=== PATIENT | male | born 1980 | race Caucasian/White ===

== ENCOUNTER 2022-12-05 15:15 | Inpatient (IN) | payer OTHER, SELFPAY ==
[2022-12-05] VITALS (12 sets, daily range): BP systolic 99–132; BP diastolic 42–78; PULSE 76–120; RESP 14–20; TEMP 36–36.8; O2SAT 98–100; BMI 18.0
--- NOTE | ~2022-12-05 | US_ITS ---
EXAMINATION: US GUIDED PARACENTESIS CLINICAL INFORMATION: Symptomatic ascites. COMPARISON: Previous CT of the abdomen and pelvis from yesterday. TECHNIQUE: Procedure and risks and benefits including bleeding, infection and low blood pressure were discussed with the patient and informed consent was obtained. The right lower quadrant/upper right pelvis was prepped and draped in the usual sterile fashion. The skin and soft tissues were anesthetized with 1% lidocaine plain. Using ultrasound guidance and a 4-[place] rapid centesis catheter, access to the ascitic fluid was obtained. 1.2 L of clear yellow fluid was removed. Diagnostic specimen was sent as requested by the ordering physician. FINDINGS: There is a [id number] amount of ascites. US/US paracentesis abd w/image IMPRESSION: Ultrasound-guided paracentesis.
--- NOTE | ~2022-12-05 | CT_ITS ---
EXAMINATION: CT ABDOMEN AND PELVIS WITHOUT CONTRAST CLINICAL INFORMATION: Abdominal pain and distention COMPARISON: Previous CT most recent December 2022, Limited abdominal ultrasound and KUB December 2022 TECHNIQUE: Multidetector volumetric imaging was performed from the superior aspect of the liver through the pubic symphysis. Sagittal and coronal reformatted images were obtained on the technologist's workstation. This CT examination was performed using dose optimization techniques as appropriate, variously including the following: *Automated exposure control *Adjustment of mA and/or kV according to patient size (this includes techniques or standardized protocols for targeted exams where dose is matched to indication/reason for exam; i.e. extremities or head) *Use of iterative reconstruction technique DLP: 405 mGy-cm FINDINGS: LUNG BASES: New moderate-sized bilateral pleural effusions and increasing lower lobe compressive atelectasis. LIVER, GALLBLADDER, AND BILIARY TREE: Enlarged liver. Increasing ascites. Gallbladder wall thickening and small amount of pericholecystic fluid. No gallstones appreciated by CT. No biliary duct dilatation. PANCREAS: Unremarkable. SPLEEN: Unremarkable. ADRENAL GLANDS: Unremarkable. KIDNEYS AND URETERS: 3 mm right lower pole nonobstructing stone. Kidneys are otherwise normal. BLADDER: Unremarkable. GASTROINTESTINAL TRACT: The small and large bowel are unremarkable. The appendix is normal. Increasing moderate amount of ascites, greatest in the pelvis. ABDOMINAL WALL: Small umbilical hernia containing fat. LYMPH NODES: Normal. VASCULAR: Unremarkable. PELVIC VISCERA: Unremarkable. OSSEOUS STRUCTURES: Unremarkable. CT/CT abdomen pelvis wo IV con IMPRESSION: Enlarged liver. Increasing ascites. Thickened gallbladder wall. Small nonobstructing right renal stone. Increasing bilateral pleural effusions. Fleischner guidelines were followed.
--- NOTE | ~2022-12-05 | US_ITS ---
EXAMINATION: ULTRASOUND-GUIDED PARACENTESIS CLINICAL INFORMATION: Ascites COMPARISON: Previous exam most recent 12/18/2022 TECHNIQUE: Procedure and risks and benefits including bleeding, infection and low blood pressure were discussed with the patient and informed consent was obtained. The lower mid abdomen/pelvis was prepped and draped in the usual sterile fashion. The skin and soft tissues were anesthetized with 1% lidocaine plain. Using ultrasound guidance and a 5 [place] catheter, access to the ascitic fluid was obtained. 2.2 L of clear yellow fluid was removed. Specimen was sent for Gram stain and culture. FINDINGS: There is a moderate amount of ascites. US/US paracentesis abd w/image IMPRESSION: Ultrasound-guided paracentesis.
--- NOTE | ~2022-12-05 | XR_ITS ---
EXAMINATION: XR ABDOMEN KUB CLINICAL INDICATION: Abdominal distention COMPARISON: CT scan of December 05, 2022 TECHNIQUE: AP view of the abdomen. FINDINGS: No dilated loops of large or small bowel are seen. There are a few gas filled loops of small bowel about the left lower abdomen predominantly with the appearance of possible wall thickening.. No pneumatosis intestinalis. A 4 mm calculus is seen adjacent to the right L3 transverse process likely representing a renal calculus. No bony abnormalities appreciated. XR/XR KUB IMPRESSION: No evidence to suggest bowel obstruction. Question some wall thickening of a few loops of small bowel within the left abdomen. Right nephrolithiasis.
--- NOTE | ~2022-12-05 | CT_ITS ---
EXAMINATION: CT CHEST WITHOUT CONTRAST CT ABDOMEN GI BLEED WITHOUT AND WITH CONTRAST. CLINICAL INFORMATION: Anemia, GI bleeding. SOB.. COMPARISON: CT abdomen and pelvis without contrast 03/25/2018 TECHNIQUE: Multidetector volumetric CT imaging of the chest was done. Axial MIP volume rendering provided. Sagittal and coronal reformatted images were obtained. Subsequently 5 minutes thin axial and reformatted 2 mm thin sagittal coronal images of abdomen pelvis were obtained without and with IV contrast as per GI bleeding protocol. This CT examination was performed using dose optimization techniques as appropriate, variously including the following: *Automated exposure control *Adjustment of mA and/or kV according to patient size (this includes techniques or standardized protocols for targeted exams where dose is matched to indication/reason for exam; i.e. 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 LUNGS: There is emphysematous changes of both lungs with bilateral apical bullae and bilateral apical parenchymal scarring. There is no acute consolidation, atelectasis or groundglass density. No pulmonary nodule or calcification seen. MEDIASTINUM: The central trachea and the bronchi widely patent. Thyroid lobes are symmetrical and normal. Heart size and the great vessels are normal caliber. No pericardial effusion seen. No abnormal-sized mediastinal or hilar lymph nodes seen. CORONARY ARTERY CALCIFICATION: None visualized on this study. PLEURA: There is no pleural effusion. There is minimal bilateral apical pleural thickening. No calcified pleural plaque seen. AXILLA: No lymphadenopathy. OSSEOUS STRUCTURES: No aggressive lytic or sclerotic process seen. CTA ABDOMEN. The abdominal aorta is of normal course and caliber. There is normal origin of celiac and superior mesenteric arteries. The inferior mesenteric artery is patent as well. There are solitary renal arteries bilaterally patent. The IVC is normal caliber both renal veins are patent. CT abdomen and pelvis: The liver is enlarged in size, normal contour and density. Liver measures 23 cm in length. No focal lesion or intrahepatic ductal dilatation seen. The gallbladder is distended without radiopaque calculi or wall thickening.. There is hypodensity surrounding the gallbladder in adjacent liver questioning fluid. Spleen: Unremarkable. Pancreas: Unremarkable. Bilateral adrenal glands: Unremarkable. Kidneys: Both kidneys nephrograms are symmetrical without enhancing lesion, cyst or hydronephrosis. There is a nonobstructive 7 mm calculi mid pole right kidney. Lymph nodes: No abnormal retroperitoneal lymph nodes seen. GI tract: There is scattered stool and gas seen throughout the colon without distention. There is mild mural thickening involving the ascending colon The distal small bowel loops in the pelvis are prominent with mural thickening. No intraluminal contrast extravasation seen to suspect bleed. Abdominal wall: Unremarkable. Pelvis: The bladder is nondistended. No free air or free fluid seen. No abnormal pelvic or inguinal lymph nodes seen. There is minimal fluid in the left scrotum. CT/CT gi bleed abd pel wo/w IVcon IMPRESSION: No acute process in the chest. There is minimal bilateral apical pleural thickening and parenchymal scarring. Mild mural thickening involving distal small bowel segments, proximal ascending colon suspicious for enteritis and proximal ascending colitis likely inflammatory or infectious etiology. No abnormal size mesenteric or retroperitoneal lymph nodes seen. Mild hepatomegaly. Distended gallbladder with periapical gallbladder fluid collection. Question acalculus cholecystitis. Consider clinical correlation and if right upper quadrant pain a HIDA scan. Nonobstructive right renal radiopaque calculi Fleischner guidelines were followed.
--- NOTE | ~2022-12-05 | US_ITS ---
EXAMINATION: US ABDOMEN LIMITED CLINICAL INFORMATION: Ascites.. COMPARISON: None TECHNIQUE: Real-time imaging of the right upper quadrant abdominal viscera. FINDINGS: Limited imaging through the right upper quadrant reveals trace free fluid in the right upper quadrant. The gallbladder wall thickness is enlarged and abnormal measuring 0.5 cm with mild fluid within the gallbladder wall.. There is mild pericystic fluid collection but no echogenic stone. There is a positive Bello's sign by sonography. US/US abdomen limited IMPRESSION: Findings suspicious for acalculus cholecystitis.
--- NOTE | ~2022-12-05 | CT_ITS ---
EXAMINATION: CT CHEST WITHOUT CONTRAST CT ABDOMEN GI BLEED WITHOUT AND WITH CONTRAST. CLINICAL INFORMATION: Anemia, GI bleeding. SOB.. COMPARISON: CT abdomen and pelvis without contrast 03/25/2018 TECHNIQUE: Multidetector volumetric CT imaging of the chest was done. Axial MIP volume rendering provided. Sagittal and coronal reformatted images were obtained. Subsequently 5 minutes thin axial and reformatted 2 mm thin sagittal coronal images of abdomen pelvis were obtained without and with IV contrast as per GI bleeding protocol. This CT examination was performed using dose optimization techniques as appropriate, variously including the following: *Automated exposure control *Adjustment of mA and/or kV according to patient size (this includes techniques or standardized protocols for targeted exams where dose is matched to indication/reason for exam; i.e. 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 LUNGS: There is emphysematous changes of both lungs with bilateral apical bullae and bilateral apical parenchymal scarring. There is no acute consolidation, atelectasis or groundglass density. No pulmonary nodule or calcification seen. MEDIASTINUM: The central trachea and the bronchi widely patent. Thyroid lobes are symmetrical and normal. Heart size and the great vessels are normal caliber. No pericardial effusion seen. No abnormal-sized mediastinal or hilar lymph nodes seen. CORONARY ARTERY CALCIFICATION: None visualized on this study. PLEURA: There is no pleural effusion. There is minimal bilateral apical pleural thickening. No calcified pleural plaque seen. AXILLA: No lymphadenopathy. OSSEOUS STRUCTURES: No aggressive lytic or sclerotic process seen. CTA ABDOMEN. The abdominal aorta is of normal course and caliber. There is normal origin of celiac and superior mesenteric arteries. The inferior mesenteric artery is patent as well. There are solitary renal arteries bilaterally patent. The IVC is normal caliber both renal veins are patent. CT abdomen and pelvis: The liver is enlarged in size, normal contour and density. Liver measures 23 cm in length. No focal lesion or intrahepatic ductal dilatation seen. The gallbladder is distended without radiopaque calculi or wall thickening.. There is hypodensity surrounding the gallbladder in adjacent liver questioning fluid. Spleen: Unremarkable. Pancreas: Unremarkable. Bilateral adrenal glands: Unremarkable. Kidneys: Both kidneys nephrograms are symmetrical without enhancing lesion, cyst or hydronephrosis. There is a nonobstructive 7 mm calculi mid pole right kidney. Lymph nodes: No abnormal retroperitoneal lymph nodes seen. GI tract: There is scattered stool and gas seen throughout the colon without distention. There is mild mural thickening involving the ascending colon The distal small bowel loops in the pelvis are prominent with mural thickening. No intraluminal contrast extravasation seen to suspect bleed. Abdominal wall: Unremarkable. Pelvis: The bladder is nondistended. No free air or free fluid seen. No abnormal pelvic or inguinal lymph nodes seen. There is minimal fluid in the left scrotum. CT/CT chest wo IV con IMPRESSION: No acute process in the chest. There is minimal bilateral apical pleural thickening and parenchymal scarring. Mild mural thickening involving distal small bowel segments, proximal ascending colon suspicious for enteritis and proximal ascending colitis likely inflammatory or infectious etiology. No abnormal size mesenteric or retroperitoneal lymph nodes seen. Mild hepatomegaly. Distended gallbladder with periapical gallbladder fluid collection. Question acalculus cholecystitis. Consider clinical correlation and if right upper quadrant pain a HIDA scan. Nonobstructive right renal radiopaque calculi Fleischner guidelines were followed.
--- NOTE | 2022-12-05 15:20 | ED.GENADULT ---
HPI - General Adult General Chief complaint: General Medical <YENNIFER Ayala - Last Filed: 12/05/22 15:26> Stated complaint: Dehydration/Anemia <YENNIFER Ayala Last Filed: 12/05/22 15:26> Time Seen by Provider: 12/05/22 16:27 <YENNIFER Ayala Last Filed: 12/05/22 15:26> Source: patient <Gi Hazel NP - Last Filed: 12/06/22 00:10> Mode of arrival: ambulatory <Gi Hazel NP - Last Filed: 12/06/22 00:10> Limitations: no limitations <Gi Hazel NP - Last Filed: 12/06/22 00:10> History of Present Illness HPI narrative: 42-year-old male presents from his primary care's office for anemia and dehydration. <SILVESTRE Cervantes Last Filed: 12/06/22 00:10> Severity: severe <SILVESTRE Cervantes Last Filed: 12/06/22 00:10> Associated symptoms: loss of appetite, nausea/vomiting and shortness of breath <Gi Hazel NP - Last Filed: 12/06/22 00:10> Treatments prior to arrival: none <Gi Hazel NP - Last Filed: 12/06/22 00:10> Related Data Home medications: Home Medications Medication Instructions Recorded Confirmed No Known Home Meds 12/05/22 12/05/22 <YENNIFER Ayala Last Filed: 12/05/22 15:26> Allergies/adverse reactions: Allergies Allergy/AdvReac Type Severity Reaction Status Date / Time No Known Allergies Allergy Verified 12/05/22 15:40 [No Known Allergies*] <YENNIFER Ayala Last Filed: 12/05/22 15:26> Review of Systems Review of Systems: Constitutional: No Fever, No Chills Cardiovascular: No Chest Pain, positive SOB Respiratory: No Cough, positive Dyspnea Gastrointestinal: Positive Nausea, positive Vomiting, No Diarrhea, positive abdominal Pain Genitourinary: No Dysuria, No Hematuria Musculoskeletal: No joint pain, No Myalgias, No Joint Swelling Skin: Positive jaundice, No Skin lacerations, No rash Neuro: Positive Weakness, No Numbness, No Paresthesias, No Dizziness, No Headache Psych: Positive alcohol abuse, No Anxiety/Panic, No Depression <Gi Hazel NP - Last Filed: 12/06/22 00:10> Yes all other systems are reviewed and are negative <Gi Hazel NP - Last Filed: 12/06/22 00:10> PMFSH Past Medical History Attestation statement: The following information was validated with the patient. <Gi Hazel NP - Last Filed: 12/06/22 00:10> Source: old records reviewed <Gi Hazel NP - Last Filed: 12/06/22 00:10> Social History Social History: Social History Alcohol intake: current Alcohol intake frequency: 3 or more drinks per day Patient Tobacco Use Status: Current everyday Tobacco user Smoked in Last 30 Days: Yes Use of substances other than those prescribed or required for medical reasons: Yes Substance Use Type: Marijuana Substance Use Frequency: Daily Advance Directives: No Advance Directives Information Provided: No <YENNIFER Ayala - Last Filed: 12/05/22 15:26> Physical Exam ED Vital Signs: Vital Signs - 24 hr 12/05/22 15:40 12/05/22 17:10 12/05/22 18:03 Temperature 96.8 F 98.1 F 98.2 F Pulse Rate 120 H 107 H 100 Respiratory Rate 20 18 18 Blood Pressure 106/53 L 132/78 120/70 Pulse Oximetry 100 100 Oxygen Delivery Method Room Air Room Air 12/05/22 18:19 12/05/22 18:30 12/05/22 19:30 Temperature 97.7 F 97.7 F 97.7 F Pulse Rate 102 H 97 109 H Respiratory Rate 18 18 18 Blood Pressure 120/68 120/68 101/74 Pulse Oximetry 100 98 Oxygen Delivery Method Room Air BMI result Body Mass Index 18.0 <YENNIFER Ayala - Last Filed: 12/05/22 15:26> Vital Signs - 24 hr 12/05/22 15:40 12/05/22 17:10 12/05/22 18:03 Temperature 96.8 F 98.1 F 98.2 F Pulse Rate 120 H 107 H 100 Respiratory Rate 20 18 18 Blood Pressure 106/53 L 132/78 120/70 Pulse Oximetry 100 100 Oxygen Delivery Method Room Air Room Air 12/05/22 18:19 12/05/22 18:30 12/05/22 19:30 Temperature 97.7 F 97.7 F 97.7 F Pulse Rate 102 H 97 109 H Respiratory Rate 18 18 18 Blood Pressure 120/68 120/68 101/74 Pulse Oximetry 100 98 Oxygen Delivery Method Room Air BMI result Body Mass Index 18.0 <Gi Hazel NP - Last Filed: 12/06/22 00:10> Appearance: Alert. Oriented. Disheveled. Jaundice. Cachectic. Eyes: Pupils equal, round and reactive to light. Sclera icteric. ENT: Pharynx normal. Dry mucous membranes. Neck: Normal inspection. CVS: Tachycardic heart rate and rhythm. Respiratory: Tachypneic. Breath sounds normal. Abdomen: Soft and distended. Skin: Skin warm and dry. Normal skin color. Normal skin turgor. Extremities: No lower extremity edema. Gait not assessed for safety. Neuro: No motor deficit. No sensory deficit. Cranial nerves 2-12 intact <Gi Hazel NP - Last Filed: 12/06/22 00:10> Course Course Course Narrative: RME performed by Jazmine Su PA-C. Patient is a 42 year old male presenting to the emergency department with a history of alcohol abuse. Dr. Hills walked the patient over and believes the patient is anemic. Labs ordered. Patient placed back in waiting room pending room availability and results. <YENNIFER Ayala Last Filed: 12/05/22 15:26> RME performed by Jazmine Su PA-C. Patient is a 42 year old male presenting to the emergency department with a history of alcohol abuse. Dr. Hills walked the patient over and believes the patient is anemic. Labs ordered. Patient placed back in waiting room pending room availability and results. 42-year-old male presents from Dr. Hills saw office for evaluation. Dr. Hills sent this patient for anemia and dehydration, this was his 1st visit to this primary care today, has been to [facility] in 2019. Patient has not had medical care since then. He drinks at least 2 pt of hard liquor daily, and is in moderate distress at this time. He is tachypneic, cachectic, with a distended abdomen and jaundice. He reports bright red blood per rectum. He has had some nausea and vomiting. Patient is a poor historian and his mother is at bedside. 16:45 critical value hemoglobin hematocrit 5.5/19.5. I did discuss the severity of these labs with this patient, patient will be admitted. 17:27 white count 27.0, platelets 123, lactic 15.9, at this time source of infection is not clear. Will resuscitate fluids 30 milliliters/kilogram, IV Zosyn. Sepsis alert called at this time. Abnormal lab values could also be due to severe alcoholism, malnutrition, dehydration and alcoholic ketoacidosis. 19:22 discussion with hospitalist, plan of care is to admit for alcohol withdrawal, lactic acidosis, colitis and acalculous cholecystitis, and sepsis. <Gi Hazel NP - Last Filed: 12/06/22 00:10> Consultations Consultation #1: Manuel <Gi Hazel NP - Last Filed: 12/06/22 00:10> Medications Administered Generic Name Dose Route Start Last Admin Trade Name Freq PRN Reason Stop Dose Admin Sodium Chloride 1,000 mls @ 100 mls/hr 12/05/22 20:30 12/05/22 20:55 Ns IVCONT 100 mls/hr .Q10H KULWANT Administration Piperacillin Sod/Tazobactam 50 mls @ 100 mls/hr 12/05/22 23:38 12/05/22 23:41 Sod 3.375 gm/ Sodium Chloride IV Infused Q6H KULWANT Infusion Albumin Human 100 mls @ 100 mls/hr 12/05/22 23:19 12/05/22 23:47 Kedbumin 25 % IV 12/06/22 00:18 Not Given ONCE ONE Nicotine 21 mg 12/05/22 22:00 12/05/22 22:19 Nicotine 21 Mg Patch.Td24 TRANSDERMA 21 mg DAILY KULWANT Administration Phenobarbital Sodium 217 mg 12/05/22 22:00 12/05/22 21:55 Phenobarbital Sodium 130 Mg/Ml Vial Im Q3hx2 IM 12/06/22 01:01 217 mg Q3H KULWANT Administration Sodium Chloride 3 ml 12/06/22 00:00 12/05/22 23:14 0.9 % Sodium Chloride Flush 3 Ml Syringe IVFLUSH 3 ml QSHIFT KULWANT Administration Discontinued Medications Generic Name Dose Route Start Last Admin Trade Name Sophia PRN Reason Stop Dose Admin Sodium Chloride 1,000 mls @ 999 mls/hr 12/05/22 16:45 12/05/22 18:38 Ns IVCONT 12/05/22 17:45 Infused .Q1H1M KULWANT Infusion Sodium Chloride 1,809.84 mls @ 1,809.84 mls/hr 12/05/22 17:29 12/05/22 20:54 Ns 30 ml/kg infuse over 1 hr (1809.84 ml) 12/05/22 18:28 Infused IV Infusion .Q1H STA Piperacillin Sod/Tazobactam 50 mls @ 100 mls/hr 12/05/22 17:29 12/05/22 19:52 Sod 3.375 gm/ Sodium Chloride IV 12/05/22 17:58 Infused ONCE ONE Infusion Thiamine HCl 100 mg/ Sodium 101 mls @ 202 mls/hr 12/05/22 18:56 12/05/22 20:54 Chloride IV 12/05/22 19:25 Infused ONCE ONE Infusion Folic Acid 1 mg/ Sodium 50.2 mls @ 100.4 mls/hr 12/05/22 18:56 12/05/22 21:34 Chloride IV 12/05/22 19:25 Infused ONCE ONE Infusion Sodium Chloride 1,000 mls @ 999 mls/hr 12/05/22 20:59 12/05/22 23:02 Ns IV 12/05/22 21:59 Infused .Q1H1M ONE Infusion Iohexol 100 ml 12/05/22 17:31 12/05/22 17:31 Iohexol 350 Mg/Ml 100 Ml Infus..Btl IV 12/05/22 17:32 80 ml ONCE ONE Administration Ondansetron HCl 4 mg 12/05/22 19:18 12/05/22 19:28 Ondansetron Hcl 4 Mg/2 Ml Vial IVPUSH 12/05/22 19:19 4 mg ONCE ONE Administration Pantoprazole Sodium 80 mg 12/05/22 20:58 12/05/22 21:51 Pantoprazole Sodium 40 Mg/10 Ml Vial IVPUSH 12/05/22 20:59 80 mg ONCE ONE Administration Phenobarbital Sodium 290 mg 12/05/22 18:15 12/05/22 18:35 Phenobarbital Sodium 130 Mg/Ml Im Once IM 12/05/22 18:16 290 mg ONCE ONE Administration <YENNIFER Ayala - Last Filed: 12/05/22 15:26> Medications Administered Generic Name Dose Route Start Last Admin Trade Name Sophia PRN Reason Stop Dose Admin Sodium Chloride 1,000 mls @ 100 mls/hr 12/05/22 20:30 12/05/22 20:55 Ns IVCONT 100 mls/hr .Q10H KULWANT Administration Piperacillin Sod/Tazobactam 50 mls @ 100 mls/hr 12/05/22 23:38 12/05/22 23:41 Sod 3.375 gm/ Sodium Chloride IV Infused Q6H KULWANT Infusion Albumin Human 100 mls @ 100 mls/hr 12/05/22 23:19 12/05/22 23:47 Kedbumin 25 % IV 12/06/22 00:18 Not Given ONCE ONE Nicotine 21 mg 12/05/22 22:00 12/05/22 22:19 Nicotine 21 Mg Patch.Td24 TRANSDERMA 21 mg DAILY KULWANT Administration Phenobarbital Sodium 217 mg 12/05/22 22:00 12/05/22 21:55 Phenobarbital Sodium 130 Mg/Ml Vial Im Q3hx2 IM 12/06/22 01:01 217 mg Q3H KULWANT Administration Sodium Chloride 3 ml 12/06/22 00:00 12/05/22 23:14 0.9 % Sodium Chloride Flush 3 Ml Syringe IVFLUSH 3 ml QSHIFT KULWANT Administration Discontinued Medications Generic Name Dose Route Start Last Admin Trade Name Sophia PRN Reason Stop Dose Admin Sodium Chloride 1,000 mls @ 999 mls/hr 12/05/22 16:45 12/05/22 18:38 Ns IVCONT 12/05/22 17:45 Infused .Q1H1M KULWANT Infusion Sodium Chloride 1,809.84 mls @ 1,809.84 mls/hr 12/05/22 17:29 12/05/22 20:54 Ns 30 ml/kg infuse over 1 hr (1809.84 ml) 12/05/22 18:28 Infused IV Infusion .Q1H STA Piperacillin Sod/Tazobactam 50 mls @ 100 mls/hr 12/05/22 17:29 12/05/22 19:52 Sod 3.375 gm/ Sodium Chloride IV 12/05/22 17:58 Infused ONCE ONE Infusion Thiamine HCl 100 mg/ Sodium 101 mls @ 202 mls/hr 12/05/22 18:56 12/05/22 20:54 Chloride IV 12/05/22 19:25 Infused ONCE ONE Infusion Folic Acid 1 mg/ Sodium 50.2 mls @ 100.4 mls/hr 12/05/22 18:56 12/05/22 21:34 Chloride IV 12/05/22 19:25 Infused ONCE ONE Infusion Sodium Chloride 1,000 mls @ 999 mls/hr 12/05/22 20:59 12/05/22 23:02 Ns IV 12/05/22 21:59 Infused .Q1H1M ONE Infusion Iohexol 100 ml 12/05/22 17:31 12/05/22 17:31 Iohexol 350 Mg/Ml 100 Ml Infus..Btl IV 12/05/22 17:32 80 ml ONCE ONE Administration Ondansetron HCl 4 mg 12/05/22 19:18 12/05/22 19:28 Ondansetron Hcl 4 Mg/2 Ml Vial IVPUSH 12/05/22 19:19 4 mg ONCE ONE Administration Pantoprazole Sodium 80 mg 12/05/22 20:58 12/05/22 21:51 Pantoprazole Sodium 40 Mg/10 Ml Vial IVPUSH 12/05/22 20:59 80 mg ONCE ONE Administration Phenobarbital Sodium 290 mg 12/05/22 18:15 12/05/22 18:35 Phenobarbital Sodium 130 Mg/Ml Im Once IM 12/05/22 18:16 290 mg ONCE ONE Administration <Gi Hazel NP - Last Filed: 12/06/22 00:10> Medical Decision Making Differential Diagnosis Differential Diagnoses: The differential diagnosis associated with the presentation includes <Gi Hazel NP - Last Filed: 12/06/22 00:10> sepsis, cholecystitis, cholelithiasis, alcoholic hepatitis, alcoholic ketoacidosis, alcohol withdrawal <Gi Hazel NP - Last Filed: 12/06/22 00:10> Admission/Observation Consideration of admission/observation: Escalation of care including admission/observation considered <Gi Hazel NP - Last Filed: 12/06/22 00:10> Consult Healthcare Provider Management of the patient was discussed with: Hospitalist <Gi Hazel NP - Last Filed: 12/06/22 00:10> Patient requires admission <Gi Hazel NP - Last Filed: 12/06/22 00:10> Lab Data MDM Lab Attestation statement: I reviewed the patient's lab results. <Gi Hazel NP - Last Filed: 12/06/22 00:10> Result Diagrams: 12/05/22 16:10 12/05/22 16:10 <YENNIFER Ayala - Last Filed: 12/05/22 15:26> Labs: Lab Results 12/05/22 12/05/22 12/05/22 Range/Units 16:10 16:10 16:10 WBC 27.0 H (4.8-10.8) X10*3/uL RBC 2.63 L (4.60-5.80) X10*6/uL Hgb 5.5 L* (14.0-18.0) g/dl Hct 19.5 L* (42.0-52.0) % MCV 74.1 L (80.0-98.0) fL MCH 20.9 L (27.0-33.0) pg MCHC 28.2 L (31.0-36.0) g/dl RDW 21.0 H (11.0-16.0) % Plt Count 123 L (160-400) X10*3/uL MPV 11.3 (9.4-12.4) fL Immature Gran % (Auto) Cancelled Neut % (Auto) Cancelled Lymph % (Auto) Cancelled [place] % (Auto) Cancelled Eos % (Auto) Cancelled Baso % (Auto) Cancelled Lymph # (Auto) Cancelled [place] # (Auto) Cancelled Eos # (Auto) Cancelled Baso # (Auto) Cancelled Abs Immat Gran (auto) Cancelled Absolute Neuts (auto) Cancelled Absolute Nucleated RBC 0.800 H (0.0-0.012) X10*3/uL Nucleated RBC % (auto) 3.0 H (0.0-0.2) /100WBC Neutrophils % (Manual) 84 H (45-73) % Band Neutrophils % 9 H (3-5) % Lymphocytes % (Manual) 4 L (20-40) % Monocytes % (Manual) 3 (2-11) % Abs Neuts (Manual) 25.1 H (2.0-8.3) X10*3/uL Lymphocytes # (Manual) 1.1 L (1.2-4.9) X10*3/uL Monocytes # (Manual) 0.8 (0.1-1.2) X10*3/uL Nucleated RBCs 2 H (0-0) /100WBC Toxic Granulation PRESENT Dohle Bodies PRESENT Platelet Estimate DECREASED (NORMAL) Large Platelets PRESENT Plt Morphology Comment NOTED RBC Morphology NOTED Basophilic Stippling 1+ (0-2) /OIF Microcytosis 2+ (15-30) /OIF Target Cells 1+ (5-14) /OIF Tear Drop Cells 2+ (3-5) /OIF Gina Cells 2+ (3-5) /OIF PT 20.4 H (10.0-13.1) SEC INR 1.7 H (0.9-1.1) APTT 30.3 (26.0-36.4) SEC VBG pH (7.32-7.43) VBG pCO2 mmHg VBG pO2 mmHg VBG HCO3 (22-26) mmol/L VBG O2 Saturation VBG Base Excess mmol/L Sodium 130 L (135-145) mmol/L Potassium 4.2 (3.3-5.1) mmol/L Chloride 84 L (96-108) mmol/L Carbon Dioxide 13 L (22-29) mmol/L Anion Gap 38 H (12-20) BUN 25 H (9-16) mg/dL Creatinine 1.00 (0.5-1.4) mg/dL Estim Creat Clear Calc 83.7 Estimated GFR > 60 Random Glucose 152 H (60-115) mg/dL Lactic Acid (0.5-2.0) mmol/L Lactic Acid F/U @ 2Hr (0.5-2.0) mmol/L Calcium 9.5 (8.4-10.2) mg/dL Magnesium 2.1 (1.6-2.6) mg/dL Total Bilirubin 2.6 H (0.0-1.0) mg/dL AST 95 H (5-37) U/L ALT 42 H (0-40) U/L Alkaline Phosphatase 230 H (39-117) U/L Ammonia (13-55) umol/L Troponin I High Sens (<3.5-35.0) ng/L Total Protein 6.9 (6.5-8.0) g/dL Albumin 3.7 (3.5-5.0) g/dL Urine Color Urine Appearance Urine pH (5.0-9.0) Ur Specific [place] (1.005-1.025) Urine Protein (Neg-Trace) mg/dL Urine Glucose (UA) (Negative) mg/dL Urine Ketones (Negative) mg/dL Urine Blood (Negative) Urine Nitrite (Negative) Ur Leukocyte Esterase (Negative) Urine Opiates Screen (Not Detect) Urine Fentanyl Screen (Not Detect) Ur Barbiturates Screen (Not Detect) Ur Phencyclidine Scrn (Not Detect) Ur Amphetamines Screen (Not Detect) U Benzodiazepines Scrn (Not Detect) Urine Cocaine Screen (Not Detect) U Marijuana (THC) Screen (Not Detect) Ethyl Alcohol mg/dL COVID-19 ([facility]) (Negative) COVID-19 Clin Com Blood Type Antibody Screen Crossmatch 12/05/22 12/05/22 12/05/22 Range/Units 16:10 16:10 16:55 WBC (4.8-10.8) X10*3/uL RBC (4.60-5.80) X10*6/uL Hgb (14.0-18.0) g/dl Hct (42.0-52.0) % MCV (80.0-98.0) fL MCH (27.0-33.0) pg MCHC (31.0-36.0) g/dl RDW (11.0-16.0) % Plt Count (160-400) X10*3/uL MPV (9.4-12.4) fL Immature Gran % (Auto) Neut % (Auto) Lymph % (Auto) [place] % (Auto) Eos % (Auto) Baso % (Auto) Lymph # (Auto) [place] # (Auto) Eos # (Auto) Baso # (Auto) Abs Immat Gran (auto) Absolute Neuts (auto) Absolute Nucleated RBC (0.0-0.012) X10*3/uL Nucleated RBC % (auto) (0.0-0.2) /100WBC Neutrophils % (Manual) (45-73) % Band Neutrophils % (3-5) % Lymphocytes % (Manual) (20-40) % Monocytes % (Manual) (2-11) % Abs Neuts (Manual) (2.0-8.3) X10*3/uL Lymphocytes # (Manual) (1.2-4.9) X10*3/uL Monocytes # (Manual) (0.1-1.2) X10*3/uL Nucleated RBCs (0-0) /100WBC Toxic Granulation Dohle Bodies Platelet Estimate (NORMAL) Large Platelets Plt Morphology Comment RBC Morphology Basophilic Stippling /OIF Microcytosis /OIF Target Cells /OIF Tear Drop Cells /OIF [place] Cells /OIF PT (10.0-13.1) SEC INR (0.9-1.1) APTT (26.0-36.4) SEC VBG pH (7.32-7.43) VBG pCO2 mmHg VBG pO2 mmHg VBG HCO3 (22-26) mmol/L VBG O2 Saturation VBG Base Excess mmol/L Sodium (135-145) mmol/L Potassium (3.3-5.1) mmol/L Chloride (96-108) mmol/L Carbon Dioxide (22-29) mmol/L Anion Gap (12-20) BUN (9-16) mg/dL Creatinine (0.5-1.4) mg/dL Estim Creat Clear Calc Estimated GFR Random Glucose (60-115) mg/dL Lactic Acid 15.9 H* (0.5-2.0) mmol/L Lactic Acid F/U @ 2Hr (0.5-2.0) mmol/L Calcium (8.4-10.2) mg/dL Magnesium (1.6-2.6) mg/dL Total Bilirubin (0.0-1.0) mg/dL AST (5-37) U/L ALT (0-40) U/L Alkaline Phosphatase (39-117) U/L Ammonia (13-55) umol/L Troponin I High Sens (<3.5-35.0) ng/L Total Protein (6.5-8.0) g/dL Albumin (3.5-5.0) g/dL Urine Color Urine Appearance Urine pH (5.0-9.0) Ur Specific [place] (1.005-1.025) Urine Protein (Neg-Trace) mg/dL Urine Glucose (UA) (Negative) mg/dL Urine Ketones (Negative) mg/dL Urine Blood (Negative) Urine Nitrite (Negative) Ur Leukocyte Esterase (Negative) Urine Opiates Screen (Not Detect) Urine Fentanyl Screen (Not Detect) Ur Barbiturates Screen (Not Detect) Ur Phencyclidine Scrn (Not Detect) Ur Amphetamines Screen (Not Detect) U Benzodiazepines Scrn (Not Detect) Urine Cocaine Screen (Not Detect) U Marijuana (THC) Screen (Not Detect) Ethyl Alcohol mg/dL COVID-19 ([facility]) Negative (Negative) COVID-19 Clin Com See Note Blood Type A Positive Antibody Screen NEGATIVE Crossmatch See Detail 12/05/22 12/05/22 12/05/22 Range/Units 16:55 16:55 16:55 WBC (4.8-10.8) X10*3/uL RBC (4.60-5.80) X10*6/uL Hgb (14.0-18.0) g/dl Hct (42.0-52.0) % MCV (80.0-98.0) fL MCH (27.0-33.0) pg MCHC (31.0-36.0) g/dl RDW (11.0-16.0) % Plt Count (160-400) X10*3/uL MPV (9.4-12.4) fL Immature Gran % (Auto) Neut % (Auto) Lymph % (Auto) [place] % (Auto) Eos % (Auto) Baso % (Auto) Lymph # (Auto) [place] # (Auto) Eos # (Auto) Baso # (Auto) Abs Immat Gran (auto) Absolute Neuts (auto) Absolute Nucleated RBC (0.0-0.012) X10*3/uL Nucleated RBC % (auto) (0.0-0.2) /100WBC Neutrophils % (Manual) (45-73) % Band Neutrophils % (3-5) % Lymphocytes % (Manual) (20-40) % Monocytes % (Manual) (2-11) % Abs Neuts (Manual) (2.0-8.3) X10*3/uL Lymphocytes # (Manual) (1.2-4.9) X10*3/uL Monocytes # (Manual) (0.1-1.2) X10*3/uL Nucleated RBCs (0-0) /100WBC Toxic Granulation Dohle Bodies Platelet Estimate (NORMAL) Large Platelets Plt Morphology Comment RBC Morphology Basophilic Stippling /OIF Microcytosis /OIF Target Cells /OIF Tear Drop Cells /OIF Gina Cells /OIF PT (10.0-13.1) SEC INR (0.9-1.1) APTT (26.0-36.4) SEC VBG pH (7.32-7.43) VBG pCO2 mmHg VBG pO2 mmHg VBG HCO3 (22-26) mmol/L VBG O2 Saturation VBG Base Excess mmol/L Sodium (135-145) mmol/L Potassium (3.3-5.1) mmol/L Chloride (96-108) mmol/L Carbon Dioxide (22-29) mmol/L Anion Gap (12-20) BUN (9-16) mg/dL Creatinine (0.5-1.4) mg/dL Estim Creat Clear Calc Estimated GFR Random Glucose (60-115) mg/dL Lactic Acid (0.5-2.0) mmol/L Lactic Acid F/U @ 2Hr (0.5-2.0) mmol/L Calcium (8.4-10.2) mg/dL Magnesium 2.1 (1.6-2.6) mg/dL Total Bilirubin (0.0-1.0) mg/dL AST (5-37) U/L ALT (0-40) U/L Alkaline Phosphatase (39-117) U/L Ammonia 26 (13-55) umol/L Troponin I High Sens < 3.5 (<3.5-35.0) ng/L Total Protein (6.5-8.0) g/dL Albumin (3.5-5.0) g/dL Urine Color Urine Appearance Urine pH (5.0-9.0) Ur Specific [place] (1.005-1.025) Urine Protein (Neg-Trace) mg/dL Urine Glucose (UA) (Negative) mg/dL Urine Ketones (Negative) mg/dL Urine Blood (Negative) Urine Nitrite (Negative) Ur Leukocyte Esterase (Negative) Urine Opiates Screen (Not Detect) Urine Fentanyl Screen (Not Detect) Ur Barbiturates Screen (Not Detect) Ur Phencyclidine Scrn (Not Detect) Ur Amphetamines Screen (Not Detect) U Benzodiazepines Scrn (Not Detect) Urine Cocaine Screen (Not Detect) U Marijuana (THC) Screen (Not Detect) Ethyl Alcohol < 10 mg/dL COVID-19 ([facility]) (Negative) COVID-19 Clin Com Blood Type Antibody Screen Crossmatch 12/05/22 12/05/22 12/05/22 Range/Units 19:01 19:01 19:40 WBC (4.8-10.8) X10*3/uL RBC (4.60-5.80) X10*6/uL Hgb (14.0-18.0) g/dl Hct (42.0-52.0) % MCV (80.0-98.0) fL MCH (27.0-33.0) pg MCHC (31.0-36.0) g/dl RDW (11.0-16.0) % Plt Count (160-400) X10*3/uL MPV (9.4-12.4) fL Immature Gran % (Auto) Neut % (Auto) Lymph % (Auto) [place] % (Auto) Eos % (Auto) Baso % (Auto) Lymph # (Auto) [place] # (Auto) Eos # (Auto) Baso # (Auto) Abs Immat Gran (auto) Absolute Neuts (auto) Absolute Nucleated RBC (0.0-0.012) X10*3/uL Nucleated RBC % (auto) (0.0-0.2) /100WBC Neutrophils % (Manual) (45-73) % Band Neutrophils % (3-5) % Lymphocytes % (Manual) (20-40) % Monocytes % (Manual) (2-11) % Abs Neuts (Manual) (2.0-8.3) X10*3/uL Lymphocytes # (Manual) (1.2-4.9) X10*3/uL Monocytes # (Manual) (0.1-1.2) X10*3/uL Nucleated RBCs (0-0) /100WBC Toxic Granulation Dohle Bodies Platelet Estimate (NORMAL) Large Platelets Plt Morphology Comment RBC Morphology Basophilic Stippling /OIF Microcytosis /OIF Target Cells /OIF Tear Drop Cells /OIF [place] Cells /OIF PT (10.0-13.1) SEC INR (0.9-1.1) APTT (26.0-36.4) SEC VBG pH (7.32-7.43) VBG pCO2 mmHg VBG pO2 mmHg VBG HCO3 (22-26) mmol/L VBG O2 Saturation VBG Base Excess mmol/L Sodium 132 L (135-145) mmol/L Potassium 3.4 (3.3-5.1) mmol/L Chloride 93 L (96-108) mmol/L Carbon Dioxide 15 L (22-29) mmol/L Anion Gap 27 H (12-20) BUN 22 H (9-16) mg/dL Creatinine 0.74 (0.5-1.4) mg/dL Estim Creat Clear Calc 113.2 Estimated GFR > 60 Random Glucose 115 (60-115) mg/dL Lactic Acid (0.5-2.0) mmol/L Lactic Acid F/U @ 2Hr (0.5-2.0) mmol/L Calcium 7.9 L D (8.4-10.2) mg/dL Magnesium (1.6-2.6) mg/dL Total Bilirubin (0.0-1.0) mg/dL AST (5-37) U/L ALT (0-40) U/L Alkaline Phosphatase (39-117) U/L Ammonia (13-55) umol/L Troponin I High Sens (<3.5-35.0) ng/L Total Protein (6.5-8.0) g/dL Albumin (3.5-5.0) g/dL Urine Color Dark Yellow Urine Appearance Clear Urine pH 5.0 (5.0-9.0) Ur Specific [place] >= 1.030 H (1.005-1.025) Urine Protein Trace (Neg-Trace) mg/dL Urine Glucose (UA) Negative (Negative) mg/dL Urine Ketones 15 (Negative) mg/dL Urine Blood Negative (Negative) Urine Nitrite Negative (Negative) Ur Leukocyte Esterase Negative (Negative) Urine Opiates Screen Not Detected (Not Detect) Urine Fentanyl Screen Not Detected (Not Detect) Ur Barbiturates Screen Not Detected (Not Detect) Ur Phencyclidine Scrn Not Detected (Not Detect) Ur Amphetamines Screen Not Detected (Not Detect) U Benzodiazepines Scrn Not Detected (Not Detect) Urine Cocaine Screen Not Detected (Not Detect) U Marijuana (THC) Screen POSITIVE H (Not Detect) Ethyl Alcohol mg/dL COVID-19 (WOJCIECH) (Negative) COVID-19 Clin Com Blood Type Antibody Screen Crossmatch 12/05/22 12/05/22 Range/Units 19:40 19:51 WBC (4.8-10.8) X10*3/uL RBC (4.60-5.80) X10*6/uL Hgb (14.0-18.0) g/dl Hct (42.0-52.0) % MCV (80.0-98.0) fL MCH (27.0-33.0) pg MCHC (31.0-36.0) g/dl RDW (11.0-16.0) % Plt Count (160-400) X10*3/uL MPV (9.4-12.4) fL Immature Gran % (Auto) Neut % (Auto) Lymph % (Auto) [place] % (Auto) Eos % (Auto) Baso % (Auto) Lymph # (Auto) [place] # (Auto) Eos # (Auto) Baso # (Auto) Abs Immat Gran (auto) Absolute Neuts (auto) Absolute Nucleated RBC (0.0-0.012) X10*3/uL Nucleated RBC % (auto) (0.0-0.2) /100WBC Neutrophils % (Manual) (45-73) % Band Neutrophils % (3-5) % Lymphocytes % (Manual) (20-40) % Monocytes % (Manual) (2-11) % Abs Neuts (Manual) (2.0-8.3) X10*3/uL Lymphocytes # (Manual) (1.2-4.9) X10*3/uL Monocytes # (Manual) (0.1-1.2) X10*3/uL Nucleated RBCs (0-0) /100WBC Toxic Granulation Dohle Bodies Platelet Estimate (NORMAL) Large Platelets Plt Morphology Comment RBC Morphology Basophilic Stippling /OIF Microcytosis /OIF Target Cells /OIF Tear Drop Cells /OIF [place]ina Cells /OIF PT (10.0-13.1) SEC INR (0.9-1.1) APTT (26.0-36.4) SEC VBG pH 7.48 H (7.32-7.43) VBG pCO2 22 mmHg VBG pO2 46 mmHg VBG HCO3 17 L (22-26) mmol/L VBG O2 Saturation TNP VBG Base Excess -5.2 mmol/L Sodium (135-145) mmol/L Potassium (3.3-5.1) mmol/L Chloride (96-108) mmol/L Carbon Dioxide (22-29) mmol/L Anion Gap (12-20) BUN (9-16) mg/dL Creatinine (0.5-1.4) mg/dL Estim Creat Clear Calc Estimated GFR Random Glucose (60-115) mg/dL Lactic Acid (0.5-2.0) mmol/L Lactic Acid F/U @ 2Hr 12.0 H* (0.5-2.0) mmol/L Calcium (8.4-10.2) mg/dL Magnesium (1.6-2.6) mg/dL Total Bilirubin (0.0-1.0) mg/dL AST (5-37) U/L ALT (0-40) U/L Alkaline Phosphatase (39-117) U/L Ammonia (13-55) umol/L Troponin I High Sens (<3.5-35.0) ng/L Total Protein (6.5-8.0) g/dL Albumin (3.5-5.0) g/dL Urine Color Urine Appearance Urine pH (5.0-9.0) Ur Specific [place] (1.005-1.025) Urine Protein (Neg-Trace) mg/dL Urine Glucose (UA) (Negative) mg/dL Urine Ketones (Negative) mg/dL Urine Blood (Negative) Urine Nitrite (Negative) Ur Leukocyte Esterase (Negative) Urine Opiates Screen (Not Detect) Urine Fentanyl Screen (Not Detect) Ur Barbiturates Screen (Not Detect) Ur Phencyclidine Scrn (Not Detect) Ur Amphetamines Screen (Not Detect) U Benzodiazepines Scrn (Not Detect) Urine Cocaine Screen (Not Detect) U Marijuana (THC) Screen (Not Detect) Ethyl Alcohol mg/dL COVID-19 ([facility]) (Negative) COVID-19 Clin Com Blood Type Antibody Screen Crossmatch <YENNIFER Ayala - Last Filed: 12/05/22 15:26> Lab Results 12/05/22 12/05/22 12/05/22 Range/Units 16:10 16:10 16:10 WBC 27.0 H (4.8-10.8) X10*3/uL RBC 2.63 L (4.60-5.80) X10*6/uL Hgb 5.5 L* (14.0-18.0) g/dl Hct 19.5 L* (42.0-52.0) % MCV 74.1 L (80.0-98.0) fL MCH 20.9 L (27.0-33.0) pg MCHC 28.2 L (31.0-36.0) g/dl RDW 21.0 H (11.0-16.0) % Plt Count 123 L (160-400) X10*3/uL MPV 11.3 (9.4-12.4) fL Immature Gran % (Auto) Cancelled Neut % (Auto) Cancelled Lymph % (Auto) Cancelled [place] % (Auto) Cancelled Eos % (Auto) Cancelled Baso % (Auto) Cancelled Lymph # (Auto) Cancelled [place] # (Auto) Cancelled Eos # (Auto) Cancelled Baso # (Auto) Cancelled Abs Immat Gran (auto) Cancelled Absolute Neuts (auto) Cancelled Absolute Nucleated RBC 0.800 H (0.0-0.012) X10*3/uL Nucleated RBC % (auto) 3.0 H (0.0-0.2) /100WBC Neutrophils % (Manual) 84 H (45-73) % Band Neutrophils % 9 H (3-5) % Lymphocytes % (Manual) 4 L (20-40) % Monocytes % (Manual) 3 (2-11) % Abs Neuts (Manual) 25.1 H (2.0-8.3) X10*3/uL Lymphocytes # (Manual) 1.1 L (1.2-4.9) X10*3/uL Monocytes # (Manual) 0.8 (0.1-1.2) X10*3/uL Nucleated RBCs 2 H (0-0) /100WBC Toxic Granulation PRESENT Dohle Bodies PRESENT Platelet Estimate DECREASED (NORMAL) Large Platelets PRESENT Plt Morphology Comment NOTED RBC Morphology NOTED Basophilic Stippling 1+ (0-2) /OIF Microcytosis 2+ (15-30) /OIF Target Cells 1+ (5-14) /OIF Tear Drop Cells 2+ (3-5) /OIF [place] Cells 2+ (3-5) /OIF PT 20.4 H (10.0-13.1) SEC INR 1.7 H (0.9-1.1) APTT 30.3 (26.0-36.4) SEC VBG pH (7.32-7.43) VBG pCO2 mmHg VBG pO2 mmHg VBG HCO3 (22-26) mmol/L VBG O2 Saturation VBG Base Excess mmol/L Sodium 130 L (135-145) mmol/L Potassium 4.2 (3.3-5.1) mmol/L Chloride 84 L (96-108) mmol/L Carbon Dioxide 13 L (22-29) mmol/L Anion Gap 38 H (12-20) BUN 25 H (9-16) mg/dL Creatinine 1.00 (0.5-1.4) mg/dL Estim Creat Clear Calc 83.7 Estimated GFR > 60 Random Glucose 152 H (60-115) mg/dL Lactic Acid (0.5-2.0) mmol/L Lactic Acid F/U @ 2Hr (0.5-2.0) mmol/L Calcium 9.5 (8.4-10.2) mg/dL Magnesium 2.1 (1.6-2.6) mg/dL Total Bilirubin 2.6 H (0.0-1.0) mg/dL AST 95 H (5-37) U/L ALT 42 H (0-40) U/L Alkaline Phosphatase 230 H (39-117) U/L Ammonia (13-55) umol/L Troponin I High Sens (<3.5-35.0) ng/L Total Protein 6.9 (6.5-8.0) g/dL Albumin 3.7 (3.5-5.0) g/dL Urine Color Urine Appearance Urine pH (5.0-9.0) Ur Specific [place] (1.005-1.025) Urine Protein (Neg-Trace) mg/dL Urine Glucose (UA) (Negative) mg/dL Urine Ketones (Negative) mg/dL Urine Blood (Negative) Urine Nitrite (Negative) Ur Leukocyte Esterase (Negative) Urine Opiates Screen (Not Detect) Urine Fentanyl Screen (Not Detect) Ur Barbiturates Screen (Not Detect) Ur Phencyclidine Scrn (Not Detect) Ur Amphetamines Screen (Not Detect) U Benzodiazepines Scrn (Not Detect) Urine Cocaine Screen (Not Detect) U Marijuana (THC) Screen (Not Detect) Ethyl Alcohol mg/dL COVID-19 ([facility]) (Negative) COVID-19 Clin Com Blood Type Antibody Screen Crossmatch 12/05/22 12/05/22 12/05/22 Range/Units 16:10 16:10 16:55 WBC (4.8-10.8) X10*3/uL RBC (4.60-5.80) X10*6/uL Hgb (14.0-18.0) g/dl Hct (42.0-52.0) % MCV (80.0-98.0) fL MCH (27.0-33.0) pg MCHC (31.0-36.0) g/dl RDW (11.0-16.0) % Plt Count (160-400) X10*3/uL MPV (9.4-12.4) fL Immature Gran % (Auto) Neut % (Auto) Lymph % (Auto) [place] % (Auto) Eos % (Auto) Baso % (Auto) Lymph # (Auto) [place] # (Auto) Eos # (Auto) Baso # (Auto) Abs Immat Gran (auto) Absolute Neuts (auto) Absolute Nucleated RBC (0.0-0.012) X10*3/uL Nucleated RBC % (auto) (0.0-0.2) /100WBC Neutrophils % (Manual) (45-73) % Band Neutrophils % (3-5) % Lymphocytes % (Manual) (20-40) % Monocytes % (Manual) (2-11) % Abs Neuts (Manual) (2.0-8.3) X10*3/uL Lymphocytes # (Manual) (1.2-4.9) X10*3/uL Monocytes # (Manual) (0.1-1.2) X10*3/uL Nucleated RBCs (0-0) /100WBC Toxic Granulation Dohle Bodies Platelet Estimate (NORMAL) Large Platelets Plt Morphology Comment RBC Morphology Basophilic Stippling /OIF Microcytosis /OIF Target Cells /OIF Tear Drop Cells /OIF Gina Cells /OIF PT (10.0-13.1) SEC INR (0.9-1.1) APTT (26.0-36.4) SEC VBG pH (7.32-7.43) VBG pCO2 mmHg VBG pO2 mmHg VBG HCO3 (22-26) mmol/L VBG O2 Saturation VBG Base Excess mmol/L Sodium (135-145) mmol/L Potassium (3.3-5.1) mmol/L Chloride (96-108) mmol/L Carbon Dioxide (22-29) mmol/L Anion Gap (12-20) BUN (9-16) mg/dL Creatinine (0.5-1.4) mg/dL Estim Creat Clear Calc Estimated GFR Random Glucose (60-115) mg/dL Lactic Acid 15.9 H* (0.5-2.0) mmol/L Lactic Acid F/U @ 2Hr (0.5-2.0) mmol/L Calcium (8.4-10.2) mg/dL Magnesium (1.6-2.6) mg/dL Total Bilirubin (0.0-1.0) mg/dL AST (5-37) U/L ALT (0-40) U/L Alkaline Phosphatase (39-117) U/L Ammonia (13-55) umol/L Troponin I High Sens (<3.5-35.0) ng/L Total Protein (6.5-8.0) g/dL Albumin (3.5-5.0) g/dL Urine Color Urine Appearance Urine pH (5.0-9.0) Ur Specific [place] (1.005-1.025) Urine Protein (Neg-Trace) mg/dL Urine Glucose (UA) (Negative) mg/dL Urine Ketones (Negative) mg/dL Urine Blood (Negative) Urine Nitrite (Negative) Ur Leukocyte Esterase (Negative) Urine Opiates Screen (Not Detect) Urine Fentanyl Screen (Not Detect) Ur Barbiturates Screen (Not Detect) Ur Phencyclidine Scrn (Not Detect) Ur Amphetamines Screen (Not Detect) U Benzodiazepines Scrn (Not Detect) Urine Cocaine Screen (Not Detect) U Marijuana (THC) Screen (Not Detect) Ethyl Alcohol mg/dL COVID-19 ([facility]) Negative (Negative) COVID-19 Clin Com See Note Blood Type A Positive Antibody Screen NEGATIVE Crossmatch See Detail 12/05/22 12/05/22 12/05/22 Range/Units 16:55 16:55 16:55 WBC (4.8-10.8) X10*3/uL RBC (4.60-5.80) X10*6/uL Hgb (14.0-18.0) g/dl Hct (42.0-52.0) % MCV (80.0-98.0) fL MCH (27.0-33.0) pg MCHC (31.0-36.0) g/dl RDW (11.0-16.0) % Plt Count (160-400) X10*3/uL MPV (9.4-12.4) fL Immature Gran % (Auto) Neut % (Auto) Lymph % (Auto) [place] % (Auto) Eos % (Auto) Baso % (Auto) Lymph # (Auto) [place] # (Auto) Eos # (Auto) Baso # (Auto) Abs Immat Gran (auto) Absolute Neuts (auto) Absolute Nucleated RBC (0.0-0.012) X10*3/uL Nucleated RBC % (auto) (0.0-0.2) /100WBC Neutrophils % (Manual) (45-73) % Band Neutrophils % (3-5) % Lymphocytes % (Manual) (20-40) % Monocytes % (Manual) (2-11) % Abs Neuts (Manual) (2.0-8.3) X10*3/uL Lymphocytes # (Manual) (1.2-4.9) X10*3/uL Monocytes # (Manual) (0.1-1.2) X10*3/uL Nucleated RBCs (0-0) /100WBC Toxic Granulation [place] Bodies Platelet Estimate (NORMAL) Large Platelets Plt Morphology Comment RBC Morphology Basophilic Stippling /OIF Microcytosis /OIF Target Cells /OIF Tear Drop Cells /OIF [place] Cells /OIF PT (10.0-13.1) SEC INR (0.9-1.1) APTT (26.0-36.4) SEC VBG pH (7.32-7.43) VBG pCO2 mmHg VBG pO2 mmHg VBG HCO3 (22-26) mmol/L VBG O2 Saturation VBG Base Excess mmol/L Sodium (135-145) mmol/L Potassium (3.3-5.1) mmol/L Chloride (96-108) mmol/L Carbon Dioxide (22-29) mmol/L Anion Gap (12-20) BUN (9-16) mg/dL Creatinine (0.5-1.4) mg/dL Estim Creat Clear Calc Estimated GFR Random Glucose (60-115) mg/dL Lactic Acid (0.5-2.0) mmol/L Lactic Acid F/U @ 2Hr (0.5-2.0) mmol/L Calcium (8.4-10.2) mg/dL Magnesium 2.1 (1.6-2.6) mg/dL Total Bilirubin (0.0-1.0) mg/dL AST (5-37) U/L ALT (0-40) U/L Alkaline Phosphatase (39-117) U/L Ammonia 26 (13-55) umol/L Troponin I High Sens < 3.5 (<3.5-35.0) ng/L Total Protein (6.5-8.0) g/dL Albumin (3.5-5.0) g/dL Urine Color Urine Appearance Urine pH (5.0-9.0) Ur Specific [place] (1.005-1.025) Urine Protein (Neg-Trace) mg/dL Urine Glucose (UA) (Negative) mg/dL Urine Ketones (Negative) mg/dL Urine Blood (Negative) Urine Nitrite (Negative) Ur Leukocyte Esterase (Negative) Urine Opiates Screen (Not Detect) Urine Fentanyl Screen (Not Detect) Ur Barbiturates Screen (Not Detect) Ur Phencyclidine Scrn (Not Detect) Ur Amphetamines Screen (Not Detect) U Benzodiazepines Scrn (Not Detect) Urine Cocaine Screen (Not Detect) U Marijuana (THC) Screen (Not Detect) Ethyl Alcohol < 10 mg/dL COVID-19 ([facility]) (Negative) COVID-19 Clin Com Blood Type Antibody Screen Crossmatch 12/05/22 12/05/22 12/05/22 Range/Units 19:01 19:01 19:40 WBC (4.8-10.8) X10*3/uL RBC (4.60-5.80) X10*6/uL Hgb (14.0-18.0) g/dl Hct (42.0-52.0) % MCV (80.0-98.0) fL MCH (27.0-33.0) pg MCHC (31.0-36.0) g/dl RDW (11.0-16.0) % Plt Count (160-400) X10*3/uL MPV (9.4-12.4) fL Immature Gran % (Auto) Neut % (Auto) Lymph % (Auto) [place] % (Auto) Eos % (Auto) Baso % (Auto) Lymph # (Auto) [place] # (Auto) Eos # (Auto) Baso # (Auto) Abs Immat Gran (auto) Absolute Neuts (auto) Absolute Nucleated RBC (0.0-0.012) X10*3/uL Nucleated RBC % (auto) (0.0-0.2) /100WBC Neutrophils % (Manual) (45-73) % Band Neutrophils % (3-5) % Lymphocytes % (Manual) (20-40) % Monocytes % (Manual) (2-11) % Abs Neuts (Manual) (2.0-8.3) X10*3/uL Lymphocytes # (Manual) (1.2-4.9) X10*3/uL Monocytes # (Manual) (0.1-1.2) X10*3/uL Nucleated RBCs (0-0) /100WBC Toxic Granulation [place]oh[place] Bodies Platelet Estimate (NORMAL) Large Platelets Plt Morphology Comment RBC Morphology Basophilic Stippling /OIF Microcytosis /OIF Target Cells /OIF Tear Drop Cells /OIF [place] Cells /OIF PT (10.0-13.1) SEC INR (0.9-1.1) APTT (26.0-36.4) SEC VBG pH (7.32-7.43) VBG pCO2 mmHg VBG pO2 mmHg VBG HCO3 (22-26) mmol/L VBG O2 Saturation VBG Base Excess mmol/L Sodium 132 L (135-145) mmol/L Potassium 3.4 (3.3-5.1) mmol/L Chloride 93 L (96-108) mmol/L Carbon Dioxide 15 L (22-29) mmol/L Anion Gap 27 H (12-20) BUN 22 H (9-16) mg/dL Creatinine 0.74 (0.5-1.4) mg/dL Estim Creat Clear Calc 113.2 Estimated GFR > 60 Random Glucose 115 (60-115) mg/dL Lactic Acid (0.5-2.0) mmol/L Lactic Acid F/U @ 2Hr (0.5-2.0) mmol/L Calcium 7.9 L D (8.4-10.2) mg/dL Magnesium (1.6-2.6) mg/dL Total Bilirubin (0.0-1.0) mg/dL AST (5-37) U/L ALT (0-40) U/L Alkaline Phosphatase (39-117) U/L Ammonia (13-55) umol/L Troponin I High Sens (<3.5-35.0) ng/L Total Protein (6.5-8.0) g/dL Albumin (3.5-5.0) g/dL Urine Color Dark Yellow Urine Appearance Clear Urine pH 5.0 (5.0-9.0) Ur Specific [place] >= 1.030 H (1.005-1.025) Urine Protein Trace (Neg-Trace) mg/dL Urine Glucose (UA) Negative (Negative) mg/dL Urine Ketones 15 (Negative) mg/dL Urine Blood Negative (Negative) Urine Nitrite Negative (Negative) Ur Leukocyte Esterase Negative (Negative) Urine Opiates Screen Not Detected (Not Detect) Urine Fentanyl Screen Not Detected (Not Detect) Ur Barbiturates Screen Not Detected (Not Detect) Ur Phencyclidine Scrn Not Detected (Not Detect) Ur Amphetamines Screen Not Detected (Not Detect) U Benzodiazepines Scrn Not Detected (Not Detect) Urine Cocaine Screen Not Detected (Not Detect) U Marijuana (THC) Screen POSITIVE H (Not Detect) Ethyl Alcohol mg/dL COVID-19 ([facility]) (Negative) COVID-19 Clin Com Blood Type Antibody Screen Crossmatch 12/05/22 12/05/22 Range/Units 19:40 19:51 WBC (4.8-10.8) X10*3/uL RBC (4.60-5.80) X10*6/uL Hgb (14.0-18.0) g/dl Hct (42.0-52.0) % MCV (80.0-98.0) fL MCH (27.0-33.0) pg MCHC (31.0-36.0) g/dl RDW (11.0-16.0) % Plt Count (160-400) X10*3/uL MPV (9.4-12.4) fL Immature Gran % (Auto) Neut % (Auto) Lymph % (Auto) [place] % (Auto) Eos % (Auto) Baso % (Auto) Lymph # (Auto) [place] # (Auto) Eos # (Auto) Baso # (Auto) Abs Immat Gran (auto) Absolute Neuts (auto) Absolute Nucleated RBC (0.0-0.012) X10*3/uL Nucleated RBC % (auto) (0.0-0.2) /100WBC Neutrophils % (Manual) (45-73) % Band Neutrophils % (3-5) % Lymphocytes % (Manual) (20-40) % Monocytes % (Manual) (2-11) % Abs Neuts (Manual) (2.0-8.3) X10*3/uL Lymphocytes # (Manual) (1.2-4.9) X10*3/uL Monocytes # (Manual) (0.1-1.2) X10*3/uL Nucleated RBCs (0-0) /100WBC Toxic Granulation [place] Bodies Platelet Estimate (NORMAL) Large Platelets Plt Morphology Comment RBC Morphology Basophilic Stippling /OIF Microcytosis /OIF Target Cells /OIF Tear Drop Cells /OIF [place] Cells /OIF PT (10.0-13.1) SEC INR (0.9-1.1) APTT (26.0-36.4) SEC VBG pH 7.48 H (7.32-7.43) VBG pCO2 22 mmHg VBG pO2 46 mmHg VBG HCO3 17 L (22-26) mmol/L VBG O2 Saturation TNP VBG Base Excess -5.2 mmol/L Sodium (135-145) mmol/L Potassium (3.3-5.1) mmol/L Chloride (96-108) mmol/L Carbon Dioxide (22-29) mmol/L Anion Gap (12-20) BUN (9-16) mg/dL Creatinine (0.5-1.4) mg/dL Estim Creat Clear Calc Estimated GFR Random Glucose (60-115) mg/dL Lactic Acid (0.5-2.0) mmol/L Lactic Acid F/U @ 2Hr 12.0 H* (0.5-2.0) mmol/L Calcium (8.4-10.2) mg/dL Magnesium (1.6-2.6) mg/dL Total Bilirubin (0.0-1.0) mg/dL AST (5-37) U/L ALT (0-40) U/L Alkaline Phosphatase (39-117) U/L Ammonia (13-55) umol/L Troponin I High Sens (<3.5-35.0) ng/L Total Protein (6.5-8.0) g/dL Albumin (3.5-5.0) g/dL Urine Color Urine Appearance Urine pH (5.0-9.0) Ur Specific [place] (1.005-1.025) Urine Protein (Neg-Trace) mg/dL Urine Glucose (UA) (Negative) mg/dL Urine Ketones (Negative) mg/dL Urine Blood (Negative) Urine Nitrite (Negative) Ur Leukocyte Esterase (Negative) Urine Opiates Screen (Not Detect) Urine Fentanyl Screen (Not Detect) Ur Barbiturates Screen (Not Detect) Ur Phencyclidine Scrn (Not Detect) Ur Amphetamines Screen (Not Detect) U Benzodiazepines Scrn (Not Detect) Urine Cocaine Screen (Not Detect) U Marijuana (THC) Screen (Not Detect) Ethyl Alcohol mg/dL COVID-19 ([facility]) (Negative) COVID-19 Clin Com Blood Type Antibody Screen Crossmatch <Gi Hazel NP - Last Filed: 12/06/22 00:10> ABG Data Attestation ABG: I personally reviewed and interpreted this ABG as follows: <Gi Hazel NP - Last Filed: 12/06/22 00:10> Interpretation: Metabolic acidosis <SILVESTRE Cervantes Last Filed: 12/06/22 00:10> Independent Interpretation I performed an independent interpretation of an: EKG and CT Scan <Gi Hazel NP - Last Filed: 12/06/22 00:10> Interpretation: Sinus tachycardia Otherwise normal ECG When compared with ECG of 20-OCT-2018 07:32, Vent. rate has increased BY 36 BPM QT has lengthened Vent. rate 103 BPM CO interval 118 ms QRS duration 92 ms QT/QTc 386/505 ms P-R-T axes 79 84 52 05-DEC-2022 17:12:02 <Gi Hazel NP - Last Filed: 12/06/22 00:10> Radiology Impression Discussion of test interpretation with radiology: I have reviewed the radiologist's reading. 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 LUNGS: There is emphysematous changes of both lungs with bilateral apical bullae and bilateral apical parenchymal scarring. There is no acute consolidation, atelectasis or groundglass density. No pulmonary nodule or calcification seen. MEDIASTINUM: The central trachea and the bronchi widely patent. Thyroid lobes are symmetrical and normal. Heart size and the great vessels are normal caliber. No pericardial effusion seen. No abnormal-sized mediastinal or hilar lymph nodes seen.? CORONARY ARTERY CALCIFICATION: None visualized on this study. PLEURA: There is no pleural effusion. There is minimal bilateral apical pleural thickening. No calcified pleural plaque seen.? AXILLA: No lymphadenopathy. OSSEOUS STRUCTURES: No aggressive lytic or sclerotic process seen. CTA ABDOMEN. The abdominal aorta is of normal course and caliber. There is normal origin of celiac and superior mesenteric arteries. The inferior mesenteric artery is patent as well. There are solitary renal arteries bilaterally patent. The IVC is normal caliber both renal veins are patent. CT abdomen and pelvis: The liver is enlarged in size, normal contour and density. Liver measures 23 cm in length. No focal lesion or intrahepatic ductal dilatation seen. The gallbladder is distended without radiopaque calculi or wall thickening.. There is hypodensity surrounding the gallbladder in adjacent liver questioning fluid. Spleen: Unremarkable. Pancreas: Unremarkable. Bilateral adrenal glands: Unremarkable. Kidneys: Both kidneys nephrograms are symmetrical without enhancing lesion, cyst or hydronephrosis. There is a nonobstructive 7 mm calculi mid pole right kidney. Lymph nodes: No abnormal retroperitoneal lymph nodes seen. GI tract: There is scattered stool and gas seen throughout the colon without distention. There is mild mural thickening involving the ascending colon The distal small bowel loops in the pelvis are prominent with mural thickening. No intraluminal contrast extravasation seen to suspect bleed. Abdominal wall: Unremarkable. Pelvis: The bladder is nondistended. No free air or free fluid seen. No abnormal pelvic or inguinal lymph nodes seen. There is minimal fluid in the left scrotum. CT/CT gi bleed abd pel wo/w IVcon IMPRESSION: No acute process in the chest. There is minimal bilateral apical pleural thickening and parenchymal scarring. ? Mild mural thickening involving distal small bowel segments, proximal ascending colon suspicious for enteritis and proximal ascending colitis likely inflammatory or infectious etiology. No abnormal size mesenteric or retroperitoneal lymph nodes seen. ? Mild hepatomegaly. Distended gallbladder with periapical gallbladder fluid collection. Question acalculus cholecystitis. Consider clinical correlation and if right upper quadrant pain a HIDA scan. ? Nonobstructive right renal radiopaque calculi ? Fleischner guidelines were followed. <Gi Hazel NP - Last Filed: 12/06/22 00:10> Independent Historian Clinical information obtained from an independent historian. History obtained from or confirmed by: Parent <Gi Hazel NP - Last Filed: 12/06/22 00:10> External Record Review External record reviewed: Outpatient record and Prior outpatient labs <Gi Hazel NP - Last Filed: 12/06/22 00:10> Chronic Conditions Patient?s care impacted by: Other (Alcoholism) <Gi Hazel NP - Last Filed: 12/06/22 00:10> Social Determinants Patient?s care significantly limited by Social Determinants of Health including: Other Social Determinant of Health <Gi Hazel NP - Last Filed: 12/06/22 00:10> Critical Care Time Critical Care Time Critical Care Time: Yes <Gi Hazel NP - Last Filed: 12/06/22 00:10> Total Critical Care Time: 65 <Gi Hazel NP - Last Filed: 12/06/22 00:10> Attestation: I have personally provided critical care time exclusive of time spent on separately billable procedures. Time includes review of laboratory data, radiology results, discussion with consultants, and monitoring for potential decompensation. Interventions were performed as documented. <Gi Hazel NP - Last Filed: 12/06/22 00:10> Discharge Plan Discharge Clinical Impression: Alcohol withdrawal, Acute GI bleeding, Colitis, Acalculous cholecystitis, Acute anemia <YENNIFER Ayala - Last Filed: 12/05/22 15:26> Patient Disposition: Admitted As Inpatient <YENNIFER Ayala - Last Filed: 12/05/22 15:26>
[2022-12-05 16:17] LABS: Mean Corpuscular HGB Conc 28.2 g/dl (31.0-36.0); Mean Corpuscular Hemoglobin 20.9 pg (27.0-33.0); Mean Corpuscular Volume 74.1 fL (80.0-98.0); Mean Platelet Volume 11.3 fL (9.4-12.4); Platelet Count 123 X10*3/uL (160-400); Red Blood Count 2.63 X10*6/uL (4.60-5.80)
[2022-12-05 16:31] LABS: COVID-19 Test Negative (Negative); IDNOW Serial# 6674DD1D
--- NOTE | 2022-12-05 16:32 | ECG_ITS ---
Test Reason : anemia Blood Pressure : / mmHG Vent. Rate : 103 BPM Atrial Rate : 103 BPM P-R Int : 118 ms QRS Dur : 092 ms QT Int : 386 ms P-R-T Axes : 079 084 052 degrees QTc Int : 505 ms Sinus tachycardia Otherwise normal ECG When compared with ECG of 20-OCT-2018 07:32, Vent. rate has increased BY 36 BPM QT has lengthened Referred By: Gi Hazel Electronically Signed By:Kevin Marroquin
[2022-12-05 16:34] LABS: INTERNATIONAL NORM RATIO 1.7 (0.9-1.1); Prothrombin Time 20.4 SEC (10.0-13.1)
[2022-12-05 16:36] LABS: Partial Thromboplastin Time 30.3 SEC (26.0-36.4)
[2022-12-05 16:39] LABS: Anion Gap 38 (12-20)
[2022-12-05 16:44] LABS: Hematocrit 19.5 % (42.0-52.0); Hemoglobin 5.5 g/dl (14.0-18.0)
[2022-12-05 16:52] LABS: Band Neutrophils Percent 9 % (3-5); Lymphocytes Absolute Manual 1.1 X10*3/uL (1.2-4.9); Lymphocytes Percent Manual 4 % (20-40); Monocytes Absolute Manual 0.8 X10*3/uL (0.1-1.2); Monocytes Percent Manual 3 % (2-11); Neutrophils Absolute Manual 25.1 X10*3/uL (2.0-8.3); Neutrophils Percent Manual 84 % (45-73)
[2022-12-05 16:53] LABS: Nucleated Red Blood Cells 2 /100WBC (0-0)
[2022-12-05 16:54] LABS: RBC Morphology NOTED
[2022-12-05 16:56] LABS: Microcytosis 2+ (15-30) /OIF
[2022-12-05 16:57] LABS: Alanine Aminotransferase 42 U/L (0-40); Albumin Level 3.7 g/dL (3.5-5.0); Alkaline Phosphatase 230 U/L (39-117); Aspartate Amino Transferase 95 U/L (5-37); Bilirubin Total 2.6 mg/dL (0.0-1.0); Blood Urea Nitrogen 25 mg/dL (9-16); Calcium 9.5 mg/dL (8.4-10.2); Carbon Dioxide 13 mmol/L (22-29); Chloride 84 mmol/L (96-108); Creatinine Clr Calc Pharmacy 83.7; Estimated Glomerular Filt Rate > 60; Glucose Random 152 mg/dL (60-115); Large Platelet PRESENT; Magnesium 2.1 mg/dL (1.6-2.6); Platelet Estimate DECREASED (NORMAL); Platelet Morphology Comment NOTED; Potassium 4.2 mmol/L (3.3-5.1); Sodium 130 mmol/L (135-145); Total Protein 6.9 g/dL (6.5-8.0)
[2022-12-05 16:58] LABS: Toxic Granulation PRESENT
[2022-12-05 16:59] LABS: Burr Cells 2+ (3-5) /OIF; Target Cells 1+ (5-14) /OIF; Tear Drop Cells 2+ (3-5) /OIF
[2022-12-05 17:01] LABS: Basophilic Stippling 1+ (0-2) /OIF
[2022-12-05 17:02] LABS: Dohle Bodies PRESENT
[2022-12-05] MEDS: 0.9 % Sodium Chloride 1,000 ML 999 ML IVCONT (17:07)
[2022-12-05 17:12] LABS: Ammonia 26 umol/L (13-55)
[2022-12-05 17:21] LABS: Ethanol < 10 mg/dL; Magnesium 2.1 mg/dL (1.6-2.6)
[2022-12-05 17:27] LABS: Lactic Acid 15.9 mmol/L (0.5-2.0)
--- NOTE | 2022-12-05 17:27 | PC.NURSE ---
Patient in Ct scan not able to start blood transfusion.
[2022-12-05] MEDS: iohexoL 350 MG/ML 100 ML INFUS..BTL IV (17:31)
[2022-12-05 17:37] LABS: Troponin-I High Sensitivity < 3.5 ng/L (<3.5-35.0)
[2022-12-05] MEDS: Piperacillin Sodium/Tazobactam 3.375 GM in 0.9 % Sodium Chloride 50 ML IV ×2 (17:38→23:10)
[2022-12-05] MEDS: PHENobarbitaL sodium 130 MG/ML IM ONCE 290 MG IM (18:35)
[2022-12-05 19:00] LABS: Reflex Lactate? Lactic Acid Added
[2022-12-05 19:10] LABS: Appearance Urine Clear; Color Urine Dark Yellow; Glucose Urine UA Negative (Negative); Leukocyte Esterase Urine Negative (Negative); Nitrite Urine Negative (Negative); Specific Gravity - Urine >= 1.030 (1.005-1.025); Urine Blood Negative (Negative); Urine Ketones 15 mg/dL (Negative); Urine Protein Trace mg/dL (Neg-Trace)
[2022-12-05] MEDS: Thiamine HCL 100 MG in 0.9 % Sodium Chloride 100 ML 202 MG IV (19:17)
[2022-12-05 19:18] LABS: Amphetamine Screen Urine Not Detected (Not Detect); Barbiturates, Urine Not Detected (Not Detect); Benzodiazepines Screen Urine Not Detected (Not Detect); Cannabinoid Screen Urine POSITIVE (Not Detect); Cocaine Screen Urine Not Detected (Not Detect); Fentanyl, urine Not Detected (Not Detect); Opiate Screen Urine Not Detected (Not Detect); Phencyclidine Screen Urine Not Detected (Not Detect)
--- NOTE | 2022-12-05 19:25 | PC.NURSE ---
Patient has moments of confusion and states is seeing double iGanna DE OLIVEIRA notified. Patient vomited notified Gianna DE OLIVEIRA verbal order of zofran 4mg iv push given awaiting result. tele: sinus rythym-sinus tachycardia 80-110's.
[2022-12-05] MEDS: ondansetron HCL 4 MG/2 ML VIAL IVPUSH (19:28)
[2022-12-05 20:20] LABS: VBG Base Excess -5.2 mmol/L; VBG HCO3 17 mmol/L (22-26); VBG pCO2 22 mmHg; VBG pO2 46 mmHg
[2022-12-05 20:28] LABS: Venous Blood Gas Refer to POC result
[2022-12-05 20:29] LABS: VBG pH 7.48 (7.32-7.43)
[2022-12-05 20:50] LABS: Anion Gap 27 (12-20); Blood Urea Nitrogen 22 mg/dL (9-16); Calcium 7.9 mg/dL (8.4-10.2); Carbon Dioxide 15 mmol/L (22-29); Chloride 93 mmol/L (96-108); Creatinine Clr Calc Pharmacy 113.2; Estimated Glomerular Filt Rate > 60; Glucose Random 115 mg/dL (60-115); Potassium 3.4 mmol/L (3.3-5.1); Sodium 132 mmol/L (135-145)
--- NOTE | 2022-12-05 20:50 | PC.NURSE ---
Pt had a bloody bowel movement once. Blood is bright red. MD aware.
[2022-12-05] MEDS: Folic Acid 1 MG in 0.9 % Sodium Chloride 50 ML 100.4 MG IV (20:55)
[2022-12-05] MEDS: 0.9 % Sodium Chloride 1,000 ML 100 ML IVCONT (20:55)
--- NOTE | 2022-12-05 21:02 | PM.IMHP ---
History of Present Illness Date of Service: 12/05/22 Attending physician on admission: Tano Jackson Chief Complaint: Weakness, anemia Pt is a 42-year-old male with a PMH significant for?alcohol use disorder who presents to the ED from his PCP for evaluation for anemia. Patient states that he has been not eating much since [place] due to having trouble swallowing because his throat feels dry and sore. Patient also complains of chronic headaches, leg cramps, and bleeding from hemorrhoids. Patient notes that he has nausea and vomiting almost every morning and again at lunch and also occasionally at dinner for the past couple of years. Patient also has had epigastric pain which is random with no known triggers. Patient has not been regularly to a PCP, but notes that he has received 3 transfusions in the past: 2 times here at the hospital and once at [facility]. Patient saw a PCP today due to weakness and lightheadedness for the past week with nonbloody diarrhea since yesterday. The provider there immediately sent him over to the ED to be evaluated for anemia with possible need for transfusion. Of note patient's mother is at bedside and states he currently consumes at least 2, maybe 3, pints of alcohol daily and smokes 1 pack of cigarettes a day. Patient states he has no interest in Addiction Services. In the ED patient was found to be tachycardic, and had episodes of diarrhea with bright red blood. Labs were significant for leukocytosis of 27.0, acute anemia of H&H of 5.5/19.5, MCV of 74.1, platelets of 123, hyponatremia of 130, chloride of 84, bicarb of 13, increased anion gap a 38, lactic acid of 15.9 with repeat of 12.0, magnesium WNL, ammonia WNL, troponin negative. VBG pH of 7.48 and HC03 of 17. Tox screen positive for marijuana, ethyl alcohol <10. CT?of chest showed no acute process. CT of abdomen/pelvis showed mild mural thickening involving distal small bowel segments, proximal ascending colon suspicious of enteritis and proximal ascending colitis likely inflammatory or infectious in nature. Gallbladder distended with periapical fluid collection, questionable for cholecystitis. EKG demonstrated sinus tachycardia. Pt was treated with phenobarbital, IVF, Zosyn, thiamine, folic acid, ondansetron, and IV Protonix. Pt will be admitted to the hospital for alcohol withdrawal and symptomatic anemia from acute GI bleed. Review of Systems Review of Systems: Weakness and lightheadedness x1 week Anorexia since before [place] Non painful bleeding from hemorrhoids Heartburn Nausea, vomiting daily x2 years Mild tremors Headache Leg cramps Yes all other systems are reviewed and are negative [facility] Social History Alcohol intake: current Alcohol intake frequency: 3 or more drinks per day Patient Tobacco Use Status: Current everyday Tobacco user Smoked in Last 30 Days: Yes Use of substances other than those prescribed or required for medical reasons: Yes Substance Use Type: Marijuana Substance Use Frequency: Daily Advance Directives: No Advance Directives Information Provided: No Meds Allergies Allergy/AdvReac Type Severity Reaction Status Date / Time No Known Allergies Allergy Verified 12/05/22 15:40 [No Known Allergies*] Active Medications: Current Medications Acetaminophen (Acetaminophen 325 Mg Tablet) 650 mg PO Q6H PRN PRN Reason: Pain, Mild (Pain Scale 1-3) Sodium Chloride (Ns) 1,000 mls @ 100 mls/hr IVCONT .Q10H [facility] Last Admin: 12/05/22 20:55 Dose: 100 mls/hr Thiamine HCl 100 mg/ Sodium (Chloride) 101 mls @ 202 mls/hr IV DAILY [facility] Sodium Chloride (Ns) 1,000 mls @ 999 mls/hr IV .Q1H1M ONE Stop: 12/05/22 21:59 Melatonin (Melatonin 3 Mg Tablet) 6 mg PO BEDTIME PRN PRN Reason: Insomnia Ondansetron HCl (Ondansetron Hcl 4 Mg/2 Ml Vial) 4 mg IVPUSH Q8H PRN PRN Reason: Nausea and Vomiting Pantoprazole Sodium (Pantoprazole Sodium 40 Mg/10 Ml Vial) 80 mg IVPUSH ONCE ONE Stop: 12/05/22 20:59 Pharmacy Consult (Consult Rx Etoh Phenob Im/Po) 1 each MISCELLANE ONCE PRN; Protocol PRN Reason: Consult order Pharmacy Consult (Consult Rx Perform Med Rec) 1 each MISCELLANE ONCE PRN PRN Reason: Consult order Phenobarbital (Phenobarbital 15 Mg Tablet) 45 mg PO BID [facility] Stop: 12/07/22 21:01 Phenobarbital (Phenobarbital 30 Mg Tablet) 30 mg PO BID [facility] Stop: 12/09/22 21:01 Phenobarbital (Phenobarbital 15 Mg Tablet) 15 mg PO DAILY [facility] Stop: 12/11/22 09:01 Phenobarbital Sodium (Phenobarbital Sodium 130 Mg/Ml Vial Im Q3hx2) 217 mg IM Q3H [facility] Stop: 12/06/22 01:01 Sodium Chloride (0.9 % Sodium Chloride Flush 3 Ml Syringe) 3 ml IVFLUSH QSHIFT [facility] Home Medications Medication Instructions Recorded Confirmed Last Taken Type No Known Home Meds 12/05/22 12/05/22 Unknown History Physical Exam Vital Signs and Narrative: Vital Signs: Last Vital Signs Temp 97.7 F 12/05/22 19:30 Pulse 109 H 12/05/22 19:30 Resp 18 12/05/22 19:30 BP 101/74 12/05/22 19:30 Pulse Ox 98 12/05/22 19:30 O2 Del Method 12/05/22 19:30 BMI result Body Mass Index 18.0 Constitutional: Pale, disheveled, poor hygiene, with episodes of active vomiting. Mental Status: Oriented to person, place and time. Eyes: Pupils are equal, round, and reactive to light. Ear, Nose, and Throat: Oropharynx clear, mucous membranes moist. Ears and nose without deformities. Trachea midline. Poor dentition. Respiratory: Clear to auscultation bilaterally. No wheezing, rales, or rhonchi. Cardiovascular: S1, S2 regular. No murmurs, rubs, or gallops. Gastrointestinal: Abdomen soft, non-distended, with mild epigastric tenderness. Normal bowel sounds. Negative Murhphy sign. Neurologic: Cranial nerves II-XII are grossly intact. No focal neurological deficits. Moves all extremities spontaneously. Skin: No rashes or lesions noted. Musculoskeletal: No cyanosis or clubbing. Extremities: No edema. Psychiatric: Normal mood and affect. Results Labs 12/05/22 16:10 12/05/22 19:40 Labs: Laboratory Results - last 24 hr 12/05/22 12/05/22 12/05/22 16:10 16:10 16:10 MCV 74.1 L MCH 20.9 L MCHC 28.2 L RDW 21.0 H Plt Count 123 L MPV 11.3 Immature Gran % (Auto) Cancelled Neut % (Auto) Cancelled Lymph % (Auto) Cancelled [place] % (Auto) Cancelled Eos % (Auto) Cancelled Baso % (Auto) Cancelled Lymph # (Auto) Cancelled [place] # (Auto) Cancelled Eos # (Auto) Cancelled Baso # (Auto) Cancelled Abs Immat Gran (auto) Cancelled Absolute Neuts (auto) Cancelled Absolute Nucleated RBC 0.800 H Nucleated RBC % (auto) 3.0 H Neutrophils % (Manual) 84 H Band Neutrophils % 9 H Lymphocytes % (Manual) 4 L Monocytes % (Manual) 3 Abs Neuts (Manual) 25.1 H Lymphocytes # (Manual) 1.1 L Monocytes # (Manual) 0.8 Nucleated RBCs 2 H Toxic Granulation PRESENT Dohle Bodies PRESENT Platelet Estimate DECREASED Large Platelets PRESENT Plt Morphology Comment NOTED RBC Morphology NOTED Basophilic Stippling 1+ (0-2) Microcytosis 2+ (15-30) Target Cells 1+ (5-14) Tear Drop Cells 2+ (3-5) [place] Cells 2+ (3-5) PT 20.4 H INR 1.7 H APTT 30.3 VBG pH VBG pCO2 VBG pO2 VBG HCO3 VBG O2 Saturation VBG Base Excess Anion Gap 38 H Estim Creat Clear Calc 83.7 Estimated GFR > 60 Random Glucose 152 H Lactic Acid Lactic Acid F/U @ 2Hr Calcium 9.5 Magnesium 2.1 Total Bilirubin 2.6 H AST 95 H ALT 42 H Alkaline Phosphatase 230 H Ammonia Troponin I High Sens Total Protein 6.9 Albumin 3.7 Urine Color Urine Appearance Urine pH Ur Specific [place] Urine Protein Urine Glucose (UA) Urine Ketones Urine Blood Urine Nitrite Ur Leukocyte Esterase Urine Opiates Screen Urine Fentanyl Screen Ur Barbiturates Screen Ur Phencyclidine Scrn Ur Amphetamines Screen U Benzodiazepines Scrn Urine Cocaine Screen U Marijuana (THC) Screen Ethyl Alcohol COVID-19 (WOJCIECH) COVID-19 Clin Com Blood Type Antibody Screen Crossmatch 12/05/22 12/05/22 12/05/22 16:10 16:10 16:55 MCV MCH MCHC RDW Plt Count MPV Immature Gran % (Auto) Neut % (Auto) Lymph % (Auto) [place] % (Auto) Eos % (Auto) Baso % (Auto) Lymph # (Auto) [place] # (Auto) Eos # (Auto) Baso # (Auto) Abs Immat Gran (auto) Absolute Neuts (auto) Absolute Nucleated RBC Nucleated RBC % (auto) Neutrophils % (Manual) Band Neutrophils % Lymphocytes % (Manual) Monocytes % (Manual) Abs Neuts (Manual) Lymphocytes # (Manual) Monocytes # (Manual) Nucleated RBCs Toxic Granulation Dohle Bodies Platelet Estimate Large Platelets Plt Morphology Comment RBC Morphology Basophilic Stippling Microcytosis Target Cells Tear Drop Cells [place] Cells PT INR APTT VBG pH VBG pCO2 VBG pO2 VBG HCO3 VBG O2 Saturation VBG Base Excess Anion Gap Estim Creat Clear Calc Estimated GFR Random Glucose Lactic Acid 15.9 H* Lactic Acid F/U @ 2Hr Calcium Magnesium Total Bilirubin AST ALT Alkaline Phosphatase Ammonia Troponin I High Sens Total Protein Albumin Urine Color Urine Appearance Urine pH Ur Specific [place] Urine Protein Urine Glucose (UA) Urine Ketones Urine Blood Urine Nitrite Ur Leukocyte Esterase Urine Opiates Screen Urine Fentanyl Screen Ur Barbiturates Screen Ur Phencyclidine Scrn Ur Amphetamines Screen U Benzodiazepines Scrn Urine Cocaine Screen U Marijuana (THC) Screen Ethyl Alcohol COVID-19 (WOJCIECH) Negative COVID-19 Clin Com See Note Blood Type A Positive Antibody Screen NEGATIVE Crossmatch See Detail 12/05/22 12/05/22 12/05/22 16:55 16:55 16:55 MCV MCH MCHC RDW Plt Count MPV Immature Gran % (Auto) Neut % (Auto) Lymph % (Auto) [place] % (Auto) Eos % (Auto) Baso % (Auto) Lymph # (Auto) [place] # (Auto) Eos # (Auto) Baso # (Auto) Abs Immat Gran (auto) Absolute Neuts (auto) Absolute Nucleated RBC Nucleated RBC % (auto) Neutrophils % (Manual) Band Neutrophils % Lymphocytes % (Manual) Monocytes % (Manual) Abs Neuts (Manual) Lymphocytes # (Manual) Monocytes # (Manual) Nucleated RBCs Toxic Granulation Dohle Bodies Platelet Estimate Large Platelets Plt Morphology Comment RBC Morphology Basophilic Stippling Microcytosis Target Cells Tear Drop Cells [place] Cells PT INR APTT VBG pH VBG pCO2 VBG pO2 VBG HCO3 VBG O2 Saturation VBG Base Excess Anion Gap Estim Creat Clear Calc Estimated GFR Random Glucose Lactic Acid Lactic Acid F/U @ 2Hr Calcium Magnesium 2.1 Total Bilirubin AST ALT Alkaline Phosphatase Ammonia 26 Troponin I High Sens < 3.5 Total Protein Albumin Urine Color Urine Appearance Urine pH Ur Specific [place] Urine Protein Urine Glucose (UA) Urine Ketones Urine Blood Urine Nitrite Ur Leukocyte Esterase Urine Opiates Screen Urine Fentanyl Screen Ur Barbiturates Screen Ur Phencyclidine Scrn Ur Amphetamines Screen U Benzodiazepines Scrn Urine Cocaine Screen U Marijuana (THC) Screen Ethyl Alcohol < 10 COVID-19 (WOJCIECH) COVID-19 [employer] Com Blood Type Antibody Screen Crossmatch 12/05/22 12/05/22 12/05/22 19:01 19:01 19:40 MCV MCH MCHC RDW Plt Count MPV Immature Gran % (Auto) Neut % (Auto) Lymph % (Auto) [place] % (Auto) Eos % (Auto) Baso % (Auto) Lymph # (Auto) [place] # (Auto) Eos # (Auto) Baso # (Auto) Abs Immat Gran (auto) Absolute Neuts (auto) Absolute Nucleated RBC Nucleated RBC % (auto) Neutrophils % (Manual) Band Neutrophils % Lymphocytes % (Manual) Monocytes % (Manual) Abs Neuts (Manual) Lymphocytes # (Manual) Monocytes # (Manual) Nucleated RBCs Toxic Granulation Dohle Bodies Platelet Estimate Large Platelets Plt Morphology Comment RBC Morphology Basophilic Stippling Microcytosis Target Cells Tear Drop Cells [place] Cells PT INR APTT VBG pH VBG pCO2 VBG pO2 VBG HCO3 VBG O2 Saturation VBG Base Excess Anion Gap 27 H Estim Creat Clear Calc 113.2 Estimated GFR > 60 Random Glucose 115 Lactic Acid Lactic Acid F/U @ 2Hr Calcium 7.9 L D Magnesium Total Bilirubin AST ALT Alkaline Phosphatase Ammonia Troponin I High Sens Total Protein Albumin Urine Color Dark Yellow Urine Appearance Clear Urine pH 5.0 Ur Specific [place] >= 1.030 H Urine Protein Trace Urine Glucose (UA) Negative Urine Ketones 15 Urine Blood Negative Urine Nitrite Negative Ur Leukocyte Esterase Negative Urine Opiates Screen Not Detected Urine Fentanyl Screen Not Detected Ur Barbiturates Screen Not Detected Ur Phencyclidine Scrn Not Detected Ur Amphetamines Screen Not Detected U Benzodiazepines Scrn Not Detected Urine Cocaine Screen Not Detected U Marijuana (THC) Screen POSITIVE H Ethyl Alcohol COVID-19 (WOJCIECH) COVID-19 [employer] Com Blood Type Antibody Screen Crossmatch 12/05/22 12/05/22 19:40 19:51 MCV MCH MCHC RDW Plt Count MPV Immature Gran % (Auto) Neut % (Auto) Lymph % (Auto) [place] % (Auto) Eos % (Auto) Baso % (Auto) Lymph # (Auto) [place] # (Auto) Eos # (Auto) Baso # (Auto) Abs Immat Gran (auto) Absolute Neuts (auto) Absolute Nucleated RBC Nucleated RBC % (auto) Neutrophils % (Manual) Band Neutrophils % Lymphocytes % (Manual) Monocytes % (Manual) Abs Neuts (Manual) Lymphocytes # (Manual) Monocytes # (Manual) Nucleated RBCs Toxic Granulation Dohle Bodies Platelet Estimate Large Platelets Plt Morphology Comment RBC Morphology Basophilic Stippling Microcytosis Target Cells Tear Drop Cells [place] Cells PT INR APTT VBG pH 7.48 H VBG pCO2 22 VBG pO2 46 VBG HCO3 17 L VBG O2 Saturation TNP VBG Base Excess -5.2 Anion Gap Estim Creat Clear Calc Estimated GFR Random Glucose Lactic Acid Lactic Acid F/U @ 2Hr 12.0 H* Calcium Magnesium Total Bilirubin AST ALT Alkaline Phosphatase Ammonia Troponin I High Sens Total Protein Albumin Urine Color Urine Appearance Urine pH Ur Specific [place] Urine Protein Urine Glucose (UA) Urine Ketones Urine Blood Urine Nitrite Ur Leukocyte Esterase Urine Opiates Screen Urine Fentanyl Screen Ur Barbiturates Screen Ur Phencyclidine Scrn Ur Amphetamines Screen U Benzodiazepines Scrn Urine Cocaine Screen U Marijuana (THC) Screen Ethyl Alcohol COVID-19 (WOJCIECH) COVID-19 Clin Com Blood Type Antibody Screen Crossmatch Imaging Radiologist's Impressions: Impressions Abdomen/Pelvis CT 12/05/22 18:28 IMPRESSION: No acute process in the chest. There is minimal bilateral apical pleural thickening and parenchymal scarring. Mild mural thickening involving distal small bowel segments, proximal ascending colon suspicious for enteritis and proximal ascending colitis likely inflammatory or infectious etiology. No abnormal size mesenteric or retroperitoneal lymph nodes seen. Mild hepatomegaly. Distended gallbladder with periapical gallbladder fluid collection. Question acalculus cholecystitis. Consider clinical correlation and if right upper quadrant pain a HIDA scan. Nonobstructive right renal radiopaque calculi Fleischner guidelines were followed. Chest CT 12/05/22 18:28 IMPRESSION: No acute process in the chest. There is minimal bilateral apical pleural thickening and parenchymal scarring. Mild mural thickening involving distal small bowel segments, proximal ascending colon suspicious for enteritis and proximal ascending colitis likely inflammatory or infectious etiology. No abnormal size mesenteric or retroperitoneal lymph nodes seen. Mild hepatomegaly. Distended gallbladder with periapical gallbladder fluid collection. Question acalculus cholecystitis. Consider clinical correlation and if right upper quadrant pain a HIDA scan. Nonobstructive right renal radiopaque calculi Fleischner guidelines were followed. Assessment and Plan (1) Alcohol withdrawal: Status: Acute (2) Acute GI bleeding: Status: Acute (3) Colitis: Status: Acute (4) Acute anemia: Status: Acute Plan Pt is a 42-year-old male with a PMH significant for?alcohol use disorder who presents to the ED from his PCP for evaluation for anemia. Pt will be admitted to the hospital for alcohol withdrawal and symptomatic anemia from acute GI bleed. Sepsis due to colitis Pt meets severe sepsis criteria: likely colitis, tachycardia, WBC 27.0, INR 1.7, lactic acid 12.0 with repeats 8.2 and then 4.0 Patient given 30 mls/kg bolus infusion of IVF IV abx: Zosyn 3.375mg q6 IV Protonix Monitor labs Acute blood loss anemia Likely secondary to lower GI bleed Patient's H&H 5.5/19.5 at time of presentation Pt claims to have nonpainful bleeding hemorrhoids, and pt experienced episodes of diarrhea with bright red blood Patient received 2 units of packed red blood cells in the ED GI consult Monitor H&H closely Alcohol withdrawal Patient's mother reports he drinks 2-3 pints a day, with last drink yesterday Mild withdrawal symptoms, started on phenobarb Folic acid, thiamine CIWA scale Monitor lytes Care Team consult Nicotine dependence Nicotine transdermal patch Full Code Attending:?Dr. Jackson DVT Prophylaxis: Pt ambulatory Pt will require a hospitalization of at least two nights for treatment of?alcohol withdrawal, symptomatic anemia from acute GI bleed, and severe sepsis d/t colitis.. Time Spent With Patient Time: Total time managing care of this patient today ____ minutes. Quality Stroke Does the patient have a stroke diagnosis?: No VTE Prior VTE?: No VTE Risk Level:: Medical - moderate - high VTE Device Contraindication: Treatment Not Indicated VTE Drug Contraindication: Treatment Not Indicated
[2022-12-05 21:18] LABS: Ammonia 39 umol/L (13-55)
[2022-12-05 21:41] LABS: Lactic Acid 8.2 mmol/L (0.5-2.0)
[2022-12-05 21:44] LABS: Acetone, serum QL Negative (Negative)
[2022-12-05 21:45] LABS: Reflex Lactate? 2 Y
--- NOTE | 2022-12-05 21:49 | PHA.MEDREC ---
Pharmacy Consult ? Medication Reconciliation Pharmacy has completed the medication reconciliation.
[2022-12-05] MEDS: Pantoprazole Sodium 40 MG/10 ML VIAL 80 MG IVPUSH (21:51)
[2022-12-05] MEDS: PHENobarbitaL sodium 130 MG/ML VIAL IM Q3Hx2 217 MG IM (21:55)
[2022-12-05] MEDS: 0.9 % Sodium Chloride 1,000 ML 999 ML IV (22:00)
[2022-12-05] MEDS: Nicotine 21 MG PATCH.TD24 TRANSDERMA (22:19)
[2022-12-05 23:07] LABS: Reflex Lactate? Lactic Acid Added
[2022-12-05] MEDS: 0.9 % Sodium Chloride Flush 3 ML SYRINGE IVFLUSH (23:14)
--- NOTE | 2022-12-05 23:19 | PC.NURSE ---
Pt reporting dizziness and nausea. BP decreased, Hospitalist aware.
--- NOTE | 2022-12-05 23:47 | PC.NURSE ---
Albumin not available hospital-wide. aware.
[2022-12-06] VITALS (13 sets, daily range): BP systolic 85–107; BP diastolic 44–62; PULSE 78–99; RESP 11–20; TEMP 36.6–37; O2SAT 97–100
[2022-12-06 00:03] LABS: ~Lactic Acid-LAB USE ONLY 2.7 mmol/L (0.5-2.0)
[2022-12-06 01:36] LABS: Reflex Lactate? 2 Y
[2022-12-06] MEDS: PHENobarbitaL sodium 130 MG/ML VIAL IM Q3Hx2 217 MG IM (01:47)
[2022-12-06 02:06] LABS: ~Lactic Acid-LAB USE ONLY 1.5 mmol/L (0.5-2.0)
[2022-12-06] MEDS: Piperacillin Sodium/Tazobactam 3.375 GM in 0.9 % Sodium Chloride 50 ML IV ×3 (05:36→18:13)
[2022-12-06 05:45] LABS: MANUAL DIFF FLAG NO
[2022-12-06 05:58] LABS: Basophils Percent Auto 0.2 % (0-2); Eosinophils Absolute Auto 0.1 X10*3/uL (0.0-0.4); Eosinophils Percent Auto 0.4 % (0-4); Imm Gran Abs Auto 0.17 X10*3/uL (0.00-0.03); Imm Gran Pct Auto 0.9 % (0.0-0.4); Lymphocytes Absolute Auto 1.5 X10*3/uL (1.2-4.9); Lymphocytes Percent Auto 8.5 % (20-40); Mean Corpuscular HGB Conc 29.5 g/dl (31.0-36.0); Mean Corpuscular Hemoglobin 23.1 pg (27.0-33.0); Mean Corpuscular Volume 78.3 fL (80.0-98.0); Mean Platelet Volume 11.1 fL (9.4-12.4); Monocytes Absolute Auto 0.6 X10*3/uL (0.1-1.2); Monocytes Percent Auto 3.4 % (2-11); Neutrophils Absolute Auto 15.7 x10*3/uL (2.0-8.3); Neutrophils Percent Auto 86.6 % (45-73); Red Blood Count 2.81 X10*6/uL (4.60-5.80); Red Cell Distribution Width 21.6 % (11.0-16.0); White Blood Count 18.1 X10*3/uL (4.8-10.8)
[2022-12-06 06:01] LABS: NRBC Pct Auto 1.7 /100WBC (0.0-0.2); Platelet Count 69 X10*3/uL (160-400)
[2022-12-06 06:02] LABS: Hemoglobin 6.5 g/dl (14.0-18.0)
[2022-12-06 06:13] LABS: Alanine Aminotransferase 34 U/L (0-40); Alkaline Phosphatase 171 U/L (39-117); Anion Gap 14 (12-20); Aspartate Amino Transferase 95 U/L (5-37); Bilirubin Total 3.4 mg/dL (0.0-1.0); Blood Urea Nitrogen 20 mg/dL (9-16); Calcium 7.6 mg/dL (8.4-10.2); Carbon Dioxide 24 mmol/L (22-29); Chloride 100 mmol/L (96-108); Estimated Glomerular Filt Rate > 60; Glucose Random 74 mg/dL (60-115); Potassium 2.8 mmol/L (3.3-5.1); Sodium 135 mmol/L (135-145); Total Protein 5.4 g/dL (6.5-8.0)
--- NOTE | 2022-12-06 06:51 | PC.NURSE ---
administration of the next liter of saline administration delayed, prior fluids still running.
--- NOTE | 2022-12-06 07:34 | MHC.EDTECH ---
Pt was found to be in the room with no linens on the bed. Room soiled, cleaned by this display card writer. New linens were put on the bed and blanket provided to patient. Room cleaned, pt belongings placed in belongings bag. Bed placed in low, locked position. Call robin within reach, able to make needs known.
[2022-12-06] MEDS: 0.9 % Sodium Chloride 1,000 ML 100 ML IVCONT (08:23)
[2022-12-06] MEDS: PHENobarbitaL 15 MG TABLET 45 MG PO ×2 (08:31→21:19)
[2022-12-06] MEDS: Nicotine 21 MG PATCH.TD24 TRANSDERMA (08:31)
[2022-12-06] MEDS: Thiamine HCL 100 MG in 0.9 % Sodium Chloride 100 ML 202 MG IV (08:35)
--- NOTE | 2022-12-06 13:31 | P.PNIM_ITS ---
Subjective Subjective Date of Service: 12/06/22 Interval History: Seen in follow up for acute blood loss anemia, colitis, sepsis, alcohol withdrawal Interval history: Patient reports feeling weak and fatigued. Currently being transfused packed red blood cells. Reports 5-6 episodes of watery diarrhea with bright red blood per day for several days. No nausea or vomiting. He does also report a self-limiting episode of hematemesis several weeks ago following binge drinking. No further episodes. Review of Systems Review of Systems: Yes all other systems are reviewed and are negative Physical Exam Vital Signs: Vital Signs: Last Vital Signs Temp 97.8 F 12/06/22 12:53 Pulse 84 12/06/22 12:53 Resp 18 12/06/22 12:53 BP 97/60 12/06/22 12:53 Pulse Ox 97 12/06/22 04:00 O2 Del Method 12/06/22 04:00 BMI result Body Mass Index 18.0 Constitutional - Awake and Alert, No apparent distress Eyes - PERRLA, EOMI Cardiovascular - S1S2, RRR, No edema Respiratory - Normal lung expansion, Normal respiratory effort, No respiratory distress, CTA bilaterally Gastrointestinal - diffuse tenderness to palpation, greatest in the upper quadrants with voluntary guarding. No rebound. ND; +BS Extremities - no calf tenderness bilaterally, no swelling Skin - Warm/Dry Neurological - Alert & oriented x3 Psychological - Appropriate affect Objective Data Active Medications Acetaminophen (Acetaminophen 325 Mg Tablet) 650 mg PO Q6H PRN PRN Reason: Pain, Mild (Pain Scale 1-3) Sodium Chloride (Ns) 1,000 mls @ 100 mls/hr IVCONT .Q10H [facility] Last Admin: 12/06/22 08:23 Dose: 100 mls/hr Documented By: DANIEL Thiamine HCl 100 mg/ Sodium (Chloride) 101 mls @ 202 mls/hr IV DAILY [facility] Last Infusion: 12/06/22 09:05 Dose: 0 mls/hr Documented By: DANIEL Piperacillin Sod/Tazobactam (Sod 3.375 gm/ Sodium Chloride) 50 mls @ 100 mls/hr IV Q6H [facility] Last Admin: 12/06/22 13:01 Dose: 100 mls/hr Documented By: DANIEL Melatonin (Melatonin 3 Mg Tablet) 6 mg PO BEDTIME PRN PRN Reason: Insomnia Nicotine (Nicotine 21 Mg Patch.Td24) 21 mg TRANSDERMA DAILY [facility] Last Admin: 12/06/22 08:31 Dose: 21 mg Documented By: DANIEL Ondansetron HCl (Ondansetron Hcl 4 Mg/2 Ml Vial) 4 mg IVPUSH Q8H PRN PRN Reason: Nausea and Vomiting Pharmacy Consult (Consult Rx Etoh Phenob Im/Po) 1 each MISCELLANE ONCE PRN; Protocol PRN Reason: Consult order Pharmacy Consult (Consult Rx Perform Med Rec) 1 each MISCELLANE ONCE PRN PRN Reason: Consult order Phenobarbital (Phenobarbital 15 Mg Tablet) 45 mg PO BID [facility] Stop: 12/07/22 21:01 Last Admin: 12/06/22 08:31 Dose: 45 mg Documented By: DANIEL Phenobarbital (Phenobarbital 30 Mg Tablet) 30 mg PO BID [facility] Stop: 12/09/22 21:01 Phenobarbital (Phenobarbital 15 Mg Tablet) 15 mg PO DAILY [facility] Stop: 12/11/22 09:01 Sodium Chloride (0.9 % Sodium Chloride Flush 3 Ml Syringe) 3 ml IVFLUSH QSHIFT [facility] Last Admin: 12/06/22 08:44 Dose: Not Given Documented By: DANIEL Non-Admin Reason: IV Running Labs 12/06/22 04:41 12/06/22 04:41 Labs: Laboratory Results - last 24 hr 12/05/22 12/05/22 12/05/22 16:10 16:10 16:10 MCV 74.1 L MCH 20.9 L MCHC 28.2 L RDW 21.0 H Plt Count 123 L MPV 11.3 Immature Gran % (Auto) Cancelled Neut % (Auto) Cancelled Lymph % (Auto) Cancelled [place] % (Auto) Cancelled Eos % (Auto) Cancelled Baso % (Auto) Cancelled Lymph # (Auto) Cancelled [place] # (Auto) Cancelled Eos # (Auto) Cancelled Baso # (Auto) Cancelled Abs Immat Gran (auto) Cancelled Absolute Neuts (auto) Cancelled Absolute Nucleated RBC 0.800 H Nucleated RBC % (auto) 3.0 H Neutrophils % (Manual) 84 H Band Neutrophils % 9 H Lymphocytes % (Manual) 4 L Monocytes % (Manual) 3 Abs Neuts (Manual) 25.1 H Lymphocytes # (Manual) 1.1 L Monocytes # (Manual) 0.8 Nucleated RBCs 2 H Toxic Granulation PRESENT Dohle Bodies PRESENT Platelet Estimate DECREASED Large Platelets PRESENT Plt Morphology Comment NOTED RBC Morphology NOTED Basophilic Stippling 1+ (0-2) Microcytosis 2+ (15-30) Target Cells 1+ (5-14) Tear Drop Cells 2+ (3-5) Gina Cells 2+ (3-5) PT 20.4 H INR 1.7 H APTT 30.3 VBG pH VBG pCO2 VBG pO2 VBG HCO3 VBG O2 Saturation VBG Base Excess Anion Gap 38 H Estim Creat Clear Calc 83.7 Estimated GFR > 60 Random Glucose 152 H Lactic Acid Lactic Acid F/U @ 2Hr Lactic Acid F/U @ 4Hr Calcium 9.5 Magnesium 2.1 Total Bilirubin 2.6 H AST 95 H ALT 42 H Alkaline Phosphatase 230 H Ammonia Troponin I High Sens Total Protein 6.9 Albumin 3.7 Urine Color Urine Appearance Urine pH Ur Specific [place] Urine Protein Urine Glucose (UA) Urine Ketones Urine Blood Urine Nitrite Ur Leukocyte Esterase Urine Opiates Screen Urine Fentanyl Screen Ur Barbiturates Screen Ur Phencyclidine Scrn Ur Amphetamines Screen U Benzodiazepines Scrn Urine Cocaine Screen U Marijuana (THC) Screen Ethyl Alcohol Acetone, Qual COVID-19 ([facility]JCIECH) COVID-19 Clin Com Blood Type Antibody Screen Crossmatch 12/05/22 12/05/22 12/05/22 16:10 16:10 16:55 MCV MCH MCHC RDW Plt Count MPV Immature Gran % (Auto) Neut % (Auto) Lymph % (Auto) [place] % (Auto) Eos % (Auto) Baso % (Auto) Lymph # (Auto) [place] # (Auto) Eos # (Auto) Baso # (Auto) Abs Immat Gran (auto) Absolute Neuts (auto) Absolute Nucleated RBC Nucleated RBC % (auto) Neutrophils % (Manual) Band Neutrophils % Lymphocytes % (Manual) Monocytes % (Manual) Abs Neuts (Manual) Lymphocytes # (Manual) Monocytes # (Manual) Nucleated RBCs Toxic Granulation Dohle Bodies Platelet Estimate Large Platelets Plt Morphology Comment RBC Morphology Basophilic Stippling Microcytosis Target Cells Tear Drop Cells Gina Cells PT INR APTT VBG pH VBG pCO2 VBG pO2 VBG HCO3 VBG O2 Saturation VBG Base Excess Anion Gap Estim Creat Clear Calc Estimated GFR Random Glucose Lactic Acid 15.9 H* Lactic Acid F/U @ 2Hr Lactic Acid F/U @ 4Hr Calcium Magnesium Total Bilirubin AST ALT Alkaline Phosphatase Ammonia Troponin I High Sens Total Protein Albumin Urine Color Urine Appearance Urine pH Ur Specific [place] Urine Protein Urine Glucose (UA) Urine Ketones Urine Blood Urine Nitrite Ur Leukocyte Esterase Urine Opiates Screen Urine Fentanyl Screen Ur Barbiturates Screen Ur Phencyclidine Scrn Ur Amphetamines Screen U Benzodiazepines Scrn Urine Cocaine Screen U Marijuana (THC) Screen Ethyl Alcohol Acetone, Qual COVID-19 (WOJCIECH) Negative COVID-19 Clin Com See Note Blood Type A Positive Antibody Screen NEGATIVE Crossmatch See Detail 12/05/22 12/05/22 12/05/22 16:55 16:55 16:55 MCV MCH MCHC RDW Plt Count MPV Immature Gran % (Auto) Neut % (Auto) Lymph % (Auto) [place] % (Auto) Eos % (Auto) Baso % (Auto) Lymph # (Auto) [place] # (Auto) Eos # (Auto) Baso # (Auto) Abs Immat Gran (auto) Absolute Neuts (auto) Absolute Nucleated RBC Nucleated RBC % (auto) Neutrophils % (Manual) Band Neutrophils % Lymphocytes % (Manual) Monocytes % (Manual) Abs Neuts (Manual) Lymphocytes # (Manual) Monocytes # (Manual) Nucleated RBCs Toxic Granulation Dohle Bodies Platelet Estimate Large Platelets Plt Morphology Comment RBC Morphology Basophilic Stippling Microcytosis Target Cells Tear Drop Cells Gina Cells PT INR APTT VBG pH VBG pCO2 VBG pO2 VBG HCO3 VBG O2 Saturation VBG Base Excess Anion Gap Estim Creat Clear Calc Estimated GFR Random Glucose Lactic Acid Lactic Acid F/U @ 2Hr Lactic Acid F/U @ 4Hr Calcium Magnesium 2.1 Total Bilirubin AST ALT Alkaline Phosphatase Ammonia 26 Troponin I High Sens < 3.5 Total Protein Albumin Urine Color Urine Appearance Urine pH Ur Specific [place] Urine Protein Urine Glucose (UA) Urine Ketones Urine Blood Urine Nitrite Ur Leukocyte Esterase Urine Opiates Screen Urine Fentanyl Screen Ur Barbiturates Screen Ur Phencyclidine Scrn Ur Amphetamines Screen U Benzodiazepines Scrn Urine Cocaine Screen U Marijuana (THC) Screen Ethyl Alcohol < 10 Acetone, Qual COVID-19 ([facility]JCIECH) COVID-19 Clin Com Blood Type Antibody Screen Crossmatch 12/05/22 12/05/22 12/05/22 19:01 19:01 19:40 MCV MCH MCHC RDW Plt Count MPV Immature Gran % (Auto) Neut % (Auto) Lymph % (Auto) [place] % (Auto) Eos % (Auto) Baso % (Auto) Lymph # (Auto) [place] # (Auto) Eos # (Auto) Baso # (Auto) Abs Immat Gran (auto) Absolute Neuts (auto) Absolute Nucleated RBC Nucleated RBC % (auto) Neutrophils % (Manual) Band Neutrophils % Lymphocytes % (Manual) Monocytes % (Manual) Abs Neuts (Manual) Lymphocytes # (Manual) Monocytes # (Manual) Nucleated RBCs Toxic Granulation Dohle Bodies Platelet Estimate Large Platelets Plt Morphology Comment RBC Morphology Basophilic Stippling Microcytosis Target Cells Tear Drop Cells [place] Cells PT INR APTT VBG pH VBG pCO2 VBG pO2 VBG HCO3 VBG O2 Saturation VBG Base Excess Anion Gap 27 H Estim Creat Clear Calc 113.2 Estimated GFR > 60 Random Glucose 115 Lactic Acid Lactic Acid F/U @ 2Hr Lactic Acid F/U @ 4Hr Calcium 7.9 L D Magnesium Total Bilirubin AST ALT Alkaline Phosphatase Ammonia Troponin I High Sens Total Protein Albumin Urine Color Dark Yellow Urine Appearance Clear Urine pH 5.0 Ur Specific [place] >= 1.030 H Urine Protein Trace Urine Glucose (UA) Negative Urine Ketones 15 Urine Blood Negative Urine Nitrite Negative Ur Leukocyte Esterase Negative Urine Opiates Screen Not Detected Urine Fentanyl Screen Not Detected Ur Barbiturates Screen Not Detected Ur Phencyclidine Scrn Not Detected Ur Amphetamines Screen Not Detected U Benzodiazepines Scrn Not Detected Urine Cocaine Screen Not Detected U Marijuana (THC) Screen POSITIVE H Ethyl Alcohol Acetone, Qual COVID-19 ([facility]CIE[facility]) COVID-19 Clin Com Blood Type Antibody Screen Crossmatch 12/05/22 12/05/22 12/05/22 19:40 19:51 21:02 MCV MCH MCHC RDW Plt Count MPV Immature Gran % (Auto) Neut % (Auto) Lymph % (Auto) [place] % (Auto) Eos % (Auto) Baso % (Auto) Lymph # (Auto) [place] # (Auto) Eos # (Auto) Baso # (Auto) Abs Immat Gran (auto) Absolute Neuts (auto) Absolute Nucleated RBC Nucleated RBC % (auto) Neutrophils % (Manual) Band Neutrophils % Lymphocytes % (Manual) Monocytes % (Manual) Abs Neuts (Manual) Lymphocytes # (Manual) Monocytes # (Manual) Nucleated RBCs Toxic Granulation Dohle Bodies Platelet Estimate Large Platelets Plt Morphology Comment RBC Morphology Basophilic Stippling Microcytosis Target Cells Tear Drop Cells Gina Cells PT INR APTT VBG pH 7.48 H VBG pCO2 22 VBG pO2 46 VBG HCO3 17 L VBG O2 Saturation TNP VBG Base Excess -5.2 Anion Gap Estim Creat Clear Calc Estimated GFR Random Glucose Lactic Acid 8.2 H* Lactic Acid F/U @ 2Hr 12.0 H* Lactic Acid F/U @ 4Hr Calcium Magnesium Total Bilirubin AST ALT Alkaline Phosphatase Ammonia Troponin I High Sens Total Protein Albumin Urine Color Urine Appearance Urine pH Ur Specific [place] Urine Protein Urine Glucose (UA) Urine Ketones Urine Blood Urine Nitrite Ur Leukocyte Esterase Urine Opiates Screen Urine Fentanyl Screen Ur Barbiturates Screen Ur Phencyclidine Scrn Ur Amphetamines Screen U Benzodiazepines Scrn Urine Cocaine Screen U Marijuana (THC) Screen Ethyl Alcohol Acetone, Qual COVID-19 ([facility]CIECH) COVID-19 Clin Com Blood Type Antibody Screen Crossmatch 12/05/22 12/05/22 12/05/22 21:02 21:02 22:10 MCV MCH MCHC RDW Plt Count MPV Immature Gran % (Auto) Neut % (Auto) Lymph % (Auto) [place] % (Auto) Eos % (Auto) Baso % (Auto) Lymph # (Auto) [place] # (Auto) Eos # (Auto) Baso # (Auto) Abs Immat Gran (auto) Absolute Neuts (auto) Absolute Nucleated RBC Nucleated RBC % (auto) Neutrophils % (Manual) Band Neutrophils % Lymphocytes % (Manual) Monocytes % (Manual) Abs Neuts (Manual) Lymphocytes # (Manual) Monocytes # (Manual) Nucleated RBCs Toxic Granulation Dohle Bodies Platelet Estimate Large Platelets Plt Morphology Comment RBC Morphology Basophilic Stippling Microcytosis Target Cells Tear Drop Cells Gina Cells PT INR APTT VBG pH VBG pCO2 VBG pO2 VBG HCO3 VBG O2 Saturation VBG Base Excess Anion Gap Estim Creat Clear Calc Estimated GFR Random Glucose Lactic Acid Lactic Acid F/U @ 2Hr Lactic Acid F/U @ 4Hr 4.0 H* Calcium Magnesium Total Bilirubin AST ALT Alkaline Phosphatase Ammonia 39 Troponin I High Sens Total Protein Albumin Urine Color Urine Appearance Urine pH Ur Specific [place] Urine Protein Urine Glucose (UA) Urine Ketones Urine Blood Urine Nitrite Ur Leukocyte Esterase Urine Opiates Screen Urine Fentanyl Screen Ur Barbiturates Screen Ur Phencyclidine Scrn Ur Amphetamines Screen U Benzodiazepines Scrn Urine Cocaine Screen U Marijuana (THC) Screen Ethyl Alcohol Acetone, Qual Negative COVID-19 (WOJCIECH) COVID-19 Clin Com Blood Type Antibody Screen Crossmatch 12/05/22 12/06/22 12/06/22 23:32 01:49 04:41 MCV 78.3 L MCH 23.1 L MCHC 29.5 L RDW 21.6 H Plt Count 69 L D MPV 11.1 Immature Gran % (Auto) 0.9 H Neut % (Auto) 86.6 H Lymph % (Auto) 8.5 L [place] % (Auto) 3.4 Eos % (Auto) 0.4 Baso % (Auto) 0.2 Lymph # (Auto) 1.5 [place] # (Auto) 0.6 Eos # (Auto) 0.1 Baso # (Auto) 0.0 Abs Immat Gran (auto) 0.17 H Absolute Neuts (auto) 15.7 H Absolute Nucleated RBC 0.310 H Nucleated RBC % (auto) 1.7 H Neutrophils % (Manual) Band Neutrophils % Lymphocytes % (Manual) Monocytes % (Manual) Abs Neuts (Manual) Lymphocytes # (Manual) Monocytes # (Manual) Nucleated RBCs Toxic Granulation Dohle Bodies Platelet Estimate Large Platelets Plt Morphology Comment RBC Morphology Basophilic Stippling Microcytosis Target Cells Tear Drop Cells Gina Cells PT INR APTT VBG pH VBG pCO2 VBG pO2 VBG HCO3 VBG O2 Saturation VBG Base Excess Anion Gap Estim Creat Clear Calc Estimated GFR Random Glucose Lactic Acid Lactic Acid F/U @ 2Hr 2.7 H* Lactic Acid F/U @ 4Hr 1.5 Calcium Magnesium Total Bilirubin AST ALT Alkaline Phosphatase Ammonia Troponin I High Sens Total Protein Albumin Urine Color Urine Appearance Urine pH Ur Specific [place] Urine Protein Urine Glucose (UA) Urine Ketones Urine Blood Urine Nitrite Ur Leukocyte Esterase Urine Opiates Screen Urine Fentanyl Screen Ur Barbiturates Screen Ur Phencyclidine Scrn Ur Amphetamines Screen U Benzodiazepines Scrn Urine Cocaine Screen U Marijuana (THC) Screen Ethyl Alcohol Acetone, Qual COVID-19 (WOJCIECH) COVID-19 Asl Analytical Com Blood Type Antibody Screen Crossmatch 12/06/22 04:41 MCV MCH MCHC RDW Plt Count MPV Immature Gran % (Auto) Neut % (Auto) Lymph % (Auto) [place] % (Auto) Eos % (Auto) Baso % (Auto) Lymph # (Auto) [place] # (Auto) Eos # (Auto) Baso # (Auto) Abs Immat Gran (auto) Absolute Neuts (auto) Absolute Nucleated RBC Nucleated RBC % (auto) Neutrophils % (Manual) Band Neutrophils % Lymphocytes % (Manual) Monocytes % (Manual) Abs Neuts (Manual) Lymphocytes # (Manual) Monocytes # (Manual) Nucleated RBCs Toxic Granulation Dohle Bodies Platelet Estimate Large Platelets Plt Morphology Comment RBC Morphology Basophilic Stippling Microcytosis Target Cells Tear Drop Cells Gina Cells PT INR APTT VBG pH VBG pCO2 VBG pO2 VBG HCO3 VBG O2 Saturation VBG Base Excess Anion Gap 14 Estim Creat Clear Calc 125.0 Estimated GFR > 60 Random Glucose 74 Lactic Acid Lactic Acid F/U @ 2Hr Lactic Acid F/U @ 4Hr Calcium 7.6 L Magnesium Total Bilirubin 3.4 H AST 95 H ALT 34 Alkaline Phosphatase 171 H Ammonia Troponin I High Sens Total Protein 5.4 L Albumin 3.0 L Urine Color Urine Appearance Urine pH Ur Specific [place] Urine Protein Urine Glucose (UA) Urine Ketones Urine Blood Urine Nitrite Ur Leukocyte Esterase Urine Opiates Screen Urine Fentanyl Screen Ur Barbiturates Screen Ur Phencyclidine Scrn Ur Amphetamines Screen U Benzodiazepines Scrn Urine Cocaine Screen U Marijuana (THC) Screen Ethyl Alcohol Acetone, Qual COVID-19 ([facility]) COVID-19 Clin Com Blood Type Antibody Screen Crossmatch Assessment and Plan (1) Acute anemia: Status: Acute (2) Alcohol withdrawal: Status: Acute (3) Acute GI bleeding: Status: Acute (4) Colitis: Status: Acute Plan Pt is a 42-year-old male with a PMH significant for?alcohol use disorder who presents to the ED from his PCP for evaluation for anemia. Pt will be admitted to the hospital for alcohol withdrawal and symptomatic anemia from acute GI bleed. #Sepsis due to colitis- resolved -WBC trending down -Pt tolerating PO. Hold IVF -CDiff and GI panels ordered given significant diarrhea -Continue Zosyn 3.375mg q6 -IV Protonix -Monitor labs -GI consult #Acute blood loss anemia -Likely secondary to lower GI bleed -Patient's H&H 5.5/19.5 at time of presentation. Transfused 4 units. Repeat CBC 6 hrs after final unit -Pt claims to have nonpainful bleeding hemorrhoids, and pt experienced episodes of diarrhea with bright red blood -appreciate GI input -Monitor H&H closely # acalculous cholecystitis -continue Zosyn -appreciate GI input #Alcohol withdrawal -Patient's mother reports he drinks 2-3 pints a day, with last drink yesterday -Mild withdrawal symptoms, started on phenobarb -Folic acid, thiamine -CIWA scale -Monitor lytes -Care Team consult #Nicotine dependence -Nicotine transdermal patch Full Code Discussed with Dr. Velásquez DVT Prophylaxis: Pt ambulatory Pt will require ongoing inpt stay for treatment of?alcohol withdrawal and phenobarb per protocol, symptomatic anemia from acute GI bleed, and severe sepsis d/t colitis. Time Spent With Patient Time: Total time managing care of this patient today ____ minutes. Quality Stroke Does the patient have a stroke diagnosis?: No VTE Prior VTE?: No VTE Risk Level:: Medical - moderate - high VTE Device Contraindication: Treatment Not Indicated VTE Drug Contraindication: Treatment Not Indicated
--- NOTE | 2022-12-06 14:50 | MHC.CM.PN ---
Lives alone in an apartment that he rents from his mother. Drives self where he needs to go. Previously functionally independent. No prior services. Plan is home via mother transport.
[2022-12-06] MEDS: 0.9 % Sodium Chloride Flush 3 ML SYRINGE IVFLUSH (16:14)
[2022-12-06] MEDS: Potassium Chloride Packet 20 MEQ PACKET 40 MEQ PO (16:14)
[2022-12-06 18:15] LABS: Basophils Percent Auto 0.2 % (0-2); Eosinophils Absolute Auto 0.3 X10*3/uL (0.0-0.4); Eosinophils Percent Auto 1.9 % (0-4); Hematocrit 25.8 % (42.0-52.0); Hemoglobin 8.3 g/dl (14.0-18.0); Imm Gran Abs Auto 0.23 X10*3/uL (0.00-0.03); Imm Gran Pct Auto 1.5 % (0.0-0.4); Lymphocytes Absolute Auto 1.7 X10*3/uL (1.2-4.9); Lymphocytes Percent Auto 10.9 % (20-40); Mean Corpuscular HGB Conc 32.2 g/dl (31.0-36.0); Mean Corpuscular Hemoglobin 25.9 pg (27.0-33.0); Mean Corpuscular Volume 80.4 fL (80.0-98.0); Monocytes Percent Auto 6.1 % (2-11); Neutrophils Absolute Auto 12.4 x10*3/uL (2.0-8.3); Neutrophils Percent Auto 79.4 % (45-73); Red Blood Count 3.21 X10*6/uL (4.60-5.80); Red Cell Distribution Width 20.6 % (11.0-16.0); White Blood Count 15.6 X10*3/uL (4.8-10.8)
[2022-12-06 18:33] LABS: MANUAL DIFF FLAG NO; NRBC Pct Auto 2.1 /100WBC (0.0-0.2); Platelet Count 45 X10*3/uL (160-400); SCAN SMEAR FLAG 1
[2022-12-06] MEDS: diphenhydrAMINE HCL 25 MG CAPSULE 50 MG PO (18:33)
--- NOTE | 2022-12-06 18:56 | PM.EVENT ---
Event Note Date of Service: 12/06/22 Event Note: GI Consult-Full note dictated-Hx via patient, his mother, his RN, and EMR Imp: 42 yo male with chronic EtOH presenting with EtOH hepatitis and bloody diarrhea for > 1 year, anorexia, some odynphagia, N/V, rare hematemesis, and severe anemia. He had a negative EGD and colon[place] [address] on admission raises a suspicion of some inflammation in the GI tract. Diff dx: IBD, esophagitis, gastritis, R/O varices/portal HTN gastropathy Rec: EGD and Colonoscopy on 12/[address] Lim. Full consent obtained for this, including risks of bleeding and perforation. Dose of IV Vit K. F/U labs and transfuse PRN. F/U LFT's. Agree with checking stool specimens to R/O infection as well. I added Iron, B12, and Folate levels to his initial ED labs as well. D/W patient and mother in detail and they are comfortable with this plan. Thanks Time Spent With Patient Time: Total time managing care of this patient today ____ minutes.
[2022-12-06 19:39] LABS: Iron 80 mcg/dL (45-160); Percent Iron Saturation 22 % (15-50); Total Iron Binding Capacity 366 mcg/dL (228-428); Unsaturated Iron Binding 286 ug/dL
[2022-12-06] MEDS: Phytonadione (Vit K1) 10 MG in 0.9 % Sodium Chloride 50 ML 51 MG IV (19:48)
[2022-12-06 20:08] LABS: Ferritin 59 ng/mL (20-250); Folate 2.9 ng/mL (> or = 4.0); Vitamin B12 798 pg/mL (200-900)
[2022-12-07] MEDS: Piperacillin Sodium/Tazobactam 3.375 GM in 0.9 % Sodium Chloride 50 ML IV ×4 (02:34→18:03)
[2022-12-07] MEDS: 0.9 % Sodium Chloride Flush 3 ML SYRINGE IVFLUSH ×4 (02:34→19:46)
--- NOTE | 2022-12-07 03:11 | CONS_ITS ---
DATE OF SERVICE: 12/06/2022 REASON FOR CONSULTATION: GI bleeding, anemia, and alcohol-induced liver disease. HISTORY OF PRESENT ILLNESS: This has been obtained from the patient, his mother, and his nurse. The patient is a 42-year-old male with a long-standing history of chronic alcohol abuse up until this admission. He has been having at least one year of ongoing issues of diarrhea and hematochezia with bright red blood mixed with his stool or just bleeding by itself by the history from both his mother and the patient. He has had rare episodes of hematemesis. He does have some nausea and occasional vomiting as well, without bleeding. He has not noticed any real melena other than noticing some small amounts of black material with stool. He has been anorectic and has lost weight over at least the past month as well. He did undergo an upper endoscopy and colonoscopy in [address] Little, which were nonrevealinh other than a hiatal hernia and hemorrhoids. At that time, he was quite anemic as well. The hemoglobin was as low as 5.5. Since admission here, he continued to have some diarrhea and rectal bleeding. Again, this is described as bright red and without any black stool. He has had no vomiting here. He does have abdominal cramps, but no other abdominal pain. In addition to his chronic alcohol use, he does smoke. He does not use any significant amounts of NSAIDS. There was no known family history of COVID cancer or no inflammatory bowel disease. He has received total 4 years of packed red blood cells thus far since admission. He does feel little bit better in that regard. MEDICATIONS: At home: None. His medications here in the hospital include: 1. Acetaminophen. 2. Melatonin. 3. Nicotine patch. 4. Zofran. 5. Phenobarbital. 6. IV Zosyn. 7. Thiamine. PAST MEDICAL HISTORY: 1. Chronic alcohol abuse. 2. History of anemia with GI procedures as described above in 2016 which were negative other than hiatal hernia and hemorrhoids. He denies any surgeries. He denies any history of heart disease, diabetes nor asthma. SOCIAL HISTORY: He lives with his mother. Alcohol and tobacco as above. He does smoke occasional marijuana, but denies any drugs, otherwise. FAMILY HISTORY: Noncontributory. REVIEW OF SYSTEMS: CONSTITUTIONAL: He has been feeling poorly with weakness and anorexia at home. CARDIAC: No chest pain. PULMONARY: No coughing or hemoptysis. GI: As above. URINARY: No dysuria, no hematuria. PHYSICAL EXAMINATION: GENERAL: The patient is a thin, alert, cooperative male. SKIN: Warm and dry. NECK: Supple. CARDIAC: Normal S1 and S2. ABDOMEN: Soft, nondistended and nontender. EXTREMITIES: Without edema. LABORATORY DATA: As above. Hemoglobin on admission was 5.5. Platelets 12.0 in 2019. MCV 74, platelets are 123,000. Hemoglobin has gone up to 8.3 after his transfusion. PT 20.4 with INR 1.7. BUN 20, creatinine 0.7. Initial lactic acid was 12.0, but has been trending down with level of 2.7 last night, repeat this morning was 1.5. Total bilirubin 3.4, AST 95, ALT 34, alkaline phosphatase 171. COVID was negative. His CT scan of the chest and abdomen described some hepatomegaly without liver mass nor biliary obstruction. Spleen and pancrease are unremarkable. There is evidence of some mild thickening of the ascending colon and distal small bowel loops. There is no sign of any abscess nor obstruction. There was no significant intra-abdominal ascites. IMPRESSION: In regard to the patient's anemia and description of his GI symptoms, as well as the CT scan, he may very well have underlying inflammatory bowel disease contributing to his current presentation. He does have some upper GI complaints as well including the anorexia, weight loss, and chronic alcohol use. As such, I would recommend upper endoscopy to rule out anything such as esophagitis, gastritis, varices, and/or portal gastropathy. I would also recommend a colonoscopy on the same day to assess for any inflammatory bowel disease or any other pathology. Full consent has been obtained from the patient for both procedures including risks of bleeding and perforation. In the meantime, I have ordered a dose of vitamin K to see if that can help correct his elevated INR. It does appear that he has some component of alcohol-induced hepatitis and this will be followed, but I do not think he needs anything such as steroids at the present time. I will see if the lab can add an anemia workup to check his iron, B12 and folate level prior to the transfusions to see what needs to be supplemented jail. Stool specimens have already been ordered to rule out infection, which currently seems reasonable. I would continue to follow the hemoglobin and transfuse as needed in the meantime. We will follow up his PT with INR as well. This has been all discussed with patient and his mother in detail and they are both comfortable with the plan. Thanks for the consultation. MD FEDERICO Martinez/HALEY / [id number] MTDD
[2022-12-07 03:59] VITALS: BP 99/56; PULSE 72; RESP 16; TEMP 36.7; O2SAT 98
[2022-12-07] MEDS: Thiamine HCL 100 MG in 0.9 % Sodium Chloride 100 ML 202 MG IV (07:25)
[2022-12-07 07:28] LABS: MANUAL DIFF FLAG NO
[2022-12-07] MEDS: PHENobarbitaL 15 MG TABLET 45 MG PO ×2 (07:35→19:45)
[2022-12-07] MEDS: Nicotine 21 MG PATCH.TD24 TRANSDERMA (07:36)
[2022-12-07 07:42] LABS: Basophils Percent Auto 0.2 % (0-2); Eosinophils Absolute Auto 0.3 X10*3/uL (0.0-0.4); Eosinophils Percent Auto 2.1 % (0-4); Hematocrit 27.3 % (42.0-52.0); Hemoglobin 8.6 g/dl (14.0-18.0); Imm Gran Abs Auto 0.17 X10*3/uL (0.00-0.03); Imm Gran Pct Auto 1.3 % (0.0-0.4); Lymphocytes Absolute Auto 1.7 X10*3/uL (1.2-4.9); Lymphocytes Percent Auto 12.7 % (20-40); Mean Corpuscular HGB Conc 31.5 g/dl (31.0-36.0); Mean Corpuscular Hemoglobin 25.1 pg (27.0-33.0); Mean Corpuscular Volume 79.8 fL (80.0-98.0); Monocytes Absolute Auto 0.7 X10*3/uL (0.1-1.2); Monocytes Percent Auto 5.1 % (2-11); Neutrophils Absolute Auto 10.5 x10*3/uL (2.0-8.3); Neutrophils Percent Auto 78.6 % (45-73); Red Blood Count 3.42 X10*6/uL (4.60-5.80); Red Cell Distribution Width 20.9 % (11.0-16.0); SCAN SMEAR FLAG 1; White Blood Count 13.3 X10*3/uL (4.8-10.8)
[2022-12-07 07:44] LABS: Platelet Count 46 X10*3/uL (160-400)
[2022-12-07 07:45] LABS: NRBC Pct Auto 2.4 /100WBC (0.0-0.2); PLT ABN DIST 1
[2022-12-07 08:00] VITALS: BP 100/61; PULSE 69; RESP 18; TEMP 36.4; O2SAT 100
[2022-12-07 08:37] LABS: Alanine Aminotransferase 46 U/L (0-40); Albumin Level 2.6 g/dL (3.5-5.0); Alkaline Phosphatase 167 U/L (39-117); Anion Gap 14 (12-20); Aspartate Amino Transferase 154 U/L (5-37); Bilirubin Total 2.1 mg/dL (0.0-1.0); Blood Urea Nitrogen 8 mg/dL (9-16); Calcium 7.8 mg/dL (8.4-10.2); Carbon Dioxide 22 mmol/L (22-29); Chloride 103 mmol/L (96-108); Creatinine Clr Calc Pharmacy 155.1; Estimated Glomerular Filt Rate > 60; Glucose Random 79 mg/dL (60-115); Sodium 136 mmol/L (135-145); Total Protein 4.7 g/dL (6.5-8.0)
[2022-12-07] MEDS: Hydrocortisone 2.5 % Rectal Cr 30 GM TUBE 1 APPL PR ×2 (11:28→19:56)
--- NOTE | 2022-12-07 11:46 | HO.PM.IMPN ---
Subjective Subjective Date of Service: 12/07/22 Interval History: Seen in follow up for acute blood loss anemia, colitis, sepsis, alcohol withdrawal Interval history: Patient reports feeling better. Still weak/tired. still with bloody diarrhea. Stool studies not yet collected. H/H stable following 4 units packed RBC yesterday. Requesting cream for hemorrhoids Review of Systems Review of Systems: Yes all other systems are reviewed and are negative Physical Exam Vital Signs: Vital Signs: Last Vital Signs Temp 97.5 F 12/07/22 08:00 Pulse 69 12/07/22 08:00 Resp 18 12/07/22 08:00 BP 100/61 12/07/22 08:00 Pulse Ox 100 12/07/22 08:00 O2 Del Method 12/07/22 08:00 BMI result Body Mass Index 18.0 Constitutional - Awake and Alert, No apparent distress, pallor Eyes - PERRLA, EOMI Cardiovascular - S1S2, RRR, No edema Respiratory - Normal lung expansion, Normal respiratory effort, No respiratory distress, CTA bilaterally Gastrointestinal - NT, softly distended; +BS; No rebound or guarding Extremities - no calf tenderness bilaterally, no swelling Skin - Warm/Dry Neurological - Alert & oriented x3 Psychological - Appropriate affect Objective Data Active Medications Acetaminophen (Acetaminophen 325 Mg Tablet) 650 mg PO Q6H PRN PRN Reason: Pain, Mild (Pain Scale 1-3) Bisacodyl (Bisacodyl 5 Mg Tablet.Dr) 10 mg PO ONCE ONE Stop: 12/07/22 18:01 Hydrocortisone (Hydrocortisone 2.5 % Rectal Cr 30 Gm Tube) 1 appl [place] BID [facility] Stop: 12/13/22 21:01 Last Admin: 12/07/22 11:28 Dose: 1 appl Documented By: DARWIN Sodium Chloride (Ns) 1,000 mls @ 100 mls/hr IVCONT .Q10H [facility] Last Infusion: 12/06/22 21:51 Dose: 0 mls/hr Documented By: FABIAN Thiamine HCl 100 mg/ Sodium (Chloride) 101 mls @ 202 mls/hr IV DAILY [facility] Last Infusion: 12/07/22 08:16 Dose: 0 mls/hr Documented By: DARWIN Piperacillin Sod/Tazobactam (Sod 3.375 gm/ Sodium Chloride) 50 mls @ 100 mls/hr IV Q6H [facility] Last Infusion: 12/07/22 07:22 Dose: 0 mls/hr Documented By: DARWIN Melatonin (Melatonin 3 Mg Tablet) 6 mg PO BEDTIME PRN PRN Reason: Insomnia Nicotine (Nicotine 21 Mg Patch.Td24) 21 mg TRANSDERMA DAILY [facility] Last Admin: 12/07/22 07:36 Dose: 21 mg Documented By: DARWIN Ondansetron HCl (Ondansetron Hcl 4 Mg/2 Ml Vial) 4 mg IVPUSH Q8H PRN PRN Reason: Nausea and Vomiting Pharmacy Consult (Consult Rx Etoh Phenob Im/Po) 1 each MISCELLANE ONCE PRN; Protocol PRN Reason: Consult order Pharmacy Consult (Consult Rx Perform Med Rec) 1 each MISCELLANE ONCE PRN PRN Reason: Consult order Phenobarbital (Phenobarbital 15 Mg Tablet) 45 mg PO BID [facility] Stop: 12/07/22 21:01 Last Admin: 12/07/22 07:35 Dose: 45 mg Documented By: DARWIN Phenobarbital (Phenobarbital 30 Mg Tablet) 30 mg PO BID [facility] Stop: 12/09/22 21:01 Phenobarbital (Phenobarbital 15 Mg Tablet) 15 mg PO DAILY [facility] Stop: 12/11/22 09:01 Polyethylene Glycol/Electrolytes (Peg 3350/Na Sulf,Bicarb,Cl/Kcl 4,000 Ml Soln.Recon) 240 ml PO Q10M [facility] Stop: 12/07/22 17:41 Sodium Chloride (0.9 % Sodium Chloride Flush 3 Ml Syringe) 3 ml IVFLUSH QSHIFT [facility] Last Admin: 12/07/22 07:36 Dose: 3 ml Documented By: DARWIN Labs 12/07/22 06:28 12/07/22 06:28 Labs: Laboratory Results - last 24 hr 12/05/22 12/05/22 12/06/22 16:10 16:10 17:48 MCV 80.4 MCH 25.9 L MCHC 32.2 RDW 20.6 H Plt Count 45 L D MPV 10.0 Immature Gran % (Auto) 1.5 H Neut % (Auto) 79.4 H Lymph % (Auto) 10.9 L [place] % (Auto) 6.1 Eos % (Auto) 1.9 Baso % (Auto) 0.2 Lymph # (Auto) 1.7 [place] # (Auto) 1.0 Eos # (Auto) 0.3 Baso # (Auto) 0.0 Abs Immat Gran (auto) 0.23 H Absolute Neuts (auto) 12.4 H Absolute Nucleated RBC 0.320 H Nucleated RBC % (auto) 2.1 H Anion Gap Estim Creat Clear Calc Estimated GFR Random Glucose Calcium Iron 80 TIBC 366 % Saturation 22 Unsat Iron Binding 286 Ferritin 59 Total Bilirubin AST ALT Alkaline Phosphatase Total Protein Albumin Vitamin B12 798 Folate 2.9 L Crossmatch See Detail 12/07/22 12/07/22 06:28 06:28 MCV 79.8 L MCH 25.1 L MCHC 31.5 RDW 20.9 H Plt Count 46 L MPV Not Reportable Immature Gran % (Auto) 1.3 H Neut % (Auto) 78.6 H Lymph % (Auto) 12.7 L [place] % (Auto) 5.1 Eos % (Auto) 2.1 Baso % (Auto) 0.2 Lymph # (Auto) 1.7 [place] # (Auto) 0.7 Eos # (Auto) 0.3 Baso # (Auto) 0.0 Abs Immat Gran (auto) 0.17 H Absolute Neuts (auto) 10.5 H Absolute Nucleated RBC 0.320 H Nucleated RBC % (auto) 2.4 H Anion Gap 14 Estim Creat Clear Calc 155.1 Estimated GFR > 60 Random Glucose 79 Calcium 7.8 L Iron TIBC % Saturation Unsat Iron Binding Ferritin Total Bilirubin 2.1 H AST 154 H ALT 46 H Alkaline Phosphatase 167 H Total Protein 4.7 L Albumin 2.6 L Vitamin B12 Folate Crossmatch Microbiology Microbiology Results: Microbiology 12/05/22 16:41 Blood Culture - Preliminary Blood - Venous No growth after 24 hours. 12/05/22 16:41 Blood Culture - Preliminary Blood - Venous No growth after 24 hours. Assessment and Plan (1) Acute anemia: Status: Acute (2) Alcohol withdrawal: Status: Acute (3) Acute GI bleeding: Status: Acute (4) Colitis: Status: Acute Plan Pt is a 42-year-old male with a PMH significant for?alcohol use disorder who presents to the ED from his PCP for evaluation for anemia. Pt will be admitted to the hospital for alcohol withdrawal and symptomatic anemia from acute GI bleed. #Sepsis due to colitis- sepsis resolved -WBC trending down -Pt tolerating PO. DC IVF -CDiff and GI panels given significant diarrhea- not collected. Nurse notified to collect specimens- symptoms present on arrival -Continue Zosyn 3.375mg q6 -IV Protonix -Monitor labs -Will undergo endoscopy and colonoscopy tomorrow per GI -GI input appreciated #Acute blood loss anemia -Likely secondary to lower GI bleed -H/H stable 8.6/27.3% following 4 units packed RBC yesterday -appreciate GI input -Iron studies and vitamin B12 normal -Monitor H&H closely #Acute alcoholic hepatitis -No steroids per GI indicated per GI -Vit K dose given yesterday -Follow CMP -Appreciate GI input #Acute thrombocytopenia -likely related to acute alcoholic hepatitis -Monitor platelets # acalculous cholecystitis -continue Zosyn -appreciate GI input #Alcohol withdrawal -Patient's mother reports he drinks 2-3 pints a day -Continue pehnobarb per protocol -Folic acid, thiamine -CIWA scale -Monitor lytes -Addiction med consult placed #Nicotine dependence -Nicotine transdermal patch Full Code Discussed with Dr. Albrecht DVT Prophylaxis: compression/ ambulation. Avoid lovenox/heparin at this time given thombocytopenia Pt will require ongoing inpt stay for treatment of?alcohol withdrawal and phenobarb per protocol, symptomatic anemia from acute GI bleed, and severe sepsis d/t colitis with close monitoring of H/H and expert consultation and monitoring of alcohol withdrawal which cannot be achieved in lower level of care Time Spent With Patient Time: Total time managing care of this patient today ____ minutes. Quality Stroke Does the patient have a stroke diagnosis?: No VTE Prior VTE?: No VTE Risk Level:: Medical - moderate - high VTE Device Contraindication: Treatment Not Indicated VTE Drug Contraindication: Treatment Not Indicated
--- NOTE | 2022-12-07 11:49 | MHC.RECOVRN ---
Attempted to meet with pt in 367 after consult placed to CARE Team for alcohol use. Pt with nurse and visitor. Resources left at bedside. Will return to discuss substance use and recovery.
[2022-12-07 13:06] LABS: CDiff Gene PCR NEGATIVE (Negative)
[2022-12-07 13:23] LABS: Adenovirus F 40/41 Not Detected (Not Detect.); Astrovirus Not Detected (Not Detect.); Campylobacter Not Detected (Not Detect.); Cryptosporidium Not Detected (Not Detect.); Cyclospora cayetanensis Not Detected (Not Detect.); E. coli EAEC Not Detected (Not Detect.); E. coli EPEC Not Detected (Not Detect.); E. coli ETEC Not Detected (Not Detect.); E. coli STEC Not Detected (Not Detect.); Entamoeba histolytica Not Detected (Not Detect.); Giardia lamblia Not Detected (Not Detect.); Norovirus GI/GII Not Detected (Not Detect.); Plesiomonas shigelloides Not Detected (Not Detect.); Rotavirus A Not Detected (Not Detect.); Salmonella Not Detected (Not Detect.); Sapovirus Not Detected (Not Detect.); Shigella sp./EIEC Not Detected (Not Detect.); Vibrio Not Detected (Not Detect.); Vibrio Cholerae Not Detected (Not Detect.); Yersinia enterocolitica Not Detected (Not Detect.)
[2022-12-07 15:24] VITALS: BP 118/63; PULSE 85; RESP 19; TEMP 36.7; O2SAT 100
[2022-12-07] MEDS: PEG 3350/Na Sulf,Bicarb,Cl/KCL 4,000 ML SOLN.RECON 240 ML PO ×6 (16:02→17:29)
[2022-12-07 16:07] LABS: Hematocrit 26.2 % (42.0-52.0); Hemoglobin 8.1 g/dl (14.0-18.0); Mean Corpuscular HGB Conc 30.9 g/dl (31.0-36.0); Mean Corpuscular Hemoglobin 24.8 pg (27.0-33.0); Mean Corpuscular Volume 80.4 fL (80.0-98.0); Mean Platelet Volume 10.3 fL (9.4-12.4); NRBC Pct Auto 2.8 /100WBC (0.0-0.2); Red Blood Count 3.26 X10*6/uL (4.60-5.80); Red Cell Distribution Width 20.4 % (11.0-16.0)
[2022-12-07 16:29] LABS: White Blood Count 15.4 X10*3/uL (4.8-10.8)
[2022-12-07 16:30] LABS: Platelet Count 51 X10*3/uL (160-400)
[2022-12-07 16:34] LABS: Eosinophils Absolute Manual 0.2 X10*3/uL (0.0-0.4); Eosinophils Percent Manual 1 % (0-4); Lymphocytes Absolute Manual 2.2 X10*3/uL (1.2-4.9); Lymphocytes Percent Manual 14 % (20-40); Monocytes Absolute Manual 1.2 X10*3/uL (0.1-1.2); Monocytes Percent Manual 8 % (2-11); Neutrophils Percent Manual 77 % (45-73); Nucleated Red Blood Cells 3 /100WBC (0-0); RBC Morphology NOTED; Target Cells 1+ (5-14) /OIF
[2022-12-07 16:35] LABS: Platelet Estimate DECREASED (NORMAL); Platelet Morphology Comment NORMAL; Polychromasia 1+ (0-2) /OIF
[2022-12-07 16:37] LABS: Band Neutrophils Percent 0 % (3-5); Neutrophils Absolute Manual 11.9 X10*3/uL (2.0-8.3)
[2022-12-07 16:38] LABS: Hypochromasia 1+ (5-14) /OIF; SLIDE REVIEW VERIFIED
[2022-12-07] MEDS: bisacodyL 5 MG TABLET.DR 10 MG PO (18:02)
[2022-12-07 19:23] VITALS: BP 124/55; PULSE 91; RESP 18; TEMP 36.3; O2SAT 100
[2022-12-08] VITALS (11 sets, daily range): BP systolic 86–127; BP diastolic 54–75; PULSE 72–81; RESP 16–18; TEMP 36.3–37.2; O2SAT 99–100; BMI 18.0
[2022-12-08] MEDS: Piperacillin Sodium/Tazobactam 3.375 GM in 0.9 % Sodium Chloride 50 ML IV ×4 (00:24→18:17)
[2022-12-08] MEDS: 0.9 % Sodium Chloride 1,000 ML 999 ML IV (04:50)
--- NOTE | 2022-12-08 06:24 | PC.NURSE ---
Pt had a BP= 86/54 at 0400, ptis mentating well, no complaints presented, result relayed to Dr. Jackson, 1L bolus of NSS ordered and given, BP cirgkwlwn=893/68, reiterated pt being on NPO, for EGD and colonoscopy today.
[2022-12-08 06:25] LABS: MANUAL DIFF FLAG NO
[2022-12-08 06:36] LABS: INTERNATIONAL NORM RATIO 1.4 (0.9-1.1); Prothrombin Time 16.6 SEC (10.0-13.1)
[2022-12-08 06:48] LABS: Basophils Percent Auto 0.2 % (0-2); Eosinophils Absolute Auto 0.2 X10*3/uL (0.0-0.4); Eosinophils Percent Auto 1.9 % (0-4); Hematocrit 23.7 % (42.0-52.0); Hemoglobin 7.5 g/dl (14.0-18.0); Imm Gran Abs Auto 0.12 X10*3/uL (0.00-0.03); Lymphocytes Absolute Auto 1.2 X10*3/uL (1.2-4.9); Lymphocytes Percent Auto 9.8 % (20-40); Mean Corpuscular HGB Conc 31.6 g/dl (31.0-36.0); Mean Corpuscular Hemoglobin 25.3 pg (27.0-33.0); Mean Corpuscular Volume 80.1 fL (80.0-98.0); Monocytes Absolute Auto 0.8 X10*3/uL (0.1-1.2); Monocytes Percent Auto 6.7 % (2-11); Neutrophils Absolute Auto 10.2 x10*3/uL (2.0-8.3); Neutrophils Percent Auto 80.4 % (45-73); Red Blood Count 2.96 X10*6/uL (4.60-5.80); Red Cell Distribution Width 20.9 % (11.0-16.0); White Blood Count 12.6 X10*3/uL (4.8-10.8)
[2022-12-08 06:52] LABS: NRBC Pct Auto 1.2 /100WBC (0.0-0.2); Platelet Count 42 X10*3/uL (160-400)
[2022-12-08 07:05] LABS: Alanine Aminotransferase 44 U/L (0-40); Albumin Level 2.3 g/dL (3.5-5.0); Alkaline Phosphatase 149 U/L (39-117); Anion Gap 12 (12-20); Aspartate Amino Transferase 136 U/L (5-37); Bilirubin Direct 0.9 mg/dL (0.0-0.5); Bilirubin Total 1.7 mg/dL (0.0-1.0); Blood Urea Nitrogen 6 mg/dL (9-16); Calcium 7.3 mg/dL (8.4-10.2); Carbon Dioxide 22 mmol/L (22-29); Chloride 104 mmol/L (96-108); Creatinine Clr Calc Pharmacy 164.2; Estimated Glomerular Filt Rate > 60; Glucose Fasting 87 mg/dL (60-99); Potassium 2.7 mmol/L (3.3-5.1); Sodium 135 mmol/L (135-145); Total Protein 4.2 g/dL (6.5-8.0)
[2022-12-08] MEDS: Nicotine 21 MG PATCH.TD24 TRANSDERMA (07:43)
[2022-12-08] MEDS: Potassium Chloride Packet 20 MEQ PACKET 40 MEQ PO (07:43)
[2022-12-08] MEDS: Potassium Chloride/H20 10 MEQ/100 ML PIGGYBACK 100 MEQ IV ×4 (07:43→11:58)
[2022-12-08 08:08] LABS: Magnesium 1.2 mg/dL (1.6-2.6)
--- NOTE | 2022-12-08 08:21 | P.CDIC_ITS ---
CDI Concurrent Query Documentation Clarification: PHYSICIAN'S DOCUMENTATION REQUEST Date of Query: 12/08/22820 Patient Name: Amadou Qiu Admit Date: 12/05/22 Dear Doctor, A review of the medical record indicates additional documentation may be needed. Please review below and update the documentation accordingly. Clinical Indicators: Is there a diagnosis that correlates with these lab findings: Risk Factors/Clinical Indicators/Treatments LAB FINDINGS: potassium 2.8 2.7 L IV potassium chloride Based on the above, could you clarify in the Progress Notes the appropriate diagnosis, if significant, that supports the above abnormalities and additional evaluation, monitoring, and/or treatment rendered: * Hypokalemia or other etiology of lab findings * Labs indicate a diagnosis of (please specify) * Other (please specify) * Unable to determine Use of terms such as suspected, likely, concern for, or probable (associated with a specific diagnosis that is being evaluated, monitored, or treated as if it exists) are acceptable and can be coded in the inpatient setting, when documented at the time of discharge. Thank you, Marley August [facility], CDIS Extension: [phone] Please use your independent medical judgment in providing your response. THIS QUERY IS PART OF THE PERMANENT MEDICAL RECORD Provider Response: Other Other Diagnosis: Acute hypokalemia realted to dependence and GI losses
--- NOTE | 2022-12-08 08:25 | MHC.CDI.CONC ---
CDI Concurrent Query Documentation Clarification: PHYSICIAN'S DOCUMENTATION REQUEST Date of Query: 12/08/22 0825 Patient Name: Amadou Qiu Admit Date: 12/05/22 Dear Doctor, A review of the medical record indicates additional documentation may be needed. Please review below and update the documentation accordingly. Clinical Indicators: Is there a diagnosis that correlates with these lab findings below: Risk Factors/Clinical Indicators/Treatments LAB FINDINGS: magnesium 1.2 L IV Magnesium sulfate Based on the above, could you clarify in the Progress Notes the appropriate diagnosis, if significant, that supports the above abnormalities and additional evaluation, monitoring, and/or treatment rendered: Hypomagnesemia or other etiology of lab findings Labs indicate a diagnosis of (please specify) Other (please specify) Unable to determine Use of terms such as suspected, likely, concern for, or probable (associated with a specific diagnosis that is being evaluated, monitored, or treated as if it exists) are acceptable and can be coded in the inpatient setting, when documented at the time of discharge. Thank you, Marley August [facility], [facility] Extension: [phone] Please use your independent medical judgment in providing your response. THIS QUERY IS PART OF THE PERMANENT MEDICAL RECORD Provider Response: Other Other Diagnosis: Acute hypomagnesemia secondary to etoh dependence and GI losses
[2022-12-08] MEDS: PHENobarbitaL 30 MG TABLET PO ×2 (09:23→19:58)
[2022-12-08] MEDS: Magnesium Sulfate/H2O 2 GM/50 ML PIGGYBACK IV ×2 (09:23→10:55)
[2022-12-08] MEDS: Hydrocortisone 2.5 % Rectal Cr 30 GM TUBE 1 APPL PR ×2 (09:28→20:00)
--- NOTE | 2022-12-08 11:19 | P.PNIM_ITS ---
Subjective Subjective Date of Service: 12/08/22 Interval History: Seen in follow up for acute blood loss anemia, colitis, sepsis, alcohol withdrawal Interval history: Patient reports feeling better. Still weak/tired. still with bloody diarrhea. Endoscopy/colonoscopy today. K with minimal improvement to 2.7, Mg 1.2. H/H drop to 7.5/23.7%. Review of Systems Review of Systems: Yes all other systems are reviewed and are negative Physical Exam Vital Signs: Vital Signs: Last Vital Signs Temp 98.8 F 12/08/22 10:49 Pulse 72 12/08/22 10:49 Resp 18 12/08/22 10:49 BP 114/64 12/08/22 10:49 Pulse Ox 99 12/08/22 07:22 O2 Del Method 12/08/22 07:22 BMI result Body Mass Index 18.0 Constitutional - Awake and Alert, No apparent distress Eyes - PERRLA, EOMI Cardiovascular - S1S2, RRR, No edema Respiratory - Normal lung expansion, Normal respiratory effort, No respiratory distress, CTA bilaterally Gastrointestinal - Moderate distension with TTP RUQ. +BS; No rebound or guarding. +fluid wave Extremities - no calf tenderness bilaterally, no swelling Skin - Warm/Dry Neurological - Alert & oriented x3 Psychological - Appropriate affect Objective Data Active Medications Acetaminophen (Acetaminophen 325 Mg Tablet) 650 mg PO Q6H PRN PRN Reason: Pain, Mild (Pain Scale 1-3) Hydrocortisone (Hydrocortisone 2.5 % Rectal Cr 30 Gm Tube) 1 appl [place] BID [facility] Stop: 12/13/22 21:01 Last Admin: 12/08/22 09:28 Dose: 1 appl Documented By: GARDENIA Thiamine HCl 100 mg/ Sodium (Chloride) 101 mls @ 202 mls/hr IV DAILY [facility] Last Infusion: 12/07/22 08:16 Dose: 0 mls/hr Documented By: DARWIN Piperacillin Sod/Tazobactam (Sod 3.375 gm/ Sodium Chloride) 50 mls @ 100 mls/hr IV Q6H [facility] Last Infusion: 12/08/22 07:10 Dose: 0 mls/hr Documented By: SUREKHAILM Magnesium Sulfate (Magnesium Sulfate/H2o) 2 gm in 50 mls @ 25 mls/hr IV Q2H [facility] Stop: 12/08/22 12:29 Last Admin: 12/08/22 10:55 Dose: 25 mls/hr Documented By: GARDENIA Melatonin (Melatonin 3 Mg Tablet) 6 mg PO BEDTIME PRN PRN Reason: Insomnia Nicotine (Nicotine 21 Mg Patch.Td24) 21 mg TRANSDERMA DAILY [facility] Last Admin: 12/08/22 07:43 Dose: 21 mg Documented By: GARDENIA Ondansetron HCl (Ondansetron Hcl 4 Mg/2 Ml Vial) 4 mg IVPUSH Q8H PRN PRN Reason: Nausea and Vomiting Pharmacy Consult (Consult Rx Etoh Phenob Im/Po) 1 each MISCELLANE ONCE PRN; Protocol PRN Reason: Consult order Pharmacy Consult (Consult Rx Perform Med Rec) 1 each MISCELLANE ONCE PRN PRN Reason: Consult order Phenobarbital (Phenobarbital 30 Mg Tablet) 30 mg PO BID [facility] Stop: 12/09/22 21:01 Last Admin: 12/08/22 09:23 Dose: 30 mg Documented By: GARDENIA Phenobarbital (Phenobarbital 15 Mg Tablet) 15 mg PO DAILY [facility] Stop: 12/11/22 09:01 Sodium Chloride (0.9 % Sodium Chloride Flush 3 Ml Syringe) 3 ml IVFLUSH QSHIFT [facility] Last Admin: 12/08/22 07:58 Dose: Not Given Documented By: GARDENIA Non-Admin Reason: IV Running Labs 12/08/22 05:39 12/08/22 05:39 Labs: Laboratory Results - last 24 hr 12/05/22 12/05/22 12/07/22 16:10 16:10 11:45 MCV MCH MCHC RDW Plt Count MPV Immature Gran % (Auto) Neut % (Auto) Lymph % (Auto) [place] % (Auto) Eos % (Auto) Baso % (Auto) Lymph # (Auto) [place] # (Auto) Eos # (Auto) Baso # (Auto) Abs Immat Gran (auto) Absolute Neuts (auto) Absolute Nucleated RBC Nucleated RBC % (auto) Neutrophils % (Manual) Band Neutrophils % Lymphocytes % (Manual) Monocytes % (Manual) Eosinophils % (Manual) Abs Neuts (Manual) Lymphocytes # (Manual) Monocytes # (Manual) Eosinophils # (Manual) Nucleated RBCs Platelet Estimate Plt Morphology Comment RBC Morphology Polychromasia Hypochromasia Target Cells Smear Tech's Comments Smear Path Review SEE NOTE PT INR Anion Gap Estim Creat Clear Calc Estimated GFR Fasting Glucose Calcium Magnesium Total Bilirubin Direct Bilirubin AST ALT Alkaline Phosphatase Total Protein Albumin Stl C. cayetanensis PCR Stool Rotavirus A PCR Stl Adenov F 40/41 PCR Stool Astrovirus (PCR) Stool Campylobacter PCR Stool Cryptosporidium PCR Stl Sh Tox Pr E STEC PCR Stool E coli O157 PCR Stl Enterotoxigenic E PCR Stool EPEC (PCR) Stool EAEC (PCR) Stl E. histolytica PCR Stool Giardia Lamblia PCR Stl P. shigelloides PCR Stool Salmonella PCR Stool Sapovirus (PCR) Stl Shigella/EIEC PCR St Y.enterocolitica PCR Stool Vibrio (PCR) Stl Vibrio cholerae PCR Stl Norovirus GI/GII PCR C. difficile Tox B Gene NEGATIVE Blood Type A Positive Antibody Screen NEGATIVE Crossmatch See Detail 12/07/22 12/07/22 12/08/22 11:45 15:57 05:39 MCV 80.4 80.1 MCH 24.8 L 25.3 L MCHC 30.9 L 31.6 RDW 20.4 H 20.9 H Plt Count 51 L 42 L MPV 10.3 Not Reportable Immature Gran % (Auto) Cancelled 1.0 H Neut % (Auto) Cancelled 80.4 H Lymph % (Auto) Cancelled 9.8 L [place] % (Auto) Cancelled 6.7 Eos % (Auto) Cancelled 1.9 Baso % (Auto) Cancelled 0.2 Lymph # (Auto) Cancelled 1.2 [place] # (Auto) Cancelled 0.8 Eos # (Auto) Cancelled 0.2 Baso # (Auto) Cancelled 0.0 Abs Immat Gran (auto) Cancelled 0.12 H Absolute Neuts (auto) Cancelled 10.2 H Absolute Nucleated RBC 0.430 H 0.150 H Nucleated RBC % (auto) 2.8 H 1.2 H Neutrophils % (Manual) 77 H Band Neutrophils % 0 L Lymphocytes % (Manual) 14 L Monocytes % (Manual) 8 Eosinophils % (Manual) 1 Abs Neuts (Manual) 11.9 H Lymphocytes # (Manual) 2.2 Monocytes # (Manual) 1.2 Eosinophils # (Manual) 0.2 Nucleated RBCs 3 H Platelet Estimate DECREASED Plt Morphology Comment NORMAL RBC Morphology NOTED Polychromasia 1+ (0-2) Hypochromasia 1+ (5-14) Target Cells 1+ (5-14) Smear Tech's Comments VERIFIED Smear Path Review PT INR Anion Gap Estim Creat Clear Calc Estimated GFR Fasting Glucose Calcium Magnesium Total Bilirubin Direct Bilirubin AST ALT Alkaline Phosphatase Total Protein Albumin Stl C. cayetanensis PCR Not Detected Stool Rotavirus A PCR Not Detected Stl Adenov F 40/ PCR Not Detected Stool Astrovirus (PCR) Not Detected Stool Campylobacter PCR Not Detected Stool Cryptosporidium PCR Not Detected Stl Sh Tox Pr E STEC PCR Not Detected Stool E coli O157 PCR Not applicable Stl Enterotoxigenic E PCR Not Detected Stool EPEC (PCR) Not Detected Stool EAEC (PCR) Not Detected Stl E. histolytica PCR Not Detected Stool Giardia Lamblia PCR Not Detected Stl P. shigelloides PCR Not Detected Stool Salmonella PCR Not Detected Stool Sapovirus (PCR) Not Detected Stl Shigella/EIEC PCR Not Detected St Y.enterocolitica PCR Not Detected Stool Vibrio (PCR) Not Detected Stl Vibrio cholerae PCR Not Detected Stl Norovirus GI/GII PCR Not Detected C. difficile Tox B Gene Blood Type Antibody Screen Crossmatch 12/08/22 12/08/22 05:39 05:39 MCV MCH MCHC RDW Plt Count MPV Immature Gran % (Auto) Neut % (Auto) Lymph % (Auto) [place] % (Auto) Eos % (Auto) Baso % (Auto) Lymph # (Auto) [place] # (Auto) Eos # (Auto) Baso # (Auto) Abs Immat Gran (auto) Absolute Neuts (auto) Absolute Nucleated RBC Nucleated RBC % (auto) Neutrophils % (Manual) Band Neutrophils % Lymphocytes % (Manual) Monocytes % (Manual) Eosinophils % (Manual) Abs Neuts (Manual) Lymphocytes # (Manual) Monocytes # (Manual) Eosinophils # (Manual) Nucleated RBCs Platelet Estimate Plt Morphology Comment RBC Morphology Polychromasia Hypochromasia Target Cells Smear Tech's Comments Smear Path Review PT 16.6 H INR 1.4 H Anion Gap 12 Estim Creat Clear Calc 164.2 Estimated GFR > 60 Fasting Glucose 87 Calcium 7.3 L D Magnesium 1.2 L* Total Bilirubin 1.7 H Direct Bilirubin 0.9 H AST 136 H ALT 44 H Alkaline Phosphatase 149 H Total Protein 4.2 L Albumin 2.3 L Stl C. cayetanensis PCR Stool Rotavirus A PCR Stl Adenov F 40/ PCR Stool Astrovirus (PCR) Stool Campylobacter PCR Stool Cryptosporidium PCR Stl Sh Tox Pr E STEC PCR Stool E coli O157 PCR Stl Enterotoxigenic E PCR Stool EPEC (PCR) Stool EAEC (PCR) Stl E. histolytica PCR Stool Giardia Lamblia PCR Stl P. shigelloides PCR Stool Salmonella PCR Stool Sapovirus (PCR) Stl Shigella/EIEC PCR St Y.enterocolitica PCR Stool Vibrio (PCR) Stl Vibrio cholerae PCR Stl Norovirus GI/GII PCR C. difficile Tox B Gene Blood Type Antibody Screen Crossmatch Microbiology Microbiology Results: Microbiology 12/05/22 16:41 Blood Culture - Preliminary Blood - Venous No growth after 48 hours. 12/05/22 16:41 Blood Culture - Preliminary Blood - Venous No growth after 48 hours. Assessment and Plan (1) Acute anemia: Status: Acute (2) Alcohol withdrawal: Status: Acute (3) Acute GI bleeding: Status: Acute (4) Colitis: Status: Acute Plan Pt is a 42-year-old male with a PMH significant for?alcohol use disorder who presents to the ED from his PCP for evaluation for anemia. Pt will be admitted to the hospital for alcohol withdrawal and symptomatic anemia from acute GI bleed. #Sepsis due to colitis- sepsis resolved -WBC trending down -Pt tolerating PO. DC IVF -CDiff and GI panel negative -Continue Zosyn 3.375mg q6 -IV Protonix -Monitor labs -endoscopy and colonoscopy today -GI input appreciated #Acute blood loss anemia -Likely secondary to lower GI bleed. Continues with bloody diarrhea. See above -H/H drop to 7.5/23.7%. Transfuse 1 unit -appreciate GI input -Iron studies and vitamin B12 normal -Monitor H&H closely #Acute hypokalemia -due to GI losses -K 2.6 yesterday, repleted. 2.7 today -IV KCl. Hold on PO KCl per GI pending scopes today -Recheck K pre-op #Hypomagnesemia -due to GI losses and ETOH dependence -Mg 1.2 -4g IV mag given -Repeat Mg pre-op #Acute alcoholic hepatitis -LFT's trending down -No steroids per GI indicated per GI -Follow CMP/coags -Abd moderately distended with RUQ ttp and fluid wave. Abd u/s ordered -Appreciate GI input #Acute thrombocytopenia -likely related to acute alcoholic hepatitis -Monitor platelets # acalculous cholecystitis -continue Zosyn -appreciate GI input #Alcohol withdrawal -Patient's mother reports he drinks 2-3 pints a day -Continue pehnobarb per protocol -Folic acid, thiamine -CIWA scale -Monitor lytes -Addiction med pending #Nicotine dependence -Nicotine transdermal patch Full Code Discussed with Dr. Albrecht DVT Prophylaxis: compression/ ambulation. Avoid lovenox/heparin at this time given thombocytopenia Pt will require ongoing inpt stay for treatment of?alcohol withdrawal and phenobarb per protocol, symptomatic anemia from acute GI bleed requiring multiple transfusions, and colitis with close monitoring of H/H and expert consultation which cannot be achieved in lower level of care Time Spent With Patient Time: Total time managing care of this patient today ____ minutes. Quality Stroke Does the patient have a stroke diagnosis?: No VTE Prior VTE?: No VTE Risk Level:: Medical - moderate - high VTE Device Contraindication: Treatment Not Indicated VTE Drug Contraindication: Treatment Not Indicated
[2022-12-08] MEDS: Thiamine HCL 100 MG in 0.9 % Sodium Chloride 100 ML 202 MG IV (12:41)
[2022-12-08 13:23] LABS: MANUAL DIFF FLAG NO
--- NOTE | 2022-12-08 13:25 | MHC.SHP ---
Pre-Procedural Eval Section A Date of Service: 12/08/22 The patient is an INPATIENT: Yes The History & Physical has been completed within 30 days and I have reviewed it.: Yes Section B Chief Complaint: Abnormal labs Allergies: Allergies Allergy/AdvReac Type Severity Reaction Status Date / Time No Known Allergies Allergy Verified 12/05/22 15:40 [No Known Allergies*] Plan I have reviewed the history and physical and performed a pertinent physical examination on my patient. No changes have occurred unless specified. Time Spent With Patient Time: Total time managing care of this patient today ____ minutes.
[2022-12-08 13:30] LABS: Basophils Percent Auto 0.3 % (0-2); Eosinophils Absolute Auto 0.2 X10*3/uL (0.0-0.4); Eosinophils Percent Auto 1.3 % (0-4); Hemoglobin 8.6 g/dl (14.0-18.0); Imm Gran Abs Auto 0.14 X10*3/uL (0.00-0.03); Imm Gran Pct Auto 0.9 % (0.0-0.4); Lymphocytes Absolute Auto 1.8 X10*3/uL (1.2-4.9); Lymphocytes Percent Auto 11.6 % (20-40); Mean Corpuscular HGB Conc 31.9 g/dl (31.0-36.0); Mean Corpuscular Hemoglobin 26.1 pg (27.0-33.0); Mean Corpuscular Volume 82.1 fL (80.0-98.0); Monocytes Percent Auto 6.8 % (2-11); NRBC Pct Auto 0.9 /100WBC (0.0-0.2); Neutrophils Percent Auto 79.1 % (45-73); Platelet Count 37 X10*3/uL (160-400); Red Blood Count 3.29 X10*6/uL (4.60-5.80); Red Cell Distribution Width 20.8 % (11.0-16.0); White Blood Count 15.2 X10*3/uL (4.8-10.8)
[2022-12-08 13:43] LABS: Blood Urea Nitrogen 5 mg/dL (9-16); Creatinine Clr Calc Pharmacy 170.9; Estimated Glomerular Filt Rate > 60; Glucose Random 86 mg/dL (60-115)
--- NOTE | 2022-12-08 14:21 | P.CONAN_ITS ---
[facility] Active Problems Active Problems: All Active Problems (Updated 12/06/22 @ 00:10 by Gi Hazel NP) Acute anemia (Acute) Alcohol withdrawal (Acute) Acute GI bleeding (Acute) Colitis (Acute) Acalculous cholecystitis (Acute) Family History Family history of problems with anesthesia: No Surgical History History of Problems with Anesthesia: No Social History Social History Household Members: Family Housing: Apartment Do you presently have visiting nurse or other home services: No Alcohol intake: current Alcohol intake frequency: 3 or more drinks per day Patient Tobacco Use Status: Current everyday Tobacco user Tobacco use type: Cigarette Cigarettes Per Day: 20 Smoked in Last 30 Days: Yes e-Cigarette/Vaping Use: Currently Using Patient Interested in Nicotine Replacement: Yes (pt wearing patch) Patient Given Instructions on How to Stop Smoking: No Second Hand Smoke Exposure: No Use of substances other than those prescribed or required for medical reasons: Yes Substance Use Type: Marijuana Substance Use Frequency: Daily Last Used Substance: Just Prior to Admission Currently Displaying Signs/Symptoms of Drug Intoxication Withdrawal: No Any prior treatment program specific to substance use: Yes Have you been hit, kicked, punched, or otherwise hurt by someone within the past year? If so, by whom?: No Do you feel safe in your current relationship?: No Current Relationship Is there a partner from a previous relationship who is making you feel unsafe now?: No Are you made to feel afraid or neglected: No [facility] Healthcare Practices: none Advance Directives: No Advance Directives Information Provided: No Advance Directives on File: No Do you have thoughts of harming others: None Do you have a plan to hurt others: No Plan Recently lost weight without trying: Yes How much weight loss: 2-13 pounds Eating poorly because of decreased appetite: Yes Nutrition screen score: 4 Nutrition Risks: Anorexia Poor oral hygiene: No service: No Meds Allergies Allergy/AdvReac Type Severity Reaction Status Date / Time No Known Allergies Allergy Verified 12/05/22 15:40 [No Known Allergies*] Active Medications: Current Medications Acetaminophen (Acetaminophen 325 Mg Tablet) 650 mg PO Q6H PRN PRN Reason: Pain, Mild (Pain Scale 1-3) Hydrocortisone (Hydrocortisone 2.5 % Rectal Cr 30 Gm Tube) 1 appl SD BID [facility]ULWANT Stop: 12/13/22 21:01 Last Admin: 12/08/22 09:28 Dose: 1 appl Thiamine HCl 100 mg/ Sodium (Chloride) 101 mls @ 202 mls/hr IV DAILY [facility] Last Infusion: 12/08/22 13:24 Dose: Infused Piperacillin Sod/Tazobactam (Sod 3.375 gm/ Sodium Chloride) 50 mls @ 100 mls/hr IV Q6H [facility] Last Infusion: 12/08/22 14:00 Dose: Infused Lactated Ringer's (Lr) 1,000 mls @ 50 mls/hr IVCONT .Q20H [facility] Melatonin (Melatonin 3 Mg Tablet) 6 mg PO BEDTIME PRN PRN Reason: Insomnia Nicotine (Nicotine 21 Mg Patch.Td24) 21 mg TRANSDERMA DAILY [facility] Last Admin: 12/08/22 07:43 Dose: 21 mg Ondansetron HCl (Ondansetron Hcl 4 Mg/2 Ml Vial) 4 mg IVPUSH Q8H PRN PRN Reason: Nausea and Vomiting Pharmacy Consult (Consult Rx Etoh Phenob Im/Po) 1 each MISCELLANE ONCE PRN; Protocol PRN Reason: Consult order Pharmacy Consult (Consult Rx Perform Med Rec) 1 each MISCELLANE ONCE PRN PRN Reason: Consult order Phenobarbital (Phenobarbital 30 Mg Tablet) 30 mg PO BID [facility] Stop: 12/09/22 21:01 Last Admin: 12/08/22 09:23 Dose: 30 mg Phenobarbital (Phenobarbital 15 Mg Tablet) 15 mg PO DAILY [facility] Stop: 12/11/22 09:01 Sodium Chloride (0.9 % Sodium Chloride Flush 3 Ml Syringe) 3 ml IVFLUSH QSHIFT [facility] Last Admin: 12/08/22 07:58 Dose: Not Given Home Medications Medication Instructions Recorded Confirmed Last Taken Type No Known Home Meds 12/05/22 12/05/22 Unknown History Exam Exam Date and Time: December 08, 2022 1421 Height,Weight and Vital Signs: Height 6 ft Weight 60.328 kg Last Vital Signs Temp 98.1 F 12/08/22 12:48 Pulse 74 12/08/22 12:48 Resp 18 12/08/22 12:48 BP 117/66 12/08/22 12:48 Pulse Ox 99 12/08/22 07:22 O2 Del Method 12/08/22 07:22 Pertinent Lab Results Pertinent Lab Results: Laboratory Tests 12/05/22 12/05/22 12/05/22 16:10 16:10 16:10 WBC 27.0 H RBC 2.63 L Hgb 5.5 L* Hct 19.5 L* MCV 74.1 L MCH 20.9 L MCHC 28.2 L RDW 21.0 H Plt Count 123 L MPV 11.3 Immature Gran % (Auto) Cancelled Neut % (Auto) Cancelled Lymph % (Auto) Cancelled Love % (Auto) Cancelled Eos % (Auto) Cancelled Baso % (Auto) Cancelled Lymph # (Auto) Cancelled Love # (Auto) Cancelled Eos # (Auto) Cancelled Baso # (Auto) Cancelled Abs Immat Gran (auto) Cancelled Absolute Neuts (auto) Cancelled Absolute Nucleated RBC 0.800 H Nucleated RBC % (auto) 3.0 H Neutrophils % (Manual) 84 H Band Neutrophils % 9 H Lymphocytes % (Manual) 4 L Monocytes % (Manual) 3 Eosinophils % (Manual) Abs Neuts (Manual) 25.1 H Lymphocytes # (Manual) 1.1 L Monocytes # (Manual) 0.8 Eosinophils # (Manual) Nucleated RBCs 2 H Toxic Granulation PRESENT Dohle Bodies PRESENT Platelet Estimate DECREASED Large Platelets PRESENT Plt Morphology Comment NOTED RBC Morphology NOTED Polychromasia Hypochromasia Basophilic Stippling 1+ (0-2) Microcytosis 2+ (15-30) Target Cells 1+ (5-14) Tear Drop Cells 2+ (3-5) [place] Cells 2+ (3-5) Smear Tech's Comments Smear Path Review SEE NOTE PT 20.4 H INR 1.7 H APTT 30.3 VBG pH VBG pCO2 VBG pO2 VBG HCO3 VBG O2 Saturation VBG Base Excess Sodium 130 L Potassium 4.2 Chloride 84 L Carbon Dioxide 13 L Anion Gap 38 H BUN 25 H Creatinine 1.00 Estim Creat Clear Calc 83.7 Estimated GFR > 60 Random Glucose 152 H Fasting Glucose Lactic Acid Lactic Acid F/U @ 2Hr Lactic Acid F/U @ 4Hr Calcium 9.5 Magnesium 2.1 Iron 80 TIBC 366 % Saturation 22 Unsat Iron Binding 286 Ferritin 59 Total Bilirubin 2.6 H Direct Bilirubin AST 95 H ALT 42 H Alkaline Phosphatase 230 H Ammonia Troponin I High Sens Total Protein 6.9 Albumin 3.7 Vitamin B12 798 Folate 2.9 L Urine Color Urine Appearance Urine pH Ur Specific [place] Urine Protein Urine Glucose (UA) Urine Ketones Urine Blood Urine Nitrite Ur Leukocyte Esterase Stl C. cayetanensis PCR Stool Rotavirus A PCR Stl Adenov F 40/ PCR Stool Astrovirus (PCR) Stool Campylobacter PCR Stool Cryptosporidium PCR Stl Sh Tox Pr E STEC PCR Stool E coli O157 PCR Stl Enterotoxigenic E PCR Stool EPEC (PCR) Stool EAEC (PCR) Stl E. histolytica PCR Stool Giardia Lamblia PCR Stl P. shigelloides PCR Stool Salmonella PCR Stool Sapovirus (PCR) Stl Shigella/EIEC PCR St Y.enterocolitica PCR Stool Vibrio (PCR) Stl Vibrio cholerae PCR Stl Norovirus GI/GII PCR Urine Opiates Screen Urine Fentanyl Screen Ur Barbiturates Screen Ur Phencyclidine Scrn Ur Amphetamines Screen U Benzodiazepines Scrn Urine Cocaine Screen U Marijuana (THC) Screen Ethyl Alcohol Acetone, Qual C. difficile Tox B Gene COVID-19 ([facility]) COVID-19 Clin Com Blood Type Antibody Screen Crossmatch 12/05/22 12/05/22 12/05/22 16:10 16:10 16:55 WBC RBC Hgb Hct MCV MCH MCHC RDW Plt Count MPV Immature Gran % (Auto) Neut % (Auto) Lymph % (Auto) Love % (Auto) Eos % (Auto) Baso % (Auto) Lymph # (Auto) Love # (Auto) Eos # (Auto) Baso # (Auto) Abs Immat Gran (auto) Absolute Neuts (auto) Absolute Nucleated RBC Nucleated RBC % (auto) Neutrophils % (Manual) Band Neutrophils % Lymphocytes % (Manual) Monocytes % (Manual) Eosinophils % (Manual) Abs Neuts (Manual) Lymphocytes # (Manual) Monocytes # (Manual) Eosinophils # (Manual) Nucleated RBCs Toxic Granulation Dohle Bodies Platelet Estimate Large Platelets Plt Morphology Comment RBC Morphology Polychromasia Hypochromasia Basophilic Stippling Microcytosis Target Cells Tear Drop Cells [place] Cells Smear Tech's Comments Smear Path Review PT INR APTT VBG pH VBG pCO2 VBG pO2 VBG HCO3 VBG O2 Saturation VBG Base Excess Sodium Potassium Chloride Carbon Dioxide Anion Gap BUN Creatinine Estim Creat Clear Calc Estimated GFR Random Glucose Fasting Glucose Lactic Acid 15.9 H* Lactic Acid F/U @ 2Hr Lactic Acid F/U @ 4Hr Calcium Magnesium Iron TIBC % Saturation Unsat Iron Binding Ferritin Total Bilirubin Direct Bilirubin AST ALT Alkaline Phosphatase Ammonia Troponin I High Sens Total Protein Albumin Vitamin B12 Folate Urine Color Urine Appearance Urine pH Ur Specific [place] Urine Protein Urine Glucose (UA) Urine Ketones Urine Blood Urine Nitrite Ur Leukocyte Esterase Stl C. cayetanensis PCR Stool Rotavirus A PCR Stl Adenov F PCR Stool Astrovirus (PCR) Stool Campylobacter PCR Stool Cryptosporidium PCR Stl Sh Tox Pr E STEC PCR Stool E coli O157 PCR Stl Enterotoxigenic E PCR Stool EPEC (PCR) Stool EAEC (PCR) Stl E. histolytica PCR Stool Giardia Lamblia PCR Stl P. shigelloides PCR Stool Salmonella PCR Stool Sapovirus (PCR) Stl Shigella/EIEC PCR St Y.enterocolitica PCR Stool Vibrio (PCR) Stl Vibrio cholerae PCR Stl Norovirus GI/GII PCR Urine Opiates Screen Urine Fentanyl Screen Ur Barbiturates Screen Ur Phencyclidine Scrn Ur Amphetamines Screen U Benzodiazepines Scrn Urine Cocaine Screen U Marijuana (THC) Screen Ethyl Alcohol Acetone, Qual C. difficile Tox B Gene COVID-19 ([facility]) Negative COVID-19 Clin Com See Note Blood Type A Positive Antibody Screen NEGATIVE Crossmatch See Detail 12/05/22 12/05/22 12/05/22 16:55 16:55 16:55 WBC RBC Hgb Hct MCV MCH MCHC RDW Plt Count MPV Immature Gran % (Auto) Neut % (Auto) Lymph % (Auto) Love % (Auto) Eos % (Auto) Baso % (Auto) Lymph # (Auto) Love # (Auto) Eos # (Auto) Baso # (Auto) Abs Immat Gran (auto) Absolute Neuts (auto) Absolute Nucleated RBC Nucleated RBC % (auto) Neutrophils % (Manual) Band Neutrophils % Lymphocytes % (Manual) Monocytes % (Manual) Eosinophils % (Manual) Abs Neuts (Manual) Lymphocytes # (Manual) Monocytes # (Manual) Eosinophils # (Manual) Nucleated RBCs Toxic Granulation Dohle Bodies Platelet Estimate Large Platelets Plt Morphology Comment RBC Morphology Polychromasia Hypochromasia Basophilic Stippling Microcytosis Target Cells Tear Drop Cells Gina Cells Smear Tech's Comments Smear Path Review PT INR APTT VBG pH VBG pCO2 VBG pO2 VBG HCO3 VBG O2 Saturation VBG Base Excess Sodium Potassium Chloride Carbon Dioxide Anion Gap BUN Creatinine Estim Creat Clear Calc Estimated GFR Random Glucose Fasting Glucose Lactic Acid Lactic Acid F/U @ 2Hr Lactic Acid F/U @ 4Hr Calcium Magnesium 2.1 Iron TIBC % Saturation Unsat Iron Binding Ferritin Total Bilirubin Direct Bilirubin AST ALT Alkaline Phosphatase Ammonia 26 Troponin I High Sens < 3.5 Total Protein Albumin Vitamin B12 Folate Urine Color Urine Appearance Urine pH Ur Specific [place] Urine Protein Urine Glucose (UA) Urine Ketones Urine Blood Urine Nitrite Ur Leukocyte Esterase Stl C. cayetanensis PCR Stool Rotavirus A PCR Stl Adenov F PCR Stool Astrovirus (PCR) Stool Campylobacter PCR Stool Cryptosporidium PCR Stl Sh Tox Pr E STEC PCR Stool E coli O157 PCR Stl Enterotoxigenic E PCR Stool EPEC (PCR) Stool EAEC (PCR) Stl E. histolytica PCR Stool Giardia Lamblia PCR Stl P. shigelloides PCR Stool Salmonella PCR Stool Sapovirus (PCR) Stl Shigella/EIEC PCR St Y.enterocolitica PCR Stool Vibrio (PCR) Stl Vibrio cholerae PCR Stl Norovirus GI/GII PCR Urine Opiates Screen Urine Fentanyl Screen Ur Barbiturates Screen Ur Phencyclidine Scrn Ur Amphetamines Screen U Benzodiazepines Scrn Urine Cocaine Screen U Marijuana (THC) Screen Ethyl Alcohol < 10 Acetone, Qual C. difficile Tox B Gene COVID-19 ([facility]) COVID-19 Clin Com Blood Type Antibody Screen Crossmatch 12/05/22 12/05/22 12/05/22 19:01 19:01 19:40 WBC RBC Hgb Hct MCV MCH MCHC RDW Plt Count MPV Immature Gran % (Auto) Neut % (Auto) Lymph % (Auto) Love % (Auto) Eos % (Auto) Baso % (Auto) Lymph # (Auto) Love # (Auto) Eos # (Auto) Baso # (Auto) Abs Immat Gran (auto) Absolute Neuts (auto) Absolute Nucleated RBC Nucleated RBC % (auto) Neutrophils % (Manual) Band Neutrophils % Lymphocytes % (Manual) Monocytes % (Manual) Eosinophils % (Manual) Abs Neuts (Manual) Lymphocytes # (Manual) Monocytes # (Manual) Eosinophils # (Manual) Nucleated RBCs Toxic Granulation Dohle Bodies Platelet Estimate Large Platelets Plt Morphology Comment RBC Morphology Polychromasia Hypochromasia Basophilic Stippling Microcytosis Target Cells Tear Drop Cells [place]ina Cells Smear Tech's Comments Smear Path Review PT INR APTT VBG pH VBG pCO2 VBG pO2 VBG HCO3 VBG O2 Saturation VBG Base Excess Sodium 132 L Potassium 3.4 Chloride 93 L Carbon Dioxide 15 L Anion Gap 27 H BUN 22 H Creatinine 0.74 Estim Creat Clear Calc 113.2 Estimated GFR > 60 Random Glucose 115 Fasting Glucose Lactic Acid Lactic Acid F/U @ 2Hr Lactic Acid F/U @ 4Hr Calcium 7.9 L D Magnesium Iron TIBC % Saturation Unsat Iron Binding Ferritin Total Bilirubin Direct Bilirubin AST ALT Alkaline Phosphatase Ammonia Troponin I High Sens Total Protein Albumin Vitamin B12 Folate Urine Color Dark Yellow Urine Appearance Clear Urine pH 5.0 Ur Specific [place] >= 1.030 H Urine Protein Trace Urine Glucose (UA) Negative Urine Ketones 15 Urine Blood Negative Urine Nitrite Negative Ur Leukocyte Esterase Negative Stl C. cayetanensis PCR Stool Rotavirus A PCR Stl Adenov F PCR Stool Astrovirus (PCR) Stool Campylobacter PCR Stool Cryptosporidium PCR Stl Sh Tox Pr E STEC PCR Stool E coli O157 PCR Stl Enterotoxigenic E PCR Stool EPEC (PCR) Stool EAEC (PCR) Stl E. histolytica PCR Stool Giardia Lamblia PCR Stl P. shigelloides PCR Stool Salmonella PCR Stool Sapovirus (PCR) Stl Shigella/EIEC PCR St Y.enterocolitica PCR Stool Vibrio (PCR) Stl Vibrio cholerae PCR Stl Norovirus GI/GII PCR Urine Opiates Screen Not Detected Urine Fentanyl Screen Not Detected Ur Barbiturates Screen Not Detected Ur Phencyclidine Scrn Not Detected Ur Amphetamines Screen Not Detected U Benzodiazepines Scrn Not Detected Urine Cocaine Screen Not Detected U Marijuana (THC) Screen POSITIVE H Ethyl Alcohol Acetone, Qual C. difficile Tox B Gene COVID-19 ([facility]) COVID-19 Clin Com Blood Type Antibody Screen Crossmatch 12/05/22 12/05/22 12/05/22 19:40 19:51 21:02 WBC RBC Hgb Hct MCV MCH MCHC RDW Plt Count MPV Immature Gran % (Auto) Neut % (Auto) Lymph % (Auto) Love % (Auto) Eos % (Auto) Baso % (Auto) Lymph # (Auto) Love # (Auto) Eos # (Auto) Baso # (Auto) Abs Immat Gran (auto) Absolute Neuts (auto) Absolute Nucleated RBC Nucleated RBC % (auto) Neutrophils % (Manual) Band Neutrophils % Lymphocytes % (Manual) Monocytes % (Manual) Eosinophils % (Manual) Abs Neuts (Manual) Lymphocytes # (Manual) Monocytes # (Manual) Eosinophils # (Manual) Nucleated RBCs Toxic Granulation Dohle Bodies Platelet Estimate Large Platelets Plt Morphology Comment RBC Morphology Polychromasia Hypochromasia Basophilic Stippling Microcytosis Target Cells Tear Drop Cells Gina Cells Smear Tech's Comments Smear Path Review PT INR APTT VBG pH 7.48 H VBG pCO2 22 VBG pO2 46 VBG HCO3 17 L VBG O2 Saturation TNP VBG Base Excess -5.2 Sodium Potassium Chloride Carbon Dioxide Anion Gap BUN Creatinine Estim Creat Clear Calc Estimated GFR Random Glucose Fasting Glucose Lactic Acid 8.2 H* Lactic Acid F/U @ 2Hr 12.0 H* Lactic Acid F/U @ 4Hr Calcium Magnesium Iron TIBC % Saturation Unsat Iron Binding Ferritin Total Bilirubin Direct Bilirubin AST ALT Alkaline Phosphatase Ammonia Troponin I High Sens Total Protein Albumin Vitamin B12 Folate Urine Color Urine Appearance Urine pH Ur Specific [place] Urine Protein Urine Glucose (UA) Urine Ketones Urine Blood Urine Nitrite Ur Leukocyte Esterase Stl C. cayetanensis PCR Stool Rotavirus A PCR Stl Adenov F 40/41 PCR Stool Astrovirus (PCR) Stool Campylobacter PCR Stool Cryptosporidium PCR Stl Sh Tox Pr E STEC PCR Stool E coli O157 PCR Stl Enterotoxigenic E PCR Stool EPEC (PCR) Stool EAEC (PCR) Stl E. histolytica PCR Stool Giardia Lamblia PCR Stl P. shigelloides PCR Stool Salmonella PCR Stool Sapovirus (PCR) Stl Shigella/EIEC PCR St Y.enterocolitica PCR Stool Vibrio (PCR) Stl Vibrio cholerae PCR Stl Norovirus GI/GII PCR Urine Opiates Screen Urine Fentanyl Screen Ur Barbiturates Screen Ur Phencyclidine Scrn Ur Amphetamines Screen U Benzodiazepines Scrn Urine Cocaine Screen U Marijuana (THC) Screen Ethyl Alcohol Acetone, Qual C. difficile Tox B Gene COVID-19 ([facility]) COVID-19 Clin Com Blood Type Antibody Screen Crossmatch 12/05/22 12/05/22 12/05/22 21:02 21:02 22:10 WBC RBC Hgb Hct MCV MCH MCHC RDW Plt Count MPV Immature Gran % (Auto) Neut % (Auto) Lymph % (Auto) Love % (Auto) Eos % (Auto) Baso % (Auto) Lymph # (Auto) Love # (Auto) Eos # (Auto) Baso # (Auto) Abs Immat Gran (auto) Absolute Neuts (auto) Absolute Nucleated RBC Nucleated RBC % (auto) Neutrophils % (Manual) Band Neutrophils % Lymphocytes % (Manual) Monocytes % (Manual) Eosinophils % (Manual) Abs Neuts (Manual) Lymphocytes # (Manual) Monocytes # (Manual) Eosinophils # (Manual) Nucleated RBCs Toxic Granulation Dohle Bodies Platelet Estimate Large Platelets Plt Morphology Comment RBC Morphology Polychromasia Hypochromasia Basophilic Stippling Microcytosis Target Cells Tear Drop Cells [place] Cells Smear Tech's Comments Smear Path Review PT INR APTT VBG pH VBG pCO2 VBG pO2 VBG HCO3 VBG O2 Saturation VBG Base Excess Sodium Potassium Chloride Carbon Dioxide Anion Gap BUN Creatinine Estim Creat Clear Calc Estimated GFR Random Glucose Fasting Glucose Lactic Acid Lactic Acid F/U @ 2Hr Lactic Acid F/U @ 4Hr 4.0 H* Calcium Magnesium Iron TIBC % Saturation Unsat Iron Binding Ferritin Total Bilirubin Direct Bilirubin AST ALT Alkaline Phosphatase Ammonia 39 Troponin I High Sens Total Protein Albumin Vitamin B12 Folate Urine Color Urine Appearance Urine pH Ur Specific [place] Urine Protein Urine Glucose (UA) Urine Ketones Urine Blood Urine Nitrite Ur Leukocyte Esterase Stl C. cayetanensis PCR Stool Rotavirus A PCR Stl Adenov F 40/41 PCR Stool Astrovirus (PCR) Stool Campylobacter PCR Stool Cryptosporidium PCR Stl Sh Tox Pr E STEC PCR Stool E coli O157 PCR Stl Enterotoxigenic E PCR Stool EPEC (PCR) Stool EAEC (PCR) Stl E. histolytica PCR Stool Giardia Lamblia PCR Stl P. shigelloides PCR Stool Salmonella PCR Stool Sapovirus (PCR) Stl Shigella/EIEC PCR St Y.enterocolitica PCR Stool Vibrio (PCR) Stl Vibrio cholerae PCR Stl Norovirus GI/GII PCR Urine Opiates Screen Urine Fentanyl Screen Ur Barbiturates Screen Ur Phencyclidine Scrn Ur Amphetamines Screen U Benzodiazepines Scrn Urine Cocaine Screen U Marijuana (THC) Screen Ethyl Alcohol Acetone, Qual Negative C. difficile Tox B Gene COVID-19 ([facility]) COVID-19 Clin Com Blood Type Antibody Screen Crossmatch 12/05/22 12/06/22 12/06/22 23:32 01:49 04:41 WBC 18.1 H RBC 2.81 L Hgb 6.5 L* Hct 22.0 L MCV 78.3 L MCH 23.1 L MCHC 29.5 L RDW 21.6 H Plt Count 69 L D MPV 11.1 Immature Gran % (Auto) 0.9 H Neut % (Auto) 86.6 H Lymph % (Auto) 8.5 L Love % (Auto) 3.4 Eos % (Auto) 0.4 Baso % (Auto) 0.2 Lymph # (Auto) 1.5 Love # (Auto) 0.6 Eos # (Auto) 0.1 Baso # (Auto) 0.0 Abs Immat Gran (auto) 0.17 H Absolute Neuts (auto) 15.7 H Absolute Nucleated RBC 0.310 H Nucleated RBC % (auto) 1.7 H Neutrophils % (Manual) Band Neutrophils % Lymphocytes % (Manual) Monocytes % (Manual) Eosinophils % (Manual) Abs Neuts (Manual) Lymphocytes # (Manual) Monocytes # (Manual) Eosinophils # (Manual) Nucleated RBCs Toxic Granulation Dohle Bodies Platelet Estimate Large Platelets Plt Morphology Comment RBC Morphology Polychromasia Hypochromasia Basophilic Stippling Microcytosis Target Cells Tear Drop Cells Gina Cells Smear Tech's Comments Smear Path Review PT INR APTT VBG pH VBG pCO2 VBG pO2 VBG HCO3 VBG O2 Saturation VBG Base Excess Sodium Potassium Chloride Carbon Dioxide Anion Gap BUN Creatinine Estim Creat Clear Calc Estimated GFR Random Glucose Fasting Glucose Lactic Acid Lactic Acid F/U @ 2Hr 2.7 H* Lactic Acid F/U @ 4Hr 1.5 Calcium Magnesium Iron TIBC % Saturation Unsat Iron Binding Ferritin Total Bilirubin Direct Bilirubin AST ALT Alkaline Phosphatase Ammonia Troponin I High Sens Total Protein Albumin Vitamin B12 Folate Urine Color Urine Appearance Urine pH Ur Specific [place] Urine Protein Urine Glucose (UA) Urine Ketones Urine Blood Urine Nitrite Ur Leukocyte Esterase Stl C. cayetanensis PCR Stool Rotavirus A PCR Stl Adenov F 40/41 PCR Stool Astrovirus (PCR) Stool Campylobacter PCR Stool Cryptosporidium PCR Stl Sh Tox Pr E STEC PCR Stool E coli O157 PCR Stl Enterotoxigenic E PCR Stool EPEC (PCR) Stool EAEC (PCR) Stl E. histolytica PCR Stool Giardia Lamblia PCR Stl P. shigelloides PCR Stool Salmonella PCR Stool Sapovirus (PCR) Stl Shigella/EIEC PCR St Y.enterocolitica PCR Stool Vibrio (PCR) Stl Vibrio cholerae PCR Stl Norovirus GI/GII PCR Urine Opiates Screen Urine Fentanyl Screen Ur Barbiturates Screen Ur Phencyclidine Scrn Ur Amphetamines Screen U Benzodiazepines Scrn Urine Cocaine Screen U Marijuana (THC) Screen Ethyl Alcohol Acetone, Qual C. difficile Tox B Gene COVID-19 ([facility]) COVID-19 Clin Com Blood Type Antibody Screen Crossmatch 12/06/22 12/06/22 12/07/22 04:41 17:48 06:28 WBC 15.6 H 13.3 H RBC 3.21 L 3.42 L Hgb 8.3 L D 8.6 L Hct 25.8 L 27.3 L MCV 80.4 79.8 L MCH 25.9 L 25.1 L MCHC 32.2 31.5 RDW 20.6 H 20.9 H Plt Count 45 L D 46 L MPV 10.0 Not Reportable Immature Gran % (Auto) 1.5 H 1.3 H Neut % (Auto) 79.4 H 78.6 H Lymph % (Auto) 10.9 L 12.7 L Love % (Auto) 6.1 5.1 Eos % (Auto) 1.9 2.1 Baso % (Auto) 0.2 0.2 Lymph # (Auto) 1.7 1.7 Love # (Auto) 1.0 0.7 Eos # (Auto) 0.3 0.3 Baso # (Auto) 0.0 0.0 Abs Immat Gran (auto) 0.23 H 0.17 H Absolute Neuts (auto) 12.4 H 10.5 H Absolute Nucleated RBC 0.320 H 0.320 H Nucleated RBC % (auto) 2.1 H 2.4 H Neutrophils % (Manual) Band Neutrophils % Lymphocytes % (Manual) Monocytes % (Manual) Eosinophils % (Manual) Abs Neuts (Manual) Lymphocytes # (Manual) Monocytes # (Manual) Eosinophils # (Manual) Nucleated RBCs Toxic Granulation Dohle Bodies Platelet Estimate Large Platelets Plt Morphology Comment RBC Morphology Polychromasia Hypochromasia Basophilic Stippling Microcytosis Target Cells Tear Drop Cells [place] Cells Smear Tech's Comments Smear Path Review PT INR APTT VBG pH VBG pCO2 VBG pO2 VBG HCO3 VBG O2 Saturation VBG Base Excess Sodium 135 Potassium 2.8 L Chloride 100 Carbon Dioxide 24 Anion Gap 14 BUN 20 H Creatinine 0.67 Estim Creat Clear Calc 125.0 Estimated GFR > 60 Random Glucose 74 Fasting Glucose Lactic Acid Lactic Acid F/U @ 2Hr Lactic Acid F/U @ 4Hr Calcium 7.6 L Magnesium Iron TIBC % Saturation Unsat Iron Binding Ferritin Total Bilirubin 3.4 H Direct Bilirubin AST 95 H ALT 34 Alkaline Phosphatase 171 H Ammonia Troponin I High Sens Total Protein 5.4 L Albumin 3.0 L Vitamin B12 Folate Urine Color Urine Appearance Urine pH Ur Specific [place] Urine Protein Urine Glucose (UA) Urine Ketones Urine Blood Urine Nitrite Ur Leukocyte Esterase Stl C. cayetanensis PCR Stool Rotavirus A PCR Stl Adenov F 40/41 PCR Stool Astrovirus (PCR) Stool Campylobacter PCR Stool Cryptosporidium PCR Stl Sh Tox Pr E STEC PCR Stool E coli O157 PCR Stl Enterotoxigenic E PCR Stool EPEC (PCR) Stool EAEC (PCR) Stl E. histolytica PCR Stool Giardia Lamblia PCR Stl P. shigelloides PCR Stool Salmonella PCR Stool Sapovirus (PCR) Stl Shigella/EIEC PCR St Y.enterocolitica PCR Stool Vibrio (PCR) Stl Vibrio cholerae PCR Stl Norovirus GI/GII PCR Urine Opiates Screen Urine Fentanyl Screen Ur Barbiturates Screen Ur Phencyclidine Scrn Ur Amphetamines Screen U Benzodiazepines Scrn Urine Cocaine Screen U Marijuana (THC) Screen Ethyl Alcohol Acetone, Qual C. difficile Tox B Gene COVID-19 ([facility]) COVID-19 Clin Com Blood Type Antibody Screen Crossmatch 12/07/22 12/07/22 12/07/22 06:28 11:45 11:45 WBC RBC Hgb Hct MCV MCH MCHC RDW Plt Count MPV Immature Gran % (Auto) Neut % (Auto) Lymph % (Auto) Love % (Auto) Eos % (Auto) Baso % (Auto) Lymph # (Auto) Love # (Auto) Eos # (Auto) Baso # (Auto) Abs Immat Gran (auto) Absolute Neuts (auto) Absolute Nucleated RBC Nucleated RBC % (auto) Neutrophils % (Manual) Band Neutrophils % Lymphocytes % (Manual) Monocytes % (Manual) Eosinophils % (Manual) Abs Neuts (Manual) Lymphocytes # (Manual) Monocytes # (Manual) Eosinophils # (Manual) Nucleated RBCs Toxic Granulation Dohle Bodies Platelet Estimate Large Platelets Plt Morphology Comment RBC Morphology Polychromasia Hypochromasia Basophilic Stippling Microcytosis Target Cells Tear Drop Cells Gina Cells Smear Tech's Comments Smear Path Review PT INR APTT VBG pH VBG pCO2 VBG pO2 VBG HCO3 VBG O2 Saturation VBG Base Excess Sodium 136 Potassium 3.0 L Chloride 103 Carbon Dioxide 22 Anion Gap 14 BUN 8 L Creatinine 0.54 Estim Creat Clear Calc 155.1 Estimated GFR > 60 Random Glucose 79 Fasting Glucose Lactic Acid Lactic Acid F/U @ 2Hr Lactic Acid F/U @ 4Hr Calcium 7.8 L Magnesium Iron TIBC % Saturation Unsat Iron Binding Ferritin Total Bilirubin 2.1 H Direct Bilirubin AST 154 H ALT 46 H Alkaline Phosphatase 167 H Ammonia Troponin I High Sens Total Protein 4.7 L Albumin 2.6 L Vitamin B12 Folate Urine Color Urine Appearance Urine pH Ur Specific [place] Urine Protein Urine Glucose (UA) Urine Ketones Urine Blood Urine Nitrite Ur Leukocyte Esterase Stl C. cayetanensis PCR Not Detected Stool Rotavirus A PCR Not Detected Stl Adenov F 40/41 PCR Not Detected Stool Astrovirus (PCR) Not Detected Stool Campylobacter PCR Not Detected Stool Cryptosporidium PCR Not Detected Stl Sh Tox Pr E STEC PCR Not Detected Stool E coli O157 PCR Not applicable Stl Enterotoxigenic E PCR Not Detected Stool EPEC (PCR) Not Detected Stool EAEC (PCR) Not Detected Stl E. histolytica PCR Not Detected Stool Giardia Lamblia PCR Not Detected Stl P. shigelloides PCR Not Detected Stool Salmonella PCR Not Detected Stool Sapovirus (PCR) Not Detected Stl Shigella/EIEC PCR Not Detected St Y.enterocolitica PCR Not Detected Stool Vibrio (PCR) Not Detected Stl Vibrio cholerae PCR Not Detected Stl Norovirus GI/GII PCR Not Detected Urine Opiates Screen Urine Fentanyl Screen Ur Barbiturates Screen Ur Phencyclidine Scrn Ur Amphetamines Screen U Benzodiazepines Scrn Urine Cocaine Screen U Marijuana (THC) Screen Ethyl Alcohol Acetone, Qual C. difficile Tox B Gene NEGATIVE COVID-19 ([facility]) COVID-19 Clin Com Blood Type Antibody Screen Crossmatch 12/07/22 12/08/22 12/08/22 15:57 05:39 05:39 WBC 15.4 H 12.6 H RBC 3.26 L 2.96 L Hgb 8.1 L 7.5 L Hct 26.2 L 23.7 L MCV 80.4 80.1 MCH 24.8 L 25.3 L MCHC 30.9 L 31.6 RDW 20.4 H 20.9 H Plt Count 51 L 42 L MPV 10.3 Not Reportable Immature Gran % (Auto) Cancelled 1.0 H Neut % (Auto) Cancelled 80.4 H Lymph % (Auto) Cancelled 9.8 L [place] % (Auto) Cancelled 6.7 Eos % (Auto) Cancelled 1.9 Baso % (Auto) Cancelled 0.2 Lymph # (Auto) Cancelled 1.2 [place] # (Auto) Cancelled 0.8 Eos # (Auto) Cancelled 0.2 Baso # (Auto) Cancelled 0.0 Abs Immat Gran (auto) Cancelled 0.12 H Absolute Neuts (auto) Cancelled 10.2 H Absolute Nucleated RBC 0.430 H 0.150 H Nucleated RBC % (auto) 2.8 H 1.2 H Neutrophils % (Manual) 77 H Band Neutrophils % 0 L Lymphocytes % (Manual) 14 L Monocytes % (Manual) 8 Eosinophils % (Manual) 1 Abs Neuts (Manual) 11.9 H Lymphocytes # (Manual) 2.2 Monocytes # (Manual) 1.2 Eosinophils # (Manual) 0.2 Nucleated RBCs 3 H Toxic Granulation Dohle Bodies Platelet Estimate DECREASED Large Platelets Plt Morphology Comment NORMAL RBC Morphology NOTED Polychromasia 1+ (0-2) Hypochromasia 1+ (5-14) Basophilic Stippling Microcytosis Target Cells 1+ (5-14) Tear Drop Cells [place] Cells Smear Tech's Comments VERIFIED Smear Path Review PT 16.6 H INR 1.4 H APTT VBG pH VBG pCO2 VBG pO2 VBG HCO3 VBG O2 Saturation VBG Base Excess Sodium Potassium Chloride Carbon Dioxide Anion Gap BUN Creatinine Estim Creat Clear Calc Estimated GFR Random Glucose Fasting Glucose Lactic Acid Lactic Acid F/U @ 2Hr Lactic Acid F/U @ 4Hr Calcium Magnesium Iron TIBC % Saturation Unsat Iron Binding Ferritin Total Bilirubin Direct Bilirubin AST ALT Alkaline Phosphatase Ammonia Troponin I High Sens Total Protein Albumin Vitamin B12 Folate Urine Color Urine Appearance Urine pH Ur Specific [place] Urine Protein Urine Glucose (UA) Urine Ketones Urine Blood Urine Nitrite Ur Leukocyte Esterase Stl C. cayetanensis PCR Stool Rotavirus A PCR Stl Adenov F 40/41 PCR Stool Astrovirus (PCR) Stool Campylobacter PCR Stool Cryptosporidium PCR Stl Sh Tox Pr E STEC PCR Stool E coli O157 PCR Stl Enterotoxigenic E PCR Stool EPEC (PCR) Stool EAEC (PCR) Stl E. histolytica PCR Stool Giardia Lamblia PCR Stl P. shigelloides PCR Stool Salmonella PCR Stool Sapovirus (PCR) Stl Shigella/EIEC PCR St Y.enterocolitica PCR Stool Vibrio (PCR) Stl Vibrio cholerae PCR Stl Norovirus GI/GII PCR Urine Opiates Screen Urine Fentanyl Screen Ur Barbiturates Screen Ur Phencyclidine Scrn Ur Amphetamines Screen U Benzodiazepines Scrn Urine Cocaine Screen U Marijuana (THC) Screen Ethyl Alcohol Acetone, Qual C. difficile Tox B Gene COVID-19 ([facility]) COVID-19 Clin Com Blood Type Antibody Screen Crossmatch 12/08/22 12/08/22 12/08/22 05:39 13:19 13:19 WBC 15.2 H RBC 3.29 L Hgb 8.6 L Hct 27.0 L MCV 82.1 MCH 26.1 L MCHC 31.9 RDW 20.8 H Plt Count 37 L MPV Not Reportable Immature Gran % (Auto) 0.9 H Neut % (Auto) 79.1 H Lymph % (Auto) 11.6 L Love % (Auto) 6.8 Eos % (Auto) 1.3 Baso % (Auto) 0.3 Lymph # (Auto) 1.8 Love # (Auto) 1.0 Eos # (Auto) 0.2 Baso # (Auto) 0.0 Abs Immat Gran (auto) 0.14 H Absolute Neuts (auto) 12.0 H Absolute Nucleated RBC 0.140 H Nucleated RBC % (auto) 0.9 H Neutrophils % (Manual) Band Neutrophils % Lymphocytes % (Manual) Monocytes % (Manual) Eosinophils % (Manual) Abs Neuts (Manual) Lymphocytes # (Manual) Monocytes # (Manual) Eosinophils # (Manual) Nucleated RBCs Toxic Granulation Dohle Bodies Platelet Estimate Large Platelets Plt Morphology Comment RBC Morphology Polychromasia Hypochromasia Basophilic Stippling Microcytosis Target Cells Tear Drop Cells [place] Cells Smear Tech's Comments Smear Path Review PT INR APTT VBG pH VBG pCO2 VBG pO2 VBG HCO3 VBG O2 Saturation VBG Base Excess Sodium 135 Potassium 2.7 L Chloride 104 Carbon Dioxide 22 Anion Gap 12 BUN 6 L 5 L Creatinine 0.51 0.49 L Estim Creat Clear Calc 164.2 170.9 Estimated GFR > 60 > 60 Random Glucose 86 Fasting Glucose 87 Lactic Acid Lactic Acid F/U @ 2Hr Lactic Acid F/U @ 4Hr Calcium 7.3 L D 7.0 L Magnesium 1.2 L* Iron TIBC % Saturation Unsat Iron Binding Ferritin Total Bilirubin 1.7 H Direct Bilirubin 0.9 H AST 136 H ALT 44 H Alkaline Phosphatase 149 H Ammonia Troponin I High Sens Total Protein 4.2 L Albumin 2.3 L Vitamin B12 Folate Urine Color Urine Appearance Urine pH Ur Specific [place] Urine Protein Urine Glucose (UA) Urine Ketones Urine Blood Urine Nitrite Ur Leukocyte Esterase Stl C. cayetanensis PCR Stool Rotavirus A PCR Stl Adenov F 40/41 PCR Stool Astrovirus (PCR) Stool Campylobacter PCR Stool Cryptosporidium PCR Stl Sh Tox Pr E STEC PCR Stool E coli O157 PCR Stl Enterotoxigenic E PCR Stool EPEC (PCR) Stool EAEC (PCR) Stl E. histolytica PCR Stool Giardia Lamblia PCR Stl P. shigelloides PCR Stool Salmonella PCR Stool Sapovirus (PCR) Stl Shigella/EIEC PCR St Y.enterocolitica PCR Stool Vibrio (PCR) Stl Vibrio cholerae PCR Stl Norovirus GI/GII PCR Urine Opiates Screen Urine Fentanyl Screen Ur Barbiturates Screen Ur Phencyclidine Scrn Ur Amphetamines Screen U Benzodiazepines Scrn Urine Cocaine Screen U Marijuana (THC) Screen Ethyl Alcohol Acetone, Qual C. difficile Tox B Gene COVID-19 ([facility]) COVID-19 Clin Com Blood Type Antibody Screen Crossmatch Airway Mallampati Class: II TM Dist: >3cm Neck ROM: Full Heart: rrr Lungs: cta Assessment and Plan Assessment Anesthesia Assessment: Anesthesia Plan Discussed and Chart Reviewed Final Anesthetic Review Family History of Problems with Anesthesia: No History of Problems with Anesthesia: No NPO: Yes ASA Class: III Final Preanesthetic Review: No Changes in Pt Med Stat, Meds/Allgs Chart Reviewed and Consent Obtained/Reviewed Patient Risk: Intermediate Procedure Risk: Intermediate Anesthetic Plan Anesthetic Plan: MAC: Disposition: Standard PACU
[2022-12-08] MEDS: Lactated Ringers 1,000 ML 50 ML IVCONT ×2 (14:26→19:59)
[2022-12-08 14:27] LABS: Anion Gap 13 (12-20); Carbon Dioxide 20 mmol/L (22-29); Chloride 107 mmol/L (96-108); Potassium 3.6 mmol/L (3.3-5.1); Sodium 136 mmol/L (135-145)
--- NOTE | 2022-12-08 15:06 | HO.ADDICT_ITS ---
History of Present Illness Date of Service: 12/08/2022 Chief Complaint: Abnormal labs Reason for Consult: alcohol use disorder HPI Narrative: Patient is a 42 year old male currently medically admitted with alcohol withdrawal and GI bleed. Admission note states that patient reports drinking 2 pints of liquor daily. Mother present during interview. Patient seen briefly as he was awaiting transfer to have procedure completed. When asked if he was interested in reducing or stopping his alcohol use, patient shrugged and replied, sure, I guess . Recovery support RN had left folder with various resources and information yesterday, patient did not review, mother did. Patient and mother report that patient had taken Naltrexone very briefly many years ago . Patient pleasant, but minimally engaged in interview. Agreeable to checking in back in tomorrow Review of Systems Constitutional: Reports as per HPI Diagnostics Vital Signs (24Hr): Vital Signs - 24 hr 12/07/22 15:24 12/07/22 19:23 12/08/22 04:00 Temperature 98.1 F 97.4 F 98.0 F Pulse Rate 85 91 77 Respiratory Rate 19 18 16 Blood Pressure 118/63 124/55 L 86/54 L Pulse Oximetry 100 100 100 Oxygen Delivery Method Room Air Room Air Room Air 12/08/22 06:20 12/08/22 07:22 12/08/22 10:33 Temperature 97.8 F 98.8 F Pulse Rate 80 73 76 Respiratory Rate 16 18 Blood Pressure 120/68 97/60 102/56 L Pulse Oximetry 99 Oxygen Delivery Method Room Air 12/08/22 10:49 12/08/22 12:48 12/08/22 14:18 Temperature 98.8 F 98.1 F 98.9 F Pulse Rate 72 74 72 Respiratory Rate 18 18 17 Blood Pressure 114/64 117/66 116/65 Pulse Oximetry 100 Oxygen Delivery Method Room Air BMI result Body Mass Index 18.0 Labs 12/08/22 13:19 12/08/22 13:19 Labs: Laboratory Results - last 48 hr 12/05/22 12/05/22 12/05/22 16:10 16:10 16:10 WBC RBC Hgb Hct MCV MCH MCHC RDW Plt Count MPV Immature Gran % (Auto) Neut % (Auto) Lymph % (Auto) [place] % (Auto) Eos % (Auto) Baso % (Auto) Lymph # (Auto) [place] # (Auto) Eos # (Auto) Baso # (Auto) Abs Immat Gran (auto) Absolute Neuts (auto) Absolute Nucleated RBC Nucleated RBC % (auto) Neutrophils % (Manual) Band Neutrophils % Lymphocytes % (Manual) Monocytes % (Manual) Eosinophils % (Manual) Abs Neuts (Manual) Lymphocytes # (Manual) Monocytes # (Manual) Eosinophils # (Manual) Nucleated RBCs Platelet Estimate Plt Morphology Comment RBC Morphology Polychromasia Hypochromasia Target Cells Smear Tech's Comments Smear Path Review SEE NOTE PT INR Sodium Potassium Chloride Carbon Dioxide Anion Gap BUN Creatinine Estim Creat Clear Calc Estimated GFR Random Glucose Fasting Glucose Calcium Magnesium Iron 80 TIBC 366 % Saturation 22 Unsat Iron Binding 286 Ferritin 59 Total Bilirubin Direct Bilirubin AST ALT Alkaline Phosphatase Total Protein Albumin Vitamin B12 798 Folate 2.9 L Stl C. cayetanensis PCR Stool Rotavirus A PCR Stl Adenov F 40/41 PCR Stool Astrovirus (PCR) Stool Campylobacter PCR Stool Cryptosporidium PCR Stl Sh Tox Pr E STEC PCR Stool E coli O157 PCR Stl Enterotoxigenic E PCR Stool EPEC (PCR) Stool EAEC (PCR) Stl E. histolytica PCR Stool Giardia Lamblia PCR Stl P. shigelloides PCR Stool Salmonella PCR Stool Sapovirus (PCR) Stl Shigella/EIEC PCR St Y.enterocolitica PCR Stool Vibrio (PCR) Stl Vibrio cholerae PCR Stl Norovirus GI/GII PCR C. difficile Tox B Gene Blood Type A Positive Antibody Screen NEGATIVE Crossmatch See Detail 12/06/22 12/07/22 12/07/22 17:48 06:28 06:28 WBC 15.6 H 13.3 H RBC 3.21 L 3.42 L Hgb 8.3 L D 8.6 L Hct 25.8 L 27.3 L MCV 80.4 79.8 L MCH 25.9 L 25.1 L MCHC 32.2 31.5 RDW 20.6 H 20.9 H Plt Count 45 L D 46 L MPV 10.0 Not Reportable Immature Gran % (Auto) 1.5 H 1.3 H Neut % (Auto) 79.4 H 78.6 H Lymph % (Auto) 10.9 L 12.7 L [place] % (Auto) 6.1 5.1 Eos % (Auto) 1.9 2.1 Baso % (Auto) 0.2 0.2 Lymph # (Auto) 1.7 1.7 [place] # (Auto) 1.0 0.7 Eos # (Auto) 0.3 0.3 Baso # (Auto) 0.0 0.0 Abs Immat Gran (auto) 0.23 H 0.17 H Absolute Neuts (auto) 12.4 H 10.5 H Absolute Nucleated RBC 0.320 H 0.320 H Nucleated RBC % (auto) 2.1 H 2.4 H Neutrophils % (Manual) Band Neutrophils % Lymphocytes % (Manual) Monocytes % (Manual) Eosinophils % (Manual) Abs Neuts (Manual) Lymphocytes # (Manual) Monocytes # (Manual) Eosinophils # (Manual) Nucleated RBCs Platelet Estimate Plt Morphology Comment RBC Morphology Polychromasia Hypochromasia Target Cells Smear Tech's Comments Smear Path Review PT INR Sodium 136 Potassium 3.0 L Chloride 103 Carbon Dioxide 22 Anion Gap 14 BUN 8 L Creatinine 0.54 Estim Creat Clear Calc 155.1 Estimated GFR > 60 Random Glucose 79 Fasting Glucose Calcium 7.8 L Magnesium Iron TIBC % Saturation Unsat Iron Binding Ferritin Total Bilirubin 2.1 H Direct Bilirubin AST 154 H ALT 46 H Alkaline Phosphatase 167 H Total Protein 4.7 L Albumin 2.6 L Vitamin B12 Folate Stl C. cayetanensis PCR Stool Rotavirus A PCR Stl Adenov F 40/41 PCR Stool Astrovirus (PCR) Stool Campylobacter PCR Stool Cryptosporidium PCR Stl Sh Tox Pr E STEC PCR Stool E coli O157 PCR Stl Enterotoxigenic E PCR Stool EPEC (PCR) Stool EAEC (PCR) Stl E. histolytica PCR Stool Giardia Lamblia PCR Stl P. shigelloides PCR Stool Salmonella PCR Stool Sapovirus (PCR) Stl Shigella/EIEC PCR St Y.enterocolitica PCR Stool Vibrio (PCR) Stl Vibrio cholerae PCR Stl Norovirus GI/GII PCR C. difficile Tox B Gene Blood Type Antibody Screen Crossmatch 12/07/22 12/07/22 12/07/22 11:45 11:45 15:57 WBC 15.4 H RBC 3.26 L Hgb 8.1 L Hct 26.2 L MCV 80.4 MCH 24.8 L MCHC 30.9 L RDW 20.4 H Plt Count 51 L MPV 10.3 Immature Gran % (Auto) Cancelled Neut % (Auto) Cancelled Lymph % (Auto) Cancelled [place] % (Auto) Cancelled Eos % (Auto) Cancelled Baso % (Auto) Cancelled Lymph # (Auto) Cancelled [place] # (Auto) Cancelled Eos # (Auto) Cancelled Baso # (Auto) Cancelled Abs Immat Gran (auto) Cancelled Absolute Neuts (auto) Cancelled Absolute Nucleated RBC 0.430 H Nucleated RBC % (auto) 2.8 H Neutrophils % (Manual) 77 H Band Neutrophils % 0 L Lymphocytes % (Manual) 14 L Monocytes % (Manual) 8 Eosinophils % (Manual) 1 Abs Neuts (Manual) 11.9 H Lymphocytes # (Manual) 2.2 Monocytes # (Manual) 1.2 Eosinophils # (Manual) 0.2 Nucleated RBCs 3 H Platelet Estimate DECREASED Plt Morphology Comment NORMAL RBC Morphology NOTED Polychromasia 1+ (0-2) Hypochromasia 1+ (5-14) Target Cells 1+ (5-14) Smear Tech's Comments VERIFIED Smear Path Review PT INR Sodium Potassium Chloride Carbon Dioxide Anion Gap BUN Creatinine Estim Creat Clear Calc Estimated GFR Random Glucose Fasting Glucose Calcium Magnesium Iron TIBC % Saturation Unsat Iron Binding Ferritin Total Bilirubin Direct Bilirubin AST ALT Alkaline Phosphatase Total Protein Albumin Vitamin B12 Folate Stl C. cayetanensis PCR Not Detected Stool Rotavirus A PCR Not Detected Stl Adenov F 40/41 PCR Not Detected Stool Astrovirus (PCR) Not Detected Stool Campylobacter PCR Not Detected Stool Cryptosporidium PCR Not Detected Stl Sh Tox Pr E STEC PCR Not Detected Stool E coli O157 PCR Not applicable Stl Enterotoxigenic E PCR Not Detected Stool EPEC (PCR) Not Detected Stool EAEC (PCR) Not Detected Stl E. histolytica PCR Not Detected Stool Giardia Lamblia PCR Not Detected Stl P. shigelloides PCR Not Detected Stool Salmonella PCR Not Detected Stool Sapovirus (PCR) Not Detected Stl Shigella/EIEC PCR Not Detected St Y.enterocolitica PCR Not Detected Stool Vibrio (PCR) Not Detected Stl Vibrio cholerae PCR Not Detected Stl Norovirus GI/GII PCR Not Detected C. difficile Tox B Gene NEGATIVE Blood Type Antibody Screen Crossmatch 12/08/22 12/08/22 12/08/22 05:39 05:39 05:39 WBC 12.6 H RBC 2.96 L Hgb 7.5 L Hct 23.7 L MCV 80.1 MCH 25.3 L MCHC 31.6 RDW 20.9 H Plt Count 42 L MPV Not Reportable Immature Gran % (Auto) 1.0 H Neut % (Auto) 80.4 H Lymph % (Auto) 9.8 L [place] % (Auto) 6.7 Eos % (Auto) 1.9 Baso % (Auto) 0.2 Lymph # (Auto) 1.2 [place] # (Auto) 0.8 Eos # (Auto) 0.2 Baso # (Auto) 0.0 Abs Immat Gran (auto) 0.12 H Absolute Neuts (auto) 10.2 H Absolute Nucleated RBC 0.150 H Nucleated RBC % (auto) 1.2 H Neutrophils % (Manual) Band Neutrophils % Lymphocytes % (Manual) Monocytes % (Manual) Eosinophils % (Manual) Abs Neuts (Manual) Lymphocytes # (Manual) Monocytes # (Manual) Eosinophils # (Manual) Nucleated RBCs Platelet Estimate Plt Morphology Comment RBC Morphology Polychromasia Hypochromasia Target Cells Smear Tech's Comments Smear Path Review PT 16.6 H INR 1.4 H Sodium 135 Potassium 2.7 L Chloride 104 Carbon Dioxide 22 Anion Gap 12 BUN 6 L Creatinine 0.51 Estim Creat Clear Calc 164.2 Estimated GFR > 60 Random Glucose Fasting Glucose 87 Calcium 7.3 L D Magnesium 1.2 L* Iron TIBC % Saturation Unsat Iron Binding Ferritin Total Bilirubin 1.7 H Direct Bilirubin 0.9 H AST 136 H ALT 44 H Alkaline Phosphatase 149 H Total Protein 4.2 L Albumin 2.3 L Vitamin B12 Folate Stl C. cayetanensis PCR Stool Rotavirus A PCR Stl Adenov F 40/41 PCR Stool Astrovirus (PCR) Stool Campylobacter PCR Stool Cryptosporidium PCR Stl Sh Tox Pr E STEC PCR Stool E coli O157 PCR Stl Enterotoxigenic E PCR Stool EPEC (PCR) Stool EAEC (PCR) Stl E. histolytica PCR Stool Giardia Lamblia PCR Stl P. shigelloides PCR Stool Salmonella PCR Stool Sapovirus (PCR) Stl Shigella/EIEC PCR St Y.enterocolitica PCR Stool Vibrio (PCR) Stl Vibrio cholerae PCR Stl Norovirus GI/GII PCR C. difficile Tox B Gene Blood Type Antibody Screen Crossmatch 12/08/22 12/08/22 13:19 13:19 WBC 15.2 H RBC 3.29 L Hgb 8.6 L Hct 27.0 L MCV 82.1 MCH 26.1 L MCHC 31.9 RDW 20.8 H Plt Count 37 L MPV Not Reportable Immature Gran % (Auto) 0.9 H Neut % (Auto) 79.1 H Lymph % (Auto) 11.6 L [place] % (Auto) 6.8 Eos % (Auto) 1.3 Baso % (Auto) 0.3 Lymph # (Auto) 1.8 [place] # (Auto) 1.0 Eos # (Auto) 0.2 Baso # (Auto) 0.0 Abs Immat Gran (auto) 0.14 H Absolute Neuts (auto) 12.0 H Absolute Nucleated RBC 0.140 H Nucleated RBC % (auto) 0.9 H Neutrophils % (Manual) Band Neutrophils % Lymphocytes % (Manual) Monocytes % (Manual) Eosinophils % (Manual) Abs Neuts (Manual) Lymphocytes # (Manual) Monocytes # (Manual) Eosinophils # (Manual) Nucleated RBCs Platelet Estimate Plt Morphology Comment RBC Morphology Polychromasia Hypochromasia Target Cells Smear Tech's Comments Smear Path Review PT INR Sodium 136 Potassium 3.6 D Chloride 107 Carbon Dioxide 20 L Anion Gap 13 BUN 5 L Creatinine 0.49 L Estim Creat Clear Calc 170.9 Estimated GFR > 60 Random Glucose 86 Fasting Glucose Calcium 7.0 L Magnesium 2.0 Iron TIBC % Saturation Unsat Iron Binding Ferritin Total Bilirubin Direct Bilirubin AST ALT Alkaline Phosphatase Total Protein Albumin Vitamin B12 Folate Stl C. cayetanensis PCR Stool Rotavirus A PCR Stl Adenov F 40/41 PCR Stool Astrovirus (PCR) Stool Campylobacter PCR Stool Cryptosporidium PCR Stl Sh Tox Pr E STEC PCR Stool E coli O157 PCR Stl Enterotoxigenic E PCR Stool EPEC (PCR) Stool EAEC (PCR) Stl E. histolytica PCR Stool Giardia Lamblia PCR Stl P. shigelloides PCR Stool Salmonella PCR Stool Sapovirus (PCR) Stl Shigella/EIEC PCR St Y.enterocolitica PCR Stool Vibrio (PCR) Stl Vibrio cholerae PCR Stl Norovirus GI/GII PCR C. difficile Tox B Gene Blood Type Antibody Screen Crossmatch Imaging Radiology Impressions: ITS Impressions Abdomen/Pelvis CT 12/05/22 18:28 IMPRESSION: No acute process in the chest. There is minimal bilateral apical pleural thickening and parenchymal scarring. Mild mural thickening involving distal small bowel segments, proximal ascending colon suspicious for enteritis and proximal ascending colitis likely inflammatory or infectious etiology. No abnormal size mesenteric or retroperitoneal lymph nodes seen. Mild hepatomegaly. Distended gallbladder with periapical gallbladder fluid collection. Question acalculus cholecystitis. Consider clinical correlation and if right upper quadrant pain a HIDA scan. Nonobstructive right renal radiopaque calculi Fleischner guidelines were followed. Chest CT 12/05/22 18:28 IMPRESSION: No acute process in the chest. There is minimal bilateral apical pleural thickening and parenchymal scarring. Mild mural thickening involving distal small bowel segments, proximal ascending colon suspicious for enteritis and proximal ascending colitis likely inflammatory or infectious etiology. No abnormal size mesenteric or retroperitoneal lymph nodes seen. Mild hepatomegaly. Distended gallbladder with periapical gallbladder fluid collection. Question acalculus cholecystitis. Consider clinical correlation and if right upper quadrant pain a HIDA scan. Nonobstructive right renal radiopaque calculi Fleischner guidelines were followed. Mental Status Exam Mental Status Exam Patient Appearance: Unkempt Level of Consciousness: Awake and Alert Patient Behavior: Appropriate and Passive Affect Description: Blunted Medications Medications Current Medications Acetaminophen (Acetaminophen 325 Mg Tablet) 650 mg PO Q6H PRN PRN Reason: Pain, Mild (Pain Scale 1-3) Hydrocortisone (Hydrocortisone 2.5 % Rectal Cr 30 Gm Tube) 1 appl MN BID [facility] Stop: 12/13/22 21:01 Last Admin: 12/08/22 09:28 Dose: 1 appl Thiamine HCl 100 mg/ Sodium (Chloride) 101 mls @ 202 mls/hr IV DAILY [facility] Last Infusion: 12/08/22 13:24 Dose: Infused Piperacillin Sod/Tazobactam (Sod 3.375 gm/ Sodium Chloride) 50 mls @ 100 mls/hr IV Q6H [facility] Last Infusion: 12/08/22 14:00 Dose: Infused Lactated Ringer's (Lr) 1,000 mls @ 50 mls/hr IVCONT .Q20H [facility] Last Admin: 12/08/22 14:26 Dose: 50 mls/hr Melatonin (Melatonin 3 Mg Tablet) 6 mg PO BEDTIME PRN PRN Reason: Insomnia Nicotine (Nicotine 21 Mg Patch.Td24) 21 mg TRANSDERMA DAILY [facility] Last Admin: 12/08/22 07:43 Dose: 21 mg Ondansetron HCl (Ondansetron Hcl 4 Mg/2 Ml Vial) 4 mg IVPUSH Q8H PRN PRN Reason: Nausea and Vomiting Pharmacy Consult (Consult Rx Etoh Phenob Im/Po) 1 each MISCELLANE ONCE PRN; Protocol PRN Reason: Consult order Pharmacy Consult (Consult Rx Perform Med Rec) 1 each MISCELLANE ONCE PRN PRN Reason: Consult order Phenobarbital (Phenobarbital 30 Mg Tablet) 30 mg PO BID [facility] Stop: 12/09/22 21:01 Last Admin: 12/08/22 09:23 Dose: 30 mg Phenobarbital (Phenobarbital 15 Mg Tablet) 15 mg PO DAILY [facility] Stop: 12/11/22 09:01 Sodium Chloride (0.9 % Sodium Chloride Flush 3 Ml Syringe) 3 ml IVFLUSH QSHIFT [facility] Last Admin: 12/08/22 07:58 Dose: Not Given Allergies Allergies Allergy/AdvReac Type Severity Reaction Status Date / Time No Known Allergies Allergy Verified 12/05/22 15:40 [No Known Allergies*] Assessment & Plan Assessment & Plan (1) Alcohol use disorder, severe, dependence: Status: Acute Code(s): F10.20 - Alcohol dependence, uncomplicated Assessment and Plan: * will follow up tomorrow * resources at bedside Total time managing care of this patient today 20____ minutes. [facility] Social History Social History Household Members: Family Housing: Apartment Do you presently have visiting nurse or other home services: No Alcohol intake: current Alcohol intake frequency: 3 or more drinks per day Patient Tobacco Use Status: Current everyday Tobacco user Tobacco use type: Cigarette Cigarettes Per Day: 20 Smoked in Last 30 Days: Yes e-Cigarette/Vaping Use: Currently Using Patient Interested in Nicotine Replacement: Yes (pt wearing patch) Patient Given Instructions on How to Stop Smoking: No Second Hand Smoke Exposure: No Use of substances other than those prescribed or required for medical reasons: Yes Substance Use Type: Marijuana Substance Use Frequency: Daily Last Used Substance: Just Prior to Admission Currently Displaying Signs/Symptoms of Drug Intoxication Withdrawal: No Any prior treatment program specific to substance use: Yes Have you been hit, kicked, punched, or otherwise hurt by someone within the past year? If so, by whom?: No Do you feel safe in your current relationship?: No Current Relationship Is there a partner from a previous relationship who is making you feel unsafe now?: No Are you made to feel afraid or neglected: No Jehovah'S Witness Healthcare Practices: none Are you DNR?: No Advance Directives: No Advance Directives Information Provided: No Advance Directives on File: No Do you have thoughts of harming others: None Do you have a plan to hurt others: No Plan Recently lost weight without trying: Yes How much weight loss: 2-13 pounds Eating poorly because of decreased appetite: Yes Nutrition screen score: 4 Nutrition Risks: Anorexia Poor oral hygiene: No service: No
--- NOTE | 2022-12-08 16:38 | P.EN_ITS ---
Event Note Date of Service: 12/08/22 Event Note: GI-Full note dictated EGD 1. Duodenitis 2. Hiatal hernia 3. Nonobstructing ring at the EG Junction 4. No varices 5. No blood nor coffee grounds in the UGI tract Colonoscopy to the cecum 1. Friable, oozing hemorrhoid 2. No colitis, polyps, nor angiodysplasias 3. No blood nor melena in the colon Imp: Blood loss and anemia due to hemorrhoidal bleeding with associated portal HTN, coagulopathy, and thrombocytopenia Rec: Consult Dr. Regalado, although surgery may not be an immediate option due to the above issues. Start an oral PPI. Full liquids until Dr. Regalado sees him. F/U labs. I discussed all this with the patient and his mother in detail, including the liver disease and need to stop EtOH completely [facility]. Thanks Time Spent With Patient Time: Total time managing care of this patient today ____ minutes.
--- NOTE | 2022-12-08 16:54 | PM.OP ---
Brief Operative Note Date of Service: 12/08/22 Pre-op diagnosis: GI Bleed, Anemia Post-op diagnosis: other (Duodenitis, Hiatal hernia, Hemorrhoidal bleeding) Procedure: EGD and Colonoscopy to the cecum Surgeon: Alejandro Iqbal Anesthesia: MAC Was an Oversize Load Pilot Escort used for this Procedure?: No Estimated blood loss (mL): 2.0 Pathology: none sent Condition: stable Disposition: PACU
[2022-12-08] MEDS: 0.9 % Sodium Chloride Flush 3 ML SYRINGE IVFLUSH ×2 (17:29→19:56)
[2022-12-08] MEDS: Omeprazole 40 MG CAPSULE.DR PO (17:29)
[2022-12-09] MEDS: Piperacillin Sodium/Tazobactam 3.375 GM in 0.9 % Sodium Chloride 50 ML IV ×4 (00:43→18:17)
[2022-12-09 03:16] VITALS: BP 109/60; PULSE 65; RESP 16; TEMP 36.9; O2SAT 100
--- NOTE | 2022-12-09 03:43 | OP_ITS ---
SURGEON: Alejandro Iqbal MD INDICATIONS: The patient presents for evaluation of anemia, intermittent vomiting, rectal bleeding. Full consent has been obtained from him for the procedures, including risks of bleeding and perforation. PREOPERATIVE DIAGNOSIS: POSTOPERATIVE DIAGNOSIS: PROCEDURE PERFORMED: Esophagogastroduodenoscopy and colonoscopy to the cecum. ESTIMATED BLOOD LOSS: COMPLICATIONS: ANESTHESIA: Monitored anesthesia care. ASSISTANTS: SPECIMENS: PREOPERATIVE DIAGNOSES: Vomiting, rectal bleeding, anemia. POSTOPERATIVE DIAGNOSES: Vomiting, rectal bleeding, anemia, nonobstructing distal esophageal ring, hiatal hernia, duodenitis, friable and bleeding hemorrhoid. DESCRIPTION OF PROCEDURE: The patient was placed in the left lateral decubitus position. The Olympus video gastroscope was passed in the posterior oropharynx and upper esophagus under direct vision. The scope was passed slowly to the distal esophagus. The gastroesophageal junction appeared at 36 cm. There appeared to a nonobstructing esophageal ring at gastroesophageal junction, but without any signs of esophagitis, stricture, varices, nor mass. With insufflation of air, the lumen was quite patent and allowed easy passage of the scope. The scope was advanced to pylorus and duodenum was cannulated to the descending portion. The duodenum including the bulb was carefully inspected. There was some duodenitis in the duodenal bulb and second portion of duodenum with some erythema, edema, and some mucosal friability. There was no ulceration or mass. The scope was withdrawn back into the stomach. The gastric antrum and body appeared normal with good peristalsis. Scope was retroflexed visualizing the proximal stomach carefully, which appeared normal without any mass, ulceration, gastropathy, nor varices. The scope was straightened and withdrawn back to the esophagus. There was no evidence of any esophagitis nor varices. The scope was withdrawn from the patient. He was turned around for the colonoscopy. The digital rectal exam revealed a very friable and oozing hemorrhoid. The Olympus video pediatric colonoscope was entered into the rectum and advanced easily to the cecum. Once in the cecum, I did identify a normal-appearing cecal pouch with appendiceal orifice and a normal-appearing ileocecal valve. The entire cecum and ileocecal valve appeared normal. There was transillumination of light deep in the right lower quadrant. Scope was then slowly withdrawn assessing all mucosal surface carefully. Preparation was excellent. I did not visualize any sign of blood nor melena in the colon. I did not visualize any colitis, polyps, nor angiodysplasias. In the rectum, scope was retroflexed visualizing some small internal hemorrhoids, but no other pathology. The rectal mucosa appeared normal. The scope was straightened and withdrawn from the patient. He tolerated both procedures well and was returned to the recovery area in stable condition. IMPRESSION: 1. Friable oozing hemorrhoid. 2. Duodenitis. 3. Hiatal hernia. 4. Nonobstructing ring at the gastroesophageal junction. 5. There was no evidence of any active bleeding in the upper gastrointestinal tract nor in the colon otherwise. 6. Overall, I do feel his blood loss and anemia are related to the hemorrhoidal bleeding with associated portal hypertension, coagulopathy, and thrombocytopenia. PLAN: At this point, I would recommend consultation with Dr. Regalado, although surgery may not be an immediate option at this point due to the above issues in regard to his liver disease. I will start him on an oral PPI and keep him on full liquids until Dr. Regalado sees him. He has been ordered for followup laboratories for tomorrow. I have discussed all this in detail with the patient and his mother in detail, including the liver disease and need to stop alcohol use completely. MD FEDERICO Martinez/HALEY / [phone] MTDD
[2022-12-09] MEDS: Omeprazole 40 MG CAPSULE.DR PO (06:02)
[2022-12-09 06:27] LABS: MANUAL DIFF FLAG NO
[2022-12-09 06:38] LABS: Basophils Absolute Auto 0.1 X10*3/uL (0.0-0.2); Basophils Percent Auto 0.3 % (0-2); Eosinophils Absolute Auto 0.2 X10*3/uL (0.0-0.4); Eosinophils Percent Auto 1.6 % (0-4); Hematocrit 26.6 % (42.0-52.0); Hemoglobin 8.5 g/dl (14.0-18.0); Imm Gran Pct Auto 0.7 % (0.0-0.4); Lymphocytes Absolute Auto 1.5 X10*3/uL (1.2-4.9); Lymphocytes Percent Auto 10.2 % (20-40); Mean Corpuscular Hemoglobin 26.2 pg (27.0-33.0); Mean Corpuscular Volume 81.8 fL (80.0-98.0); Monocytes Percent Auto 7.2 % (2-11); NRBC Pct Auto 0.3 /100WBC (0.0-0.2); Neutrophils Absolute Auto 11.6 x10*3/uL (2.0-8.3); Red Blood Count 3.25 X10*6/uL (4.60-5.80); Red Cell Distribution Width 21.5 % (11.0-16.0); White Blood Count 14.5 X10*3/uL (4.8-10.8)
[2022-12-09 06:41] LABS: Platelet Count 37 X10*3/uL (160-400)
[2022-12-09 06:54] LABS: Anion Gap 12 (12-20); Blood Urea Nitrogen 4 mg/dL (9-16); Calcium 7.5 mg/dL (8.4-10.2); Carbon Dioxide 21 mmol/L (22-29); Chloride 106 mmol/L (96-108); Creatinine Clr Calc Pharmacy 167.5; Estimated Glomerular Filt Rate > 60; Glucose Random 97 mg/dL (60-115); Magnesium 1.6 mg/dL (1.6-2.6); Potassium 3.3 mmol/L (3.3-5.1); Sodium 136 mmol/L (135-145)
[2022-12-09 07:16] VITALS: BP 120/65; PULSE 72; RESP 16; TEMP 36.4; O2SAT 100
[2022-12-09] MEDS: PHENobarbitaL 30 MG TABLET PO ×2 (09:00→20:48)
[2022-12-09] MEDS: Thiamine HCL 100 MG in 0.9 % Sodium Chloride 100 ML 202 MG IV (09:00)
[2022-12-09] MEDS: Hydrocortisone 2.5 % Rectal Cr 30 GM TUBE 1 APPL PR ×2 (09:01→20:49)
[2022-12-09] MEDS: Baclofen 10 MG TABLET PO ×2 (09:34→20:48)
[2022-12-09] MEDS: Nicotine 21 MG PATCH.TD24 TRANSDERMA (09:34)
[2022-12-09] MEDS: Nicotine Polacrilex 2 MG GUM BUCCAL ×3 (09:35→16:54)
--- NOTE | 2022-12-09 12:11 | HO.POSTANES ---
Post Anesthesia Evaluation Post Anesthesia Evaluation Vital Signs: Vital Signs Temp Pulse Resp BP Pulse Ox O2 Del Method 12/09/22 07:16 97.5 F 72 16 120/65 100 Room Air 12/09/22 03:16 98.4 F 65 16 109/60 100 Room Air Anesthesia: Monitored Mental Status: Awake Pain Control: Satisfactory Nausea/Vomiting: None Hydration: Adequate Anesthesia-Related Issues: No Anes. Related Issues
--- NOTE | 2022-12-09 12:37 | MHC.CM.PN ---
Pt having an EGD today: continues on phenobarb taper for ETOH w/d management. D/C plans for a return to home - mother to transport: states d/c on 12/10 or 12/11. CM to follow
--- NOTE | 2022-12-09 15:20 | P.PNIM_ITS ---
Subjective Subjective Date of Service: 12/09/22 Interval History: ongoing hematochezia EGD/C-scope yesterday EtOH withdrawal symptoms controlled hiccups x3d Review of Systems Review of Systems: Yes all other systems are reviewed and are negative Physical Exam Vital Signs: Vital Signs: Last Vital Signs Temp 97.5 F 12/09/22 07:16 Pulse 72 12/09/22 07:16 Resp 16 12/09/22 07:16 BP 120/65 12/09/22 07:16 Pulse Ox 100 12/09/22 07:16 O2 Del Method 12/09/22 07:16 O2 Flow Rate 5 12/08/22 16:18 BMI result Body Mass Index 18.0 Gen: in no acute distress HEENT: sclera anicteric, moist mucus membranes Neck: supple Lungs: clear to auscultation bilaterally Heart: regular rate and rhythm, no murmurs Abd: soft, non-tender, slightly distended Ext: no edema Skin: warm/well-perfused Neuro: alert and oriented x3, no focal findings Psych: appropriate affect Objective Data Active Medications Acetaminophen (Acetaminophen 325 Mg Tablet) 650 mg PO Q6H PRN PRN Reason: Pain, Mild (Pain Scale 1-3) Baclofen (Baclofen 10 Mg Tablet) 10 mg PO BID [facility] Last Admin: 12/09/22 09:34 Dose: 10 mg Documented By: GARDENIA Hydrocortisone (Hydrocortisone 2.5 % Rectal Cr 30 Gm Tube) 1 appl MT BID [facility] Stop: 12/13/22 21:01 Last Admin: 12/09/22 09:01 Dose: 1 appl Documented By: GARDENIA Thiamine HCl 100 mg/ Sodium (Chloride) 101 mls @ 202 mls/hr IV DAILY [facility] Last Infusion: 12/09/22 09:36 Dose: 0 mls/hr Documented By: GARDENIA Piperacillin Sod/Tazobactam (Sod 3.375 gm/ Sodium Chloride) 50 mls @ 100 mls/hr IV Q6H [facility] Last Infusion: 12/09/22 14:09 Dose: 0 mls/hr Documented By: GARDENIA Melatonin (Melatonin 3 Mg Tablet) 6 mg PO BEDTIME PRN PRN Reason: Insomnia Nicotine (Nicotine 21 Mg Patch.Td24) 21 mg TRANSDERMA DAILY [facility] Last Admin: 12/09/22 09:34 Dose: 21 mg Documented By: GARDENIA Nicotine Polacrilex (Nicotine Polacrilex 2 Mg Gum) 2 mg BUCCAL Q1H 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 Last Admin: 12/09/22 13:22 Dose: 2 mg Documented By: GARDENIA Omeprazole (Omeprazole 40 Mg Capsule.Dr) 40 mg PO DAILY@0630 [facility] Last Admin: 12/09/22 06:02 Dose: 40 mg Documented By: CASTILRadha Ondansetron HCl (Ondansetron Hcl 4 Mg/2 Ml Vial) 4 mg IVPUSH Q8H PRN PRN Reason: Nausea and Vomiting Pharmacy Consult (Consult Rx Etoh Phenob Im/Po) 1 each MISCELLANE ONCE PRN; Protocol PRN Reason: Consult order Pharmacy Consult (Consult Rx Perform Med Rec) 1 each MISCELLANE ONCE PRN PRN Reason: Consult order Phenobarbital (Phenobarbital 30 Mg Tablet) 30 mg PO BID [facility] Stop: 12/09/22 21:01 Last Admin: 12/09/22 09:00 Dose: 30 mg Documented By: GARDENIA Phenobarbital (Phenobarbital 15 Mg Tablet) 15 mg PO DAILY [facility] Stop: 12/11/22 09:01 Sodium Chloride (0.9 % Sodium Chloride Flush 3 Ml Syringe) 3 ml IVFLUSH QSHIFT [facility] Last Admin: 12/09/22 07:07 Dose: Not Given Documented By: GARDENIA Non-Admin Reason: IV Running Labs 12/09/22 05:48 12/09/22 05:48 Labs: Laboratory Results - last 24 hr 12/09/22 12/09/22 05:48 05:48 MCV 81.8 MCH 26.2 L MCHC 32.0 RDW 21.5 H Plt Count 37 L MPV Not Reportable Immature Gran % (Auto) 0.7 H Neut % (Auto) 80.0 H Lymph % (Auto) 10.2 L [place] % (Auto) 7.2 Eos % (Auto) 1.6 Baso % (Auto) 0.3 Lymph # (Auto) 1.5 [place] # (Auto) 1.0 Eos # (Auto) 0.2 Baso # (Auto) 0.1 Abs Immat Gran (auto) 0.10 H Absolute Neuts (auto) 11.6 H Absolute Nucleated RBC 0.050 H Nucleated RBC % (auto) 0.3 H Anion Gap 12 Estim Creat Clear Calc 167.5 Estimated GFR > 60 Random Glucose 97 Calcium 7.5 L D Magnesium 1.6 Assessment and Plan (1) Acute anemia: Status: Acute (2) Alcohol withdrawal: Status: Acute (3) Acute GI bleeding: Status: Acute (4) Colitis: Status: Acute Plan hospital d#5 42yo M with AUD sent in by PCP for anemia, admitted for EtOH withdrawal and hematochezia # sepsis due to acalculous cholecystitis - pip-regis 12/05- - surgical consultation # anemia due to GI blood loss - EGD + C-scope 12/08/22: 1. Duodenitis 2. Hiatal hernia 3. Nonobstructing ring at the EG Junction 4. No varices 5. No blood nor coffee grounds in the UGI tract Colonoscopy to the cecum 1. Friable, oozing hemorrhoid 2. No colitis, polyps, nor angiodysplasias 3. No blood nor melena in the colon # hiccups - ?from cholecystitis. trial of baclofen # duodenitis - IV PPI # hemorrhoidal bleeding - Surgery consultation # acute blood loss anemia - transfused 5u pRBCs and H+H now stable # thrombocytopenia - likely due to EtOH. monitor CBC; avoid heparin. # hypoK - repleted # hypoMg - repleted # acute EtOH hepatitis - no steroids indicated - trace ascites on imaging, not enough to tap # EtOH withdrawal - phenobarbital taper, B-vitamins # AUD - Addiction Medicine consultation # tobacco abuse - NRT # VTE ppx: SCDs, no heparin given low platelets # dispo: TBD In my clinical judgment, the patient requires continued inpatient hospitalization for the following reasons: IV ABX, anemia Time Spent With Patient Time: Total time managing care of this patient today _45___ minutes. Quality Stroke Does the patient have a stroke diagnosis?: No VTE Prior VTE?: No VTE Risk Level:: Medical - moderate - high VTE Device Contraindication: Treatment Not Indicated VTE Drug Contraindication: Treatment Not Indicated
--- NOTE | 2022-12-09 15:22 | P.PNADD_ITS ---
Subjective Subjective Date of Service: 12/09/22 Reason For Visit: Abnormal labs Interim History: Patient seen in follow up Mother present during interview. Patient, awake, alert, pleasant and engaged in interview. Discussed alcohol use further. He reports drinking became problematic about 10 or so years ago, but only withing the last few years has it progressed to drinking daily. He reports drinking several shots with a chaser in the afternoons when he gets home from work--drinks until he passes out . Mother reports it is usually about 2 pints Patient denies any history of ATS admissions, denies history of seizures. Does report tremors almost daily while he is at work. Denies any BH history or symptoms, including anxiety or depression. Patient contemplating cessation of alcohol use. Lengthy discussion regarding the impact alcohol has had on his body (which he acknowledges) and his brain (which he is much less familiar with). Reviewed challenges associated with stopping alcohol use without any type of recovery plan or supports in place. Patient's mother asking questions about how to best support patient; discussed [facility] [place]--support group for families. Review of Systems Constitutional: Reports as per HPI Mental Status Exam Mental Status Exam Patient Appearance: Disheveled Level of Consciousness: Awake, Appropriate and Alert Patient Behavior: Appropriate Affect Description: Appropriate Thought Process: Slowed Thinking Judgement: Fair Diagnostics Vital Signs (24Hr): Vital Signs - 24 hr 12/08/22 16:18 12/08/22 16:33 12/08/22 18:00 Temperature 98.1 F 98.1 F 98.0 F Pulse Rate 81 72 73 Respiratory Rate 18 16 17 Blood Pressure 119/58 L 127/63 121/75 Pulse Oximetry 99 100 100 Oxygen Delivery Method Simple Mask Room Air Room Air Oxygen Flow Rate 5 12/08/22 20:00 12/09/22 03:16 12/09/22 07:16 Temperature 97.3 F 98.4 F 97.5 F Pulse Rate 79 65 72 Respiratory Rate 16 16 16 Blood Pressure 121/75 109/60 120/65 Pulse Oximetry 99 100 100 Oxygen Delivery Method Room Air Room Air Room Air Oxygen Flow Rate BMI result Body Mass Index 18.0 Labs 12/09/22 05:48 12/09/22 05:48 Labs: Laboratory Results - last 48 hr 12/05/22 12/05/22 12/07/22 16:10 16:10 15:57 WBC 15.4 H RBC 3.26 L Hgb 8.1 L Hct 26.2 L MCV 80.4 MCH 24.8 L MCHC 30.9 L RDW 20.4 H Plt Count 51 L MPV 10.3 Immature Gran % (Auto) Cancelled Neut % (Auto) Cancelled Lymph % (Auto) Cancelled [place] % (Auto) Cancelled Eos % (Auto) Cancelled Baso % (Auto) Cancelled Lymph # (Auto) Cancelled [place] # (Auto) Cancelled Eos # (Auto) Cancelled Baso # (Auto) Cancelled Abs Immat Gran (auto) Cancelled Absolute Neuts (auto) Cancelled Absolute Nucleated RBC 0.430 H Nucleated RBC % (auto) 2.8 H Neutrophils % (Manual) 77 H Band Neutrophils % 0 L Lymphocytes % (Manual) 14 L Monocytes % (Manual) 8 Eosinophils % (Manual) 1 Abs Neuts (Manual) 11.9 H Lymphocytes # (Manual) 2.2 Monocytes # (Manual) 1.2 Eosinophils # (Manual) 0.2 Nucleated RBCs 3 H Platelet Estimate DECREASED Plt Morphology Comment NORMAL RBC Morphology NOTED Polychromasia 1+ (0-2) Hypochromasia 1+ (5-14) Target Cells 1+ (5-14) Smear Tech's Comments VERIFIED Smear Path Review SEE NOTE PT INR Sodium Potassium Chloride Carbon Dioxide Anion Gap BUN Creatinine Estim Creat Clear Calc Estimated GFR Random Glucose Fasting Glucose Calcium Magnesium Total Bilirubin Direct Bilirubin AST ALT Alkaline Phosphatase Total Protein Albumin Blood Type A Positive Antibody Screen NEGATIVE Crossmatch See Detail 12/08/22 12/08/22 12/08/22 05:39 05:39 05:39 WBC 12.6 H RBC 2.96 L Hgb 7.5 L Hct 23.7 L MCV 80.1 MCH 25.3 L MCHC 31.6 RDW 20.9 H Plt Count 42 L MPV Not Reportable Immature Gran % (Auto) 1.0 H Neut % (Auto) 80.4 H Lymph % (Auto) 9.8 L [place] % (Auto) 6.7 Eos % (Auto) 1.9 Baso % (Auto) 0.2 Lymph # (Auto) 1.2 [place] # (Auto) 0.8 Eos # (Auto) 0.2 Baso # (Auto) 0.0 Abs Immat Gran (auto) 0.12 H Absolute Neuts (auto) 10.2 H Absolute Nucleated RBC 0.150 H Nucleated RBC % (auto) 1.2 H Neutrophils % (Manual) Band Neutrophils % Lymphocytes % (Manual) Monocytes % (Manual) Eosinophils % (Manual) Abs Neuts (Manual) Lymphocytes # (Manual) Monocytes # (Manual) Eosinophils # (Manual) Nucleated RBCs Platelet Estimate Plt Morphology Comment RBC Morphology Polychromasia Hypochromasia Target Cells Smear Tech's Comments Smear Path Review PT 16.6 H INR 1.4 H Sodium 135 Potassium 2.7 L Chloride 104 Carbon Dioxide 22 Anion Gap 12 BUN 6 L Creatinine 0.51 Estim Creat Clear Calc 164.2 Estimated GFR > 60 Random Glucose Fasting Glucose 87 Calcium 7.3 L D Magnesium 1.2 L* Total Bilirubin 1.7 H Direct Bilirubin 0.9 H AST 136 H ALT 44 H Alkaline Phosphatase 149 H Total Protein 4.2 L Albumin 2.3 L Blood Type Antibody Screen Crossmatch 12/08/22 12/08/22 12/09/22 13:19 13:19 05:48 WBC 15.2 H 14.5 H RBC 3.29 L 3.25 L Hgb 8.6 L 8.5 L Hct 27.0 L 26.6 L MCV 82.1 81.8 MCH 26.1 L 26.2 L MCHC 31.9 32.0 RDW 20.8 H 21.5 H Plt Count 37 L 37 L MPV Not Reportable Not Reportable Immature Gran % (Auto) 0.9 H 0.7 H Neut % (Auto) 79.1 H 80.0 H Lymph % (Auto) 11.6 L 10.2 L [place] % (Auto) 6.8 7.2 Eos % (Auto) 1.3 1.6 Baso % (Auto) 0.3 0.3 Lymph # (Auto) 1.8 1.5 [place] # (Auto) 1.0 1.0 Eos # (Auto) 0.2 0.2 Baso # (Auto) 0.0 0.1 Abs Immat Gran (auto) 0.14 H 0.10 H Absolute Neuts (auto) 12.0 H 11.6 H Absolute Nucleated RBC 0.140 H 0.050 H Nucleated RBC % (auto) 0.9 H 0.3 H Neutrophils % (Manual) Band Neutrophils % Lymphocytes % (Manual) Monocytes % (Manual) Eosinophils % (Manual) Abs Neuts (Manual) Lymphocytes # (Manual) Monocytes # (Manual) Eosinophils # (Manual) Nucleated RBCs Platelet Estimate Plt Morphology Comment RBC Morphology Polychromasia Hypochromasia Target Cells Smear Tech's Comments Smear Path Review PT INR Sodium 136 Potassium 3.6 D Chloride 107 Carbon Dioxide 20 L Anion Gap 13 BUN 5 L Creatinine 0.49 L Estim Creat Clear Calc 170.9 Estimated GFR > 60 Random Glucose 86 Fasting Glucose Calcium 7.0 L Magnesium 2.0 Total Bilirubin Direct Bilirubin AST ALT Alkaline Phosphatase Total Protein Albumin Blood Type Antibody Screen Crossmatch 12/09/22 05:48 WBC RBC Hgb Hct MCV MCH MCHC RDW Plt Count MPV Immature Gran % (Auto) Neut % (Auto) Lymph % (Auto) [place] % (Auto) Eos % (Auto) Baso % (Auto) Lymph # (Auto) [place] # (Auto) Eos # (Auto) Baso # (Auto) Abs Immat Gran (auto) Absolute Neuts (auto) Absolute Nucleated RBC Nucleated RBC % (auto) Neutrophils % (Manual) Band Neutrophils % Lymphocytes % (Manual) Monocytes % (Manual) Eosinophils % (Manual) Abs Neuts (Manual) Lymphocytes # (Manual) Monocytes # (Manual) Eosinophils # (Manual) Nucleated RBCs Platelet Estimate Plt Morphology Comment RBC Morphology Polychromasia Hypochromasia Target Cells Smear Tech's Comments Smear Path Review PT INR Sodium 136 Potassium 3.3 Chloride 106 Carbon Dioxide 21 L Anion Gap 12 BUN 4 L Creatinine 0.50 Estim Creat Clear Calc 167.5 Estimated GFR > 60 Random Glucose 97 Fasting Glucose Calcium 7.5 L D Magnesium 1.6 Total Bilirubin Direct Bilirubin AST ALT Alkaline Phosphatase Total Protein Albumin Blood Type Antibody Screen Crossmatch Imaging Radiology Impressions: ITS Impressions Abdomen/Pelvis CT 12/05/22 18:28 IMPRESSION: No acute process in the chest. There is minimal bilateral apical pleural thickening and parenchymal scarring. Mild mural thickening involving distal small bowel segments, proximal ascending colon suspicious for enteritis and proximal ascending colitis likely inflammatory or infectious etiology. No abnormal size mesenteric or retroperitoneal lymph nodes seen. Mild hepatomegaly. Distended gallbladder with periapical gallbladder fluid collection. Question acalculus cholecystitis. Consider clinical correlation and if right upper quadrant pain a HIDA scan. Nonobstructive right renal radiopaque calculi Fleischner guidelines were followed. Chest CT 12/05/22 18:28 IMPRESSION: No acute process in the chest. There is minimal bilateral apical pleural thickening and parenchymal scarring. Mild mural thickening involving distal small bowel segments, proximal ascending colon suspicious for enteritis and proximal ascending colitis likely inflammatory or infectious etiology. No abnormal size mesenteric or retroperitoneal lymph nodes seen. Mild hepatomegaly. Distended gallbladder with periapical gallbladder fluid collection. Question acalculus cholecystitis. Consider clinical correlation and if right upper quadrant pain a HIDA scan. Nonobstructive right renal radiopaque calculi Fleischner guidelines were followed. Abdomen Ultrasound 12/08/22 13:44 IMPRESSION: Findings suspicious for acalculus cholecystitis. Medications Medications Current Medications Acetaminophen (Acetaminophen 325 Mg Tablet) 650 mg PO Q6H PRN PRN Reason: Pain, Mild (Pain Scale 1-3) Baclofen (Baclofen 10 Mg Tablet) 10 mg PO BID [facility] Last Admin: 12/09/22 09:34 Dose: 10 mg Hydrocortisone (Hydrocortisone 2.5 % Rectal Cr 30 Gm Tube) 1 appl DE BID [facility] Stop: 12/13/22 21:01 Last Admin: 12/09/22 09:01 Dose: 1 appl Thiamine HCl 100 mg/ Sodium (Chloride) 101 mls @ 202 mls/hr IV DAILY [facility] Last Infusion: 12/09/22 09:36 Dose: Infused Piperacillin Sod/Tazobactam (Sod 3.375 gm/ Sodium Chloride) 50 mls @ 100 mls/hr IV Q6H [facility] Last Infusion: 12/09/22 14:09 Dose: Infused Melatonin (Melatonin 3 Mg Tablet) 6 mg PO BEDTIME PRN PRN Reason: Insomnia Nicotine (Nicotine 21 Mg Patch.Td24) 21 mg TRANSDERMA DAILY [facility] Last Admin: 12/09/22 09:34 Dose: 21 mg Nicotine Polacrilex (Nicotine Polacrilex 2 Mg Gum) 2 mg BUCCAL Q1H 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 Admin: 12/09/22 13:22 Dose: 2 mg Omeprazole (Omeprazole 40 Mg Capsule.Dr) 40 mg PO DAILY@0630 [facility] Last Admin: 12/09/22 06:02 Dose: 40 mg Ondansetron HCl (Ondansetron Hcl 4 Mg/2 Ml Vial) 4 mg IVPUSH Q8H PRN PRN Reason: Nausea and Vomiting Pharmacy Consult (Consult Rx Etoh Phenob Im/Po) 1 each MISCELLANE ONCE PRN; Protocol PRN Reason: Consult order Pharmacy Consult (Consult Rx Perform Med Rec) 1 each MISCELLANE ONCE PRN PRN Reason: Consult order Phenobarbital (Phenobarbital 30 Mg Tablet) 30 mg PO BID [facility] Stop: 12/09/22 21:01 Last Admin: 12/09/22 09:00 Dose: 30 mg Phenobarbital (Phenobarbital 15 Mg Tablet) 15 mg PO DAILY [facility] Stop: 12/11/22 09:01 Sodium Chloride (0.9 % Sodium Chloride Flush 3 Ml Syringe) 3 ml IVFLUSH QSHIFT [facility] Last Admin: 12/09/22 07:07 Dose: Not Given Allergies Allergies Allergy/AdvReac Type Severity Reaction Status Date / Time No Known Allergies Allergy Verified 12/05/22 15:40 [No Known Allergies*] Assessment & Plan Assessment & Plan (1) Alcohol use disorder, severe, dependence: Status: Acute Code(s): F10.20 - Alcohol dependence, uncomplicated Assessment and Plan: * patient still contemplating how to address alcohol use; however, today much more engaged then yesterday and open to hearing about options * will provide mother with recovery support resources as requested * will continue to follow Total time managing care of this patient today _40___ minutes.
--- NOTE | 2022-12-09 15:24 | P.CONGS_ITS ---
History of Present Illness Consult details Consult date: 12/09/22 Narrative: 42M admitted to the hospital because of anemia and passage of blood per rectum. He has a long hx of chronic liver disease from ETOH abuse. He has noticed passage of bright blood per rectum periodically with BMs for more than a year now. He underwent a colonoscopy with Dr. Iqbal yesterday showing hemorrhoids that appeared to be friable and oozy. I was therefore consulted. It was felt that his hemorrhoids were the source of his rectal bleeding as there were no indentifiable pathology seen more proximally. He also describes pain with his hemorrhoids, especially after passage of stools. He does not feel he is constipated. Review of Systems Constitutional: Constitutional: Denies chills, Denies fever(s) and Reports weight loss Cardiovascular: Cardiovascular: Denies chest pain and Reports dyspnea on exertion Respiratory: Respiratory: Denies cough and Reports dyspnea on exertion Gastrointestinal: Gastrointestinal: Denies abdominal pain and Reports hematochezia Genitourinary: Genitourinary: Denies dysuria Musculoskeletal: Musculoskeletal: Reports atrophy PMFSH Past Medical History Medical History (Updated 12/09/22 @ 15:33 by Frankie Regalado MD) Bleeding hemorrhoids Social History Social History Household Members: Family Housing: Apartment Do you presently have visiting nurse or other home services: No Alcohol intake: current Alcohol intake frequency: 3 or more drinks per day Patient Tobacco Use Status: Current everyday Tobacco user Tobacco use type: Cigarette Cigarettes Per Day: 20 Smoked in Last 30 Days: Yes e-Cigarette/Vaping Use: Currently Using Patient Interested in Nicotine Replacement: Yes (pt wearing patch) Patient Given Instructions on How to Stop Smoking: No Second Hand Smoke Exposure: No Use of substances other than those prescribed or required for medical reasons: Yes Substance Use Type: Marijuana Substance Use Frequency: Daily Last Used Substance: Just Prior to Admission Currently Displaying Signs/Symptoms of Drug Intoxication Withdrawal: No Any prior treatment program specific to substance use: Yes Have you been hit, kicked, punched, or otherwise hurt by someone within the past year? If so, by whom?: No Do you feel safe in your current relationship?: No Current Relationship Is there a partner from a previous relationship who is making you feel unsafe now?: No Are you made to feel afraid or neglected: No [facility] Practices: none Are you DNR?: No Advance Directives: No Advance Directives Information Provided: No Advance Directives on File: No Do you have thoughts of harming others: None Do you have a plan to hurt others: No Plan Recently lost weight without trying: Yes How much weight loss: 2-13 pounds Eating poorly because of decreased appetite: Yes Nutrition screen score: 4 Nutrition Risks: Anorexia Poor oral hygiene: No service: No Meds Allergies Allergy/AdvReac Type Severity Reaction Status Date / Time No Known Allergies Allergy Verified 12/05/22 15:40 [No Known Allergies*] Active Medications: Current Medications Acetaminophen (Acetaminophen 325 Mg Tablet) 650 mg PO Q6H PRN PRN Reason: Pain, Mild (Pain Scale 1-3) Baclofen (Baclofen 10 Mg Tablet) 10 mg PO BID [facility] Last Admin: 12/09/22 09:34 Dose: 10 mg Hydrocortisone (Hydrocortisone 2.5 % Rectal Cr 30 Gm Tube) 1 appl [place] BID [facility] Stop: 12/13/22 21:01 Last Admin: 12/09/22 09:01 Dose: 1 appl Thiamine HCl 100 mg/ Sodium (Chloride) 101 mls @ 202 mls/hr IV DAILY [facility] Last Infusion: 12/09/22 09:36 Dose: Infused Piperacillin Sod/Tazobactam (Sod 3.375 gm/ Sodium Chloride) 50 mls @ 100 mls/hr IV Q6H [facility] Last Infusion: 12/09/22 14:09 Dose: Infused Melatonin (Melatonin 3 Mg Tablet) 6 mg PO BEDTIME PRN PRN Reason: Insomnia Nicotine (Nicotine 21 Mg Patch.Td24) 21 mg TRANSDERMA DAILY [facility] Last Admin: 12/09/22 09:34 Dose: 21 mg Nicotine Polacrilex (Nicotine Polacrilex 2 Mg Gum) 2 mg BUCCAL Q1H PRN PRN Reason: [facility] Last Admin: 12/09/22 13:22 Dose: 2 mg Omeprazole (Omeprazole 40 Mg Capsule.Dr) 40 mg PO DAILY@0630 [facility] Last Admin: 12/09/22 06:02 Dose: 40 mg Ondansetron HCl (Ondansetron Hcl 4 Mg/2 Ml Vial) 4 mg IVPUSH Q8H PRN PRN Reason: Nausea and Vomiting Pharmacy Consult (Consult Rx Etoh Phenob Im/Po) 1 each MISCELLANE ONCE PRN; Protocol PRN Reason: Consult order Pharmacy Consult (Consult Rx Perform Med Rec) 1 each MISCELLANE ONCE PRN PRN Reason: Consult order Phenobarbital (Phenobarbital 30 Mg Tablet) 30 mg PO BID [facility] Stop: 12/09/22 21:01 Last Admin: 12/09/22 09:00 Dose: 30 mg Phenobarbital (Phenobarbital 15 Mg Tablet) 15 mg PO DAILY [facility] Stop: 12/11/22 09:01 Sodium Chloride (0.9 % Sodium Chloride Flush 3 Ml Syringe) 3 ml IVFLUSH QSHIFT [facility] Last Admin: 12/09/22 07:07 Dose: Not Given Home Medications Medication Instructions Recorded Confirmed Last Taken Type No Known Home Meds 12/05/22 12/05/22 Unknown History Physical Exam Vital Signs: Vital Signs: Last Vital Signs Temp 97.5 F 12/09/22 07:16 Pulse 72 12/09/22 07:16 Resp 16 12/09/22 07:16 BP 120/65 12/09/22 07:16 Pulse Ox 100 12/09/22 07:16 O2 Del Method 12/09/22 07:16 O2 Flow Rate 5 12/08/22 16:18 BMI result Body Mass Index 18.0 Const: General: comfortable, no acute distress and alert Resp: Effort & Inspection: normal respiratory effort Cardio: Rate: regular rate GI: Other: protruberant, with ascites rectal exam - external hemorrhoids, no active bleeding, nonthrombosed, digital exam deferred because of anticipated pain Palpation (GI): Soft to palpation, not firm, nontender and no guarding Results Labs 12/09/22 05:48 12/09/22 05:48 Labs: Abnormal lab results 12/09/22 12/09/22 Range/Units 05:48 05:48 WBC 14.5 H (4.8-10.8) X10*3/uL RBC 3.25 L (4.60-5.80) X10*6/uL Hgb 8.5 L (14.0-18.0) g/dl Hct 26.6 L (42.0-52.0) % MCH 26.2 L (27.0-33.0) pg RDW 21.5 H (11.0-16.0) % Plt Count 37 L (160-400) X10*3/uL Immature Gran % (Auto) 0.7 H (0.0-0.4) % Neut % (Auto) 80.0 H (45-73) % Lymph % (Auto) 10.2 L (20-40) % Abs Immat Gran (auto) 0.10 H (0.00-0.03) X10*3/uL Absolute Neuts (auto) 11.6 H (2.0-8.3) x10*3/uL Absolute Nucleated RBC 0.050 H (0.0-0.012) X10*3/uL Nucleated RBC % (auto) 0.3 H (0.0-0.2) /100WBC Carbon Dioxide 21 L (22-29) mmol/L BUN 4 L (9-16) mg/dL Calcium 7.5 L D (8.4-10.2) mg/dL Short CBC 12/09/22 Range/Units 05:48 WBC 14.5 H (4.8-10.8) X10*3/uL Hgb 8.5 L (14.0-18.0) g/dl Hct 26.6 L (42.0-52.0) % Plt Count 37 L (160-400) X10*3/uL BMP 12/09/22 05:48 Sodium 136 Potassium 3.3 Chloride 106 Carbon Dioxide 21 L BUN 4 L Creatinine 0.50 Calcium 7.5 L D Urine 12/05/22 Range/Units 19:01 Urine Color Dark Yellow Urine Appearance Clear Urine pH 5.0 (5.0-9.0) Ur Specific [place] >= 1.030 H (1.005-1.025) Urine Protein Trace (Neg-Trace) mg/dL Urine Glucose (UA) Negative (Negative) mg/dL All other labs normal. Assessment and Plan (1) Bleeding hemorrhoids: Status: Acute It appears he has hemorrhoidal bleeding from hemorrhoids on a background of chronic liver disease and likely portal hypertension. I had a long discussion with him about management from here on. Control of his liver disease is most important at this time, and this includes ensuring he has adequate clotting factors to control his coagulopathy from his liver disease. Hemorrhoidectomy can be an option, but this comes with it the risk of worse bleeding due to his portal hypertension.. We can also try to see him he can have steroid suppositories for now to help with any acute inflammation of his hemorrhoids. He may benefit from stool softeners as well, as straining and hard stools can aggravate his hemorrhoids. I will follow along while he is in the hospital. I may have to do bedside anoscopy once he is more comfortable. Time Spent With Patient Time: Total time managing care of this patient today ____ minutes. Procedures Date of Service Date of Service: 12/09/22
[2022-12-09 15:34] VITALS: BP 118/82; PULSE 80; RESP 18; TEMP 37.1; O2SAT 100
[2022-12-09] MEDS: 0.9 % Sodium Chloride Flush 3 ML SYRINGE IVFLUSH (18:18)
[2022-12-09 20:00] VITALS: BP 109/60; PULSE 69; RESP 18; TEMP 36.5; O2SAT 99
[2022-12-10] MEDS: Piperacillin Sodium/Tazobactam 3.375 GM in 0.9 % Sodium Chloride 50 ML IV ×4 (00:46→18:31)
[2022-12-10] MEDS: 0.9 % Sodium Chloride Flush 3 ML SYRINGE IVFLUSH ×4 (01:13→23:52)
[2022-12-10 03:55] VITALS: BP 111/59; PULSE 67; RESP 18; TEMP 36.6; O2SAT 98
[2022-12-10] MEDS: Omeprazole 40 MG CAPSULE.DR PO (06:10)
[2022-12-10 06:35] LABS: INTERNATIONAL NORM RATIO 1.6 (0.9-1.1); Prothrombin Time 18.2 SEC (10.0-13.1)
[2022-12-10 07:05] LABS: Hematocrit 26.3 % (42.0-52.0); Hemoglobin 8.5 g/dl (14.0-18.0); Mean Corpuscular HGB Conc 32.3 g/dl (31.0-36.0); Mean Corpuscular Hemoglobin 26.7 pg (27.0-33.0); Mean Corpuscular Volume 82.7 fL (80.0-98.0); NRBC Pct Auto 0.1 /100WBC (0.0-0.2); Red Blood Count 3.18 X10*6/uL (4.60-5.80); Red Cell Distribution Width 23.3 % (11.0-16.0); White Blood Count 15.2 X10*3/uL (4.8-10.8)
[2022-12-10 07:06] LABS: Platelet Count 48 X10*3/uL (160-400)
[2022-12-10 07:37] LABS: Alanine Aminotransferase 41 U/L (0-40); Albumin Level 2.4 g/dL (3.5-5.0); Alkaline Phosphatase 173 U/L (39-117); Anion Gap 13 (12-20); Aspartate Amino Transferase 113 U/L (5-37); Bilirubin Total 1.6 mg/dL (0.0-1.0); Blood Urea Nitrogen 5 mg/dL (9-16); Calcium 7.5 mg/dL (8.4-10.2); Carbon Dioxide 20 mmol/L (22-29); Chloride 105 mmol/L (96-108); Creatinine Clr Calc Pharmacy 161.1; Estimated Glomerular Filt Rate > 60; Glucose Random 92 mg/dL (60-115); Magnesium 1.4 mg/dL (1.6-2.6); Potassium 3.2 mmol/L (3.3-5.1); Sodium 135 mmol/L (135-145); Total Protein 4.4 g/dL (6.5-8.0)
[2022-12-10 07:55] VITALS: BP 119/68; PULSE 77; RESP 18; TEMP 36.8; O2SAT 100
[2022-12-10] MEDS: Thiamine HCL 100 MG in 0.9 % Sodium Chloride 100 ML 202 MG IV (08:07)
--- NOTE | 2022-12-10 08:11 | P.PNGS_ITS ---
Subjective Subjective Date of Service: 12/10/22 Interval history: feels ok this AM noted blood with BM this morning denies abdl pain Physical Exam Vital Signs: Vital Signs: Last Vital Signs Temp 98.3 F 12/10/22 07:55 Pulse 77 12/10/22 07:55 Resp 18 12/10/22 07:55 BP 119/68 12/10/22 07:55 Pulse Ox 100 12/10/22 07:55 O2 Del Method 12/10/22 07:55 O2 Flow Rate 5 12/08/22 16:18 BMI result Body Mass Index 18.0 Const: Other: frail looking General: no acute distress Resp: Effort & Inspection: normal respiratory effort Cardio: Rate: regular rate GI: Palpation (GI): Soft to palpation, not firm and no guarding Objective Data Active Medications Acetaminophen (Acetaminophen 325 Mg Tablet) 650 mg PO Q6H PRN PRN Reason: Pain, Mild (Pain Scale 1-3) Baclofen (Baclofen 10 Mg Tablet) 10 mg PO BID [facility] Last Admin: 12/09/22 20:48 Dose: 10 mg Documented By: SARA Hydrocortisone (Hydrocortisone 2.5 % Rectal Cr 30 Gm Tube) 1 appl ID BID [facility] Stop: 12/13/22 21:01 Last Admin: 12/09/22 20:49 Dose: 1 appl Documented By: SARA Thiamine HCl 100 mg/ Sodium (Chloride) 101 mls @ 202 mls/hr IV DAILY [facility] Last Infusion: 12/09/22 09:36 Dose: 0 mls/hr Documented By: GARDENIA Piperacillin Sod/Tazobactam (Sod 3.375 gm/ Sodium Chloride) 50 mls @ 100 mls/hr IV Q6H [facility] Last Infusion: 12/10/22 06:44 Dose: 0 mls/hr Documented By: SARA Magnesium Sulfate (Magnesium Sulfate/H2o) 2 gm in 50 mls @ 25 mls/hr IV ONCE ONE Stop: 12/10/22 09:37 Magnesium Oxide (Magnesium Oxide 400 Mg Tablet) 400 mg PO BIDPC [facility] Melatonin (Melatonin 3 Mg Tablet) 6 mg PO BEDTIME PRN PRN Reason: Insomnia Nicotine (Nicotine 21 Mg Patch.Td24) 21 mg TRANSDERMA DAILY [facility] Last Admin: 12/09/22 09:34 Dose: 21 mg Documented By: GARDENIA Nicotine Polacrilex (Nicotine Polacrilex 2 Mg Gum) 2 mg BUCCAL Q1H 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 Last Admin: 12/09/22 16:54 Dose: 2 mg Documented By: GARDENIA Omeprazole (Omeprazole 40 Mg Capsule.Dr) 40 mg PO DAILY@0630 [facility] Last Admin: 12/10/22 06:10 Dose: 40 mg Documented By: SARA Ondansetron HCl (Ondansetron Hcl 4 Mg/2 Ml Vial) 4 mg IVPUSH Q8H PRN PRN Reason: Nausea and Vomiting Pharmacy Consult (Consult Rx Etoh Phenob Im/Po) 1 each MISCELLANE ONCE PRN; Protocol PRN Reason: Consult order Pharmacy Consult (Consult Rx Perform Med Rec) 1 each MISCELLANE ONCE PRN PRN Reason: Consult order Phenobarbital (Phenobarbital 15 Mg Tablet) 15 mg PO DAILY [facility] Stop: 12/11/22 09:01 Phytonadione (Phytonadione (Vit K1) Oral 10 Mg/Ml Ampul) 10 mg PO ONCE ONE Stop: 12/10/22 07:50 Sodium Chloride (0.9 % Sodium Chloride Flush 3 Ml Syringe) 3 ml IVFLUSH QSHIFT [facility] Last Admin: 12/10/22 01:13 Dose: 3 ml Documented By: SARA Labs 12/10/22 05:54 12/10/22 05:54 Labs: Laboratory Results - last 24 hr 12/10/22 12/10/22 12/10/22 05:54 05:54 05:54 MCV 82.7 MCH 26.7 L MCHC 32.3 RDW 23.3 H Plt Count 48 L D MPV Not Reportable Absolute Nucleated RBC 0.020 H Nucleated RBC % (auto) 0.1 PT 18.2 H INR 1.6 H Anion Gap 13 Estim Creat Clear Calc 161.1 Estimated GFR > 60 Random Glucose 92 Calcium 7.5 L Magnesium 1.4 L* Total Bilirubin 1.6 H AST 113 H ALT 41 H Alkaline Phosphatase 173 H Total Protein 4.4 L Albumin 2.4 L Procedures Date of Service Date of Service: 12/10/22 Progress Note: A&P Assessment and plan (1) Bleeding hemorrhoids: Status: Acute Assessment and Plan: with chronic liver ds, likely portal HTN Hg steady would control coagulopathy may have had acute ETOH hepatitis, decompensation best to hold off on hemorrhoidectomy at this time will follow clinically no cholecystitis - GB wall thickening mentioned on CT Time Spent With Patient Time: Total time managing care of this patient today ____ minutes. Quality Stroke Does the patient have a stroke diagnosis?: No VTE Prior VTE?: No VTE Risk Level:: Medical - moderate - high VTE Device Contraindication: Treatment Not Indicated VTE Drug Contraindication: Treatment Not Indicated
[2022-12-10] MEDS: Magnesium Sulfate/H2O 2 GM/50 ML PIGGYBACK IV (08:12)
[2022-12-10] MEDS: PHENobarbitaL 15 MG TABLET PO (08:20)
[2022-12-10] MEDS: Hydrocortisone 2.5 % Rectal Cr 30 GM TUBE 1 APPL PR ×2 (08:21→20:07)
[2022-12-10] MEDS: Magnesium Oxide 400 MG TABLET PO ×2 (08:21→17:20)
[2022-12-10] MEDS: Baclofen 10 MG TABLET PO ×2 (08:21→20:07)
[2022-12-10] MEDS: Nicotine 21 MG PATCH.TD24 TRANSDERMA (08:21)
[2022-12-10] MEDS: Potassium Chloride ER 20 MEQ TAB.ER.PRT 40 MEQ PO (08:21)
[2022-12-10] MEDS: Nicotine Polacrilex 2 MG GUM BUCCAL (08:22)
--- NOTE | 2022-12-10 11:10 | MHC.CLN ---
F/U DIET ADVANCED TO REGULAR, BLAND. ADDING ENSURE TID PER PRIOR CONVERSATION WITH PATIENT. SUPPLEMENT PROVIDES ADDITIONAL 1050 KCALS, 60 G PROTEIN. INTAKE APPEARS GOOD. FOLLOW FOR INTAKE AND DIET TOLERANCE.
[2022-12-10] MEDS: Phytonadione (Vit K1) Oral 10 MG/ML AMPUL PO (11:14)
--- NOTE | 2022-12-10 11:32 | HO.PM.IMPN ---
Subjective Subjective Date of Service: 12/10/22 Interval History: hiccups improved no RUQ pain wants to try to eat no tremulousness ongoing hemorrhoidal bleeding Review of Systems Review of Systems: Yes all other systems are reviewed and are negative Physical Exam Vital Signs: Vital Signs: Last Vital Signs Temp 98.3 F 12/10/22 07:55 Pulse 77 12/10/22 07:55 Resp 18 12/10/22 07:55 BP 119/68 12/10/22 07:55 Pulse Ox 100 12/10/22 07:55 O2 Del Method 12/10/22 07:55 O2 Flow Rate 5 12/08/22 16:18 BMI result Body Mass Index 18.0 Const: Other: Gen: in no acute distress HEENT: sclera anicteric, moist mucus membranes Neck: supple Lungs: clear to auscultation bilaterally Heart: regular rate and rhythm, no murmurs Abd: soft, non-tender, slightly distended Ext: no edema Skin: warm/well-perfused Neuro: alert and oriented x3, no focal findings Psych: appropriate affect Objective Data Active Medications Acetaminophen (Acetaminophen 325 Mg Tablet) 650 mg PO Q6H PRN PRN Reason: Pain, Mild (Pain Scale 1-3) Baclofen (Baclofen 10 Mg Tablet) 10 mg PO BID [facility] Last Admin: 12/10/22 08:21 Dose: 10 mg Documented By: OLESYA Hydrocortisone (Hydrocortisone 2.5 % Rectal Cr 30 Gm Tube) 1 appl [place] BID [facility] Stop: 12/13/22 21:01 Last Admin: 12/10/22 08:21 Dose: 1 appl Documented By: OLESYA Thiamine HCl 100 mg/ Sodium (Chloride) 101 mls @ 202 mls/hr IV DAILY [facility] Last Infusion: 12/10/22 08:44 Dose: 0 mls/hr Documented By: OLESYA Piperacillin Sod/Tazobactam (Sod 3.375 gm/ Sodium Chloride) 50 mls @ 100 mls/hr IV Q6H [facility] Last Infusion: 12/10/22 06:44 Dose: 0 mls/hr Documented By: SARA Magnesium Oxide (Magnesium Oxide 400 Mg Tablet) 400 mg PO BIDPC [facility] Last Admin: 12/10/22 08:21 Dose: 400 mg Documented By: OLESYA Melatonin (Melatonin 3 Mg Tablet) 6 mg PO BEDTIME PRN PRN Reason: Insomnia Nicotine (Nicotine 21 Mg Patch.Td24) 21 mg TRANSDERMA DAILY [facility] Last Admin: 12/10/22 08:21 Dose: 21 mg Documented By: OLESYA Nicotine Polacrilex (Nicotine Polacrilex 2 Mg Gum) 2 mg BUCCAL Q1H 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[employer] Last Admin: 12/10/22 08:22 Dose: 2 mg Documented By: OLESYA Omeprazole (Omeprazole 40 Mg Capsule.Dr) 40 mg PO DAILY@0630 [facility] Last Admin: 12/10/22 06:10 Dose: 40 mg Documented By: SARA Ondansetron HCl (Ondansetron Hcl 4 Mg/2 Ml Vial) 4 mg IVPUSH Q8H PRN PRN Reason: Nausea and Vomiting Pharmacy Consult (Consult Rx Etoh Phenob Im/Po) 1 each MISCELLANE ONCE PRN; Protocol PRN Reason: Consult order Pharmacy Consult (Consult Rx Perform Med Rec) 1 each MISCELLANE ONCE PRN PRN Reason: Consult order Phenobarbital (Phenobarbital 15 Mg Tablet) 15 mg PO DAILY [facility] Stop: 12/11/22 09:01 Last Admin: 12/10/22 08:20 Dose: 15 mg Documented By: OLESYA Sodium Chloride (0.9 % Sodium Chloride Flush 3 Ml Syringe) 3 ml IVFLUSH QSHIFT [facility] Last Admin: 12/10/22 08:12 Dose: 3 ml Documented By: OLESYA Labs 12/10/22 05:54 12/10/22 05:54 Labs: Laboratory Results - last 24 hr 12/10/22 12/10/22 12/10/22 05:54 05:54 05:54 MCV 82.7 MCH 26.7 L MCHC 32.3 RDW 23.3 H Plt Count 48 L D MPV Not Reportable Absolute Nucleated RBC 0.020 H Nucleated RBC % (auto) 0.1 PT 18.2 H INR 1.6 H Anion Gap 13 Estim Creat Clear Calc 161.1 Estimated GFR > 60 Random Glucose 92 Calcium 7.5 L Magnesium 1.4 L* Total Bilirubin 1.6 H AST 113 H ALT 41 H Alkaline Phosphatase 173 H Total Protein 4.4 L Albumin 2.4 L Assessment and Plan (1) Acute anemia: Status: Acute (2) Alcohol withdrawal: Status: Acute (3) Acute GI bleeding: Status: Acute (4) Colitis: Status: Acute Plan hospital d#6 42yo M with AUD sent in by PCP for anemia, admitted for EtOH withdrawal and hematochezia # SIRS physiology - in retrospect, CT findings of colitis and cholecystitis likely due to hypoalbuminemia/hepatitis, not due to sepsis from actual colitis and/or cholecystitis. Discussed with Gen Surg. - pip-regis 2/3-; consider discontinuing tomorrow? # anemia due to GI blood loss - EGD + C-scope 12/08/22: 1. Duodenitis 2. Hiatal hernia 3. Nonobstructing ring at the EG [place]unction 4. No varices 5. No blood nor coffee grounds in the UGI tract Colonoscopy to the cecum 1. Friable, oozing hemorrhoid 2. No colitis, polyps, nor angiodysplasias 3. No blood nor melena in the colon # hiccups - trial of baclofen # duodenitis - IV PPI. advance diet today. # hemorrhoidal bleeding - Surgery consulted. Continue rectal HC. Future surgery when platelets + INR improve # coagulopathy - trial of vitamin K, recheck INR in AM # acute blood loss anemia - transfused 5u pRBCs and H+H now stable # thrombocytopenia - likely due to EtOH. monitor CBC; avoid heparin. Platelet count improving. # hypoK - replete PO, recheck level in AM # hypoMg - replete IV and start PO maintenance repletion, recheck leve in AM # acute EtOH hepatitis - no steroids indicated - trace ascites on imaging, not enough to tap # EtOH withdrawal - continue phenobarbital taper, B-vitamins # AUD - Addiction Medicine consultation # tobacco abuse - NRT # VTE ppx: SCDs, no heparin given low platelets # dispo: possibly home in 2-3d In my clinical judgment, the patient requires continued inpatient hospitalization for the following reasons: IV ABX, anemia, EtOH withdrawal Time Spent With Patient Time: Total time managing care of this patient today __45__ minutes. Quality Stroke Does the patient have a stroke diagnosis?: No VTE Prior VTE?: No VTE Risk Level:: Medical - moderate - high VTE Device Contraindication: Treatment Not Indicated VTE Drug Contraindication: Treatment Not Indicated
--- NOTE | 2022-12-10 12:07 | MHC.CM.PN ---
Per ROUNDS discussion, Patien tis not yet medically cleared for dc (advancing diet, ABT to be stopped tomorrow); home is the goal and CM will continue to follow.
[2022-12-10 13:18] LABS: C Reactive Protein 1.94 mg/dL (< or = 0.50)
--- NOTE | 2022-12-10 14:03 | MHC.RECOVRN ---
Met with pt and mother in 367 to follow up and provide support. Pt sitting in bed, awake, alert, pleasant. Family provided with [id number] information. Discussed medications for alcohol use disorder, pt may be interested. Pt interested in meeting with cost recovery technician while inpatient, t/w will arrange. Denies other questions or concerns at this time. Will continue to follow.
[2022-12-10 15:02] VITALS: BP 130/88; PULSE 77; RESP 18; TEMP 36.9; O2SAT 97
[2022-12-10 15:09] LABS: Appearance Urine Turbid; Color Urine Dark Yellow; Glucose Urine UA Negative (Negative); Leukocyte Esterase Urine Small (1+) (Negative); Nitrite Urine Negative (Negative); PH 5.5 (5.0-9.0); Specific Gravity - Urine >= 1.030 (1.005-1.025); UMIC TRIGGER UACC YES; Urine Blood Negative (Negative); Urine Ketones Negative (Negative); Urine Protein 30 (1+) mg/dL (Neg-Trace)
[2022-12-10 15:22] LABS: Bacteria Urine None Seen (None Seen); Hyaline Casts Urine 0-2 /LPF (0-2); RBC Urine 0-2 /HPF (0-2); Squamous Epithelial Cell Urine 0-2 /HPF (0-2); UACC Culture Trigger YES; WBC Urine 0-5 /HPF (0-5)
[2022-12-10 19:10] VITALS: BP 126/69; PULSE 91; RESP 18; TEMP 36.7; O2SAT 99
[2022-12-11] VITALS (8 sets, daily range): BP systolic 108–121; BP diastolic 56–66; PULSE 76–89; RESP 16–18; TEMP 36.3–36.9; O2SAT 95–100
[2022-12-11] MEDS: Piperacillin Sodium/Tazobactam 3.375 GM in 0.9 % Sodium Chloride 50 ML IV ×4 (01:42→20:25)
[2022-12-11] MEDS: Omeprazole 40 MG CAPSULE.DR PO (06:46)
[2022-12-11 07:01] LABS: INTERNATIONAL NORM RATIO 1.5 (0.9-1.1); Prothrombin Time 17.4 SEC (10.0-13.1)
[2022-12-11 07:08] LABS: Hematocrit 23.4 % (42.0-52.0); Hemoglobin 7.4 g/dl (14.0-18.0); Mean Corpuscular HGB Conc 31.6 g/dl (31.0-36.0); Mean Corpuscular Hemoglobin 26.3 pg (27.0-33.0); Mean Corpuscular Volume 83.3 fL (80.0-98.0); Red Blood Count 2.81 X10*6/uL (4.60-5.80); Red Cell Distribution Width 23.3 % (11.0-16.0); White Blood Count 14.3 X10*3/uL (4.8-10.8)
[2022-12-11 07:12] LABS: Platelet Count 89 X10*3/uL (160-400)
[2022-12-11] MEDS: 0.9 % Sodium Chloride Flush 3 ML SYRINGE IVFLUSH ×3 (07:21→20:34)
[2022-12-11 07:27] LABS: Anion Gap 13 (12-20); Blood Urea Nitrogen 6 mg/dL (9-16); Calcium 7.5 mg/dL (8.4-10.2); Carbon Dioxide 23 mmol/L (22-29); Chloride 106 mmol/L (96-108); Creatinine Clr Calc Pharmacy 155.1; Estimated Glomerular Filt Rate > 60; Glucose Random 81 mg/dL (60-115); Magnesium 1.6 mg/dL (1.6-2.6); Potassium 3.8 mmol/L (3.3-5.1); Sodium 138 mmol/L (135-145)
[2022-12-11] MEDS: Baclofen 10 MG TABLET PO ×2 (09:15→20:26)
[2022-12-11] MEDS: Phytonadione (Vit K1) Oral 10 MG/ML AMPUL PO (09:15)
[2022-12-11] MEDS: PHENobarbitaL 15 MG TABLET PO (09:15)
[2022-12-11] MEDS: Thiamine HCL 100 MG in 0.9 % Sodium Chloride 100 ML 202 MG IV (09:16)
[2022-12-11] MEDS: Nicotine 21 MG PATCH.TD24 TRANSDERMA (09:16)
[2022-12-11] MEDS: Hydrocortisone 2.5 % Rectal Cr 30 GM TUBE 1 APPL PR ×2 (09:20→22:00)
[2022-12-11] MEDS: Magnesium Oxide 400 MG TABLET PO ×2 (09:28→17:43)
[2022-12-11] MEDS: Nicotine Polacrilex 2 MG GUM BUCCAL (09:36)
--- NOTE | 2022-12-11 11:46 | MHC.CM.PN ---
PER MD ROUNDS, PT WILL DC TOMORROW DCP: HOME NO SERVICES MOTHER TO TRANSPORT
--- NOTE | 2022-12-11 13:40 | HO.PM.IMPN ---
Subjective Subjective Date of Service: 12/11/22 Interval History: Seen and evaluated this morning no RUQ pain Tolerating regular diet ongoing hemorrhoidal bleeding, hemoglobin dropped No other overnight events Review of Systems Weakness and lightheadedness Anorexia , feels more like eating bleeding from hemorrhoids Heartburn Nausea, vomiting improved Mild tremors Headache Leg cramps Physical Exam Vital Signs: Vital Signs: Last Vital Signs Temp 98.1 F 12/11/22 12:45 Pulse 86 12/11/22 12:45 Resp 16 12/11/22 12:45 BP 108/56 L 12/11/22 12:45 Pulse Ox 100 12/11/22 08:00 O2 Del Method 12/11/22 08:00 O2 Flow Rate 5 12/08/22 16:18 BMI result Body Mass Index 18.0 Const: Other: Gen: in no acute distress Neck: supple Lungs: clear to auscultation bilaterally Heart: regular rate and rhythm, no murmurs Abd: soft, non-tender, slightly distended, mild right upper quadrant tenderness with deep palpation Ext: no edema Skin: warm/well-perfused Neuro: alert and oriented x3, no focal findings Psych: appropriate affect Objective Data Active Medications Acetaminophen (Acetaminophen 325 Mg Tablet) 650 mg PO Q6H PRN PRN Reason: Pain, Mild (Pain Scale 1-3) Baclofen (Baclofen 10 Mg Tablet) 10 mg PO BID [facility] Last Admin: 12/11/22 09:15 Dose: 10 mg Documented By: DOMINGUEZ Hydrocortisone (Hydrocortisone 2.5 % Rectal Cr 30 Gm Tube) 1 appl [place] BID [facility] Stop: 12/13/22 21:01 Last Admin: 12/11/22 09:20 Dose: 1 appl Documented By: DOMINGUEZ Thiamine HCl 100 mg/ Sodium (Chloride) 101 mls @ 202 mls/hr IV DAILY [facility] Last Infusion: 12/11/22 10:01 Dose: 0 mls/hr Documented By: DOMINGUEZ Piperacillin Sod/Tazobactam (Sod 3.375 gm/ Sodium Chloride) 50 mls @ 100 mls/hr IV Q6H [facility] Last Infusion: 12/11/22 07:24 Dose: 0 mls/hr Documented By: DOMINGUEZ Piperacillin Sod/Tazobactam (Sod 3.375 gm/ Sodium Chloride) 50 mls @ 100 mls/hr IV Q6H [facility] Magnesium Oxide (Magnesium Oxide 400 Mg Tablet) 400 mg PO BIDPC [facility] Last Admin: 12/11/22 09:28 Dose: 400 mg Documented By: DOMINGUEZ Melatonin (Melatonin 3 Mg Tablet) 6 mg PO BEDTIME PRN PRN Reason: Insomnia Nicotine (Nicotine 21 Mg Patch.Td24) 21 mg TRANSDERMA DAILY [facility] Last Admin: 12/11/22 09:16 Dose: 21 mg Documented By: DOMINGUEZ Nicotine Polacrilex (Nicotine Polacrilex 2 Mg Gum) 2 mg BUCCAL Q1H PRN PRN Reason: [facility] [employer] Last Admin: 12/11/22 09:36 Dose: 2 mg Documented By: DOMINGUEZ Omeprazole (Omeprazole 40 Mg Capsule.Dr) 40 mg PO DAILY@0630 [facility] Last Admin: 12/11/22 06:46 Dose: 40 mg Documented By: DEONDRE Ondansetron HCl (Ondansetron Hcl 4 Mg/2 Ml Vial) 4 mg IVPUSH Q8H PRN PRN Reason: Nausea and Vomiting Pharmacy Consult (Consult Rx Etoh Phenob Im/Po) 1 each MISCELLANE ONCE PRN; Protocol PRN Reason: Consult order Pharmacy Consult (Consult Rx Perform Med Rec) 1 each MISCELLANE ONCE PRN PRN Reason: Consult order Sodium Chloride (0.9 % Sodium Chloride Flush 3 Ml Syringe) 3 ml IVFLUSH QSHIFT [facility] Last Admin: 12/11/22 07:21 Dose: 3 ml Documented By: DOMINGUEZ Labs 12/11/22 05:38 12/11/22 05:38 Labs: Laboratory Results - last 24 hr 12/10/22 12/11/22 12/11/22 14:49 05:38 05:38 MCV 83.3 MCH 26.3 L MCHC 31.6 RDW 23.3 H Plt Count 89 L D MPV Not Reportable Absolute Nucleated RBC 0.000 Nucleated RBC % (auto) 0.0 PT INR Anion Gap 13 Estim Creat Clear Calc 155.1 Estimated GFR > 60 Random Glucose 81 Calcium 7.5 L Magnesium 1.6 Urine Color Dark Yellow Urine Appearance Turbid Urine pH 5.5 Ur Specific [place] >= 1.030 H Urine Protein 30 (1+) H Urine Glucose (UA) Negative Urine Ketones Negative Urine Blood Negative Urine Nitrite Negative Ur Leukocyte Esterase Small (1+) H Urine RBC 0-2 Urine WBC 0-5 Ur Squamous Epith Cells 0-2 Urine Bacteria None Seen Hyaline Casts 0-2 Blood Type Antibody Screen Crossmatch 12/11/22 12/11/22 05:38 08:43 MCV MCH MCHC RDW Plt Count MPV Absolute Nucleated RBC Nucleated RBC % (auto) PT 17.4 H INR 1.5 H Anion Gap Estim Creat Clear Calc Estimated GFR Random Glucose Calcium Magnesium Urine Color Urine Appearance Urine pH Ur Specific [place] Urine Protein Urine Glucose (UA) Urine Ketones Urine Blood Urine Nitrite Ur Leukocyte Esterase Urine RBC Urine WBC Ur Squamous Epith Cells Urine Bacteria Hyaline Casts Blood Type A Positive Antibody Screen NEGATIVE Crossmatch See Detail Microbiology Microbiology Results: Microbiology 12/10/22 15:20 Urine Culture - Final Urine clean catch - Urine couch top No growth. 12/05/22 16:41 Blood Culture - Final Blood - Venous No growth after 5 days. 12/05/22 16:41 Blood Culture - Final Blood - Venous No growth after 5 days. Assessment and Plan (1) Bleeding hemorrhoids: Status: Acute (2) Alcohol use disorder, severe, dependence: Status: Acute (3) Acute GI bleeding: Status: Acute Plan hospital d#6 42yo M with AUD sent in by PCP for anemia, admitted for EtOH withdrawal and hematochezia # SIRS in retrospect, CT findings of colitis and cholecystitis likely due to hypoalbuminemia/hepatitis, not due to sepsis from actual colitis and/or cholecystitis. To discuss with Gen Surg. pip-regis 01/02-; discontinue and monitor # anemia due to GI blood loss, hemorroidal bleeding EGD + C-scope 12/08/22: Duodenitis, Hiatal hernia, Nonobstructing ring at the EG Junction, No varices, No blood nor coffee grounds in the UGI tract Colonoscopy: Friable, oozing hemorrhoid, No colitis, polyps, nor angiodysplasias Transfuse 1 more unit of blood , keep Hb >8 # hiccups trial of baclofen # duodenitis PO PPI tolerating advanced diet # hemorrhoidal bleeding Surgery consulted. Continue rectal HC. Future surgery when platelets + INR improve # coagulopathy trial of vitamin K, recheck INR # acute blood loss anemia transfused 6u pRBCs and H+H now stable # thrombocytopenia likely due to EtOH. monitor CBC; avoid heparin. Platelet count improving. # hypoK replete PO, recheck level in AM # hypoMg replete IV and start PO maintenance repletion, recheck leve in AM # acute EtOH hepatitis no steroids indicated trace ascites on imaging, not enough to tap # EtOH withdrawal finished phenobarbital taper, B-vitamins # AUD Addiction Medicine consultation # tobacco abuse NRT # VTE ppx: SCDs, no heparin given low platelets # dispo: possibly home in 2-3d In my clinical judgment, the patient requires continued inpatient hospitalization for the following reasons: Anemia, need of transfusion and possible surgical intervention Time Spent With Patient Time: Total time managing care of this patient today ____ minutes. Quality Stroke Does the patient have a stroke diagnosis?: No VTE Prior VTE?: No VTE Risk Level:: Medical - moderate - high VTE Device Contraindication: Treatment Not Indicated VTE Drug Contraindication: Treatment Not Indicated
--- NOTE | 2022-12-11 17:03 | PM.PNGS ---
Subjective Subjective Date of Service: 12/12/22 Interval history: still has anal pain says he still sees blood with BMs Physical Exam Vital Signs: Vital Signs: Last Vital Signs Temp 97.6 F 12/11/22 16:00 Pulse 78 12/11/22 16:00 Resp 18 12/11/22 16:00 BP 119/64 12/11/22 16:00 Pulse Ox 98 12/11/22 16:00 O2 Del Method 12/11/22 16:00 O2 Flow Rate 5 12/08/22 16:18 BMI result Body Mass Index 18.0 Const: General: no acute distress Resp: Other: has hiccups Effort & Inspection: normal respiratory effort Cardio: Rate: regular rate GI: Other: protruberant with ascites rectal - external hemorrhoids, tender on psoterior midline suggestive of anal fissure with hypertonicity so digital exam not tolerated Objective Data Active Medications Acetaminophen (Acetaminophen 325 Mg Tablet) 650 mg PO Q6H PRN PRN Reason: Pain, Mild (Pain Scale 1-3) Baclofen (Baclofen 10 Mg Tablet) 10 mg PO BID [facility] Last Admin: 12/11/22 09:15 Dose: 10 mg Documented By: DOMINGUEZ Hydrocortisone (Hydrocortisone 2.5 % Rectal Cr 30 Gm Tube) 1 appl [place] BID [facility] Stop: 12/13/22 21:01 Last Admin: 12/11/22 09:20 Dose: 1 appl Documented By: DOMINGUEZ Piperacillin Sod/Tazobactam (Sod 3.375 gm/ Sodium Chloride) 50 mls @ 100 mls/hr IV Q6H [facility] Last Infusion: 12/11/22 15:38 Dose: 0 mls/hr Documented By: ALLAN Magnesium Oxide (Magnesium Oxide 400 Mg Tablet) 400 mg PO BIDPC [facility] Last Admin: 12/11/22 09:28 Dose: 400 mg Documented By: DOMINGUEZ Melatonin (Melatonin 3 Mg Tablet) 6 mg PO BEDTIME PRN PRN Reason: Insomnia Nicotine (Nicotine 21 Mg Patch.Td24) 21 mg TRANSDERMA DAILY [facility] Last Admin: 12/11/22 09:16 Dose: 21 mg Documented By: DOMINGUEZ Nicotine Polacrilex (Nicotine Polacrilex 2 Mg Gum) 2 mg BUCCAL Q1H PRN PRN Reason: [facility] Last Admin: 12/11/22 09:36 Dose: 2 mg Documented By: DOMINGUEZ Omeprazole (Omeprazole 40 Mg Capsule.) 40 mg PO DAILY@0630 [facility] Last Admin: 12/11/22 06:46 Dose: 40 mg Documented By: DEONDRE Ondansetron HCl (Ondansetron Hcl 4 Mg/2 Ml Vial) 4 mg IVPUSH Q8H PRN PRN Reason: Nausea and Vomiting Pharmacy Consult (Consult Rx Etoh Phenob Im/Po) 1 each MISCELLANE ONCE PRN; Protocol PRN Reason: Consult order Pharmacy Consult (Consult Rx Perform Med Rec) 1 each MISCELLANE ONCE PRN PRN Reason: Consult order Sodium Chloride (0.9 % Sodium Chloride Flush 3 Ml Syringe) 3 ml IVFLUSH QSHIFT [facility] Last Admin: 12/11/22 07:21 Dose: 3 ml Documented By: DOMINGUEZ Thiamine HCl (Thiamine Hcl 100 Mg Tablet) 100 mg PO DAILY [facility] Labs 12/11/22 05:38 12/11/22 05:38 Labs: Laboratory Results - last 24 hr 12/11/22 12/11/22 12/11/22 05:38 05:38 05:38 MCV 83.3 MCH 26.3 L MCHC 31.6 RDW 23.3 H Plt Count 89 L D MPV Not Reportable Absolute Nucleated RBC 0.000 Nucleated RBC % (auto) 0.0 PT 17.4 H INR 1.5 H Anion Gap 13 Estim Creat Clear Calc 155.1 Estimated GFR > 60 Random Glucose 81 Calcium 7.5 L Magnesium 1.6 Blood Type Antibody Screen Crossmatch 12/11/22 08:43 MCV MCH MCHC RDW Plt Count MPV Absolute Nucleated RBC Nucleated RBC % (auto) PT INR Anion Gap Estim Creat Clear Calc Estimated GFR Random Glucose Calcium Magnesium Blood Type A Positive Antibody Screen NEGATIVE Crossmatch See Detail Microbiology Microbiology Results: Microbiology 12/10/22 15:20 Urine Culture - Final Urine clean catch - Urine couch top No growth. 12/05/22 16:41 Blood Culture - Final Blood - Venous No growth after 5 days. 12/05/22 16:41 Blood Culture - Final Blood - Venous No growth after 5 days. Procedures Date of Service Date of Service: 12/11/22 Progress Note: A&P Assessment and plan (1) Bleeding hemorrhoids: Status: Acute Assessment and Plan: likely to have bleeding from portal HTN may have anal fissure as well as suggested by hypertonic sphincter sever tenderness on psoterior midline of anus will put on trial of Nitroglycerine .2% ointment NOT 2% if available inhouse still with bleeding I am trying to hold off on surgical itnervention in view of recent ETOH hepatitis, with coagulopathy, chronic liver ds if pain and bleeding does not resolve, may have to to exam udenr anesthesia, ?hemorrhoidectomy/sphincterotomy despite risks Time Spent With Patient Time: Total time managing care of this patient today ____ minutes. Quality Stroke Does the patient have a stroke diagnosis?: No VTE Prior VTE?: No VTE Risk Level:: Medical - moderate - high VTE Device Contraindication: Treatment Not Indicated VTE Drug Contraindication: Treatment Not Indicated
[2022-12-12] VITALS (12 sets, daily range): BP systolic 96–128; BP diastolic 48–81; PULSE 80–100; RESP 12–20; TEMP 36.8–37.2; O2SAT 94–100
[2022-12-12] MEDS: Piperacillin Sodium/Tazobactam 3.375 GM in 0.9 % Sodium Chloride 50 ML IV ×3 (03:41→21:21)
[2022-12-12] MEDS: Omeprazole 40 MG CAPSULE.DR PO (05:49)
[2022-12-12 07:15] LABS: Hematocrit 27.6 % (42.0-52.0); Hemoglobin 8.5 g/dl (14.0-18.0); Mean Corpuscular HGB Conc 30.8 g/dl (31.0-36.0); Mean Corpuscular Hemoglobin 26.4 pg (27.0-33.0); Mean Corpuscular Volume 85.7 fL (80.0-98.0); Mean Platelet Volume 11.9 fL (9.4-12.4); Platelet Count 134 X10*3/uL (160-400); Red Blood Count 3.22 X10*6/uL (4.60-5.80); Red Cell Distribution Width 22.6 % (11.0-16.0)
--- NOTE | 2022-12-12 09:10 | PM.PNGS ---
Subjective Subjective Date of Service: 12/12/22 Interval history: Continues to have anal pain and bleeding Was transfused yesterday Hemoglobin up appropriately this morning Had bleeding at 04:00 o'clock with bowel movements earlier this morning Physical Exam Vital Signs: Vital Signs: Last Vital Signs Temp 98.9 F 12/12/22 08:00 Pulse 84 12/12/22 08:00 Resp 14 12/12/22 08:00 BP 128/63 12/12/22 08:00 Pulse Ox 96 12/12/22 08:00 O2 Del Method 12/12/22 08:00 O2 Flow Rate 5 12/08/22 16:18 BMI result Body Mass Index 18.0 Const: Other: Appears cachectic General: comfortable and no acute distress Resp: Effort & Inspection: normal respiratory effort Cardio: Rate: regular rate GI: Other: Protuberant, with ascites, soft Prominent hemorrhoids, very tender to touch Objective Data Active Medications Acetaminophen (Acetaminophen 325 Mg Tablet) 650 mg PO Q6H PRN PRN Reason: Pain, Mild (Pain Scale 1-3) Baclofen (Baclofen 10 Mg Tablet) 10 mg PO BID [facility] Last Admin: 12/11/22 20:26 Dose: 10 mg Documented By: IRAIS Hydrocortisone (Hydrocortisone 2.5 % Rectal Cr 30 Gm Tube) 1 appl IN BID [facility] Stop: 12/13/22 21:01 Last Admin: 12/11/22 22:00 Dose: 1 appl Documented By: IRAIS Piperacillin Sod/Tazobactam (Sod 3.375 gm/ Sodium Chloride) 50 mls @ 100 mls/hr IV Q6H [facility] Last Infusion: 12/12/22 04:32 Dose: 0 mls/hr Documented By: IRAIS Magnesium Oxide (Magnesium Oxide 400 Mg Tablet) 400 mg PO BIDPC [facility] Last Admin: 12/11/22 17:43 Dose: 400 mg Documented By: ALLAN Melatonin (Melatonin 3 Mg Tablet) 6 mg PO BEDTIME PRN PRN Reason: Insomnia Nicotine (Nicotine 21 Mg Patch.Td24) 21 mg TRANSDERMA DAILY [facility] Last Admin: 12/11/22 09:16 Dose: 21 mg Documented By: DOMINGUEZ Nicotine Polacrilex (Nicotine Polacrilex 2 Mg Gum) 2 mg BUCCAL Q1H PRN PRN Reason: [facility] Last Admin: 12/11/22 09:36 Dose: 2 mg Documented By: DOMINGUEZ Omeprazole (Omeprazole 40 Mg Capsule.) 40 mg PO DAILY@0630 [facility] Last Admin: 12/12/22 05:49 Dose: 40 mg Documented By: IRAIS Ondansetron HCl (Ondansetron Hcl 4 Mg/2 Ml Vial) 4 mg IVPUSH Q8H PRN PRN Reason: Nausea and Vomiting Pharmacy Consult (Consult Rx Etoh Phenob Im/Po) 1 each MISCELLANE ONCE PRN; Protocol PRN Reason: Consult order Pharmacy Consult (Consult Rx Perform Med Rec) 1 each MISCELLANE ONCE PRN PRN Reason: Consult order Sodium Chloride (0.9 % Sodium Chloride Flush 3 Ml Syringe) 3 ml IVFLUSH QSHIFT [facility] Last Admin: 12/11/22 20:34 Dose: 3 ml Documented By: IRAIS Thiamine HCl (Thiamine Hcl 100 Mg Tablet) 100 mg PO DAILY [facility] Labs 12/12/22 05:42 12/11/22 05:38 Labs: Laboratory Results - last 24 hr 12/11/22 12/12/22 08:43 05:42 MCV 85.7 MCH 26.4 L MCHC 30.8 L RDW 22.6 H Plt Count 134 L D MPV 11.9 Absolute Nucleated RBC 0.000 Nucleated RBC % (auto) 0.0 Blood Type A Positive Antibody Screen NEGATIVE Crossmatch See Detail Microbiology Microbiology Results: Microbiology 12/10/22 15:20 Urine Culture - Final Urine clean catch - Urine couch top No growth. Procedures Date of Service Date of Service: 12/12/22 Progress Note: A&P Assessment and plan (1) Bleeding hemorrhoids: Status: Acute Assessment and Plan: He has LFTs have improved Platelets are up Still has bleeding and pain Best to do exam under anesthesia if there is any therapeutic intervention we can do that may help him He understands the technique of possible hemorrhoidectomy and possible sphincterotomy He understands the risks of bleeding specially in the background of liver disease, infections, poor healing and postop pain Discussed with hospitalist service Time Spent With Patient Time: Total time managing care of this patient today ____ minutes. Quality Stroke Does the patient have a stroke diagnosis?: No VTE Prior VTE?: No VTE Risk Level:: Medical - moderate - high VTE Device Contraindication: Treatment Not Indicated VTE Drug Contraindication: Treatment Not Indicated
[2022-12-12] MEDS: Baclofen 10 MG TABLET PO ×2 (09:49→21:20)
[2022-12-12] MEDS: 0.9 % Sodium Chloride Flush 3 ML SYRINGE IVFLUSH ×2 (09:49→18:15)
[2022-12-12] MEDS: Hydrocortisone 2.5 % Rectal Cr 30 GM TUBE 1 APPL PR ×2 (09:49→21:20)
[2022-12-12] MEDS: Thiamine HCL 100 MG TABLET PO (09:49)
[2022-12-12] MEDS: Magnesium Oxide 400 MG TABLET PO ×2 (09:49→18:22)
[2022-12-12] MEDS: Nicotine 21 MG PATCH.TD24 TRANSDERMA (09:50)
--- NOTE | 2022-12-12 12:11 | HO.ANESPROP2 ---
[facility] Active Problems Active Problems: All Active Problems (Updated 12/09/22 @ 15:33 by Frankie Regalado MD) Bleeding hemorrhoids (Acute) Alcohol use disorder, severe, dependence (Acute) Acute anemia (Acute) Alcohol withdrawal (Acute) Acute GI bleeding (Acute) Colitis (Acute) Acalculous cholecystitis (Acute) Past Medical History Medical History (Updated 12/09/22 @ 15:33 by Frankie Regalado MD) Bleeding hemorrhoids Family History Family history of problems with anesthesia: No Surgical History History of Problems with Anesthesia: No Social History Social History Household Members: Family Housing: Apartment Do you presently have visiting nurse or other home services: No Alcohol intake: current Alcohol intake frequency: 3 or more drinks per day Patient Tobacco Use Status: Current everyday Tobacco user Tobacco use type: Cigarette Cigarettes Per Day: 20 Smoked in Last 30 Days: Yes e-Cigarette/Vaping Use: Currently Using Patient Interested in Nicotine Replacement: Yes (pt wearing patch) Patient Given Instructions on How to Stop Smoking: No Second Hand Smoke Exposure: No Use of substances other than those prescribed or required for medical reasons: Yes Substance Use Type: Marijuana Substance Use Frequency: Daily Last Used Substance: Just Prior to Admission Currently Displaying Signs/Symptoms of Drug Intoxication Withdrawal: No Any prior treatment program specific to substance use: Yes Have you been hit, kicked, punched, or otherwise hurt by someone within the past year? If so, by whom?: No Do you feel safe in your current relationship?: No Current Relationship Is there a partner from a previous relationship who is making you feel unsafe now?: No Are you made to feel afraid or neglected: No [employer] [facility] Practices: none Are you DNR?: No Advance Directives: No Advance Directives Information Provided: No Advance Directives on File: No Do you have thoughts of harming others: None Do you have a plan to hurt others: No Plan Recently lost weight without trying: Yes How much weight loss: 2-13 pounds Eating poorly because of decreased appetite: Yes Nutrition screen score: 4 Nutrition Risks: Anorexia Poor oral hygiene: No service: No Meds Allergies Allergy/AdvReac Type Severity Reaction Status Date / Time No Known Allergies Allergy Verified 12/05/22 15:40 [No Known Allergies*] Active Medications: Current Medications Acetaminophen (Acetaminophen 325 Mg Tablet) 650 mg PO Q6H PRN PRN Reason: Pain, Mild (Pain Scale 1-3) Baclofen (Baclofen 10 Mg Tablet) 10 mg PO BID [facility] Last Admin: 12/12/22 09:49 Dose: 10 mg Hydrocortisone (Hydrocortisone 2.5 % Rectal Cr 30 Gm Tube) 1 appl MS BID [facility] Stop: 12/13/22 21:01 Last Admin: 12/12/22 09:49 Dose: 1 appl Piperacillin Sod/Tazobactam (Sod 3.375 gm/ Sodium Chloride) 50 mls @ 100 mls/hr IV Q6H [facility] Last Infusion: 12/12/22 10:20 Dose: Infused Magnesium Oxide (Magnesium Oxide 400 Mg Tablet) 400 mg PO BIDPC [facility] Last Admin: 12/12/22 09:49 Dose: 400 mg Melatonin (Melatonin 3 Mg Tablet) 6 mg PO BEDTIME PRN PRN Reason: Insomnia Nicotine (Nicotine 21 Mg Patch.Td24) 21 mg TRANSDERMA DAILY [facility] Last Admin: 12/12/22 09:50 Dose: 21 mg Nicotine Polacrilex (Nicotine Polacrilex 2 Mg Gum) 2 mg BUCCAL Q1H 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 Last Admin: 12/11/22 09:36 Dose: 2 mg Omeprazole (Omeprazole 40 Mg Capsule.Dr) 40 mg PO DAILY@0630 [facility] Last Admin: 12/12/22 05:49 Dose: 40 mg Ondansetron HCl (Ondansetron Hcl 4 Mg/2 Ml Vial) 4 mg IVPUSH Q8H PRN PRN Reason: Nausea and Vomiting Pharmacy Consult (Consult Rx Etoh Phenob Im/Po) 1 each MISCELLANE ONCE PRN; Protocol PRN Reason: Consult order Pharmacy Consult (Consult Rx Perform Med Rec) 1 each MISCELLANE ONCE PRN PRN Reason: Consult order Simethicone (Simethicone 80 Mg Tab.Chew) 80 mg PO QIDWMHS [facility] Sodium Chloride (0.9 % Sodium Chloride Flush 3 Ml Syringe) 3 ml IVFLUSH QSHIFT [facility] Last Admin: 12/12/22 09:49 Dose: 3 ml Thiamine HCl (Thiamine Hcl 100 Mg Tablet) 100 mg PO DAILY [facility] Last Admin: 12/12/22 09:49 Dose: 100 mg Home Medications Medication Instructions Recorded Confirmed Last Taken Type No Known Home Meds 12/05/22 12/05/22 Unknown History Exam Exam Date and Time: December 12, 2022 1211 Height,Weight and Vital Signs: Height 6 ft Weight 60.328 kg Last Vital Signs Temp 98.9 F 12/12/22 08:00 Pulse 84 12/12/22 08:00 Resp 14 12/12/22 08:00 BP 128/63 12/12/22 08:00 Pulse Ox 96 12/12/22 08:00 O2 Del Method 12/12/22 08:00 O2 Flow Rate 5 12/08/22 16:18 Pertinent Lab Results Pertinent Lab Results: Laboratory Tests 12/05/22 12/05/22 12/05/22 16:10 16:10 16:10 WBC 27.0 H RBC 2.63 L Hgb 5.5 L* Hct 19.5 L* MCV 74.1 L MCH 20.9 L MCHC 28.2 L RDW 21.0 H Plt Count 123 L MPV 11.3 Immature Gran % (Auto) Cancelled Neut % (Auto) Cancelled Lymph % (Auto) Cancelled [place] % (Auto) Cancelled Eos % (Auto) Cancelled Baso % (Auto) Cancelled Lymph # (Auto) Cancelled [place] # (Auto) Cancelled Eos # (Auto) Cancelled Baso # (Auto) Cancelled Abs Immat Gran (auto) Cancelled Absolute Neuts (auto) Cancelled Absolute Nucleated RBC 0.800 H Nucleated RBC % (auto) 3.0 H Neutrophils % (Manual) 84 H Band Neutrophils % 9 H Lymphocytes % (Manual) 4 L Monocytes % (Manual) 3 Eosinophils % (Manual) Abs Neuts (Manual) 25.1 H Lymphocytes # (Manual) 1.1 L Monocytes # (Manual) 0.8 Eosinophils # (Manual) Nucleated RBCs 2 H Toxic Granulation PRESENT Dohle Bodies PRESENT Platelet Estimate DECREASED Large Platelets PRESENT Plt Morphology Comment NOTED RBC Morphology NOTED Polychromasia Hypochromasia Basophilic Stippling 1+ (0-2) Microcytosis 2+ (15-30) Target Cells 1+ (5-14) Tear Drop Cells 2+ (3-5) Gina Cells 2+ (3-5) Smear Tech's Comments Smear Path Review SEE NOTE PT 20.4 H INR 1.7 H APTT 30.3 VBG pH VBG pCO2 VBG pO2 VBG HCO3 VBG O2 Saturation VBG Base Excess Sodium 130 L Potassium 4.2 Chloride 84 L Carbon Dioxide 13 L Anion Gap 38 H BUN 25 H Creatinine 1.00 Estim Creat Clear Calc 83.7 Estimated GFR > 60 Random Glucose 152 H Fasting Glucose Lactic Acid Lactic Acid F/U @ 2Hr Lactic Acid F/U @ 4Hr Calcium 9.5 Magnesium 2.1 Iron 80 TIBC 366 % Saturation 22 Unsat Iron Binding 286 Ferritin 59 Total Bilirubin 2.6 H Direct Bilirubin AST 95 H ALT 42 H Alkaline Phosphatase 230 H Ammonia Troponin I High Sens C-Reactive Protein Total Protein 6.9 Albumin 3.7 Vitamin B12 798 Folate 2.9 L Urine Color Urine Appearance Urine pH Ur Specific [place] Urine Protein Urine Glucose (UA) Urine Ketones Urine Blood Urine Nitrite Ur Leukocyte Esterase Urine RBC Urine WBC Ur Squamous Epith Cells Urine Bacteria Hyaline Casts Stl C. cayetanensis PCR Stool Rotavirus A PCR Stl Adenov F 40 PCR Stool Astrovirus (PCR) Stool Campylobacter PCR Stool Cryptosporidium PCR Stl Sh Tox Pr E STEC PCR Stool E coli O157 PCR Stl Enterotoxigenic E PCR Stool EPEC (PCR) Stool EAEC (PCR) Stl E. histolytica PCR Stool Giardia Lamblia PCR Stl P. shigelloides PCR Stool Salmonella PCR Stool Sapovirus (PCR) Stl Shigella/EIEC PCR St Y.enterocolitica PCR Stool Vibrio (PCR) Stl Vibrio cholerae PCR Stl Norovirus GI/GII PCR Urine Opiates Screen Urine Fentanyl Screen Ur Barbiturates Screen Ur Phencyclidine Scrn Ur Amphetamines Screen U Benzodiazepines Scrn Urine Cocaine Screen U Marijuana (THC) Screen Ethyl Alcohol Acetone, Qual C. difficile Tox B Gene COVID-19 ([facility]) COVID-19 Clin Com Blood Type Antibody Screen Crossmatch 12/05/22 12/05/22 12/05/22 16:10 16:10 16:55 WBC RBC Hgb Hct MCV MCH MCHC RDW Plt Count MPV Immature Gran % (Auto) Neut % (Auto) Lymph % (Auto) [place] % (Auto) Eos % (Auto) Baso % (Auto) Lymph # (Auto) [place] # (Auto) Eos # (Auto) Baso # (Auto) Abs Immat Gran (auto) Absolute Neuts (auto) Absolute Nucleated RBC Nucleated RBC % (auto) Neutrophils % (Manual) Band Neutrophils % Lymphocytes % (Manual) Monocytes % (Manual) Eosinophils % (Manual) Abs Neuts (Manual) Lymphocytes # (Manual) Monocytes # (Manual) Eosinophils # (Manual) Nucleated RBCs Toxic Granulation Dohle Bodies Platelet Estimate Large Platelets Plt Morphology Comment RBC Morphology Polychromasia Hypochromasia Basophilic Stippling Microcytosis Target Cells Tear Drop Cells Moro Cells Smear Tech's Comments Smear Path Review PT INR APTT VBG pH VBG pCO2 VBG pO2 VBG HCO3 VBG O2 Saturation VBG Base Excess Sodium Potassium Chloride Carbon Dioxide Anion Gap BUN Creatinine Estim Creat Clear Calc Estimated GFR Random Glucose Fasting Glucose Lactic Acid 15.9 H* Lactic Acid F/U @ 2Hr Lactic Acid F/U @ 4Hr Calcium Magnesium Iron TIBC % Saturation Unsat Iron Binding Ferritin Total Bilirubin Direct Bilirubin AST ALT Alkaline Phosphatase Ammonia Troponin I High Sens C-Reactive Protein Total Protein Albumin Vitamin B12 Folate Urine Color Urine Appearance Urine pH Ur Specific [place] Urine Protein Urine Glucose (UA) Urine Ketones Urine Blood Urine Nitrite Ur Leukocyte Esterase Urine RBC Urine WBC Ur Squamous Epith Cells Urine Bacteria Hyaline Casts Stl C. cayetanensis PCR Stool Rotavirus A PCR Stl Adenov F 40/41 PCR Stool Astrovirus (PCR) Stool Campylobacter PCR Stool Cryptosporidium PCR Stl Sh Tox Pr E STEC PCR Stool E coli O157 PCR Stl Enterotoxigenic E PCR Stool EPEC (PCR) Stool EAEC (PCR) Stl E. histolytica PCR Stool Giardia Lamblia PCR Stl P. shigelloides PCR Stool Salmonella PCR Stool Sapovirus (PCR) Stl Shigella/EIEC PCR St Y.enterocolitica PCR Stool Vibrio (PCR) Stl Vibrio cholerae PCR Stl Norovirus GI/GII PCR Urine Opiates Screen Urine Fentanyl Screen Ur Barbiturates Screen Ur Phencyclidine Scrn Ur Amphetamines Screen U Benzodiazepines Scrn Urine Cocaine Screen U Marijuana (THC) Screen Ethyl Alcohol Acetone, Qual C. difficile Tox B Gene COVID-19 ([facility]) Negative COVID-19 Clin Com See Note Blood Type A Positive Antibody Screen NEGATIVE Crossmatch See Detail 12/05/22 12/05/22 12/05/22 16:55 16:55 16:55 WBC RBC Hgb Hct MCV MCH MCHC RDW Plt Count MPV Immature Gran % (Auto) Neut % (Auto) Lymph % (Auto) [place] % (Auto) Eos % (Auto) Baso % (Auto) Lymph # (Auto) [place] # (Auto) Eos # (Auto) Baso # (Auto) Abs Immat Gran (auto) Absolute Neuts (auto) Absolute Nucleated RBC Nucleated RBC % (auto) Neutrophils % (Manual) Band Neutrophils % Lymphocytes % (Manual) Monocytes % (Manual) Eosinophils % (Manual) Abs Neuts (Manual) Lymphocytes # (Manual) Monocytes # (Manual) Eosinophils # (Manual) Nucleated RBCs Toxic Granulation Dohle Bodies Platelet Estimate Large Platelets Plt Morphology Comment RBC Morphology Polychromasia Hypochromasia Basophilic Stippling Microcytosis Target Cells Tear Drop Cells Moro Cells Smear Tech's Comments Smear Path Review PT INR APTT VBG pH VBG pCO2 VBG pO2 VBG HCO3 VBG O2 Saturation VBG Base Excess Sodium Potassium Chloride Carbon Dioxide Anion Gap BUN Creatinine Estim Creat Clear Calc Estimated GFR Random Glucose Fasting Glucose Lactic Acid Lactic Acid F/U @ 2Hr Lactic Acid F/U @ 4Hr Calcium Magnesium 2.1 Iron TIBC % Saturation Unsat Iron Binding Ferritin Total Bilirubin Direct Bilirubin AST ALT Alkaline Phosphatase Ammonia 26 Troponin I High Sens < 3.5 C-Reactive Protein Total Protein Albumin Vitamin B12 Folate Urine Color Urine Appearance Urine pH Ur Specific [place] Urine Protein Urine Glucose (UA) Urine Ketones Urine Blood Urine Nitrite Ur Leukocyte Esterase Urine RBC Urine WBC Ur Squamous Epith Cells Urine Bacteria Hyaline Casts Stl C. cayetanensis PCR Stool Rotavirus A PCR Stl Adenov F 40/41 PCR Stool Astrovirus (PCR) Stool Campylobacter PCR Stool Cryptosporidium PCR Stl Sh Tox Pr E STEC PCR Stool E coli O157 PCR Stl Enterotoxigenic E PCR Stool EPEC (PCR) Stool EAEC (PCR) Stl E. histolytica PCR Stool Giardia Lamblia PCR Stl P. shigelloides PCR Stool Salmonella PCR Stool Sapovirus (PCR) Stl Shigella/EIEC PCR St Y.enterocolitica PCR Stool Vibrio (PCR) Stl Vibrio cholerae PCR Stl Norovirus GI/GII PCR Urine Opiates Screen Urine Fentanyl Screen Ur Barbiturates Screen Ur Phencyclidine Scrn Ur Amphetamines Screen U Benzodiazepines Scrn Urine Cocaine Screen U Marijuana (THC) Screen Ethyl Alcohol < 10 Acetone, Qual C. difficile Tox B Gene COVID-19 ([facility]) COVID-19 Clin Com Blood Type Antibody Screen Crossmatch 12/05/22 12/05/22 12/05/22 19:01 19:01 19:40 WBC RBC Hgb Hct MCV MCH MCHC RDW Plt Count MPV Immature Gran % (Auto) Neut % (Auto) Lymph % (Auto) [place] % (Auto) Eos % (Auto) Baso % (Auto) Lymph # (Auto) [place] # (Auto) Eos # (Auto) Baso # (Auto) Abs Immat Gran (auto) Absolute Neuts (auto) Absolute Nucleated RBC Nucleated RBC % (auto) Neutrophils % (Manual) Band Neutrophils % Lymphocytes % (Manual) Monocytes % (Manual) Eosinophils % (Manual) Abs Neuts (Manual) Lymphocytes # (Manual) Monocytes # (Manual) Eosinophils # (Manual) Nucleated RBCs Toxic Granulation Dohle Bodies Platelet Estimate Large Platelets Plt Morphology Comment RBC Morphology Polychromasia Hypochromasia Basophilic Stippling Microcytosis Target Cells Tear Drop Cells Moro Cells Smear Tech's Comments Smear Path Review PT INR APTT VBG pH VBG pCO2 VBG pO2 VBG HCO3 VBG O2 Saturation VBG Base Excess Sodium 132 L Potassium 3.4 Chloride 93 L Carbon Dioxide 15 L Anion Gap 27 H BUN 22 H Creatinine 0.74 Estim Creat Clear Calc 113.2 Estimated GFR > 60 Random Glucose 115 Fasting Glucose Lactic Acid Lactic Acid F/U @ 2Hr Lactic Acid F/U @ 4Hr Calcium 7.9 L D Magnesium Iron TIBC % Saturation Unsat Iron Binding Ferritin Total Bilirubin Direct Bilirubin AST ALT Alkaline Phosphatase Ammonia Troponin I High Sens C-Reactive Protein Total Protein Albumin Vitamin B12 Folate Urine Color Dark Yellow Urine Appearance Clear Urine pH 5.0 Ur Specific [place] >= 1.030 H Urine Protein Trace Urine Glucose (UA) Negative Urine Ketones 15 Urine Blood Negative Urine Nitrite Negative Ur Leukocyte Esterase Negative Urine RBC Urine WBC Ur Squamous Epith Cells Urine Bacteria Hyaline Casts Stl C. cayetanensis PCR Stool Rotavirus A PCR Stl Adenov F 40/41 PCR Stool Astrovirus (PCR) Stool Campylobacter PCR Stool Cryptosporidium PCR Stl Sh Tox Pr E STEC PCR Stool E coli O157 PCR Stl Enterotoxigenic E PCR Stool EPEC (PCR) Stool EAEC (PCR) Stl E. histolytica PCR Stool Giardia Lamblia PCR Stl P. shigelloides PCR Stool Salmonella PCR Stool Sapovirus (PCR) Stl Shigella/EIEC PCR St Y.enterocolitica PCR Stool Vibrio (PCR) Stl Vibrio cholerae PCR Stl Norovirus GI/GII PCR Urine Opiates Screen Not Detected Urine Fentanyl Screen Not Detected Ur Barbiturates Screen Not Detected Ur Phencyclidine Scrn Not Detected Ur Amphetamines Screen Not Detected U Benzodiazepines Scrn Not Detected Urine Cocaine Screen Not Detected U Marijuana (THC) Screen POSITIVE H Ethyl Alcohol Acetone, Qual C. difficile Tox B Gene COVID-19 ([facility]) COVID-19 Clin Com Blood Type Antibody Screen Crossmatch 12/05/22 12/05/22 12/05/22 19:40 19:51 21:02 WBC RBC Hgb Hct MCV MCH MCHC RDW Plt Count MPV Immature Gran % (Auto) Neut % (Auto) Lymph % (Auto) [place] % (Auto) Eos % (Auto) Baso % (Auto) Lymph # (Auto) [place] # (Auto) Eos # (Auto) Baso # (Auto) Abs Immat Gran (auto) Absolute Neuts (auto) Absolute Nucleated RBC Nucleated RBC % (auto) Neutrophils % (Manual) Band Neutrophils % Lymphocytes % (Manual) Monocytes % (Manual) Eosinophils % (Manual) Abs Neuts (Manual) Lymphocytes # (Manual) Monocytes # (Manual) Eosinophils # (Manual) Nucleated RBCs Toxic Granulation Dohle Bodies Platelet Estimate Large Platelets Plt Morphology Comment RBC Morphology Polychromasia Hypochromasia Basophilic Stippling Microcytosis Target Cells Tear Drop Cells [place]o Cells Smear Tech's Comments Smear Path Review PT INR APTT VBG pH 7.48 H VBG pCO2 22 VBG pO2 46 VBG HCO3 17 L VBG O2 Saturation TNP VBG Base Excess -5.2 Sodium Potassium Chloride Carbon Dioxide Anion Gap BUN Creatinine Estim Creat Clear Calc Estimated GFR Random Glucose Fasting Glucose Lactic Acid 8.2 H* Lactic Acid F/U @ 2Hr 12.0 H* Lactic Acid F/U @ 4Hr Calcium Magnesium Iron TIBC % Saturation Unsat Iron Binding Ferritin Total Bilirubin Direct Bilirubin AST ALT Alkaline Phosphatase Ammonia Troponin I High Sens C-Reactive Protein Total Protein Albumin Vitamin B12 Folate Urine Color Urine Appearance Urine pH Ur Specific [place] Urine Protein Urine Glucose (UA) Urine Ketones Urine Blood Urine Nitrite Ur Leukocyte Esterase Urine RBC Urine WBC Ur Squamous Epith Cells Urine Bacteria Hyaline Casts Stl C. cayetanensis PCR Stool Rotavirus A PCR Stl Adenov F PCR Stool Astrovirus (PCR) Stool Campylobacter PCR Stool Cryptosporidium PCR Stl Sh Tox Pr E STEC PCR Stool E coli O157 PCR Stl Enterotoxigenic E PCR Stool EPEC (PCR) Stool EAEC (PCR) Stl E. histolytica PCR Stool Giardia Lamblia PCR Stl P. shigelloides PCR Stool Salmonella PCR Stool Sapovirus (PCR) Stl Shigella/EIEC PCR St Y.enterocolitica PCR Stool Vibrio (PCR) Stl Vibrio cholerae PCR Stl Norovirus GI/GII PCR Urine Opiates Screen Urine Fentanyl Screen Ur Barbiturates Screen Ur Phencyclidine Scrn Ur Amphetamines Screen U Benzodiazepines Scrn Urine Cocaine Screen U Marijuana (THC) Screen Ethyl Alcohol Acetone, Qual C. difficile Tox B Gene COVID-19 ([facility]) COVID-19 Clin Com Blood Type Antibody Screen Crossmatch 12/05/22 12/05/22 12/05/22 21:02 21:02 22:10 WBC RBC Hgb Hct MCV MCH MCHC RDW Plt Count MPV Immature Gran % (Auto) Neut % (Auto) Lymph % (Auto) [place] % (Auto) Eos % (Auto) Baso % (Auto) Lymph # (Auto) [place] # (Auto) Eos # (Auto) Baso # (Auto) Abs Immat Gran (auto) Absolute Neuts (auto) Absolute Nucleated RBC Nucleated RBC % (auto) Neutrophils % (Manual) Band Neutrophils % Lymphocytes % (Manual) Monocytes % (Manual) Eosinophils % (Manual) Abs Neuts (Manual) Lymphocytes # (Manual) Monocytes # (Manual) Eosinophils # (Manual) Nucleated RBCs Toxic Granulation Dohle Bodies Platelet Estimate Large Platelets Plt Morphology Comment RBC Morphology Polychromasia Hypochromasia Basophilic Stippling Microcytosis Target Cells Tear Drop Cells Gina Cells Smear Tech's Comments Smear Path Review PT INR APTT VBG pH VBG pCO2 VBG pO2 VBG HCO3 VBG O2 Saturation VBG Base Excess Sodium Potassium Chloride Carbon Dioxide Anion Gap BUN Creatinine Estim Creat Clear Calc Estimated GFR Random Glucose Fasting Glucose Lactic Acid Lactic Acid F/U @ 2Hr Lactic Acid F/U @ 4Hr 4.0 H* Calcium Magnesium Iron TIBC % Saturation Unsat Iron Binding Ferritin Total Bilirubin Direct Bilirubin AST ALT Alkaline Phosphatase Ammonia 39 Troponin I High Sens C-Reactive Protein Total Protein Albumin Vitamin B12 Folate Urine Color Urine Appearance Urine pH Ur Specific [place] Urine Protein Urine Glucose (UA) Urine Ketones Urine Blood Urine Nitrite Ur Leukocyte Esterase Urine RBC Urine WBC Ur Squamous Epith Cells Urine Bacteria Hyaline Casts Stl C. cayetanensis PCR Stool Rotavirus A PCR Stl Adenov F PCR Stool Astrovirus (PCR) Stool Campylobacter PCR Stool Cryptosporidium PCR Stl Sh Tox Pr E STEC PCR Stool E coli O157 PCR Stl Enterotoxigenic E PCR Stool EPEC (PCR) Stool EAEC (PCR) Stl E. histolytica PCR Stool Giardia Lamblia PCR Stl P. shigelloides PCR Stool Salmonella PCR Stool Sapovirus (PCR) Stl Shigella/EIEC PCR St Y.enterocolitica PCR Stool Vibrio (PCR) Stl Vibrio cholerae PCR Stl Norovirus GI/GII PCR Urine Opiates Screen Urine Fentanyl Screen Ur Barbiturates Screen Ur Phencyclidine Scrn Ur Amphetamines Screen U Benzodiazepines Scrn Urine Cocaine Screen U Marijuana (THC) Screen Ethyl Alcohol Acetone, Qual Negative C. difficile Tox B Gene COVID-19 ([facility]) COVID-19 Clin Com Blood Type Antibody Screen Crossmatch 12/05/22 12/06/22 12/06/22 23:32 01:49 04:41 WBC 18.1 H RBC 2.81 L Hgb 6.5 L* Hct 22.0 L MCV 78.3 L MCH 23.1 L MCHC 29.5 L RDW 21.6 H Plt Count 69 L D MPV 11.1 Immature Gran % (Auto) 0.9 H Neut % (Auto) 86.6 H Lymph % (Auto) 8.5 L [place] % (Auto) 3.4 Eos % (Auto) 0.4 Baso % (Auto) 0.2 Lymph # (Auto) 1.5 [place] # (Auto) 0.6 Eos # (Auto) 0.1 Baso # (Auto) 0.0 Abs Immat Gran (auto) 0.17 H Absolute Neuts (auto) 15.7 H Absolute Nucleated RBC 0.310 H Nucleated RBC % (auto) 1.7 H Neutrophils % (Manual) Band Neutrophils % Lymphocytes % (Manual) Monocytes % (Manual) Eosinophils % (Manual) Abs Neuts (Manual) Lymphocytes # (Manual) Monocytes # (Manual) Eosinophils # (Manual) Nucleated RBCs Toxic Granulation Dohle Bodies Platelet Estimate Large Platelets Plt Morphology Comment RBC Morphology Polychromasia Hypochromasia Basophilic Stippling Microcytosis Target Cells Tear Drop Cells [place] Cells Smear Tech's Comments Smear Path Review PT INR APTT VBG pH VBG pCO2 VBG pO2 VBG HCO3 VBG O2 Saturation VBG Base Excess Sodium Potassium Chloride Carbon Dioxide Anion Gap BUN Creatinine Estim Creat Clear Calc Estimated GFR Random Glucose Fasting Glucose Lactic Acid Lactic Acid F/U @ 2Hr 2.7 H* Lactic Acid F/U @ 4Hr 1.5 Calcium Magnesium Iron TIBC % Saturation Unsat Iron Binding Ferritin Total Bilirubin Direct Bilirubin AST ALT Alkaline Phosphatase Ammonia Troponin I High Sens C-Reactive Protein Total Protein Albumin Vitamin B12 Folate Urine Color Urine Appearance Urine pH Ur Specific [place] Urine Protein Urine Glucose (UA) Urine Ketones Urine Blood Urine Nitrite Ur Leukocyte Esterase Urine RBC Urine WBC Ur Squamous Epith Cells Urine Bacteria Hyaline Casts Stl C. cayetanensis PCR Stool Rotavirus A PCR Stl Adenov F PCR Stool Astrovirus (PCR) Stool Campylobacter PCR Stool Cryptosporidium PCR Stl Sh Tox Pr E STEC PCR Stool E coli O157 PCR Stl Enterotoxigenic E PCR Stool EPEC (PCR) Stool EAEC (PCR) Stl E. histolytica PCR Stool Giardia Lamblia PCR Stl P. shigelloides PCR Stool Salmonella PCR Stool Sapovirus (PCR) Stl Shigella/EIEC PCR St Y.enterocolitica PCR Stool Vibrio (PCR) Stl Vibrio cholerae PCR Stl Norovirus GI/GII PCR Urine Opiates Screen Urine Fentanyl Screen Ur Barbiturates Screen Ur Phencyclidine Scrn Ur Amphetamines Screen U Benzodiazepines Scrn Urine Cocaine Screen U Marijuana (THC) Screen Ethyl Alcohol Acetone, Qual C. difficile Tox B Gene COVID-19 ([facility]) COVID-19 Clin Com Blood Type Antibody Screen Crossmatch 12/06/22 12/06/22 12/07/22 04:41 17:48 06:28 WBC 15.6 H 13.3 H RBC 3.21 L 3.42 L Hgb 8.3 L D 8.6 L Hct 25.8 L 27.3 L MCV 80.4 79.8 L MCH 25.9 L 25.1 L MCHC 32.2 31.5 RDW 20.6 H 20.9 H Plt Count 45 L D 46 L MPV 10.0 Not Reportable Immature Gran % (Auto) 1.5 H 1.3 H Neut % (Auto) 79.4 H 78.6 H Lymph % (Auto) 10.9 L 12.7 L [place] % (Auto) 6.1 5.1 Eos % (Auto) 1.9 2.1 Baso % (Auto) 0.2 0.2 Lymph # (Auto) 1.7 1.7 [place] # (Auto) 1.0 0.7 Eos # (Auto) 0.3 0.3 Baso # (Auto) 0.0 0.0 Abs Immat Gran (auto) 0.23 H 0.17 H Absolute Neuts (auto) 12.4 H 10.5 H Absolute Nucleated RBC 0.320 H 0.320 H Nucleated RBC % (auto) 2.1 H 2.4 H Neutrophils % (Manual) Band Neutrophils % Lymphocytes % (Manual) Monocytes % (Manual) Eosinophils % (Manual) Abs Neuts (Manual) Lymphocytes # (Manual) Monocytes # (Manual) Eosinophils # (Manual) Nucleated RBCs Toxic Granulation Dohle Bodies Platelet Estimate Large Platelets Plt Morphology Comment RBC Morphology Polychromasia Hypochromasia Basophilic Stippling Microcytosis Target Cells Tear Drop Cells Gina Cells Smear Tech's Comments Smear Path Review PT INR APTT VBG pH VBG pCO2 VBG pO2 VBG HCO3 VBG O2 Saturation VBG Base Excess Sodium 135 Potassium 2.8 L Chloride 100 Carbon Dioxide 24 Anion Gap 14 BUN 20 H Creatinine 0.67 Estim Creat Clear Calc 125.0 Estimated GFR > 60 Random Glucose 74 Fasting Glucose Lactic Acid Lactic Acid F/U @ 2Hr Lactic Acid F/U @ 4Hr Calcium 7.6 L Magnesium Iron TIBC % Saturation Unsat Iron Binding Ferritin Total Bilirubin 3.4 H Direct Bilirubin AST 95 H ALT 34 Alkaline Phosphatase 171 H Ammonia Troponin I High Sens C-Reactive Protein Total Protein 5.4 L Albumin 3.0 L Vitamin B12 Folate Urine Color Urine Appearance Urine pH Ur Specific [place] Urine Protein Urine Glucose (UA) Urine Ketones Urine Blood Urine Nitrite Ur Leukocyte Esterase Urine RBC Urine WBC Ur Squamous Epith Cells Urine Bacteria Hyaline Casts Stl C. cayetanensis PCR Stool Rotavirus A PCR Stl Adenov F 40/41 PCR Stool Astrovirus (PCR) Stool Campylobacter PCR Stool Cryptosporidium PCR Stl Sh Tox Pr E STEC PCR Stool E coli O157 PCR Stl Enterotoxigenic E PCR Stool EPEC (PCR) Stool EAEC (PCR) Stl E. histolytica PCR Stool Giardia Lamblia PCR Stl P. shigelloides PCR Stool Salmonella PCR Stool Sapovirus (PCR) Stl Shigella/EIEC PCR St Y.enterocolitica PCR Stool Vibrio (PCR) Stl Vibrio cholerae PCR Stl Norovirus GI/GII PCR Urine Opiates Screen Urine Fentanyl Screen Ur Barbiturates Screen Ur Phencyclidine Scrn Ur Amphetamines Screen U Benzodiazepines Scrn Urine Cocaine Screen U Marijuana (THC) Screen Ethyl Alcohol Acetone, Qual C. difficile Tox B Gene COVID-19 ([facility]) COVID-19 Clin Com Blood Type Antibody Screen Crossmatch 12/07/22 12/07/22 12/07/22 06:28 11:45 11:45 WBC RBC Hgb Hct MCV MCH MCHC RDW Plt Count MPV Immature Gran % (Auto) Neut % (Auto) Lymph % (Auto) [place] % (Auto) Eos % (Auto) Baso % (Auto) Lymph # (Auto) [place] # (Auto) Eos # (Auto) Baso # (Auto) Abs Immat Gran (auto) Absolute Neuts (auto) Absolute Nucleated RBC Nucleated RBC % (auto) Neutrophils % (Manual) Band Neutrophils % Lymphocytes % (Manual) Monocytes % (Manual) Eosinophils % (Manual) Abs Neuts (Manual) Lymphocytes # (Manual) Monocytes # (Manual) Eosinophils # (Manual) Nucleated RBCs Toxic Granulation Dohle Bodies Platelet Estimate Large Platelets Plt Morphology Comment RBC Morphology Polychromasia Hypochromasia Basophilic Stippling Microcytosis Target Cells Tear Drop Cells Moro Cells Smear Tech's Comments Smear Path Review PT INR APTT VBG pH VBG pCO2 VBG pO2 VBG HCO3 VBG O2 Saturation VBG Base Excess Sodium 136 Potassium 3.0 L Chloride 103 Carbon Dioxide 22 Anion Gap 14 BUN 8 L Creatinine 0.54 Estim Creat Clear Calc 155.1 Estimated GFR > 60 Random Glucose 79 Fasting Glucose Lactic Acid Lactic Acid F/U @ 2Hr Lactic Acid F/U @ 4Hr Calcium 7.8 L Magnesium Iron TIBC % Saturation Unsat Iron Binding Ferritin Total Bilirubin 2.1 H Direct Bilirubin AST 154 H ALT 46 H Alkaline Phosphatase 167 H Ammonia Troponin I High Sens C-Reactive Protein Total Protein 4.7 L Albumin 2.6 L Vitamin B12 Folate Urine Color Urine Appearance Urine pH Ur Specific [place] Urine Protein Urine Glucose (UA) Urine Ketones Urine Blood Urine Nitrite Ur Leukocyte Esterase Urine RBC Urine WBC Ur Squamous Epith Cells Urine Bacteria Hyaline Casts Stl C. cayetanensis PCR Not Detected Stool Rotavirus A PCR Not Detected Stl Adenov F 40/41 PCR Not Detected Stool Astrovirus (PCR) Not Detected Stool Campylobacter PCR Not Detected Stool Cryptosporidium PCR Not Detected Stl Sh Tox Pr E STEC PCR Not Detected Stool E coli O157 PCR Not applicable Stl Enterotoxigenic E PCR Not Detected Stool EPEC (PCR) Not Detected Stool EAEC (PCR) Not Detected Stl E. histolytica PCR Not Detected Stool Giardia Lamblia PCR Not Detected Stl P. shigelloides PCR Not Detected Stool Salmonella PCR Not Detected Stool Sapovirus (PCR) Not Detected Stl Shigella/EIEC PCR Not Detected St Y.enterocolitica PCR Not Detected Stool Vibrio (PCR) Not Detected Stl Vibrio cholerae PCR Not Detected Stl Norovirus GI/GII PCR Not Detected Urine Opiates Screen Urine Fentanyl Screen Ur Barbiturates Screen Ur Phencyclidine Scrn Ur Amphetamines Screen U Benzodiazepines Scrn Urine Cocaine Screen U Marijuana (THC) Screen Ethyl Alcohol Acetone, Qual C. difficile Tox B Gene NEGATIVE COVID-19 ([facility]) COVID-19 Clin Com Blood Type Antibody Screen Crossmatch 12/07/22 12/08/22 12/08/22 15:57 05:39 05:39 WBC 15.4 H 12.6 H RBC 3.26 L 2.96 L Hgb 8.1 L 7.5 L Hct 26.2 L 23.7 L MCV 80.4 80.1 MCH 24.8 L 25.3 L MCHC 30.9 L 31.6 RDW 20.4 H 20.9 H Plt Count 51 L 42 L MPV 10.3 Not Reportable Immature Gran % (Auto) Cancelled 1.0 H Neut % (Auto) Cancelled 80.4 H Lymph % (Auto) Cancelled 9.8 L [place] % (Auto) Cancelled 6.7 Eos % (Auto) Cancelled 1.9 Baso % (Auto) Cancelled 0.2 Lymph # (Auto) Cancelled 1.2 [place] # (Auto) Cancelled 0.8 Eos # (Auto) Cancelled 0.2 Baso # (Auto) Cancelled 0.0 Abs Immat Gran (auto) Cancelled 0.12 H Absolute Neuts (auto) Cancelled 10.2 H Absolute Nucleated RBC 0.430 H 0.150 H Nucleated RBC % (auto) 2.8 H 1.2 H Neutrophils % (Manual) 77 H Band Neutrophils % 0 L Lymphocytes % (Manual) 14 L Monocytes % (Manual) 8 Eosinophils % (Manual) 1 Abs Neuts (Manual) 11.9 H Lymphocytes # (Manual) 2.2 Monocytes # (Manual) 1.2 Eosinophils # (Manual) 0.2 Nucleated RBCs 3 H Toxic Granulation Dohle Bodies Platelet Estimate DECREASED Large Platelets Plt Morphology Comment NORMAL RBC Morphology NOTED Polychromasia 1+ (0-2) Hypochromasia 1+ (5-14) Basophilic Stippling Microcytosis Target Cells 1+ (5-14) Tear Drop Cells Gina Cells Smear Tech's Comments VERIFIED Smear Path Review PT 16.6 H INR 1.4 H APTT VBG pH VBG pCO2 VBG pO2 VBG HCO3 VBG O2 Saturation VBG Base Excess Sodium Potassium Chloride Carbon Dioxide Anion Gap BUN Creatinine Estim Creat Clear Calc Estimated GFR Random Glucose Fasting Glucose Lactic Acid Lactic Acid F/U @ 2Hr Lactic Acid F/U @ 4Hr Calcium Magnesium Iron TIBC % Saturation Unsat Iron Binding Ferritin Total Bilirubin Direct Bilirubin AST ALT Alkaline Phosphatase Ammonia Troponin I High Sens C-Reactive Protein Total Protein Albumin Vitamin B12 Folate Urine Color Urine Appearance Urine pH Ur Specific [place] Urine Protein Urine Glucose (UA) Urine Ketones Urine Blood Urine Nitrite Ur Leukocyte Esterase Urine RBC Urine WBC Ur Squamous Epith Cells Urine Bacteria Hyaline Casts Stl C. cayetanensis PCR Stool Rotavirus A PCR Stl Adenov F 40/41 PCR Stool Astrovirus (PCR) Stool Campylobacter PCR Stool Cryptosporidium PCR Stl Sh Tox Pr E STEC PCR Stool E coli O157 PCR Stl Enterotoxigenic E PCR Stool EPEC (PCR) Stool EAEC (PCR) Stl E. histolytica PCR Stool Giardia Lamblia PCR Stl P. shigelloides PCR Stool Salmonella PCR Stool Sapovirus (PCR) Stl Shigella/EIEC PCR St Y.enterocolitica PCR Stool Vibrio (PCR) Stl Vibrio cholerae PCR Stl Norovirus GI/GII PCR Urine Opiates Screen Urine Fentanyl Screen Ur Barbiturates Screen Ur Phencyclidine Scrn Ur Amphetamines Screen U Benzodiazepines Scrn Urine Cocaine Screen U Marijuana (THC) Screen Ethyl Alcohol Acetone, Qual C. difficile Tox B Gene COVID-19 ([facility]) COVID-19 Clin Com Blood Type Antibody Screen Crossmatch 12/08/22 12/08/22 12/08/22 05:39 13:19 13:19 WBC 15.2 H RBC 3.29 L Hgb 8.6 L Hct 27.0 L MCV 82.1 MCH 26.1 L MCHC 31.9 RDW 20.8 H Plt Count 37 L MPV Not Reportable Immature Gran % (Auto) 0.9 H Neut % (Auto) 79.1 H Lymph % (Auto) 11.6 L [place] % (Auto) 6.8 Eos % (Auto) 1.3 Baso % (Auto) 0.3 Lymph # (Auto) 1.8 [place] # (Auto) 1.0 Eos # (Auto) 0.2 Baso # (Auto) 0.0 Abs Immat Gran (auto) 0.14 H Absolute Neuts (auto) 12.0 H Absolute Nucleated RBC 0.140 H Nucleated RBC % (auto) 0.9 H Neutrophils % (Manual) Band Neutrophils % Lymphocytes % (Manual) Monocytes % (Manual) Eosinophils % (Manual) Abs Neuts (Manual) Lymphocytes # (Manual) Monocytes # (Manual) Eosinophils # (Manual) Nucleated RBCs Toxic Granulation Dohle Bodies Platelet Estimate Large Platelets Plt Morphology Comment RBC Morphology Polychromasia Hypochromasia Basophilic Stippling Microcytosis Target Cells Tear Drop Cells Gina Cells Smear Tech's Comments Smear Path Review PT INR APTT VBG pH VBG pCO2 VBG pO2 VBG HCO3 VBG O2 Saturation VBG Base Excess Sodium 135 136 Potassium 2.7 L 3.6 D Chloride 104 107 Carbon Dioxide 22 20 L Anion Gap 12 13 BUN 6 L 5 L Creatinine 0.51 0.49 L Estim Creat Clear Calc 164.2 170.9 Estimated GFR > 60 > 60 Random Glucose 86 Fasting Glucose 87 Lactic Acid Lactic Acid F/U @ 2Hr Lactic Acid F/U @ 4Hr Calcium 7.3 L D 7.0 L Magnesium 1.2 L* 2.0 Iron TIBC % Saturation Unsat Iron Binding Ferritin Total Bilirubin 1.7 H Direct Bilirubin 0.9 H AST 136 H ALT 44 H Alkaline Phosphatase 149 H Ammonia Troponin I High Sens C-Reactive Protein Total Protein 4.2 L Albumin 2.3 L Vitamin B12 Folate Urine Color Urine Appearance Urine pH Ur Specific [place] Urine Protein Urine Glucose (UA) Urine Ketones Urine Blood Urine Nitrite Ur Leukocyte Esterase Urine RBC Urine WBC Ur Squamous Epith Cells Urine Bacteria Hyaline Casts Stl C. cayetanensis PCR Stool Rotavirus A PCR Stl Adenov F 40/41 PCR Stool Astrovirus (PCR) Stool Campylobacter PCR Stool Cryptosporidium PCR Stl Sh Tox Pr E STEC PCR Stool E coli O157 PCR Stl Enterotoxigenic E PCR Stool EPEC (PCR) Stool EAEC (PCR) Stl E. histolytica PCR Stool Giardia Lamblia PCR Stl P. shigelloides PCR Stool Salmonella PCR Stool Sapovirus (PCR) Stl Shigella/EIEC PCR St Y.enterocolitica PCR Stool Vibrio (PCR) Stl Vibrio cholerae PCR Stl Norovirus GI/GII PCR Urine Opiates Screen Urine Fentanyl Screen Ur Barbiturates Screen Ur Phencyclidine Scrn Ur Amphetamines Screen U Benzodiazepines Scrn Urine Cocaine Screen U Marijuana (THC) Screen Ethyl Alcohol Acetone, Qual C. difficile Tox B Gene COVID-19 ([facility]) COVID-19 Clin Com Blood Type Antibody Screen Crossmatch 12/09/22 12/09/22 12/10/22 05:48 05:48 05:54 WBC 14.5 H 15.2 H RBC 3.25 L 3.18 L Hgb 8.5 L 8.5 L Hct 26.6 L 26.3 L MCV 81.8 82.7 MCH 26.2 L 26.7 L MCHC 32.0 32.3 RDW 21.5 H 23.3 H Plt Count 37 L 48 L D MPV Not Reportable Not Reportable Immature Gran % (Auto) 0.7 H Neut % (Auto) 80.0 H Lymph % (Auto) 10.2 L [place] % (Auto) 7.2 Eos % (Auto) 1.6 Baso % (Auto) 0.3 Lymph # (Auto) 1.5 [place] # (Auto) 1.0 Eos # (Auto) 0.2 Baso # (Auto) 0.1 Abs Immat Gran (auto) 0.10 H Absolute Neuts (auto) 11.6 H Absolute Nucleated RBC 0.050 H 0.020 H Nucleated RBC % (auto) 0.3 H 0.1 Neutrophils % (Manual) Band Neutrophils % Lymphocytes % (Manual) Monocytes % (Manual) Eosinophils % (Manual) Abs Neuts (Manual) Lymphocytes # (Manual) Monocytes # (Manual) Eosinophils # (Manual) Nucleated RBCs Toxic Granulation Dohle Bodies Platelet Estimate Large Platelets Plt Morphology Comment RBC Morphology Polychromasia Hypochromasia Basophilic Stippling Microcytosis Target Cells Tear Drop Cells Gina Cells Smear Tech's Comments Smear Path Review PT INR APTT VBG pH VBG pCO2 VBG pO2 VBG HCO3 VBG O2 Saturation VBG Base Excess Sodium 136 Potassium 3.3 Chloride 106 Carbon Dioxide 21 L Anion Gap 12 BUN 4 L Creatinine 0.50 Estim Creat Clear Calc 167.5 Estimated GFR > 60 Random Glucose 97 Fasting Glucose Lactic Acid Lactic Acid F/U @ 2Hr Lactic Acid F/U @ 4Hr Calcium 7.5 L D Magnesium 1.6 Iron TIBC % Saturation Unsat Iron Binding Ferritin Total Bilirubin Direct Bilirubin AST ALT Alkaline Phosphatase Ammonia Troponin I High Sens C-Reactive Protein Total Protein Albumin Vitamin B12 Folate Urine Color Urine Appearance Urine pH Ur Specific [place] Urine Protein Urine Glucose (UA) Urine Ketones Urine Blood Urine Nitrite Ur Leukocyte Esterase Urine RBC Urine WBC Ur Squamous Epith Cells Urine Bacteria Hyaline Casts Stl C. cayetanensis PCR Stool Rotavirus A PCR Stl Adenov F 40/41 PCR Stool Astrovirus (PCR) Stool Campylobacter PCR Stool Cryptosporidium PCR Stl Sh Tox Pr E STEC PCR Stool E coli O157 PCR Stl Enterotoxigenic E PCR Stool EPEC (PCR) Stool EAEC (PCR) Stl E. histolytica PCR Stool Giardia Lamblia PCR Stl P. shigelloides PCR Stool Salmonella PCR Stool Sapovirus (PCR) Stl Shigella/EIEC PCR St Y.enterocolitica PCR Stool Vibrio (PCR) Stl Vibrio cholerae PCR Stl Norovirus GI/GII PCR Urine Opiates Screen Urine Fentanyl Screen Ur Barbiturates Screen Ur Phencyclidine Scrn Ur Amphetamines Screen U Benzodiazepines Scrn Urine Cocaine Screen U Marijuana (THC) Screen Ethyl Alcohol Acetone, Qual C. difficile Tox B Gene COVID-19 ([facility]) COVID-19 Clin Com Blood Type Antibody Screen Crossmatch 12/10/22 12/10/22 12/10/22 05:54 05:54 14:49 WBC RBC Hgb Hct MCV MCH MCHC RDW Plt Count MPV Immature Gran % (Auto) Neut % (Auto) Lymph % (Auto) [place] % (Auto) Eos % (Auto) Baso % (Auto) Lymph # (Auto) [place] # (Auto) Eos # (Auto) Baso # (Auto) Abs Immat Gran (auto) Absolute Neuts (auto) Absolute Nucleated RBC Nucleated RBC % (auto) Neutrophils % (Manual) Band Neutrophils % Lymphocytes % (Manual) Monocytes % (Manual) Eosinophils % (Manual) Abs Neuts (Manual) Lymphocytes # (Manual) Monocytes # (Manual) Eosinophils # (Manual) Nucleated RBCs Toxic Granulation Dohle Bodies Platelet Estimate Large Platelets Plt Morphology Comment RBC Morphology Polychromasia Hypochromasia Basophilic Stippling Microcytosis Target Cells Tear Drop Cells Moro Cells Smear Tech's Comments Smear Path Review PT 18.2 H INR 1.6 H APTT VBG pH VBG pCO2 VBG pO2 VBG HCO3 VBG O2 Saturation VBG Base Excess Sodium 135 Potassium 3.2 L Chloride 105 Carbon Dioxide 20 L Anion Gap 13 BUN 5 L Creatinine 0.52 Estim Creat Clear Calc 161.1 Estimated GFR > 60 Random Glucose 92 Fasting Glucose Lactic Acid Lactic Acid F/U @ 2Hr Lactic Acid F/U @ 4Hr Calcium 7.5 L Magnesium 1.4 L* Iron TIBC % Saturation Unsat Iron Binding Ferritin Total Bilirubin 1.6 H Direct Bilirubin AST 113 H ALT 41 H Alkaline Phosphatase 173 H Ammonia Troponin I High Sens C-Reactive Protein 1.94 H Total Protein 4.4 L Albumin 2.4 L Vitamin B12 Folate Urine Color Dark Yellow Urine Appearance Turbid Urine pH 5.5 Ur Specific [place] >= 1.030 H Urine Protein 30 (1+) H Urine Glucose (UA) Negative Urine Ketones Negative Urine Blood Negative Urine Nitrite Negative Ur Leukocyte Esterase Small (1+) H Urine RBC 0-2 Urine WBC 0-5 Ur Squamous Epith Cells 0-2 Urine Bacteria None Seen Hyaline Casts 0-2 Stl C. cayetanensis PCR Stool Rotavirus A PCR Stl Adenov F 40/ PCR Stool Astrovirus (PCR) Stool Campylobacter PCR Stool Cryptosporidium PCR Stl Sh Tox Pr E STEC PCR Stool E coli O157 PCR Stl Enterotoxigenic E PCR Stool EPEC (PCR) Stool EAEC (PCR) Stl E. histolytica PCR Stool Giardia Lamblia PCR Stl P. shigelloides PCR Stool Salmonella PCR Stool Sapovirus (PCR) Stl Shigella/EIEC PCR St Y.enterocolitica PCR Stool Vibrio (PCR) Stl Vibrio cholerae PCR Stl Norovirus GI/GII PCR Urine Opiates Screen Urine Fentanyl Screen Ur Barbiturates Screen Ur Phencyclidine Scrn Ur Amphetamines Screen U Benzodiazepines Scrn Urine Cocaine Screen U Marijuana (THC) Screen Ethyl Alcohol Acetone, Qual C. difficile Tox B Gene COVID-19 ([facility]) COVID-19 Clin Com Blood Type Antibody Screen Crossmatch 12/11/22 12/11/22 12/11/22 05:38 05:38 05:38 WBC 14.3 H RBC 2.81 L Hgb 7.4 L Hct 23.4 L MCV 83.3 MCH 26.3 L MCHC 31.6 RDW 23.3 H Plt Count 89 L D MPV Not Reportable Immature Gran % (Auto) Neut % (Auto) Lymph % (Auto) [place] % (Auto) Eos % (Auto) Baso % (Auto) Lymph # (Auto) [place] # (Auto) Eos # (Auto) Baso # (Auto) Abs Immat Gran (auto) Absolute Neuts (auto) Absolute Nucleated RBC 0.000 Nucleated RBC % (auto) 0.0 Neutrophils % (Manual) Band Neutrophils % Lymphocytes % (Manual) Monocytes % (Manual) Eosinophils % (Manual) Abs Neuts (Manual) Lymphocytes # (Manual) Monocytes # (Manual) Eosinophils # (Manual) Nucleated RBCs Toxic Granulation Dohle Bodies Platelet Estimate Large Platelets Plt Morphology Comment RBC Morphology Polychromasia Hypochromasia Basophilic Stippling Microcytosis Target Cells Tear Drop Cells Moro Cells Smear Tech's Comments Smear Path Review PT 17.4 H INR 1.5 H APTT VBG pH VBG pCO2 VBG pO2 VBG HCO3 VBG O2 Saturation VBG Base Excess Sodium 138 Potassium 3.8 Chloride 106 Carbon Dioxide 23 Anion Gap 13 BUN 6 L Creatinine 0.54 Estim Creat Clear Calc 155.1 Estimated GFR > 60 Random Glucose 81 Fasting Glucose Lactic Acid Lactic Acid F/U @ 2Hr Lactic Acid F/U @ 4Hr Calcium 7.5 L Magnesium 1.6 Iron TIBC % Saturation Unsat Iron Binding Ferritin Total Bilirubin Direct Bilirubin AST ALT Alkaline Phosphatase Ammonia Troponin I High Sens C-Reactive Protein Total Protein Albumin Vitamin B12 Folate Urine Color Urine Appearance Urine pH Ur Specific [place] Urine Protein Urine Glucose (UA) Urine Ketones Urine Blood Urine Nitrite Ur Leukocyte Esterase Urine RBC Urine WBC Ur Squamous Epith Cells Urine Bacteria Hyaline Casts Stl C. cayetanensis PCR Stool Rotavirus A PCR Stl Adenov F 40/41 PCR Stool Astrovirus (PCR) Stool Campylobacter PCR Stool Cryptosporidium PCR Stl Sh Tox Pr E STEC PCR Stool E coli O157 PCR Stl Enterotoxigenic E PCR Stool EPEC (PCR) Stool EAEC (PCR) Stl E. histolytica PCR Stool Giardia Lamblia PCR Stl P. shigelloides PCR Stool Salmonella PCR Stool Sapovirus (PCR) Stl Shigella/EIEC PCR St Y.enterocolitica PCR Stool Vibrio (PCR) Stl Vibrio cholerae PCR Stl Norovirus GI/GII PCR Urine Opiates Screen Urine Fentanyl Screen Ur Barbiturates Screen Ur Phencyclidine Scrn Ur Amphetamines Screen U Benzodiazepines Scrn Urine Cocaine Screen U Marijuana (THC) Screen Ethyl Alcohol Acetone, Qual C. difficile Tox B Gene COVID-19 ([facility]) COVID-19 Clin Com Blood Type Antibody Screen Crossmatch 12/11/22 12/12/22 08:43 05:42 WBC 14.0 H RBC 3.22 L Hgb 8.5 L Hct 27.6 L MCV 85.7 MCH 26.4 L MCHC 30.8 L RDW 22.6 H Plt Count 134 L D MPV 11.9 Immature Gran % (Auto) Neut % (Auto) Lymph % (Auto) [place] % (Auto) Eos % (Auto) Baso % (Auto) Lymph # (Auto) [place] # (Auto) Eos # (Auto) Baso # (Auto) Abs Immat Gran (auto) Absolute Neuts (auto) Absolute Nucleated RBC 0.000 Nucleated RBC % (auto) 0.0 Neutrophils % (Manual) Band Neutrophils % Lymphocytes % (Manual) Monocytes % (Manual) Eosinophils % (Manual) Abs Neuts (Manual) Lymphocytes # (Manual) Monocytes # (Manual) Eosinophils # (Manual) Nucleated RBCs Toxic Granulation Dohle Bodies Platelet Estimate Large Platelets Plt Morphology Comment RBC Morphology Polychromasia Hypochromasia Basophilic Stippling Microcytosis Target Cells Tear Drop Cells Gina Cells Smear Tech's Comments Smear Path Review PT INR APTT VBG pH VBG pCO2 VBG pO2 VBG HCO3 VBG O2 Saturation VBG Base Excess Sodium Potassium Chloride Carbon Dioxide Anion Gap BUN Creatinine Estim Creat Clear Calc Estimated GFR Random Glucose Fasting Glucose Lactic Acid Lactic Acid F/U @ 2Hr Lactic Acid F/U @ 4Hr Calcium Magnesium Iron TIBC % Saturation Unsat Iron Binding Ferritin Total Bilirubin Direct Bilirubin AST ALT Alkaline Phosphatase Ammonia Troponin I High Sens C-Reactive Protein Total Protein Albumin Vitamin B12 Folate Urine Color Urine Appearance Urine pH Ur Specific [place] Urine Protein Urine Glucose (UA) Urine Ketones Urine Blood Urine Nitrite Ur Leukocyte Esterase Urine RBC Urine WBC Ur Squamous Epith Cells Urine Bacteria Hyaline Casts Stl C. cayetanensis PCR Stool Rotavirus A PCR Stl Adenov F 40/41 PCR Stool Astrovirus (PCR) Stool Campylobacter PCR Stool Cryptosporidium PCR Stl Sh Tox Pr E STEC PCR Stool E coli O157 PCR Stl Enterotoxigenic E PCR Stool EPEC (PCR) Stool EAEC (PCR) Stl E. histolytica PCR Stool Giardia Lamblia PCR Stl P. shigelloides PCR Stool Salmonella PCR Stool Sapovirus (PCR) Stl Shigella/EIEC PCR St Y.enterocolitica PCR Stool Vibrio (PCR) Stl Vibrio cholerae PCR Stl Norovirus GI/GII PCR Urine Opiates Screen Urine Fentanyl Screen Ur Barbiturates Screen Ur Phencyclidine Scrn Ur Amphetamines Screen U Benzodiazepines Scrn Urine Cocaine Screen U Marijuana (THC) Screen Ethyl Alcohol Acetone, Qual C. difficile Tox B Gene COVID-19 ([facility]) COVID-19 Clin Com Blood Type A Positive Antibody Screen NEGATIVE Crossmatch See Detail Airway Mallampati Class: II TM Dist: >3cm Neck ROM: Full Heart: rrr Lungs: cta bll Assessment and Plan Assessment Anesthesia Assessment: Anesthesia Plan Discussed and Chart Reviewed Final Anesthetic Review Family History of Problems with Anesthesia: No History of Problems with Anesthesia: No NPO: Yes ASA Class: III Final Preanesthetic Review: No Changes in Pt Med Stat, Meds/Allgs Chart Reviewed and Consent Obtained/Reviewed Patient Risk: Intermediate Procedure Risk: Intermediate Anesthetic Plan Anesthetic Plan: GA Disposition: Standard PACU
--- NOTE | 2022-12-12 12:20 | HO.PM.IMPN ---
Subjective Subjective Date of Service: 12/12/22 Interval History: Seen and evaluated this morning ongoing hemorrhoidal bleeding, hemoglobin improved after 1 unit transfusion for surgical intervention No other overnight events Review of Systems Improved Weakness and lightheadedness feels more like eating bleeding from hemorrhoids Nausea, vomiting improved Leg cramps Physical Exam Vital Signs: Vital Signs: Last Vital Signs Temp 98.9 F 12/12/22 08:00 Pulse 84 12/12/22 08:00 Resp 14 12/12/22 08:00 BP 128/63 12/12/22 08:00 Pulse Ox 96 12/12/22 08:00 O2 Del Method 12/12/22 08:00 O2 Flow Rate 5 12/08/22 16:18 BMI result Body Mass Index 18.0 Const: Other: Gen: in no acute distress Neck: supple Lungs: clear to auscultation bilaterally Heart: regular rate and rhythm, no murmurs Abd: soft, non-tender, slightly distended, mild right upper quadrant tenderness with deep palpation Ext: no edema Skin: warm/well-perfused Neuro: alert and oriented x3, no focal findings Psych: appropriate affect Objective Data Active Medications Acetaminophen (Acetaminophen 325 Mg Tablet) 650 mg PO Q6H PRN PRN Reason: Pain, Mild (Pain Scale 1-3) Baclofen (Baclofen 10 Mg Tablet) 10 mg PO BID [facility] Last Admin: 12/12/22 09:49 Dose: 10 mg Documented By: FERNANDO Hydrocortisone (Hydrocortisone 2.5 % Rectal Cr 30 Gm Tube) 1 appl [place] BID [facility] Stop: 12/13/22 21:01 Last Admin: 12/12/22 09:49 Dose: 1 appl Documented By: FERNANDO Piperacillin Sod/Tazobactam (Sod 3.375 gm/ Sodium Chloride) 50 mls @ 100 mls/hr IV Q6H [facility] Last Infusion: 12/12/22 10:20 Dose: 0 mls/hr Documented By: FERNANDO Magnesium Oxide (Magnesium Oxide 400 Mg Tablet) [facility] Last Admin: 12/12/22 09:49 Dose: 400 mg Documented By: FERNANDO Melatonin (Melatonin 3 Mg Tablet) 6 mg PO BEDTIME PRN PRN Reason: Insomnia Nicotine (Nicotine 21 Mg Patch.Td24) 21 mg TRANSDERMA DAILY [facility] Last Admin: 12/12/22 09:50 Dose: 21 mg Documented By: FERNANDO Nicotine Polacrilex (Nicotine Polacrilex 2 Mg Gum) 2 mg BUCCAL Q1H PRN 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 Last Admin: 12/11/22 09:36 Dose: 2 mg Documented By: ODMINGUEZ Omeprazole (Omeprazole 40 Mg Capsule.Dr) 40 mg PO DAILY@0630 [facility] Last Admin: 12/12/22 05:49 Dose: 40 mg Documented By: IRAIS Ondansetron HCl (Ondansetron Hcl 4 Mg/2 Ml Vial) 4 mg IVPUSH Q8H PRN PRN Reason: Nausea and Vomiting Pharmacy Consult (Consult Rx Etoh Phenob Im/Po) 1 each MISCELLANE ONCE PRN; Protocol PRN Reason: Consult order Pharmacy Consult (Consult Rx Perform Med Rec) 1 each MISCELLANE ONCE PRN PRN Reason: Consult order Simethicone (Simethicone 80 Mg Tab.Chew) 80 mg PO QIDWMHS [facility] Sodium Chloride (0.9 % Sodium Chloride Flush 3 Ml Syringe) 3 ml IVFLUSH QSHIFT [facility] Last Admin: 12/12/22 09:49 Dose: 3 ml Documented By: FERNANDO Thiamine HCl (Thiamine Hcl 100 Mg Tablet) 100 mg PO DAILY [facility] Last Admin: 12/12/22 09:49 Dose: 100 mg Documented By: FERNANDO Labs 12/12/22 05:42 12/11/22 05:38 Labs: Laboratory Results - last 24 hr 12/11/22 12/12/22 08:43 05:42 MCV 85.7 MCH 26.4 L MCHC 30.8 L RDW 22.6 H Plt Count 134 L D MPV 11.9 Absolute Nucleated RBC 0.000 Nucleated RBC % (auto) 0.0 Blood Type A Positive Antibody Screen NEGATIVE Crossmatch See Detail Microbiology Microbiology Results: Microbiology 12/10/22 15:20 Urine Culture - Final Urine clean catch - Urine couch top No growth. Assessment and Plan (1) Bleeding hemorrhoids: Status: Acute (2) Alcohol use disorder, severe, dependence: Status: Acute (3) Acute anemia: Status: Acute (4) Acute GI bleeding: Status: Acute Plan hospital d#6 42yo M with AUD sent in by PCP for anemia, admitted for EtOH withdrawal and hematochezia # SIRS in retrospect, CT findings of colitis and cholecystitis likely due to hypoalbuminemia/hepatitis, not due to sepsis from actual colitis and/or cholecystitis. To discuss with Gen Surg. pip-regis 01/02-; discontinue and monitor # anemia due to GI blood loss, hemorroidal bleeding EGD + C-scope 12/08/22: Duodenitis, Hiatal hernia, Nonobstructing ring at the EG Junction, No varices, No blood nor coffee grounds in the UGI tract Colonoscopy: Friable, oozing hemorrhoid, No colitis, polyps, nor angiodysplasias Transfuse 1 more unit of blood , keep Hb >8 Hb 8.5 this morning # hiccups trial of baclofen # duodenitis PO PPI tolerating advanced diet # hemorrhoidal bleeding Surgery consulted. Continue rectal HC. Surgery input appreciated, to do exploratory colonoscopy today # coagulopathy trial of vitamin K, recheck INR # acute blood loss anemia transfused 6u pRBCs and H+H now stable # thrombocytopenia likely due to EtOH. monitor CBC; avoid heparin. Platelet count improving. # hypoK replete PO, recheck level in AM # hypoMg replete IV and start PO maintenance repletion, recheck leve in AM # acute EtOH hepatitis no steroids indicated trace ascites on imaging, not enough to tap # EtOH withdrawal finished phenobarbital taper, B-vitamins # AUD Addiction Medicine consultation # tobacco abuse NRT # VTE ppx: SCDs, no heparin given low platelets # dispo: possibly home in 2-3d In my clinical judgment, the patient requires continued inpatient hospitalization for the following reasons: Anemia, need of transfusion and possible surgical intervention Time Spent With Patient Time: Total time managing care of this patient today ____ minutes. Quality Stroke Does the patient have a stroke diagnosis?: No VTE Prior VTE?: No VTE Risk Level:: Medical - moderate - high VTE Device Contraindication: Treatment Not Indicated VTE Drug Contraindication: Treatment Not Indicated
--- NOTE | 2022-12-12 12:29 | P.CDIC_ITS ---
CDI Concurrent Query Documentation Clarification: PHYSICIAN'S DOCUMENTATION REQUEST Date of Query: 12/12/22 1230 Patient Name: Amadou Qiu Admit Date: 12/05/22 Dear Doctor, A review of the medical record indicates additional documentation may be needed. Please review below and update the documentation accordingly. Clinical Indicators: Risk Factors/Clinical Indicators/Treatments DX: Bleeding hemorrhoid Surgery consult 2/6 - Blood loss and anemia due to hemorrhoidal bleeding with associated portal htn, coagulopathy and thrombocytopenia. Transfuse total 6 untis PRBC. Based on the above, could you clarify in the Progress Notes the appropriate diagnosis, if significant, that supports the above abnormalities and additional evaluation, monitoring, and/or treatment rendered: * Hemorrhoid * External * Internal * Prolapsed * Thrombosed * Ulcerated * Degree, 1st, 2nd, 3rd, 4th etc. * Other (please specify) * Unable to determine Use of terms such as suspected, likely, concern for, or probable (associated with a specific diagnosis that is being evaluated, monitored, or treated as if it exists) are acceptable and can be coded in the inpatient setting, when documented at the time of discharge. Thank you, Marley August [facility], CDIS Extension: [phone] Please use your independent medical judgment in providing your response. THIS QUERY IS PART OF THE PERMANENT MEDICAL RECORD Provider Response: Other Other Diagnosis: Internal and external hemorroids
--- NOTE | 2022-12-12 12:41 | MHC.CM.PN ---
PLAN IS O.R. TODAY STILL REQUIRES TRANSFUSION. NO PLAN FOR DC
--- NOTE | 2022-12-12 14:44 | MHC.CLN ---
F/U CURRENTLY NPO FOR GI EXAM. PRIOR DIET REGULAR, BLAND WITH ENSURE TID. HAD BEEN TAKING 75-100% WHEN ABLE TO TAKE PO. FOLLOW FOR DIET ADVANCEMENT AND INTAKE.
--- NOTE | 2022-12-12 15:00 | PC.NURSE ---
Assumed care at approx 0830. Patient alert and oriented. Mother at bedside. Patient NPO from early this morning. Plan for hemorrhoidectomy at 1300. Patient aware & preop teaching completed prior to transfer to preop. Patient reports pain intermit and tolerable at this time. Hemorrhoids are bleeding small / scant amt. Report given to oncoming RN for 3pm - patient still in OR at this time.
--- NOTE | 2022-12-12 15:29 | W.PM.OPN ---
Operative Note Operative Note Date of Service: 12/12/22 Narrative: Preop diagnosis: bleeding and painful hemorrhoids, chronic liver disease Postop diagnosis:multiple internal and external hemorrhoids, with prolapse, friability, bleeding easily with apparent high pressure flow Procedure: EUA, control of bleeding hemorrhoids with figure of 8 chromic sutures Surgeon: Frankie Regalado MD The patient is a 42M with chronic liver disease, admitted with what appeared to be ETOH hepatitis, with a long hx of bleeding hemorrhoids with pain. He describes frequent episodes here while admitted and had been transfused multiple times. He started with low platelets and high INR which both have improved. In view of his recurrent episodes and pain, I scheduled him for EUA to see if he may benefit from any surgical intervention, including sphincterotomy for a fissure if this was seenn He was brought to the OR and palced inprone jacknife position under general anesthesia via ET tube. His buttocks were retracted with whide tape laterally. The perianal area was prepped and draped in the usual sterile fashion. A surgical timeout was done. He received prophylactic Cefotan. Exam of the anal orifice revealed multiple columns of external hemorrhoids and prolapsing internal hemorrhoids. These did not appear to be actively bleeding. The internal component appeared edematous and friable. I inserted the Orlando Camilo retractor to examin the entire anal circumference, and on retraction, these hemorrhoidal columns started bleeding with what appeared to be high pressure flow. There were multiple of these bleeding hemorrhoidal columns. Because of what appeared to be high pressure bleeding from these hemorrhoids, I felt that proceeding with hemorrhoidectomy would place him at risk for uncontrollable bleeding from multiple areas. I therefore identifed the points of bleeding from these columns, and applied figure of 8 chromic 3-0 sutures to control each bleeding area. There were about 4 of these that we identified and controlled. It appeared that at the end, there seemed to be adequate hemostasis. I did not remove any of his hemorrhoids. I applied a rolled Gelfoam into the anal canal for further hemostasis. I infiltrated the perianal area with Marcaine .5% and the procedure was completed. He tolerated the procedure. Estimated blood loss was about 100 cc. He was extubated and transferred to the RR with stable VS.
[2022-12-12] MEDS: fentaNYL citrate/PF 100 MCG/2 ML VIAL 50 MCG IVPUSH ×2 (16:00→16:13)
--- NOTE | 2022-12-12 16:24 | PM.EVENT ---
Event Note Date of Service: 12/12/22 Event Note: brought to OR for recurrent hemorrhoidal bleeding, possible fissure large and multiple hemorrhoidal columns, with high pressure bleeding on retraction of anus no hemorrhoidectomy done I applied figure of eight sutures to blleding area in anal canal from hemorrhoids Gelfoam packing in place control liver disease pain mgt likely to have continued recurrent bleeding mother updated Time Spent With Patient Time: Total time managing care of this patient today ____ minutes.
[2022-12-12] MEDS: Phytonadione (Vit K1) Oral 10 MG/ML AMPUL PO (18:14)
[2022-12-12] MEDS: Simethicone 80 MG TAB.CHEW PO ×2 (18:17→21:20)
[2022-12-13] MEDS: 0.9 % Sodium Chloride Flush 3 ML SYRINGE IVFLUSH ×3 (01:18→15:27)
[2022-12-13] MEDS: Piperacillin Sodium/Tazobactam 3.375 GM in 0.9 % Sodium Chloride 50 ML IV (02:49)
[2022-12-13 03:26] VITALS: BP 117/57; PULSE 80; RESP 18; TEMP 36; O2SAT 99
[2022-12-13] MEDS: Omeprazole 40 MG CAPSULE.DR PO (06:32)
[2022-12-13 06:45] LABS: Hematocrit 26.6 % (42.0-52.0); Hemoglobin 8.3 g/dl (14.0-18.0); Mean Corpuscular HGB Conc 31.2 g/dl (31.0-36.0); Mean Corpuscular Hemoglobin 26.8 pg (27.0-33.0); Mean Corpuscular Volume 85.8 fL (80.0-98.0); Mean Platelet Volume 10.9 fL (9.4-12.4); Platelet Count 169 X10*3/uL (160-400); White Blood Count 16.5 X10*3/uL (4.8-10.8)
[2022-12-13 06:50] LABS: INTERNATIONAL NORM RATIO 1.7 (0.9-1.1); Prothrombin Time 19.9 SEC (10.0-13.1)
[2022-12-13 07:09] LABS: Anion Gap 12 (12-20); Blood Urea Nitrogen 4 mg/dL (9-16); Calcium 7.7 mg/dL (8.4-10.2); Carbon Dioxide 23 mmol/L (22-29); Chloride 105 mmol/L (96-108); Creatinine Clr Calc Pharmacy 149.6; Estimated Glomerular Filt Rate > 60; Glucose Random 88 mg/dL (60-115); Potassium 3.8 mmol/L (3.3-5.1); Sodium 136 mmol/L (135-145)
[2022-12-13 07:13] LABS: Alanine Aminotransferase 32 U/L (0-40); Albumin Level 2.3 g/dL (3.5-5.0); Alkaline Phosphatase 188 U/L (39-117); Aspartate Amino Transferase 80 U/L (5-37); Bilirubin Direct 0.8 mg/dL (0.0-0.5); Bilirubin Total 1.5 mg/dL (0.0-1.0); Total Protein 4.5 g/dL (6.5-8.0)
[2022-12-13 08:00] VITALS: BP 126/73; PULSE 68; RESP 16; TEMP 36.4; O2SAT 98
[2022-12-13] MEDS: Nicotine 21 MG PATCH.TD24 TRANSDERMA (08:23)
[2022-12-13] MEDS: Thiamine HCL 100 MG TABLET PO (08:24)
[2022-12-13] MEDS: Baclofen 10 MG TABLET PO ×2 (08:25→20:07)
[2022-12-13] MEDS: Magnesium Oxide 400 MG TABLET PO ×2 (08:25→17:01)
[2022-12-13] MEDS: Simethicone 80 MG TAB.CHEW PO ×4 (08:25→20:07)
[2022-12-13] MEDS: Morphine Sulfate 4 MG/ML CARTRIDGE IVPUSH (08:30)
--- NOTE | 2022-12-13 09:33 | HO.POSTANES ---
Post Anesthesia Evaluation Post Anesthesia Evaluation Vital Signs: Vital Signs Temp Pulse Resp BP Pulse Ox O2 Del Method 12/13/22 08:00 97.6 F 68 16 126/73 98 Room Air 12/13/22 03:26 96.8 F 80 18 117/57 L 99 Room Air Anesthesia: General Endotracheal-GETA Mental Status: Awake Pain Control: Satisfactory Nausea/Vomiting: None Hydration: Adequate Anesthesia-Related Issues: No Anes. Related Issues
--- NOTE | 2022-12-13 13:31 | P.PNGS_ITS ---
Subjective Subjective Date of Service: 12/13/22 Interval history: pt said hemorrhoid area not feeling too bad now but was sore last night. using hydrocortisone and ice not bleeding as much Physical Exam Vital Signs: Vital Signs: Last Vital Signs Temp 97.6 F 12/13/22 08:00 Pulse 68 12/13/22 08:00 Resp 16 12/13/22 08:00 BP 126/73 12/13/22 08:00 Pulse Ox 98 12/13/22 08:00 O2 Del Method 12/13/22 08:00 O2 Flow Rate 5 12/08/22 16:18 BMI result Body Mass Index 18.0 Objective Data Active Medications Acetaminophen (Acetaminophen 325 Mg Tablet) 650 mg PO Q6H PRN PRN Reason: Pain, Mild (Pain Scale 1-3) Baclofen (Baclofen 10 Mg Tablet) 10 mg PO BID [facility] Last Admin: 12/13/22 08:25 Dose: 10 mg Documented By: TOIRE Hydrocortisone (Hydrocortisone 2.5 % Rectal Cr 30 Gm Tube) 1 appl [place] BID [facility] Stop: 12/13/22 21:01 Last Admin: 12/13/22 08:25 Dose: Not Given Documented By: TORIE Non-Admin Reason: post op Promethazine HCl 12.5 mg/ (Sodium Chloride) 50.5 mls @ 202 mls/hr IV ONCE PRN PRN Reason: Nausea and Vomiting Magn[facility] Oxide ([facility] 400 Mg [facility]) [facility] Last Admin: 12/13/22 08:25 Dose: 400 mg Documented By: TORIE Melatonin (Melatonin 3 Mg Tablet) 6 mg PO BEDTIME PRN PRN Reason: Insomnia Morphine Sulfate (Morphine Sulfate 4 Mg/Ml Cartridge) 4 mg IVPUSH Q3H PRN; Protocol PRN Reason: Pain, Severe (Pain Scale 7-10) Last Admin: 12/13/22 08:30 Dose: 4 mg Documented By: TORIE Nicotine (Nicotine 21 Mg Patch.Td24) 21 mg TRANSDERMA DAILY [facility] Last Admin: 12/13/22 08:23 Dose: 21 mg Documented By: TORIE Nicotine Polacrilex (Nicotine Polacrilex 2 Mg Gum) 2 mg BUCCAL Q1H PRN PRN Reason: [employer] Last Admin: 12/11/22 09:36 Dose: 2 mg Documented By: DOMINGUEZ Omeprazole (Omeprazole 40 Mg Capsule.Dr) 40 mg PO DAILY@0630 [facility] Last Admin: 12/13/22 06:32 Dose: 40 mg Documented By: DEONDRE Ondansetron HCl (Ondansetron Hcl 4 Mg/2 Ml Vial) 4 mg IVPUSH Q8H PRN PRN Reason: Nausea and Vomiting Oxycodone HCl (Oxycodone Hcl Immed Release 5 Mg Tablet) 10 mg PO ONCE PRN PRN Reason: Pain, Severe (Pain Scale 7-10) Oxycodone HCl (Oxycodone Hcl Immed Release 5 Mg Tablet) 5 mg PO ONCE PRN PRN Reason: Pain, Severe (Pain Scale 7-10) Pharmacy Consult (Consult Rx Etoh Phenob Im/Po) 1 each MISCELLANE ONCE PRN; Protocol PRN Reason: Consult order Pharmacy Consult (Consult Rx Perform Med Rec) 1 each MISCELLANE ONCE PRN PRN Reason: Consult order Simethicone (Simethicone 80 Mg Tab.Chew) 80 mg PO QIDWMHS [facility] Last Admin: 12/13/22 12:47 Dose: 80 mg Documented By: TORIE Sodium Chloride (0.9 % Sodium Chloride Flush 3 Ml Syringe) 3 ml IVFLUSH QSHIFT [facility] Last Admin: 12/13/22 08:25 Dose: 3 ml Documented By: TORIE Thiamine HCl (Thiamine Hcl 100 Mg Tablet) 100 mg PO DAILY [facility] Last Admin: 12/13/22 08:24 Dose: 100 mg Documented By: TORIE Labs 12/13/22 06:38 12/13/22 06:38 Labs: Laboratory Results - last 24 hr 12/13/22 12/13/22 12/13/22 06:38 06:38 06:38 MCV 85.8 MCH 26.8 L MCHC 31.2 RDW 23.0 H Plt Count 169 D MPV 10.9 Absolute Nucleated RBC 0.000 Nucleated RBC % (auto) 0.0 PT 19.9 H INR 1.7 H Anion Gap 12 Estim Creat Clear Calc 149.6 Estimated GFR > 60 Random Glucose 88 Calcium 7.7 L Total Bilirubin Direct Bilirubin AST ALT Alkaline Phosphatase Total Protein Albumin 12/13/22 06:38 MCV MCH MCHC RDW Plt Count MPV Absolute Nucleated RBC Nucleated RBC % (auto) PT INR Anion Gap Estim Creat Clear Calc Estimated GFR Random Glucose Calcium Total Bilirubin 1.5 H Direct Bilirubin 0.8 H AST 80 H ALT 32 Alkaline Phosphatase 188 H Total Protein 4.5 L Albumin 2.3 L Procedures Date of Service Date of Service: 12/13/22 Progress Note: A&P Assessment and plan (1) Bleeding hemorrhoids: Status: Acute Assessment and Plan: severity of these hemorrhoids prob due to his liver function - need to treat that to improve this tissue. cont with conservative care - ice and hydrocortisone cream. Time Spent With Patient Time: Total time managing care of this patient today ____ minutes. Quality Stroke Does the patient have a stroke diagnosis?: No VTE Prior VTE?: No VTE Risk Level:: Medical - moderate - high VTE Device Contraindication: Treatment Not Indicated VTE Drug Contraindication: Treatment Not Indicated
--- NOTE | 2022-12-13 14:39 | HO.PM.IMPN ---
Subjective Subjective Date of Service: 12/13/22 Interval History: Seen and evaluated this morning Improved hemorrhoidal bleeding post surgical intervention hemoglobin stable overnight No other overnight events Review of Systems Improved Weakness and lightheadedness feels more like eating bleeding from hemorrhoids Nausea, vomiting improved Leg cramps Review of Systems: Yes all other systems are reviewed and are negative Physical Exam Vital Signs: Vital Signs: Last Vital Signs Temp 97.6 F 12/13/22 08:00 Pulse 68 12/13/22 08:00 Resp 16 12/13/22 08:00 BP 126/73 12/13/22 08:00 Pulse Ox 98 12/13/22 08:00 O2 Del Method 12/13/22 08:00 O2 Flow Rate 5 12/08/22 16:18 BMI result Body Mass Index 18.0 Const: Other: Gen: in no acute distress Neck: supple Lungs: clear to auscultation bilaterally Heart: regular rate and rhythm, no murmurs Abd: soft, non-tender, slightly distended, mild right upper quadrant tenderness with deep palpation Ext: no edema Skin: warm/well-perfused Neuro: alert and oriented x3, no focal findings Psych: appropriate affect Objective Data Active Medications Acetaminophen (Acetaminophen 325 Mg Tablet) 650 mg PO Q6H PRN PRN Reason: Pain, Mild (Pain Scale 1-3) Baclofen (Baclofen 10 Mg Tablet) 10 mg PO BID [facility] Last Admin: 12/13/22 08:25 Dose: 10 mg Documented By: TORIE Hydrocortisone (Hydrocortisone 2.5 % Rectal Cr 30 Gm Tube) 1 appl [place] BID [facility] Stop: 12/13/22 21:01 Last Admin: 12/13/22 08:25 Dose: Not Given Documented By: TORIE Non-Admin Reason: post op Promethazine HCl 12.5 mg/ (Sodium Chloride) 50.5 mls @ 202 mls/hr IV ONCE PRN PRN Reason: Nausea and Vomiting Magnesium Oxide (Magnesium [facility]ide 400 Mg Tablet) [facility] Last Admin: 12/13/22 08:25 Dose: 400 mg Documented By: TORIE Melatonin (Melatonin 3 Mg Tablet) 6 mg PO BEDTIME PRN PRN Reason: Insomnia Morphine Sulfate (Morphine Sulfate 4 Mg/Ml Cartridge) 4 mg IVPUSH Q3H PRN; Protocol PRN Reason: Pain, Severe (Pain Scale 7-10) Last Admin: 12/13/22 08:30 Dose: 4 mg Documented By: TORIE Nicotine (Nicotine 21 Mg Patch.Td24) 21 mg TRANSDERMA DAILY [facility] Last Admin: 12/13/22 08:23 Dose: 21 mg Documented By: TORIE Nicotine Polacrilex (Nicotine Polacrilex 2 Mg Gum) 2 mg BUCCAL Q1H PRN PRN Reason: [facility] Last Admin: 12/11/22 09:36 Dose: 2 mg Documented By: DOMINGUEZ Omeprazole (Omeprazole 40 Mg Capsule.Dr) 40 mg PO DAILY@0630 [facility] Last Admin: 12/13/22 06:32 Dose: 40 mg Documented By: DEONDRE Ondansetron HCl (Ondansetron Hcl 4 Mg/2 Ml Vial) 4 mg IVPUSH Q8H PRN PRN Reason: Nausea and Vomiting Oxycodone HCl (Oxycodone Hcl Immed Release 5 Mg Tablet) 10 mg PO ONCE PRN PRN Reason: Pain, Severe (Pain Scale 7-10) Oxycodone HCl (Oxycodone Hcl Immed Release 5 Mg Tablet) 5 mg PO ONCE PRN PRN Reason: Pain, Severe (Pain Scale 7-10) Pharmacy Consult (Consult Rx Etoh Phenob Im/Po) 1 each MISCELLANE ONCE PRN; Protocol PRN Reason: Consult order Pharmacy Consult (Consult Rx Perform Med Rec) 1 each MISCELLANE ONCE PRN PRN Reason: Consult order Simethicone (Simethicone 80 Mg Tab.Chew) 80 mg PO QIDWMHS [facility] Last Admin: 12/13/22 12:47 Dose: 80 mg Documented By: TORIE Sodium Chloride (0.9 % Sodium Chloride Flush 3 Ml Syringe) 3 ml IVFLUSH QSHIFT [facility] Last Admin: 12/13/22 08:25 Dose: 3 ml Documented By: TORIE Thiamine HCl (Thiamine Hcl 100 Mg Tablet) 100 mg PO DAILY [facility] Last Admin: 12/13/22 08:24 Dose: 100 mg Documented By: TORIE Labs 12/13/22 06:38 12/13/22 06:38 Labs: Laboratory Results - last 24 hr 12/13/22 12/13/22 12/13/22 06:38 06:38 06:38 MCV 85.8 MCH 26.8 L MCHC 31.2 RDW 23.0 H Plt Count 169 D MPV 10.9 Absolute Nucleated RBC 0.000 Nucleated RBC % (auto) 0.0 PT 19.9 H INR 1.7 H Anion Gap 12 Estim Creat Clear Calc 149.6 Estimated GFR > 60 Random Glucose 88 Calcium 7.7 L Total Bilirubin Direct Bilirubin AST ALT Alkaline Phosphatase Total Protein Albumin 12/13/22 06:38 MCV MCH MCHC RDW Plt Count MPV Absolute Nucleated RBC Nucleated RBC % (auto) PT INR Anion Gap Estim Creat Clear Calc Estimated GFR Random Glucose Calcium Total Bilirubin 1.5 H Direct Bilirubin 0.8 H AST 80 H ALT 32 Alkaline Phosphatase 188 H Total Protein 4.5 L Albumin 2.3 L Assessment and Plan (1) Bleeding hemorrhoids: Status: Acute (2) Alcohol use disorder, severe, dependence: Status: Acute (3) Acute anemia: Status: Acute (4) Acute GI bleeding: Status: Acute Plan hospital d#6 42yo M with AUD sent in by PCP for anemia, admitted for EtOH withdrawal and hematochezia # SIRS in retrospect, CT findings of colitis and cholecystitis likely due to hypoalbuminemia/hepatitis, not due to sepsis from actual colitis and/or cholecystitis. To discuss with Gen Surg. pip-regis 3-; discontinue and monitor # symptomatic anemia due to GI blood loss, hemorroidal bleeding EGD + C-scope 12/08/22: Duodenitis, Hiatal hernia, Nonobstructing ring at the EG Junction, No varices, No blood nor coffee grounds in the UGI tract Colonoscopy: Friable, oozing hemorrhoid, No colitis, polyps, nor angiodysplasias Transfuse 1 more unit of blood , keep Hb >8 Hb stable, continue to monitor H and H # hemorrhoidal bleeding Surgery following, Continue rectal HC. Surgery did exploratory colonoscopy with suturing many of hemorrhoids but could not remove them surgically Pain Management, keep stool soft # acute EtOH hepatitis no steroids indicated trace ascites on imaging, not enough to tap # hiccups trial of baclofen # duodenitis PO PPI tolerating advanced diet # coagulopathy trial of vitamin K, recheck INR # thrombocytopenia likely due to EtOH. monitor CBC; avoid heparin. Platelet count improving. # hypoK replete PO, recheck level in AM # hypoMg replete IV and start PO maintenance repletion, recheck leve in AM # EtOH withdrawal finished phenobarbital taper, B-vitamins # AUD Addiction Medicine consultation # tobacco abuse NRT # VTE ppx: SCDs, no heparin given low platelets # dispo: possibly home in 1-2d In my clinical judgment, the patient requires continued inpatient hospitalization for the following reasons: ongoing bleeding w Anemia, need of transfusion and possible surgical intervention Time Spent With Patient Time: Total time managing care of this patient today ____ minutes. Quality Stroke Does the patient have a stroke diagnosis?: No VTE Prior VTE?: No VTE Risk Level:: Medical - moderate - high VTE Device Contraindication: Treatment Not Indicated VTE Drug Contraindication: Treatment Not Indicated
[2022-12-13] MEDS: Phytonadione (Vit K1) Oral 10 MG/ML AMPUL PO (15:26)
[2022-12-13 15:31] VITALS: BP 110/66; PULSE 90; RESP 16; TEMP 36.8; O2SAT 98
--- NOTE | 2022-12-13 15:44 | MHC.RECOVRN ---
This medical underwriter cheked in w/ patient, patient was alert, sitting up in bed, mother at bedside. Patient reports doing ok today, no further questions/concerns at this time for Addiction/Recovery team.
[2022-12-13 20:00] VITALS: BP 116/70; PULSE 95; RESP 15; TEMP 36.9; O2SAT 99
[2022-12-13] MEDS: Hydrocortisone 2.5 % Rectal Cr 30 GM TUBE 1 APPL PR (20:08)
[2022-12-14] VITALS (7 sets, daily range): BP systolic 102–121; BP diastolic 59–71; PULSE 80–109; RESP 16–86; TEMP 36.9–37.4; O2SAT 96–99
[2022-12-14] MEDS: 0.9 % Sodium Chloride Flush 3 ML SYRINGE IVFLUSH ×3 (00:03→15:40)
[2022-12-14] MEDS: Omeprazole 40 MG CAPSULE.DR PO (06:13)
[2022-12-14 06:14] LABS: Hematocrit 25.9 % (42.0-52.0); Hemoglobin 7.9 g/dl (14.0-18.0); Mean Corpuscular HGB Conc 30.5 g/dl (31.0-36.0); Mean Corpuscular Hemoglobin 26.2 pg (27.0-33.0); Platelet Count 210 X10*3/uL (160-400); Red Blood Count 3.01 X10*6/uL (4.60-5.80); Red Cell Distribution Width 22.9 % (11.0-16.0); White Blood Count 18.8 X10*3/uL (4.8-10.8)
[2022-12-14] MEDS: Thiamine HCL 100 MG TABLET PO (08:15)
[2022-12-14] MEDS: Simethicone 80 MG TAB.CHEW PO ×4 (08:15→20:31)
[2022-12-14] MEDS: Baclofen 10 MG TABLET PO ×2 (08:15→20:30)
[2022-12-14] MEDS: Magnesium Oxide 400 MG TABLET PO ×2 (08:15→15:55)
[2022-12-14] MEDS: Phytonadione (Vit K1) Oral 10 MG/ML AMPUL PO (08:15)
[2022-12-14] MEDS: Nicotine 21 MG PATCH.TD24 TRANSDERMA (08:15)
[2022-12-14] MEDS: Morphine Sulfate 4 MG/ML CARTRIDGE IVPUSH ×2 (08:31→14:27)
--- NOTE | 2022-12-14 10:30 | HO.PM.IMPN ---
Subjective Subjective Date of Service: 12/14/22 Interval History: Seen and evaluated this morning Still reporting bleeding was less than before, hemoglobin dropped to 7.9 Pain is fairly controlled now No other overnight events Review of Systems Improved Weakness and lightheadedness feels more like eating bleeding from hemorrhoids Nausea, vomiting improved Improved Leg cramps Physical Exam Vital Signs: Vital Signs: Last Vital Signs Temp 98.6 F 12/14/22 10:24 Pulse 99 12/14/22 10:24 Resp 16 12/14/22 10:24 BP 114/67 12/14/22 10:24 Pulse Ox 99 12/14/22 07:44 O2 Del Method 12/14/22 07:44 O2 Flow Rate 5 12/08/22 16:18 BMI result Body Mass Index 18.0 Const: Other: Gen: in no acute distress Neck: supple Lungs: clear to auscultation bilaterally Heart: regular rate and rhythm, no murmurs Abd: soft, non-tender, slightly distended with minimal amount of ascites, no tenderness Ext: no edema Skin: warm/well-perfused Neuro: alert and oriented x3, no focal findings Psych: appropriate affect Objective Data Active Medications Acetaminophen (Acetaminophen 325 Mg Tablet) 650 mg PO Q6H PRN PRN Reason: Pain, Mild (Pain Scale 1-3) Baclofen (Baclofen 10 Mg Tablet) 10 mg PO BID [facility] Last Admin: 12/14/22 08:15 Dose: 10 mg Documented By: TORIE Promethazine HCl 12.5 mg/ (Sodium Chloride) 50.5 mls @ 202 mls/hr IV ONCE PRN PRN Reason: Nausea and Vomiting Magnesium Oxide (Magnesium [facility]ide 400 Mg Tablet) [facility] Last Admin: 12/14/22 08:15 Dose: 400 mg Documented By: TORIE Melatonin (Melatonin 3 Mg Tablet) 6 mg PO BEDTIME PRN PRN Reason: Insomnia Morphine Sulfate (Morphine Sulfate 4 Mg/Ml Cartridge) 4 mg IVPUSH Q3H PRN; Protocol PRN Reason: Pain, Severe (Pain Scale 7-10) Last Admin: 12/14/22 08:31 Dose: 4 mg Documented By: TORIE Nicotine (Nicotine 21 Mg Patch.Td24) 21 mg TRANSDERMA DAILY [facility] Last Admin: 12/14/22 08:15 Dose: 21 mg Documented By: TORIE Nicotine Polacrilex (Nicotine Polacrilex 2 Mg Gum) 2 mg BUCCAL Q1H 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 Admin: 12/11/22 09:36 Dose: 2 mg Documented By: DOMINGUEZ Omeprazole (Omeprazole 40 Mg Capsule.Dr) 40 mg PO DAILY@0630 [facility] Last Admin: 12/14/22 06:13 Dose: 40 mg Documented By: DEONDRE Ondansetron HCl (Ondansetron Hcl 4 Mg/2 Ml Vial) 4 mg IVPUSH Q8H PRN PRN Reason: Nausea and Vomiting Oxycodone HCl (Oxycodone Hcl Immed Release 5 Mg Tablet) 10 mg PO ONCE PRN PRN Reason: Pain, Severe (Pain Scale 7-10) Oxycodone HCl (Oxycodone Hcl Immed Release 5 Mg Tablet) 5 mg PO ONCE PRN PRN Reason: Pain, Severe (Pain Scale 7-10) Pharmacy Consult (Consult Rx Etoh Phenob Im/Po) 1 each MISCELLANE ONCE PRN; Protocol PRN Reason: Consult order Pharmacy Consult (Consult Rx Perform Med Rec) 1 each MISCELLANE ONCE PRN PRN Reason: Consult order Simethicone (Simethicone 80 Mg Tab.Chew) 80 mg PO QIDWMHS [facility] Last Admin: 12/14/22 08:15 Dose: 80 mg Documented By: TORIE Sodium Chloride (0.9 % Sodium Chloride Flush 3 Ml Syringe) 3 ml IVFLUSH QSHIFT [facility] Last Admin: 12/14/22 08:15 Dose: 3 ml Documented By: TORIE Thiamine HCl (Thiamine Hcl 100 Mg Tablet) 100 mg PO DAILY [facility] Last Admin: 12/14/22 08:15 Dose: 100 mg Documented By: TORIE Labs 12/14/22 05:42 12/13/22 06:38 Labs: Laboratory Results - last 24 hr 12/11/22 12/14/22 08:43 05:42 MCV 86.0 MCH 26.2 L MCHC 30.5 L RDW 22.9 H Plt Count 210 MPV 12.0 Absolute Nucleated RBC 0.000 Nucleated RBC % (auto) 0.0 Blood Type A Positive Antibody Screen NEGATIVE Crossmatch See Detail Assessment and Plan (1) Bleeding hemorrhoids: Status: Acute (2) Alcohol use disorder, severe, dependence: Status: Acute (3) Acute anemia: Status: Acute (4) Alcohol withdrawal: Status: Acute (5) Acute on chronic blood loss anemia: Status: Acute Plan hospital d#6 42yo M with AUD sent in by PCP for anemia, admitted for EtOH withdrawal and hematochezia # SIRS in retrospect, CT findings of colitis and cholecystitis likely due to hypoalbuminemia/hepatitis, not due to sepsis from actual colitis and/or cholecystitis. To discuss with Gen Surg. pip-regis 01/02-; discontinue and monitor # symptomatic anemia due to GI blood loss, hemorroidal bleeding EGD + C-scope 12/08/22: Duodenitis, Hiatal hernia, Nonobstructing ring at the EG Junction, No varices, No blood nor coffee grounds in the UGI tract Colonoscopy: Friable, oozing hemorrhoid, No colitis, polyps, nor angiodysplasias To Transfuse 1 more unit of blood , keep Hb >8 Hb stable, continue to monitor H and H # hemorrhoidal bleeding Surgery following, Continue rectal HC. Surgery did exploratory colonoscopy with suturing many of hemorrhoids but could not remove them surgically Pain Management, keep stool soft # acute EtOH hepatitis no steroids indicated trace ascites on imaging, not enough to tap # hiccups trial of baclofen # duodenitis PO PPI tolerating advanced diet # coagulopathy trial of vitamin K, recheck INR # thrombocytopenia likely due to EtOH. monitor CBC; avoid heparin. Platelet count improving. # hypoK replete PO, recheck level in AM # hypoMg replete IV and start PO maintenance repletion, recheck leve in AM # EtOH withdrawal finished phenobarbital taper, B-vitamins # AUD Addiction Medicine consultation # tobacco abuse NRT # VTE ppx: SCDs, no heparin given low platelets # dispo: possibly home in 1-2d In my clinical judgment, the patient requires continued inpatient hospitalization for the following reasons: ongoing bleeding w Anemia, need of transfusion and possible surgical intervention if continues to bleed Time Spent With Patient Time: Total time managing care of this patient today ____ minutes. Quality Stroke Does the patient have a stroke diagnosis?: No VTE Prior VTE?: No VTE Risk Level:: Medical - moderate - high VTE Device Contraindication: Treatment Not Indicated VTE Drug Contraindication: Treatment Not Indicated
--- NOTE | 2022-12-14 14:14 | MHC.RECOVRN ---
This insurance underwriter met w/ patient to check in, patient was in recliner by window, sitting upright. Patient states is doing ok, feeling ok, patient reports no questions/concerns at this time.
--- NOTE | 2022-12-14 15:34 | PC.NURSE ---
Patient unable to make it to bathroom and had incontinence of brown mushy stool. Large amount blood noted in toilet. Has had light smearing of blood from rectum through day. Dr. Lennon notified. Received PO Vitamin K this AM and 1 unit of blood today.
--- NOTE | 2022-12-14 17:36 | PC.NURSE ---
patient had a mod. amt liquid stool bloody,Dr. Rios made aware,will monitor
[2022-12-15] MEDS: 0.9 % Sodium Chloride Flush 3 ML SYRINGE IVFLUSH ×3 (00:06→15:47)
[2022-12-15 04:00] VITALS: BP 116/55; PULSE 75; RESP 18; TEMP 36.7; O2SAT 96
[2022-12-15] MEDS: Omeprazole 40 MG CAPSULE.DR PO (05:48)
[2022-12-15 05:52] LABS: Hematocrit 26.1 % (42.0-52.0); Hemoglobin 8.3 g/dl (14.0-18.0); Mean Corpuscular HGB Conc 31.8 g/dl (31.0-36.0); Mean Corpuscular Hemoglobin 26.9 pg (27.0-33.0); Mean Corpuscular Volume 84.7 fL (80.0-98.0); Mean Platelet Volume 11.4 fL (9.4-12.4); Platelet Count 165 X10*3/uL (160-400); Red Blood Count 3.08 X10*6/uL (4.60-5.80); Red Cell Distribution Width 21.2 % (11.0-16.0); White Blood Count 16.9 X10*3/uL (4.8-10.8)
--- NOTE | 2022-12-15 06:16 | PC.NURSE ---
pt had bloody stool again, Dr. Poole notified, keep monitoring H&H, and symptoms.
[2022-12-15 08:00] VITALS: BP 107/62; PULSE 88; RESP 18; TEMP 36.6; O2SAT 98
--- NOTE | 2022-12-15 08:14 | P.PNGS_ITS ---
Subjective Subjective Date of Service: 12/15/22 Interval history: Still with bleeding with bowel movements More comfortable with regards to pain now Physical Exam Vital Signs: Vital Signs: Last Vital Signs Temp 98.1 F 12/15/22 04:00 Pulse 75 12/15/22 04:00 Resp 18 12/15/22 04:00 BP 116/55 L 12/15/22 04:00 Pulse Ox 96 12/15/22 04:00 O2 Del Method 12/15/22 04:00 O2 Flow Rate 5 12/08/22 16:18 BMI result Body Mass Index 18.0 Const: General: comfortable and no acute distress Resp: Effort & Inspection: normal respiratory effort Cardio: Rate: regular rate GI: Other: Rectal exam - large hemorrhoids with some prolapse of internal component, active bleeding at this time, no cellulitis, no induration, no thrombosis, no discharge Objective Data Active Medications Acetaminophen (Acetaminophen 325 Mg Tablet) 650 mg PO Q6H PRN PRN Reason: Pain, Mild (Pain Scale 1-3) Baclofen (Baclofen 10 Mg Tablet) 10 mg PO BID [facility] Last Admin: 12/14/22 20:30 Dose: 10 mg Documented By: QUYNH Promethazine HCl 12.5 mg/ (Sodium Chloride) 50.5 mls @ 202 mls/hr IV ONCE PRN PRN Reason: Nausea and Vomiting Magnesium Oxide (Magnesium [facility] 400 Mg Tablet) [facility] Last Admin: 12/14/22 15:55 Dose: 400 mg Documented By: QUYNH Melatonin (Melatonin 3 Mg Tablet) 6 mg PO BEDTIME PRN PRN Reason: Insomnia Morphine Sulfate (Morphine Sulfate 4 Mg/Ml Cartridge) 4 mg IVPUSH Q3H PRN; Protocol PRN Reason: Pain, Severe (Pain Scale 7-10) Last Admin: 12/14/22 14:27 Dose: 4 mg Documented By: TORIE Nicotine (Nicotine 21 Mg Patch.Td24) 21 mg TRANSDERMA DAILY [facility] Last Admin: 12/14/22 08:15 Dose: 21 mg Documented By: TORIE Nicotine Polacrilex (Nicotine Polacrilex 2 Mg Gum) 2 mg BUCCAL Q1H 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 Last Admin: 12/11/22 09:36 Dose: 2 mg Documented By: DOMINGUEZ Omeprazole (Omeprazole 40 Mg Capsule.Dr) 40 mg PO DAILY@0630 [facility] Last Admin: 12/15/22 05:48 Dose: 40 mg Documented By: MATILDE Ondansetron HCl (Ondansetron Hcl 4 Mg/2 Ml Vial) 4 mg IVPUSH Q8H PRN PRN Reason: Nausea and Vomiting Oxycodone HCl (Oxycodone Hcl Immed Release 5 Mg Tablet) 10 mg PO ONCE PRN PRN Reason: Pain, Severe (Pain Scale 7-10) Oxycodone HCl (Oxycodone Hcl Immed Release 5 Mg Tablet) 5 mg PO ONCE PRN PRN Reason: Pain, Severe (Pain Scale 7-10) Pharmacy Consult (Consult Rx Etoh Phenob Im/Po) 1 each MISCELLANE ONCE PRN; Protocol PRN Reason: Consult order Pharmacy Consult (Consult Rx Perform Med Rec) 1 each MISCELLANE ONCE PRN PRN Reason: Consult order Simethicone (Simethicone 80 Mg Tab.Chew) 80 mg PO QIDWMHS [facility] Last Admin: 12/14/22 20:31 Dose: 80 mg Documented By: QUYNH Sodium Chloride (0.9 % Sodium Chloride Flush 3 Ml Syringe) 3 ml IVFLUSH QSHIFT [facility] Last Admin: 12/15/22 00:06 Dose: 3 ml Documented By: MATILDE Thiamine HCl (Thiamine Hcl 100 Mg Tablet) 100 mg PO DAILY [facility] Last Admin: 12/14/22 08:15 Dose: 100 mg Documented By: TORIE Labs 12/15/22 05:24 12/13/22 06:38 Labs: Laboratory Results - last 24 hr 12/11/22 12/15/22 08:43 05:24 MCV 84.7 MCH 26.9 L MCHC 31.8 RDW 21.2 H Plt Count 165 MPV 11.4 Absolute Nucleated RBC 0.000 Nucleated RBC % (auto) 0.0 Blood Type A Positive Antibody Screen NEGATIVE Crossmatch See Detail Procedures Date of Service Date of Service: 12/15/22 Progress Note: A&P Assessment and plan (1) Bleeding hemorrhoids: Status: Acute Assessment and Plan: Still with periodic bleeding Over-sewing of multiple bleeding areas of hemorrhoids done last Thursday High pressure bleeding noted so no hemorrhoidectomy done Likely related to liver disease Continue to monitor issues as needed for now Hopefully we can achieve some improvement with his bleeding months liver fun ction improves Time Spent With Patient Time: Total time managing care of this patient today ____ minutes. Quality Stroke Does the patient have a stroke diagnosis?: No VTE Prior VTE?: No VTE Risk Level:: Medical - moderate - high VTE Device Contraindication: Treatment Not Indicated VTE Drug Contraindication: Treatment Not Indicated
[2022-12-15] MEDS: Nicotine 21 MG PATCH.TD24 TRANSDERMA (09:00)
[2022-12-15] MEDS: Simethicone 80 MG TAB.CHEW PO ×4 (09:00→21:08)
[2022-12-15] MEDS: Baclofen 10 MG TABLET PO ×2 (09:00→21:08)
[2022-12-15] MEDS: Magnesium Oxide 400 MG TABLET PO ×2 (09:00→17:29)
[2022-12-15] MEDS: Thiamine HCL 100 MG TABLET PO (09:00)
[2022-12-15] MEDS: Morphine Sulfate 4 MG/ML CARTRIDGE IVPUSH ×2 (09:19→15:47)
--- NOTE | 2022-12-15 10:49 | MHC.CLN ---
F/U DIET=REGULAR. ENSURE TID PROVIDES ADDITIONAL 1050 KCALS, 60 G PROTEIN. INTAKE X 3 DAYS VARIABLE, 50-100%. RECEIVED TX FOR BLEEDING HEMORRHOIDS 12/12. CONTINUE CURRENT DIET AND SUPPLEMENT. FOLLOW FOR PO INTAKE AND DIET TOLERANCE.
--- NOTE | 2022-12-15 11:57 | P.PNIM_ITS ---
Subjective Subjective Date of Service: 12/15/22 Interval History: Seen and evaluated this morning Had large bm with significat bleeding this morning reporting bleeding still there but less than before, hemoglobin improved to 8.3 after transfusion Pain is fairly controlled now No other overnight events Review of Systems Improved Weakness and lightheadedness feels more like eating bleeding from hemorrhoids Nausea, vomiting improved Improved Leg cramps Physical Exam Vital Signs: Vital Signs: Last Vital Signs Temp 97.9 F 12/15/22 08:00 Pulse 88 12/15/22 08:00 Resp 18 12/15/22 08:00 BP 107/62 12/15/22 08:00 Pulse Ox 98 12/15/22 08:00 O2 Del Method 12/15/22 08:00 O2 Flow Rate 5 12/08/22 16:18 BMI result Body Mass Index 18.0 Const: Other: Gen: in no acute distress Neck: supple Lungs: clear to auscultation bilaterally Heart: regular rate and rhythm, no murmurs Abd: soft, non-tender, slightly distended with minimal amount of ascites, no tenderness Ext: no edema Skin: warm/well-perfused Neuro: alert and oriented x3, no focal findings Psych: appropriate affect Objective Data Active Medications Acetaminophen (Acetaminophen 325 Mg Tablet) 650 mg PO Q6H PRN PRN Reason: Pain, Mild (Pain Scale 1-3) Baclofen (Baclofen 10 Mg Tablet) 10 mg PO BID [facility] Last Admin: 12/15/22 09:00 Dose: 10 mg Documented By: JANELL Promethazine HCl 12.5 mg/ (Sodium Chloride) 50.5 mls @ 202 mls/hr IV ONCE PRN PRN Reason: Nausea and Vomiting [facility] ([facility] Last Admin: 12/15/22 09:00 Dose: 400 mg Documented By: JANELL Melatonin (Melatonin 3 Mg Tablet) 6 mg PO BEDTIME PRN PRN Reason: Insomnia Morphine Sulfate (Morphine Sulfate 4 Mg/Ml Cartridge) 4 mg IVPUSH Q3H PRN; Protocol PRN Reason: Pain, Severe (Pain Scale 7-10) Last Admin: 12/15/22 09:19 Dose: 4 mg Documented By: JANELL Nicotine (Nicotine 21 Mg Patch.Td24) 21 mg TRANSDERMA DAILY [facility] Last Admin: 12/15/22 09:00 Dose: 21 mg Documented By: JANELL Nicotine Polacrilex (Nicotine Polacrilex 2 Mg Gum) 2 mg BUCCAL Q1H PRN PRN Reason: maru [facility] Last Admin: 12/11/22 09:36 Dose: 2 mg Documented By: DOMINGUEZ Omeprazole (Omeprazole 40 Mg Capsule.Dr) 40 mg PO DAILY@0630 [facility] Last Admin: 12/15/22 05:48 Dose: 40 mg Documented By: MATILDE Ondansetron HCl (Ondansetron Hcl 4 Mg/2 Ml Vial) 4 mg IVPUSH Q8H PRN PRN Reason: Nausea and Vomiting Oxycodone HCl (Oxycodone Hcl Immed Release 5 Mg Tablet) 10 mg PO ONCE PRN PRN Reason: Pain, Severe (Pain Scale 7-10) Oxycodone HCl (Oxycodone Hcl Immed Release 5 Mg Tablet) 5 mg PO ONCE PRN PRN Reason: Pain, Severe (Pain Scale 7-10) Pharmacy Consult (Consult Rx Etoh Phenob Im/Po) 1 each MISCELLANE ONCE PRN; Protocol PRN Reason: Consult order Pharmacy Consult (Consult Rx Perform Med Rec) 1 each MISCELLANE ONCE PRN PRN Reason: Consult order Simethicone (Simethicone 80 Mg Tab.Chew) 80 mg PO QIDWMHS [facility] Last Admin: 12/15/22 09:00 Dose: 80 mg Documented By: JANELL Sodium Chloride (0.9 % Sodium Chloride Flush 3 Ml Syringe) 3 ml IVFLUSH QSHIFT [facility] Last Admin: 12/15/22 08:59 Dose: 3 ml Documented By: JANELL Thiamine HCl (Thiamine Hcl 100 Mg Tablet) 100 mg PO DAILY [facility] Last Admin: 12/15/22 09:00 Dose: 100 mg Documented By: JANELL Labs 12/15/22 05:24 12/13/22 06:38 Labs: Laboratory Results - last 24 hr 12/11/22 12/15/22 08:43 05:24 MCV 84.7 MCH 26.9 L MCHC 31.8 RDW 21.2 H Plt Count 165 MPV 11.4 Absolute Nucleated RBC 0.000 Nucleated RBC % (auto) 0.0 Crossmatch See Detail Assessment and Plan (1) Acute on chronic blood loss anemia: Status: Acute (2) Bleeding hemorrhoids: Status: Acute (3) Alcohol use disorder, severe, dependence: Status: Acute (4) Alcohol withdrawal: Status: Acute Plan hospital d#6 42yo M with AUD sent in by PCP for anemia, admitted for EtOH withdrawal and hematochezia # symptomatic anemia due to GI blood loss, hemorroidal bleeding EGD + C-scope 12/08/22: Duodenitis, Hiatal hernia, Nonobstructing ring at the EG Junction, No varices, No blood nor coffee grounds in the UGI tract Colonoscopy: Friable, oozing hemorrhoid, No colitis, polyps, nor angiodysplasias To Transfuse 1 more unit of blood , keep Hb >8 Surgery did exploratory colonoscopy with suturing many of hemorrhoids but could not remove them surgically Pain Management, keep stool soft Surgery following, Continue rectal HC. day by day approach # acute EtOH hepatitis no steroids indicated trace ascites on imaging, not enough to tap # SIRS in retrospect, CT findings of colitis and cholecystitis likely due to hypoalbuminemia/hepatitis, not due to sepsis from actual colitis and/or cholecystitis. To discuss with Gen Surg. pip-regis /-; discontinue and monitor # hiccups trial of baclofen # duodenitis PO PPI tolerating advanced diet # coagulopathy trial of vitamin K, recheck INR # thrombocytopenia likely due to EtOH. monitor CBC; avoid heparin. Platelet count improved back to normal # hypoK replete PO # hypoMg PO maintenance repletion # EtOH withdrawal finished phenobarbital taper, B-vitamins # AUD Addiction Medicine consultation # tobacco abuse NRT # VTE ppx: SCDs, no heparin given low platelets In my clinical judgment, the patient requires continued inpatient hospitalization for the following reasons: ongoing bleeding w Anemia, need of transfusion and possible surgical intervention if continues to bleed Time Spent With Patient Time: Total time managing care of this patient today ____ minutes. Quality Stroke Does the patient have a stroke diagnosis?: No VTE Prior VTE?: No VTE Risk Level:: Medical - moderate - high VTE Device Contraindication: Treatment Not Indicated VTE Drug Contraindication: Treatment Not Indicated
[2022-12-15] MEDS: oxyCODONE HCl Immed Release 5 MG TABLET 10 MG PO (12:01)
[2022-12-15] MEDS: Acetaminophen 325 MG TABLET 650 MG PO (12:01)
[2022-12-15 15:45] VITALS: BP 115/63; PULSE 100; RESP 17; TEMP 36.5; O2SAT 97
--- NOTE | 2022-12-15 16:30 | MHC.CM.PN ---
OF MEDICAL ROUNDS, PATIENT STILL WITH BLEED. NO PLAN FOR DC TODAY
[2022-12-15 19:10] VITALS: BP 113/73; PULSE 100; RESP 18; TEMP 37; O2SAT 98
[2022-12-16] MEDS: 0.9 % Sodium Chloride Flush 3 ML SYRINGE IVFLUSH ×3 (00:24→16:49)
[2022-12-16 04:11] VITALS: BP 121/63; PULSE 75; RESP 18; TEMP 36.6; O2SAT 98
[2022-12-16] MEDS: Omeprazole 40 MG CAPSULE.DR PO (05:42)
[2022-12-16 06:16] LABS: Hemoglobin 8.5 g/dl (14.0-18.0); Mean Corpuscular HGB Conc 31.5 g/dl (31.0-36.0); Mean Corpuscular Hemoglobin 26.7 pg (27.0-33.0); Mean Corpuscular Volume 84.9 fL (80.0-98.0); Mean Platelet Volume 11.3 fL (9.4-12.4); Platelet Count 170 X10*3/uL (160-400); Red Blood Count 3.18 X10*6/uL (4.60-5.80); Red Cell Distribution Width 21.2 % (11.0-16.0); White Blood Count 16.6 X10*3/uL (4.8-10.8)
[2022-12-16 06:35] LABS: Anion Gap 11 (12-20); Blood Urea Nitrogen 6 mg/dL (9-16); Calcium 7.8 mg/dL (8.4-10.2); Carbon Dioxide 25 mmol/L (22-29); Chloride 105 mmol/L (96-108); Creatinine Clr Calc Pharmacy 161.1; Estimated Glomerular Filt Rate > 60; Glucose Random 95 mg/dL (60-115); Potassium 4.2 mmol/L (3.3-5.1); Sodium 137 mmol/L (135-145)
[2022-12-16 08:00] VITALS: BP 108/64; PULSE 94; RESP 18; TEMP 36.8; O2SAT 100
[2022-12-16] MEDS: Morphine Sulfate 4 MG/ML CARTRIDGE IVPUSH ×3 (08:12→17:04)
[2022-12-16] MEDS: Simethicone 80 MG TAB.CHEW PO ×4 (08:17→20:31)
[2022-12-16] MEDS: Magnesium Oxide 400 MG TABLET PO ×2 (09:09→16:50)
[2022-12-16 09:27] LABS: VBG Base Excess -4.9 mmol/L; VBG HCO3 17 mmol/L (22-26); VBG pCO2 23 mmHg; VBG pH 7.48 (7.32-7.43); VBG pO2 39 mmHg
[2022-12-16] MEDS: Nicotine 21 MG PATCH.TD24 TRANSDERMA (09:31)
[2022-12-16] MEDS: Baclofen 10 MG TABLET PO (09:31)
[2022-12-16] MEDS: Thiamine HCL 100 MG TABLET PO (09:31)
--- NOTE | 2022-12-16 12:01 | HO.PM.IMPN ---
Subjective Subjective Date of Service: 12/16/22 Interval History: had blood in stool last night, but not today Physical Exam Vital Signs: Vital Signs: Last Vital Signs Temp 98.3 F 12/16/22 08:00 Pulse 94 12/16/22 08:00 Resp 18 12/16/22 08:00 BP 108/64 12/16/22 08:00 Pulse Ox 100 12/16/22 08:00 O2 Del Method 12/16/22 08:00 O2 Flow Rate 5 12/08/22 16:18 BMI result Body Mass Index 18.0 General: AO X 3, no acute distress Resp: CTA bilateral, no accessory muscles used CVS: S1,S2,RRR GI: soft, non tender, non distended Neuro: motor grossly intact, alert Psych: appropriate affect, appropriate insight Objective Data Active Medications Acetaminophen (Acetaminophen 325 Mg Tablet) 650 mg PO Q6H PRN PRN Reason: Pain, Mild (Pain Scale 1-3) Last Admin: 12/15/22 12:01 Dose: 650 mg Documented By: ANKIT Baclofen (Baclofen 10 Mg Tablet) 10 mg PO BID [facility] Last Admin: 12/16/22 09:31 Dose: 10 mg Documented By: NATA Promethazine HCl 12.5 mg/ (Sodium Chloride) 50.5 mls @ 202 mls/hr IV ONCE PRN PRN Reason: Nausea and Vomiting Magnesium Oxide ([facility] Mg [facility]) [facility] Admin: 12/16/22 09:09 Dose: 400 mg Documented By: NATA Melatonin (Melatonin 3 Mg Tablet) 6 mg PO BEDTIME PRN PRN Reason: Insomnia Morphine Sulfate (Morphine Sulfate 4 Mg/Ml Cartridge) 4 mg IVPUSH Q3H PRN; Protocol PRN Reason: Pain, Severe (Pain Scale 7-10) Last Admin: 12/16/22 08:12 Dose: 4 mg Documented By: DOMINGUEZ Nicotine (Nicotine 21 Mg Patch.Td24) 21 mg TRANSDERMA DAILY [facility] Last Admin: 12/16/22 09:31 Dose: 21 mg Documented By: NATA Nicotine Polacrilex (Nicotine Polacrilex 2 Mg Gum) 2 mg BUCCAL 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 Admin: 12/11/22 09:36 Dose: 2 mg Documented By: DOMINGUEZ Omeprazole (Omeprazole 40 Mg Capsule.) 40 mg PO DAILY@0630 [facility] Last Admin: 12/16/22 05:42 Dose: 40 mg Documented By: DEONDRE Ondansetron HCl (Ondansetron Hcl 4 Mg/2 Ml Vial) 4 mg IVPUSH Q8H PRN PRN Reason: Nausea and Vomiting Oxycodone HCl (Oxycodone Hcl Immed Release 5 Mg Tablet) 5 mg PO ONCE PRN PRN Reason: Pain, Severe (Pain Scale 7-10) Pharmacy Consult (Consult Rx Etoh Phenob Im/Po) 1 each MISCELLANE ONCE PRN; Protocol PRN Reason: Consult order Pharmacy Consult (Consult Rx Perform Med Rec) 1 each MISCELLANE ONCE PRN PRN Reason: Consult order Simethicone (Simethicone 80 Mg Tab.Chew) 80 mg PO QIDWMHS [facility] Last Admin: 12/16/22 11:48 Dose: 80 mg Documented By: NATA Sodium Chloride (0.9 % Sodium Chloride Flush 3 Ml Syringe) 3 ml IVFLUSH QSHIFT [facility] Last Admin: 12/16/22 08:15 Dose: 3 ml Documented By: DOMINGUEZ Thiamine HCl (Thiamine Hcl 100 Mg Tablet) 100 mg PO DAILY [facility] Last Admin: 12/16/22 09:31 Dose: 100 mg Documented By: NATA Labs 12/16/22 05:41 12/16/22 05:41 Labs: Laboratory Results - last 24 hr 12/05/22 12/16/22 12/16/22 19:47 05:41 05:41 MCV 84.9 MCH 26.7 L MCHC 31.5 RDW 21.2 H Plt Count 170 MPV 11.3 Absolute Nucleated RBC 0.000 Nucleated RBC % (auto) 0.0 VBG pH 7.48 H VBG pCO2 23 VBG pO2 39 VBG HCO3 17 L VBG Base Excess -4.9 Anion Gap 11 L Estim Creat Clear Calc 161.1 Estimated GFR > 60 Random Glucose 95 Calcium 7.8 L Assessment and Plan (1) Acute on chronic blood loss anemia: Status: Acute (2) Bleeding hemorrhoids: Status: Acute (3) Alcohol use disorder, severe, dependence: Status: Acute (4) Alcohol withdrawal: Status: Acute Plan 42M with alcohol dependence sent in by PCP for anemia, admitted for EtOH withdrawal and hematochezia symptomatic anemia due to acute and chronic GI blood loss anemia, hemorroidal bleeding EGD + C-scope 12/08/22: Duodenitis, Hiatal hernia, Nonobstructing ring at the EG Junction, No varices, No blood nor coffee grounds in the UGI tract Colonoscopy: Friable, oozing hemorrhoid, No colitis, polyps, nor angiodysplasias monitor h and h Surgery did exploratory colonoscopy with suturing many of hemorrhoids but could not remove them surgically Pain Management, keep stool soft Surgery following, Continue rectal HC etoh depeednence wtih acute EtOH hepatitis with coagulatophathy and thrombocytopenia and etoh withdrawal no steroids indicated trace ascites on imaging, not enough to tap phenobarb duodenitis PO PPI tolerating advanced diet hypokalemia and hypomagnesemia replaced tobacco abuse NRT VTE ppx: SCDs, no heparin given low platelets reason for continued hospitalization:active bleed Time Spent With Patient Time: Total time managing care of this patient today ____ minutes. Quality Stroke Does the patient have a stroke diagnosis?: No VTE Prior VTE?: No VTE Risk Level:: Medical - moderate - high VTE Device Contraindication: Treatment Not Indicated VTE Drug Contraindication: Treatment Not Indicated
--- NOTE | 2022-12-16 14:11 | PM.PNGS ---
Subjective Subjective Date of Service: 12/17/22 Interval history: Still sees blood with bowel movements. Still has pain with his anus but better Physical Exam Vital Signs: Vital Signs: Last Vital Signs Temp 98.3 F 12/16/22 08:00 Pulse 94 12/16/22 08:00 Resp 18 12/16/22 08:00 BP 108/64 12/16/22 08:00 Pulse Ox 100 12/16/22 08:00 O2 Del Method 12/16/22 08:00 O2 Flow Rate 5 12/08/22 16:18 BMI result Body Mass Index 18.0 Const: Other: appears cachectic General: no acute distress Resp: Effort & Inspection: normal respiratory effort Cardio: Rate: regular rate GI: Other: rectal exam shows hemorrhoids, with prolapse of internal component, currently nonbleeding, appears swollen, no induration Palpation (GI): Soft to palpation, not firm and nontender Objective Data Active Medications Acetaminophen (Acetaminophen 325 Mg Tablet) 650 mg PO Q6H PRN PRN Reason: Pain, Mild (Pain Scale 1-3) Last Admin: 12/15/22 12:01 Dose: 650 mg Documented By: ANKIT Hydrocortisone (Hydrocortisone 2.5 % Rectal Cr 30 Gm Tube) 1 appl [place] BID [facility] Promethazine HCl 12.5 mg/ (Sodium Chloride) 50.5 mls @ 202 mls/hr IV ONCE PRN PRN Reason: Nausea and Vomiting Magnesium Oxide (Magnesium Oxide 400 Mg Tablet) [facility] Last Admin: 12/16/22 09:09 Dose: 400 mg Documented By: NATA Melatonin (Melatonin 3 Mg Tablet) 6 mg PO BEDTIME PRN PRN Reason: Insomnia Morphine Sulfate (Morphine Sulfate 4 Mg/Ml Cartridge) 4 mg IVPUSH Q3H PRN; Protocol PRN Reason: Pain, Severe (Pain Scale 7-10) Last Admin: 12/16/22 13:52 Dose: 4 mg Documented By: DOMINGUEZ Nicotine (Nicotine 21 Mg Patch.Td24) 21 mg TRANSDERMA DAILY [facility] Last Admin: 12/16/22 09:31 Dose: 21 mg Documented By: NATA Nicotine Polacrilex (Nicotine Polacrilex 2 Mg Gum) 2 mg BUCCAL Q1H PRN PRN Reason: [facility] Last Admin: 12/11/22 09:36 Dose: 2 mg Documented By: DOMINGUEZ Omeprazole (Omeprazole 40 Mg Capsule.Dr) 40 mg PO DAILY@0630 [facility] Last Admin: 12/16/22 05:42 Dose: 40 mg Documented By: DEONDRE Ondansetron HCl (Ondansetron Hcl 4 Mg/2 Ml Vial) 4 mg IVPUSH Q8H PRN PRN Reason: Nausea and Vomiting Oxycodone HCl (Oxycodone Hcl Immed Release 5 Mg Tablet) 5 mg PO ONCE PRN PRN Reason: Pain, Severe (Pain Scale 7-10) Pharmacy Consult (Consult Rx Etoh Phenob Im/Po) 1 each MISCELLANE ONCE PRN; Protocol PRN Reason: Consult order Pharmacy Consult (Consult Rx Perform Med Rec) 1 each MISCELLANE ONCE PRN PRN Reason: Consult order Simethicone (Simethicone 80 Mg Tab.Chew) 80 mg PO QIDWMHS [facility] Last Admin: 12/16/22 11:48 Dose: 80 mg Documented By: NATA Sodium Chloride (0.9 % Sodium Chloride Flush 3 Ml Syringe) 3 ml IVFLUSH QSHIFT [facility] Last Admin: 12/16/22 08:15 Dose: 3 ml Documented By: DOMINGUEZ Thiamine HCl (Thiamine Hcl 100 Mg Tablet) 100 mg PO DAILY [facility] Last Admin: 12/16/22 09:31 Dose: 100 mg Documented By: NATA Labs 12/16/22 05:41 12/16/22 05:41 Labs: Laboratory Results - last 24 hr 12/05/22 12/16/22 12/16/22 19:47 05:41 05:41 MCV 84.9 MCH 26.7 L MCHC 31.5 RDW 21.2 H Plt Count 170 MPV 11.3 Absolute Nucleated RBC 0.000 Nucleated RBC % (auto) 0.0 VBG pH 7.48 H VBG pCO2 23 VBG pO2 39 VBG HCO3 17 L VBG O2 Saturation TNP VBG Base Excess -4.9 Anion Gap 11 L Estim Creat Clear Calc 161.1 Estimated GFR > 60 Random Glucose 95 Calcium 7.8 L Procedures Date of Service Date of Service: 12/16/22 Progress Note: A&P Assessment and plan (1) Bleeding hemorrhoids: Status: Acute Assessment and Plan: still has bleeding with bowel movements. I explained to him that for now, no further surgical intervention is being planned urgently in view of the note of high pressure bleeding on exam under anesthesia from last week would continue with current care follow H&H, coags and platelets hopefully, the bleeding improves with improvement of liver function Time Spent With Patient Time: Total time managing care of this patient today ____ minutes. Quality Stroke Does the patient have a stroke diagnosis?: No VTE Prior VTE?: No VTE Risk Level:: Medical - moderate - high VTE Device Contraindication: Treatment Not Indicated VTE Drug Contraindication: Treatment Not Indicated
[2022-12-16 16:00] VITALS: BP 120/71; PULSE 104; RESP 18; TEMP 36.9; O2SAT 99
--- NOTE | 2022-12-16 17:07 | PC.NURSE ---
inreased abdominal distention noticed,also patient c/o inreased abdominal pain today,pain controlled with Tamra,Dr. Garcia made aware
[2022-12-16 19:34] VITALS: BP 120/67; PULSE 88; RESP 18; TEMP 36.7; O2SAT 99
[2022-12-16] MEDS: Hydrocortisone 2.5 % Rectal Cr 30 GM TUBE 1 APPL PR (20:32)
[2022-12-17] MEDS: 0.9 % Sodium Chloride Flush 3 ML SYRINGE IVFLUSH ×4 (00:01→23:59)
[2022-12-17] MEDS: Morphine Sulfate 4 MG/ML CARTRIDGE IVPUSH ×4 (00:10→14:29)
[2022-12-17 04:00] VITALS: BP 109/60; PULSE 93; RESP 18; TEMP 36.6; O2SAT 98
[2022-12-17] MEDS: Omeprazole 40 MG CAPSULE.DR PO (05:53)
[2022-12-17 06:47] LABS: Hematocrit 26.7 % (42.0-52.0); Hemoglobin 8.4 g/dl (14.0-18.0); Mean Corpuscular HGB Conc 31.5 g/dl (31.0-36.0); Mean Corpuscular Volume 85.9 fL (80.0-98.0); Mean Platelet Volume 11.5 fL (9.4-12.4); Platelet Count 162 X10*3/uL (160-400); Red Blood Count 3.11 X10*6/uL (4.60-5.80); Red Cell Distribution Width 21.2 % (11.0-16.0); White Blood Count 15.6 X10*3/uL (4.8-10.8)
[2022-12-17 06:58] LABS: Anion Gap 13 (12-20); Blood Urea Nitrogen 6 mg/dL (9-16); Calcium 7.6 mg/dL (8.4-10.2); Carbon Dioxide 23 mmol/L (22-29); Chloride 104 mmol/L (96-108); Creatinine Clr Calc Pharmacy 167.5; Estimated Glomerular Filt Rate > 60; Glucose Fasting 89 mg/dL (60-99); Potassium 3.8 mmol/L (3.3-5.1); Sodium 136 mmol/L (135-145)
[2022-12-17 08:00] VITALS: BP 107/60; PULSE 96; RESP 17; TEMP 36.7; O2SAT 98
[2022-12-17] MEDS: Thiamine HCL 100 MG TABLET PO (10:37)
[2022-12-17] MEDS: Nicotine 21 MG PATCH.TD24 TRANSDERMA (10:37)
[2022-12-17] MEDS: Simethicone 80 MG TAB.CHEW PO ×3 (10:37→21:59)
[2022-12-17] MEDS: Magnesium Oxide 400 MG TABLET PO ×2 (10:37→16:55)
[2022-12-17] MEDS: Hydrocortisone 2.5 % Rectal Cr 30 GM TUBE 1 APPL PR ×2 (10:51→22:00)
--- NOTE | 2022-12-17 11:44 | HO.PM.IMPN ---
Subjective Subjective Date of Service: 12/17/22 Interval History: abd distension, blood in stool this am Physical Exam Vital Signs: Vital Signs: Last Vital Signs Temp 98.0 F 12/17/22 08:00 Pulse 96 12/17/22 08:00 Resp 17 12/17/22 08:00 BP 107/60 12/17/22 08:00 Pulse Ox 98 12/17/22 08:00 O2 Del Method 12/17/22 08:00 O2 Flow Rate 5 12/08/22 16:18 BMI result Body Mass Index 18.0 Const: Other: appears cachectic General: no acute distress Resp: Effort & Inspection: normal respiratory effort Cardio: Rate: regular rate GI: Other: rectal exam shows hemorrhoids, with prolapse of internal component, currently nonbleeding, appears swollen, no induration Palpation (GI): Soft to palpation, not firm and nontender Objective Data Active Medications Acetaminophen (Acetaminophen 325 Mg Tablet) 650 mg PO Q6H PRN PRN Reason: Pain, Mild (Pain Scale 1-3) Last Admin: 12/15/22 12:01 Dose: 650 mg Documented By: ANKIT Hydrocortisone (Hydrocortisone 2.5 % Rectal Cr 30 Gm Tube) 1 appl [place] BID [facility] Last Admin: 12/17/22 10:51 Dose: 1 appl Documented By: TORIE Promethazine HCl 12.5 mg/ (Sodium Chloride) 50.5 mls @ 202 mls/hr IV ONCE PRN PRN Reason: Nausea and Vomiting Magnesium Oxide (Magnesium [facility]ide 400 Mg Tablet) [facility] Last Admin: 12/17/22 10:37 Dose: 400 mg Documented By: TORIE Melatonin (Melatonin 3 Mg Tablet) 6 mg PO BEDTIME PRN PRN Reason: Insomnia Morphine Sulfate (Morphine Sulfate 4 Mg/Ml Cartridge) 4 mg IVPUSH Q3H PRN; Protocol PRN Reason: Pain, Severe (Pain Scale 7-10) Last Admin: 12/17/22 10:44 Dose: 4 mg Documented By: TORIE Nicotine (Nicotine 21 Mg Patch.Td24) 21 mg TRANSDERMA DAILY [facility] Last Admin: 12/17/22 10:37 Dose: 21 mg Documented By: TORIE Nicotine Polacrilex (Nicotine Polacrilex 2 Mg Gum) 2 mg BUCCAL Q1H PRN PRN Reason: [facility] Last Admin: 12/11/22 09:36 Dose: 2 mg Documented By: DOMINGUEZ Omeprazole (Omeprazole 40 Mg Capsule.Dr) 40 mg PO DAILY@0630 [facility] Last Admin: 12/17/22 05:53 Dose: 40 mg Documented By: DEONDRE Ondansetron HCl (Ondansetron Hcl 4 Mg/2 Ml Vial) 4 mg IVPUSH Q8H PRN PRN Reason: Nausea and Vomiting Oxycodone HCl (Oxycodone Hcl Immed Release 5 Mg Tablet) 5 mg PO ONCE PRN PRN Reason: Pain, Severe (Pain Scale 7-10) Pharmacy Consult (Consult Rx Etoh Phenob Im/Po) 1 each MISCELLANE ONCE PRN; Protocol PRN Reason: Consult order Pharmacy Consult (Consult Rx Perform Med Rec) 1 each MISCELLANE ONCE PRN PRN Reason: Consult order Simethicone (Simethicone 80 Mg Tab.Chew) 80 mg PO QIDWMHS [facility] Last Admin: 12/17/22 10:37 Dose: 80 mg Documented By: TORIE Sodium Chloride (0.9 % Sodium Chloride Flush 3 Ml Syringe) 3 ml IVFLUSH QSHIFT [facility] Last Admin: 12/17/22 10:37 Dose: 3 ml Documented By: TORIE Thiamine HCl (Thiamine Hcl 100 Mg Tablet) 100 mg PO DAILY [facility] Last Admin: 12/17/22 10:37 Dose: 100 mg Documented By: TORIE Labs 12/17/22 05:41 12/17/22 05:41 Labs: Laboratory Results - last 24 hr 12/05/22 12/17/22 12/17/22 19:47 05:41 05:41 MCV 85.9 MCH 27.0 MCHC 31.5 RDW 21.2 H Plt Count 162 MPV 11.5 Absolute Nucleated RBC 0.000 Nucleated RBC % (auto) 0.0 VBG O2 Saturation TNP Anion Gap 13 Estim Creat Clear Calc 167.5 Estimated GFR > 60 Fasting Glucose 89 Calcium 7.6 L Assessment and Plan (1) Acute on chronic blood loss anemia: Status: Acute (2) Bleeding hemorrhoids: Status: Acute (3) Alcohol use disorder, severe, dependence: Status: Acute (4) Alcohol withdrawal: Status: Acute Plan 42M with alcohol dependence sent in by PCP for anemia, admitted for EtOH withdrawal and hematochezia symptomatic anemia due to acute and chronic GI blood loss anemia, hemorroidal bleeding EGD + C-scope 12/08/22: Duodenitis, Hiatal hernia, Nonobstructing ring at the [place]unction, No varices, No blood nor coffee grounds in the UGI tract Colonoscopy: Friable, oozing hemorrhoid, No colitis, polyps, nor angiodysplasias monitor h and h - stable so far Surgery did exploratory colonoscopy with suturing many of hemorrhoids but could not remove them surgically Pain Management, keep stool soft Surgery following, Continue rectal HC abd distension check ct abd etoh depeednence wtih acute EtOH hepatitis with coagulatophathy and thrombocytopenia and etoh withdrawal no steroids indicated trace ascites on imaging, not enough to tap phenobarb duodenitis PO PPI tolerating advanced diet hypokalemia and hypomagnesemia replaced tobacco abuse NRT VTE ppx: SCDs, no heparin given low platelets reason for continued hospitalization:active bleed Time Spent With Patient Time: Total time managing care of this patient today ____ minutes. Quality Stroke Does the patient have a stroke diagnosis?: No VTE Prior VTE?: No VTE Risk Level:: Medical - moderate - high VTE Device Contraindication: Treatment Not Indicated VTE Drug Contraindication: Treatment Not Indicated
--- NOTE | 2022-12-17 12:46 | MHC.CM.PN ---
PATIENT STILL ACUTE AND AWAITING CT SCAN RESULTS. NO PLAN FOR DC TODAY EVENTUAL PLAN IS HOME - SELF CARE
--- NOTE | 2022-12-17 13:08 | PM.PNGS ---
Subjective Subjective Date of Service: 12/17/22 Interval history: No changes Still has pain in the anus with BMs Also with bleeding with BMs Physical Exam Vital Signs: Vital Signs: Last Vital Signs Temp 98.0 F 12/17/22 08:00 Pulse 96 12/17/22 08:00 Resp 17 12/17/22 08:00 BP 107/60 12/17/22 08:00 Pulse Ox 98 12/17/22 08:00 O2 Del Method 12/17/22 08:00 O2 Flow Rate 5 12/08/22 16:18 BMI result Body Mass Index 18.0 Const: General: comfortable and no acute distress Resp: Effort & Inspection: normal respiratory effort Cardio: Rate: regular rate GI: Other: Abdomen soft, protuberant Hemorrhoids, internal and external, edematous Objective Data Active Medications Acetaminophen (Acetaminophen 325 Mg Tablet) 650 mg PO Q6H PRN PRN Reason: Pain, Mild (Pain Scale 1-3) Last Admin: 12/15/22 12:01 Dose: 650 mg Documented By: ANKIT Docusate Sodium (Docusate Sodium 100 Mg Capsule) 100 mg PO BID [facility] Hydrocortisone (Hydrocortisone 2.5 % Rectal Cr 30 Gm Tube) 1 appl [place] BID [facility] Last Admin: 12/17/22 10:51 Dose: 1 appl Documented By: TORIE Promethazine HCl 12.5 mg/ (Sodium Chloride) 50.5 mls @ 202 mls/hr IV ONCE PRN PRN Reason: Nausea and Vomiting Lidocaine HCl (Lidocaine Hcl 2 % Jelly 5 Ml Tube) 1 appl TOPICAL TID PRN; Protocol PRN Reason: rectal pain Magnesium Oxide ([facility] 400 Mg Tablet) [facility] Last Admin: 12/17/22 10:37 Dose: 400 mg Documented By: TORIE Melatonin (Melatonin 3 Mg Tablet) 6 mg PO BEDTIME PRN PRN Reason: Insomnia Morphine Sulfate (Morphine Sulfate 4 Mg/Ml Cartridge) 4 mg IVPUSH Q3H PRN; Protocol PRN Reason: Pain, Severe (Pain Scale 7-10) Last Admin: 12/17/22 10:44 Dose: 4 mg Documented By: TORIE Nicotine (Nicotine 21 Mg Patch.Td24) 21 mg TRANSDERMA DAILY [facility] Last Admin: 12/17/22 10:37 Dose: 21 mg Documented By: TORIE Nicotine Polacrilex (Nicotine Polacrilex 2 Mg Gum) 2 mg BUCCAL Q1H PRN PRN Reason: [facility] Last Admin: 12/11/22 09:36 Dose: 2 mg Documented By: DOMINGUEZ Omeprazole (Omeprazole 40 Mg Capsule.) 40 mg PO DAILY@0630 [facility] Last Admin: 12/17/22 05:53 Dose: 40 mg Documented By: DEONDRE Ondansetron HCl (Ondansetron Hcl 4 Mg/2 Ml Vial) 4 mg IVPUSH Q8H PRN PRN Reason: Nausea and Vomiting Oxycodone HCl (Oxycodone Hcl Immed Release 5 Mg Tablet) 5 mg PO ONCE PRN PRN Reason: Pain, Severe (Pain Scale 7-10) Pharmacy Consult (Consult Rx Etoh Phenob Im/Po) 1 each MISCELLANE ONCE PRN; Protocol PRN Reason: Consult order Pharmacy Consult (Consult Rx Perform Med Rec) 1 each MISCELLANE ONCE PRN PRN Reason: Consult order Simethicone (Simethicone 80 Mg Tab.Chew) 80 mg PO QIDWMHS [facility] Last Admin: 12/17/22 10:37 Dose: 80 mg Documented By: TORIE Sodium Chloride (0.9 % Sodium Chloride Flush 3 Ml Syringe) 3 ml IVFLUSH QSHIFT [facility] Last Admin: 12/17/22 10:37 Dose: 3 ml Documented By: TORIE Thiamine HCl (Thiamine Hcl 100 Mg Tablet) 100 mg PO DAILY [facility] Last Admin: 12/17/22 10:37 Dose: 100 mg Documented By: TORIE Labs 12/17/22 05:41 12/17/22 05:41 Labs: Laboratory Results - last 24 hr 12/17/22 12/17/22 05:41 05:41 MCV 85.9 MCH 27.0 MCHC 31.5 RDW 21.2 H Plt Count 162 MPV 11.5 Absolute Nucleated RBC 0.000 Nucleated RBC % (auto) 0.0 Anion Gap 13 Estim Creat Clear Calc 167.5 Estimated GFR > 60 Fasting Glucose 89 Calcium 7.6 L Procedures Date of Service Date of Service: 12/17/22 Progress Note: A&P Assessment and plan (1) Bleeding hemorrhoids: Status: Acute Assessment and Plan: Status unchanged Apply lidocaine to help with hemorrhoidal pain No immediate surgical intervention at this time because of high pressure bleeding hemorrhoids on exam under anesthesia Follow LFTs and coags Stool softeners Time Spent With Patient Time: Total time managing care of this patient today ____ minutes. Quality Stroke Does the patient have a stroke diagnosis?: No VTE Prior VTE?: No VTE Risk Level:: Medical - moderate - high VTE Device Contraindication: Treatment Not Indicated VTE Drug Contraindication: Treatment Not Indicated
--- NOTE | 2022-12-17 14:12 | MHC.CLN ---
F/U DIET=REGULAR. ENSURE TID PROVIDES ADDITIONAL 1050 KCALS, 60 G PROTEIN. INTAKE MOST MEALS 75-100%. CONTINUE CURRENT DIET AND SUPPLEMENT. FOLLOW FOR PO INTAKE.
[2022-12-17 15:44] VITALS: BP 117/58; PULSE 100; RESP 17; TEMP 37.7; O2SAT 98
[2022-12-17 17:22] LABS: Glucose, Whole Blood 118 mg/dL (60-115)
[2022-12-17] MEDS: Lidocaine 4 % Cream KIT 1 APPL TOPICAL (17:47)
[2022-12-17] MEDS: oxyCODONE HCl Immed Release 5 MG TABLET PO (18:52)
[2022-12-17 19:57] VITALS: BP 114/66; PULSE 113; RESP 16; TEMP 37.6; O2SAT 98
[2022-12-17] MEDS: Docusate Sodium 100 MG CAPSULE PO (21:59)
[2022-12-18 03:42] VITALS: BP 119/75; PULSE 95; RESP 18; TEMP 36.6; O2SAT 95
[2022-12-18] MEDS: Omeprazole 40 MG CAPSULE.DR PO (06:16)
[2022-12-18 06:32] LABS: Hematocrit 24.6 % (42.0-52.0); Hemoglobin 7.8 g/dl (14.0-18.0); Mean Corpuscular HGB Conc 31.7 g/dl (31.0-36.0); Mean Corpuscular Hemoglobin 26.7 pg (27.0-33.0); Mean Corpuscular Volume 84.2 fL (80.0-98.0); Mean Platelet Volume 11.1 fL (9.4-12.4); Platelet Count 148 X10*3/uL (160-400); Red Blood Count 2.92 X10*6/uL (4.60-5.80); Red Cell Distribution Width 20.9 % (11.0-16.0); White Blood Count 15.6 X10*3/uL (4.8-10.8)
[2022-12-18 06:37] LABS: INTERNATIONAL NORM RATIO 1.9 (0.9-1.1); Prothrombin Time 22.5 SEC (10.0-13.1)
--- NOTE | 2022-12-18 06:42 | PC.NURSE ---
PATIENT RESTED WELL THIS 8 HOUR SHIFT, NOTED TO HAVE A MODERATE LIQUID STOOL WITH BLOOD TO TOILET TIMES ONE. WILL CONT TO MONITOR.
[2022-12-18 06:52] LABS: Alanine Aminotransferase 29 U/L (0-40); Albumin Level 1.8 g/dL (3.5-5.0); Alkaline Phosphatase 258 U/L (39-117); Anion Gap 12 (12-20); Aspartate Amino Transferase 96 U/L (5-37); Bilirubin Direct 0.8 mg/dL (0.0-0.5); Bilirubin Total 1.4 mg/dL (0.0-1.0); Blood Urea Nitrogen 5 mg/dL (9-16); Calcium 7.5 mg/dL (8.4-10.2); Carbon Dioxide 22 mmol/L (22-29); Chloride 107 mmol/L (96-108); Creatinine Clr Calc Pharmacy 178.2; Estimated Glomerular Filt Rate > 60; Glucose Fasting 86 mg/dL (60-99); Magnesium 1.5 mg/dL (1.6-2.6); Potassium 4.2 mmol/L (3.3-5.1); Sodium 137 mmol/L (135-145); Total Protein 4.5 g/dL (6.5-8.0)
[2022-12-18 08:00] VITALS: BP 120/72; PULSE 95; RESP 18; TEMP 36.9; O2SAT 97
[2022-12-18] MEDS: Simethicone 80 MG TAB.CHEW PO ×4 (08:17→22:35)
[2022-12-18] MEDS: Thiamine HCL 100 MG TABLET PO (08:17)
[2022-12-18] MEDS: Nicotine 21 MG PATCH.TD24 TRANSDERMA (08:17)
[2022-12-18] MEDS: Magnesium Oxide 400 MG TABLET PO ×2 (08:17→18:33)
[2022-12-18] MEDS: Docusate Sodium 100 MG CAPSULE PO ×2 (08:17→22:35)
[2022-12-18] MEDS: Hydrocortisone 2.5 % Rectal Cr 30 GM TUBE 1 APPL PR ×2 (08:18→22:36)
[2022-12-18] MEDS: 0.9 % Sodium Chloride Flush 3 ML SYRINGE IVFLUSH ×3 (08:18→22:37)
[2022-12-18] MEDS: Lidocaine 4 % Cream KIT 1 APPL TOPICAL ×2 (08:28→22:35)
[2022-12-18] MEDS: Morphine Sulfate 4 MG/ML CARTRIDGE IVPUSH ×4 (08:28→18:50)
--- NOTE | 2022-12-18 08:32 | P.PNGS_ITS ---
Subjective Subjective Date of Service: 12/18/22 Interval history: says he thinks he is the same has about 3 BMs a day, with blood scheduled for paracentesis today hemorrhoid pain better this AM Physical Exam Vital Signs: Vital Signs: Last Vital Signs Temp 98.4 F 12/18/22 08:00 Pulse 95 12/18/22 08:00 Resp 18 12/18/22 08:00 BP 120/72 12/18/22 08:00 Pulse Ox 97 12/18/22 08:00 O2 Del Method 12/18/22 08:00 O2 Flow Rate 5 12/08/22 16:18 BMI result Body Mass Index 18.0 Const: General: comfortable and no acute distress Resp: Effort & Inspection: normal respiratory effort Cardio: Rate: regular rate GI: Other: protruberant with ascites Palpation (GI): Soft to palpation Objective Data Active Medications Acetaminophen (Acetaminophen 325 Mg Tablet) 650 mg PO Q6H PRN PRN Reason: Pain, Mild (Pain Scale 1-3) Last Admin: 12/15/22 12:01 Dose: 650 mg Documented By: ANKIT Docusate Sodium (Docusate Sodium 100 Mg Capsule) 100 mg PO BID [facility] Last Admin: 12/18/22 08:17 Dose: 100 mg Documented By: TORIE Hydrocortisone (Hydrocortisone 2.5 % Rectal Cr 30 Gm Tube) 1 appl [place] BID [facility] Last Admin: 12/18/22 08:18 Dose: 1 appl Documented By: TORIE Promethazine HCl 12.5 mg/ (Sodium Chloride) 50.5 mls @ 202 mls/hr IV ONCE PRN PRN Reason: Nausea and Vomiting Lidocaine HCl (Lidocaine 4 % Cream Kit) 1 appl TOPICAL TID PRN; Protocol PRN Reason: rectal pain Last Admin: 12/18/22 08:28 Dose: 1 appl Documented By: TORIE Magnesium Oxide (Magnesium [facility] 400 Mg Tablet) [facility] Last Admin: 12/18/22 08:17 Dose: 400 mg Documented By: TORIE Melatonin (Melatonin 3 Mg Tablet) 6 mg PO BEDTIME PRN PRN Reason: Insomnia Morphine Sulfate (Morphine Sulfate 4 Mg/Ml Cartridge) 4 mg IVPUSH Q3H PRN; Protocol PRN Reason: moderate pain Last Admin: 12/18/22 08:28 Dose: 4 mg Documented By: TORIE Nicotine (Nicotine 21 Mg Patch.Td24) 21 mg TRANSDERMA DAILY [facility] Last Admin: 12/18/22 08:17 Dose: 21 mg Documented By: TORIE Nicotine Polacrilex (Nicotine Polacrilex 2 Mg Gum) 2 mg BUCCAL Q1H PRN PRN Reason: [facility] Last Admin: 12/11/22 09:36 Dose: 2 mg Documented By: DOMINGUEZ Omeprazole (Omeprazole 40 Mg Capsule.Dr) 40 mg PO DAILY@0630 [facility] Last Admin: 12/18/22 06:16 Dose: 40 mg Documented By: DEONDRE Ondansetron HCl (Ondansetron Hcl 4 Mg/2 Ml Vial) 4 mg IVPUSH Q8H PRN PRN Reason: Nausea and Vomiting Oxycodone HCl (Oxycodone Hcl Immed Release 5 Mg Tablet) 5 mg PO Q4H PRN PRN Reason: moderate pain Last Admin: 12/17/22 18:52 Dose: 5 mg Documented By: QUYNH Pharmacy Consult (Consult Rx Etoh Phenob Im/Po) 1 each MISCELLANE ONCE PRN; Protocol PRN Reason: Consult order Pharmacy Consult (Consult Rx Perform Med Rec) 1 each MISCELLANE ONCE PRN PRN Reason: Consult order Simethicone (Simethicone 80 Mg Tab.Chew) 80 mg PO QIDWMHS [facility] Last Admin: 12/18/22 08:17 Dose: 80 mg Documented By: TORIE Sodium Chloride (0.9 % Sodium Chloride Flush 3 Ml Syringe) 3 ml IVFLUSH QSHIFT [facility] Last Admin: 12/18/22 08:18 Dose: 3 ml Documented By: TORIE Thiamine HCl (Thiamine Hcl 100 Mg Tablet) 100 mg PO DAILY [facility] Last Admin: 12/18/22 08:17 Dose: 100 mg Documented By: TORIE Labs 12/18/22 05:45 12/18/22 05:45 Labs: Laboratory Results - last 24 hr 12/17/22 12/18/22 12/18/22 17:16 05:45 05:45 MCV 84.2 MCH 26.7 L MCHC 31.7 RDW 20.9 H Plt Count 148 L MPV 11.1 Absolute Nucleated RBC 0.000 Nucleated RBC % (auto) 0.0 PT 22.5 H INR 1.9 H Anion Gap Estim Creat Clear Calc Estimated GFR POC Glucose 118 H Fasting Glucose Calcium Magnesium Total Bilirubin Direct Bilirubin AST ALT Alkaline Phosphatase Total Protein Albumin 12/18/22 05:45 MCV MCH MCHC RDW Plt Count MPV Absolute Nucleated RBC Nucleated RBC % (auto) PT INR Anion Gap 12 Estim Creat Clear Calc 178.2 Estimated GFR > 60 POC Glucose Fasting Glucose 86 Calcium 7.5 L Magnesium 1.5 L Total Bilirubin 1.4 H Direct Bilirubin 0.8 H AST 96 H ALT 29 Alkaline Phosphatase 258 H Total Protein 4.5 L Albumin 1.8 L Procedures Date of Service Date of Service: 12/18/22 Progress Note: A&P Assessment and plan (1) Bleeding hemorrhoids: Status: Acute Assessment and Plan: on background of chronic liver disease with ETOH still with blood per rectum during BMs has ascites - for paracentesis some drift down of Hg - transfuse as needed no attempt at repeat hemorrhoidectomy planned at this time - high pressure flow noted on EUA last week Time Spent With Patient Time: Total time managing care of this patient today ____ minutes. Quality Stroke Does the patient have a stroke diagnosis?: No VTE Prior VTE?: No VTE Risk Level:: Medical - moderate - high VTE Device Contraindication: Treatment Not Indicated VTE Drug Contraindication: Treatment Not Indicated
--- NOTE | 2022-12-18 08:49 | P.PNIM_ITS ---
Subjective Subjective Date of Service: 12/18/22 Interval History: ongiong bleeding per rectum Physical Exam Vital Signs: Vital Signs: Last Vital Signs Temp 98.4 F 12/18/22 08:00 Pulse 95 12/18/22 08:00 Resp 18 12/18/22 08:00 BP 120/72 12/18/22 08:00 Pulse Ox 97 12/18/22 08:00 O2 Del Method 12/18/22 08:00 O2 Flow Rate 5 12/08/22 16:18 BMI result Body Mass Index 18.0 Const: General: comfortable and no acute distress Resp: Effort & Inspection: normal respiratory effort Cardio: Rate: regular rate GI: Other: protruberant with ascites Palpation (GI): Soft to palpation Objective Data Active Medications Acetaminophen (Acetaminophen 325 Mg Tablet) 650 mg PO Q6H PRN PRN Reason: Pain, Mild (Pain Scale 1-3) Last Admin: 12/15/22 12:01 Dose: 650 mg Documented By: ANKIT Docusate Sodium (Docusate Sodium 100 Mg Capsule) 100 mg PO BID [facility] Last Admin: 12/18/22 08:17 Dose: 100 mg Documented By: TORIE Hydrocortisone (Hydrocortisone 2.5 % Rectal Cr 30 Gm Tube) 1 appl IN BID [facility] Last Admin: 12/18/22 08:18 Dose: 1 appl Documented By: TORIE Promethazine HCl 12.5 mg/ (Sodium Chloride) 50.5 mls @ 202 mls/hr IV ONCE PRN PRN Reason: Nausea and Vomiting Lidocaine HCl (Lidocaine 4 % Cream Kit) 1 appl TOPICAL TID PRN; Protocol PRN Reason: rectal pain Last Admin: 12/18/22 08:28 Dose: 1 appl Documented By: TORIE Magnesium Oxide ([facility] 400 Mg [facility]t) [facility] Last Admin: 12/18/22 08:17 Dose: 400 mg Documented By: TORIE Melatonin (Melatonin 3 Mg Tablet) 6 mg PO BEDTIME PRN PRN Reason: Insomnia Morphine Sulfate (Morphine Sulfate 4 Mg/Ml Cartridge) 4 mg IVPUSH Q3H PRN; Protocol PRN Reason: moderate pain Last Admin: 12/18/22 08:28 Dose: 4 mg Documented By: TORIE Nicotine (Nicotine 21 Mg Patch.Td24) 21 mg TRANSDERMA DAILY [facility] Last Admin: 12/18/22 08:17 Dose: 21 mg Documented By: TORIE Nicotine Polacrilex (Nicotine Polacrilex 2 Mg Gum) 2 mg BUCCAL Q1H PRN PRN Reason: [facility] Last Admin: 12/11/22 09:36 Dose: 2 mg Documented By: DOMINGUEZ Omeprazole (Omeprazole 40 Mg Capsule.Dr) 40 mg PO DAILY@0630 [facility] Last Admin: 12/18/22 06:16 Dose: 40 mg Documented By: DEONDRE Ondansetron HCl (Ondansetron Hcl 4 Mg/2 Ml Vial) 4 mg IVPUSH Q8H PRN PRN Reason: Nausea and Vomiting Oxycodone HCl (Oxycodone Hcl Immed Release 5 Mg Tablet) 5 mg PO Q4H PRN PRN Reason: moderate pain Last Admin: 12/17/22 18:52 Dose: 5 mg Documented By: QUYNH Pharmacy Consult (Consult Rx Etoh Phenob Im/Po) 1 each MISCELLANE ONCE PRN; Protocol PRN Reason: Consult order Pharmacy Consult (Consult Rx Perform Med Rec) 1 each MISCELLANE ONCE PRN PRN Reason: Consult order Simethicone (Simethicone 80 Mg Tab.Chew) 80 mg PO QIDWMHS [facility] Last Admin: 12/18/22 08:17 Dose: 80 mg Documented By: TORIE Sodium Chloride (0.9 % Sodium Chloride Flush 3 Ml Syringe) 3 ml IVFLUSH QSHIFT [facility] Last Admin: 12/18/22 08:18 Dose: 3 ml Documented By: TORIE Thiamine HCl (Thiamine Hcl 100 Mg Tablet) 100 mg PO DAILY [facility] Last Admin: 12/18/22 08:17 Dose: 100 mg Documented By: TORIE Labs 12/18/22 05:45 12/18/22 05:45 Labs: Laboratory Results - last 24 hr 12/17/22 12/18/22 12/18/22 17:16 05:45 05:45 MCV 84.2 MCH 26.7 L MCHC 31.7 RDW 20.9 H Plt Count 148 L MPV 11.1 Absolute Nucleated RBC 0.000 Nucleated RBC % (auto) 0.0 PT 22.5 H INR 1.9 H Anion Gap Estim Creat Clear Calc Estimated GFR POC Glucose 118 H Fasting Glucose Calcium Magnesium Total Bilirubin Direct Bilirubin AST ALT Alkaline Phosphatase Total Protein Albumin 12/18/22 05:45 MCV MCH MCHC RDW Plt Count MPV Absolute Nucleated RBC Nucleated RBC % (auto) PT INR Anion Gap 12 Estim Creat Clear Calc 178.2 Estimated GFR > 60 POC Glucose Fasting Glucose 86 Calcium 7.5 L Magnesium 1.5 L Total Bilirubin 1.4 H Direct Bilirubin 0.8 H AST 96 H ALT 29 Alkaline Phosphatase 258 H Total Protein 4.5 L Albumin 1.8 L Assessment and Plan (1) Acute on chronic blood loss anemia: Status: Acute (2) Bleeding hemorrhoids: Status: Acute (3) Alcohol use disorder, severe, dependence: Status: Acute (4) Alcohol withdrawal: Status: Acute Plan 42M with alcohol dependence sent in by PCP for anemia, admitted for EtOH withdrawal and hematochezia symptomatic anemia due to acute and chronic GI blood loss anemia, hemorroidal bleeding EGD + C-scope 12/08/22: Duodenitis, Hiatal hernia, Nonobstructing ring at the EG Junction, No varices, No blood nor coffee grounds in the UGI tract Colonoscopy: Friable, oozing hemorrhoid, No colitis, polyps, nor angiodysplasias monitor h and h Surgery did exploratory colonoscopy with suturing many of hemorrhoids but could not remove them surgically Pain Management, keep stool soft Surgery following, Continue rectal HC abd distension due to ascites, plan for paracentesis today etoh depeednence wtih acute EtOH hepatitis with coagulatophathy and thrombocytopenia and etoh withdrawal no steroids indicated phenobarb duodenitis PO PPI tolerating advanced diet hypokalemia and hypomagnesemia replaced tobacco abuse NRT VTE ppx: SCDs, no heparin given low platelets and bleeding reason for continued hospitalization:active bleed Time Spent With Patient Time: Total time managing care of this patient today ____ minutes. Quality Stroke Does the patient have a stroke diagnosis?: No VTE Prior VTE?: No VTE Risk Level:: Medical - moderate - high VTE Device Contraindication: Treatment Not Indicated VTE Drug Contraindication: Treatment Not Indicated
--- NOTE | 2022-12-18 12:03 | HO.RADPN ---
RADIOLOGY Narrative Narrative: RLQ?pelvis paracentesis using 4 fr catheter. Clear yellow fluid removed, 1.2 L. Diagnostic specimen sent.
[2022-12-18] MEDS: Lidocaine HCl 1 % MPF 5 ML VIAL SUBCUT (12:23)
[2022-12-18 12:35] VITALS: BP 113/59; PULSE 92; RESP 18; TEMP 37.1; O2SAT 100
[2022-12-18 13:32] LABS: MN% 90.5 %; PMN% 9.5 %
[2022-12-18 13:37] LABS: RBC Peritoneal Fluid < 0.002 X10*6/uL
[2022-12-18 14:23] LABS: BF Shift QC OK YES; Lymphocyte Peritoneal Fl 48 %; Man Diluent Bkgrd OK YES; Monocytes Peritoneal Fl 25 %; Neutrophils Peritoneal Fluid 11 %; Other Peritioneal Fl 16 %
[2022-12-18 15:16] VITALS: BP 110/60; PULSE 110; RESP 18; TEMP 37.3; O2SAT 97
[2022-12-18 19:58] VITALS: BP 112/55; PULSE 105; RESP 18; TEMP 36.5; O2SAT 99
[2022-12-19] MEDS: Morphine Sulfate 4 MG/ML CARTRIDGE IVPUSH ×5 (00:11→20:21)
[2022-12-19 04:00] VITALS: BP 114/57; PULSE 98; RESP 20; TEMP 36.8; O2SAT 97
[2022-12-19] MEDS: Omeprazole 40 MG CAPSULE.DR PO (05:14)
[2022-12-19 06:08] LABS: Hematocrit 24.4 % (42.0-52.0); Hemoglobin 7.6 g/dl (14.0-18.0); Mean Corpuscular HGB Conc 31.1 g/dl (31.0-36.0); Mean Corpuscular Hemoglobin 26.2 pg (27.0-33.0); Mean Corpuscular Volume 84.1 fL (80.0-98.0); Mean Platelet Volume 10.5 fL (9.4-12.4); Platelet Count 142 X10*3/uL (160-400); Red Cell Distribution Width 20.7 % (11.0-16.0); White Blood Count 14.1 X10*3/uL (4.8-10.8)
[2022-12-19 06:27] LABS: Anion Gap 13 (12-20); Blood Urea Nitrogen 5 mg/dL (9-16); Calcium 7.6 mg/dL (8.4-10.2); Carbon Dioxide 23 mmol/L (22-29); Chloride 106 mmol/L (96-108); Creatinine Clr Calc Pharmacy 161.1; Estimated Glomerular Filt Rate > 60; Glucose Fasting 86 mg/dL (60-99); Potassium 4.1 mmol/L (3.3-5.1); Sodium 138 mmol/L (135-145)
[2022-12-19 07:19] VITALS: BP 118/56; PULSE 100; RESP 17; TEMP 37.1; O2SAT 98
--- NOTE | 2022-12-19 08:27 | P.PNGS_ITS ---
Subjective Subjective Date of Service: 12/19/22 Interval history: underwent paracentesis yesterday for ascites about 1.5 L drained says his abd feels much better after paracentesis no signficant changes with regards to hemorrhoids Physical Exam Vital Signs: Vital Signs: Last Vital Signs Temp 98.7 F 12/19/22 07:19 Pulse 100 12/19/22 07:19 Resp 17 12/19/22 07:19 BP 118/56 L 12/19/22 07:19 Pulse Ox 98 12/19/22 07:19 O2 Del Method 12/19/22 07:19 O2 Flow Rate 5 12/08/22 16:18 BMI result Body Mass Index 18.0 Const: General: comfortable and no acute distress Resp: Effort & Inspection: normal respiratory effort Cardio: Rate: regular rate GI: Other: protruberant Palpation (GI): Soft to palpation, nontender and no guarding Objective Data Active Medications Acetaminophen (Acetaminophen 325 Mg Tablet) 650 mg PO Q6H PRN PRN Reason: Pain, Mild (Pain Scale 1-3) Last Admin: 12/15/22 12:01 Dose: 650 mg Documented By: ANKIT Docusate Sodium (Docusate Sodium 100 Mg Capsule) 100 mg PO BID [facility] Last Admin: 12/18/22 22:35 Dose: 100 mg Documented By: MATILDE Folic Acid (Folic Acid 1 Mg Tablet) 1 mg PO DAILY [facility] Hydrocortisone (Hydrocortisone 2.5 % Rectal Cr 30 Gm Tube) 1 appl LA BID [facility] Last Admin: 12/18/22 22:36 Dose: 1 appl Documented By: MATILDE Promethazine HCl 12.5 mg/ (Sodium Chloride) 50.5 mls @ 202 mls/hr IV ONCE PRN PRN Reason: Nausea and Vomiting Magnesium Sulfate (Magnesium Sulfate/H2o) 2 gm in 50 mls @ 25 mls/hr IV ONCE ONE Stop: 12/19/22 09:27 Lidocaine HCl (Lidocaine 4 % Cream Kit) 1 appl TOPICAL TID PRN; Protocol PRN Reason: rectal pain Last Admin: 12/18/22 22:35 Dose: 1 appl Documented By: MATILDE Magnesium Oxide ([facility] 400 Mg Tablet) [facility] Last Admin: 12/18/22 18:33 Dose: 400 mg Documented By: HO.N-NYANM Melatonin (Melatonin 3 Mg Tablet) 6 mg PO BEDTIME PRN PRN Reason: Insomnia Morphine Sulfate (Morphine Sulfate 4 Mg/Ml Cartridge) 4 mg IVPUSH Q3H PRN; Protocol PRN Reason: moderate pain Last Admin: 12/19/22 05:14 Dose: 4 mg Documented By: MATILDE Nicotine (Nicotine 21 Mg Patch.Td24) 21 mg TRANSDERMA DAILY [facility] Last Admin: 12/18/22 08:17 Dose: 21 mg Documented By: TORIE Nicotine Polacrilex (Nicotine Polacrilex 2 Mg Gum) 2 mg BUCCAL Q1H PRN PRN Reason: [facility] Last Admin: 12/11/22 09:36 Dose: 2 mg Documented By: DOMINGUEZ Omeprazole (Omeprazole 40 Mg Capsule.Dr) 40 mg PO DAILY@0630 [facility] Last Admin: 12/19/22 05:14 Dose: 40 mg Documented By: MATILDE Ondansetron HCl (Ondansetron Hcl 4 Mg/2 Ml Vial) 4 mg IVPUSH Q8H PRN PRN Reason: Nausea and Vomiting Oxycodone HCl (Oxycodone Hcl Immed Release 5 Mg Tablet) 5 mg PO Q4H PRN PRN Reason: moderate pain Last Admin: 12/17/22 18:52 Dose: 5 mg Documented By: QUYNH Pharmacy Consult (Consult Rx Etoh Phenob Im/Po) 1 each MISCELLANE ONCE PRN; Protocol PRN Reason: Consult order Pharmacy Consult (Consult Rx Perform Med Rec) 1 each MISCELLANE ONCE PRN PRN Reason: Consult order Phytonadione (Phytonadione (Vit K1) Oral 10 Mg/Ml Ampul) 10 mg PO DAILY [facility] Stop: 12/22/22 08:59 Simethicone (Simethicone 80 Mg Tab.Chew) 80 mg PO QIDWMHS [facility] Last Admin: 12/18/22 22:35 Dose: 80 mg Documented By: MATILDE Sodium Chloride (0.9 % Sodium Chloride Flush 3 Ml Syringe) 3 ml IVFLUSH QSHIFT [facility] Last Admin: 12/18/22 22:37 Dose: 3 ml Documented By: MATILDE Thiamine HCl (Thiamine Hcl 100 Mg Tablet) 100 mg PO DAILY [facility] Last Admin: 12/18/22 08:17 Dose: 100 mg Documented By: TORIE Labs 12/19/22 05:25 12/19/22 05:25 Labs: Laboratory Results - last 24 hr 12/18/22 12/19/22 12/19/22 11:58 05:25 05:25 MCV 84.1 MCH 26.2 L MCHC 31.1 RDW 20.7 H Plt Count 142 L MPV 10.5 Absolute Nucleated RBC 0.000 Nucleated RBC % (auto) 0.0 Anion Gap 13 Estim Creat Clear Calc 161.1 Estimated GFR > 60 Fasting Glucose 86 Calcium 7.6 L Peritoneal WBC 0.090 Peritoneal RBC < 0.002 Periton Neutrophils 11 Periton Lymphocytes 48 Peritoneal Monocytes 25 Peritoneal Other Cells 16 Microbiology Microbiology Results: Microbiology 12/18/22 11:58 Gram Stain - Final Ascites Fluid Procedures Date of Service Date of Service: 12/19/22 Progress Note: A&P Assessment and plan (1) Bleeding hemorrhoids: Status: Acute Assessment and Plan: no significant changes with regards to hemorrhoids describes blood with BMs, pain continue Lidocaine cream no surgical intervention planned at this time Time Spent With Patient Time: Total time managing care of this patient today ____ minutes. Quality Stroke Does the patient have a stroke diagnosis?: No VTE Prior VTE?: No VTE Risk Level:: Medical - moderate - high VTE Device Contraindication: Treatment Not Indicated VTE Drug Contraindication: Treatment Not Indicated
[2022-12-19] MEDS: Folic Acid 1 MG TABLET PO (08:29)
[2022-12-19] MEDS: Simethicone 80 MG TAB.CHEW PO ×4 (08:29→20:13)
[2022-12-19] MEDS: Thiamine HCL 100 MG TABLET PO (08:29)
[2022-12-19] MEDS: Docusate Sodium 100 MG CAPSULE PO ×2 (08:30→20:13)
[2022-12-19] MEDS: Magnesium Sulfate/H2O 2 GM/50 ML PIGGYBACK IV (08:30)
[2022-12-19] MEDS: Nicotine 21 MG PATCH.TD24 TRANSDERMA (08:30)
[2022-12-19] MEDS: Phytonadione (Vit K1) Oral 10 MG/ML AMPUL PO (08:31)
[2022-12-19] MEDS: 0.9 % Sodium Chloride Flush 3 ML SYRINGE IVFLUSH ×3 (08:31→20:22)
[2022-12-19] MEDS: Magnesium Oxide 400 MG TABLET PO ×2 (08:32→17:35)
[2022-12-19] MEDS: Lidocaine 4 % Cream KIT 1 APPL TOPICAL ×2 (08:33→20:14)
[2022-12-19] MEDS: Hydrocortisone 2.5 % Rectal Cr 30 GM TUBE 1 APPL PR ×2 (08:34→20:14)
--- NOTE | 2022-12-19 10:51 | MHC.CM.PN ---
PT NOT YET MEDICALLY CLEARED DCP REMAINS HOME WITH NO SERVICES VIA PRIVATE TRANSPORT
--- NOTE | 2022-12-19 11:19 | MHC.CLN ---
F/U DIET=REGULAR. ENSURE TID PROVIDES ADDITIONAL 1050 KCALS, 60 G PROTEIN. INTAKE USUALLY 75-100%. ACUTE ON CHRONIC BLOOD LOSS ANEMIA WITH BLEEDING HEMORRHOIDS. PARACENTSIS 12/18 WITH 1.5 L FLUID REMOVED. CONTINUE CURRENT DIET AND SUPPLEMENT. FOLLOW FOR PO INTAKE. RD TO FOLLOW WEEKLY.
--- NOTE | 2022-12-19 12:19 | P.PNIM_ITS ---
Subjective Subjective Date of Service: 12/19/22 Interval History: Ongoing bleeding per rectum, had a bowel movement this morning, no nausea, no vomiting, no abdominal pain, no acute issues overnight Review of Systems Review of Systems: Yes all other systems are reviewed and are negative Physical Exam Vital Signs: Vital Signs: Last Vital Signs Temp 98.7 F 12/19/22 07:19 Pulse 100 12/19/22 07:19 Resp 17 12/19/22 07:19 BP 118/56 L 12/19/22 07:19 Pulse Ox 98 12/19/22 07:19 O2 Del Method 12/19/22 07:19 O2 Flow Rate 5 12/08/22 16:18 BMI result Body Mass Index 18.0 Const: Other: General resting comfortably in no acute distress. Neck supple no JVD. CVS regular rate rhythm, Respiratory lungs clear to auscultation, no respiratory distress, no wheeze, no rhonchi. Gastrointestinal abdomen soft, nontender, bowel sounds audible, no guarding Extremities no edema. Neuro nonfocal Skin no rash Psych appropriate affect Objective Data Active Medications Acetaminophen (Acetaminophen 325 Mg Tablet) 650 mg PO Q6H PRN PRN Reason: Pain, Mild (Pain Scale 1-3) Last Admin: 12/15/22 12:01 Dose: 650 mg Documented By: ANKIT Docusate Sodium (Docusate Sodium 100 Mg Capsule) 100 mg PO BID [facility] Last Admin: 12/19/22 08:30 Dose: 100 mg Documented By: DARWIN Folic Acid (Folic Acid 1 Mg Tablet) 1 mg PO DAILY [facility] Last Admin: 12/19/22 08:29 Dose: 1 mg Documented By: DARWIN Hydrocortisone (Hydrocortisone 2.5 % Rectal Cr 30 Gm Tube) 1 appl [place] BID [facility] Last Admin: 12/19/22 08:34 Dose: 1 appl Documented By: DARWIN Promethazine HCl 12.5 mg/ (Sodium Chloride) 50.5 mls @ 202 mls/hr IV ONCE PRN PRN Reason: Nausea and Vomiting Lidocaine HCl (Lidocaine 4 % Cream Kit) 1 appl TOPICAL TID PRN; Protocol PRN Reason: rectal pain Last Admin: 12/19/22 08:33 Dose: 1 appl Documented By: DARWIN Magnesium Oxide (Magn[facility] 400 Mg Tablet) [facility] Last Admin: 12/19/22 08:32 Dose: 400 mg Documented By: DARWIN Melatonin (Melatonin 3 Mg Tablet) 6 mg PO BEDTIME PRN PRN Reason: Insomnia Morphine Sulfate (Morphine Sulfate 4 Mg/Ml Cartridge) 4 mg IVPUSH Q3H PRN; Protocol PRN Reason: moderate pain Last Admin: 12/19/22 09:58 Dose: 4 mg Documented By: DARWIN Nicotine (Nicotine 21 Mg Patch.Td24) 21 mg TRANSDERMA DAILY [facility] Last Admin: 12/19/22 08:30 Dose: 21 mg Documented By: DARWIN Nicotine Polacrilex (Nicotine Polacrilex 2 Mg Gum) 2 mg BUCCAL Q1H PRN PRN Reason: [facility] Last Admin: 12/11/22 09:36 Dose: 2 mg Documented By: DOMINGUEZ Omeprazole (Omeprazole 40 Mg Capsule.Dr) 40 mg PO DAILY@0630 [facility] Last Admin: 12/19/22 05:14 Dose: 40 mg Documented By: MATILDE Ondansetron HCl (Ondansetron Hcl 4 Mg/2 Ml Vial) 4 mg IVPUSH Q8H PRN PRN Reason: Nausea and Vomiting Oxycodone HCl (Oxycodone Hcl Immed Release 5 Mg Tablet) 5 mg PO Q4H PRN PRN Reason: moderate pain Last Admin: 12/17/22 18:52 Dose: 5 mg Documented By: QUYNH Pharmacy Consult (Consult Rx Etoh Phenob Im/Po) 1 each MISCELLANE ONCE PRN; Protocol PRN Reason: Consult order Pharmacy Consult (Consult Rx Perform Med Rec) 1 each MISCELLANE ONCE PRN PRN Reason: Consult order Phytonadione (Phytonadione (Vit K1) Oral 10 Mg/Ml Ampul) 10 mg PO DAILY [facility] Stop: 12/22/22 08:59 Last Admin: 12/19/22 08:31 Dose: 10 mg Documented By: DARWIN Simethicone (Simethicone 80 Mg Tab.Chew) 80 mg PO QIDWMHS [facility] Last Admin: 12/19/22 11:40 Dose: 80 mg Documented By: DARWIN Sodium Chloride (0.9 % Sodium Chloride Flush 3 Ml Syringe) 3 ml IVFLUSH QSHIFT [facility] Last Admin: 12/19/22 08:31 Dose: 3 ml Documented By: DARWIN Thiamine HCl (Thiamine Hcl 100 Mg Tablet) 100 mg PO DAILY [facility] Last Admin: 12/19/22 08:29 Dose: 100 mg Documented By: DARWIN Labs 12/19/22 05:25 12/19/22 05:25 Labs: Laboratory Results - last 24 hr 12/18/22 12/19/22 12/19/22 11:58 05:25 05:25 MCV 84.1 MCH 26.2 L MCHC 31.1 RDW 20.7 H Plt Count 142 L MPV 10.5 Absolute Nucleated RBC 0.000 Nucleated RBC % (auto) 0.0 Anion Gap 13 Estim Creat Clear Calc 161.1 Estimated GFR > 60 Fasting Glucose 86 Calcium 7.6 L Peritoneal WBC 0.090 Peritoneal RBC < 0.002 Periton Neutrophils 11 Periton Lymphocytes 48 Peritoneal Monocytes 25 Peritoneal Other Cells 16 Microbiology Microbiology Results: Microbiology 12/18/22 11:58 Gram Stain - Final Ascites Fluid Anaerobic Culture - Preliminary No growth to date. Body Fluid Culture - Preliminary No growth to date. Assessment and Plan (1) Acute on chronic blood loss anemia: Status: Acute (2) Bleeding hemorrhoids: Status: Acute (3) Alcohol use disorder, severe, dependence: Status: Acute (4) Alcohol withdrawal: Status: Acute Plan 42M with alcohol dependence sent in by PCP for anemia, admitted for EtOH withdrawal and hematochezia symptomatic anemia due to acute and chronic GI blood loss anemia, hemorroidal bleeding EGD + C-scope 12/08/22: Duodenitis, Hiatal hernia, Nonobstructing ring at the [place] Junction, No varices, No blood nor coffee grounds in the UGI tract Colonoscopy: Friable, oozing hemorrhoid, No colitis, polyps, nor angiodysplasias Surgery did exploratory colonoscopy with suturing many of hemorrhoids but could not remove them surgically Pain Management, keep stool soft Surgery following, Continue rectal HC H&H dropped but stable follow CBC,transfuse as needed, leukocytosis likely reactive Folic acid deficiency, folic acid 1 mg daily Coagulopathy vitamin K 10 mg x 3 days abd distension Status post paracentesis 1.2 L of clear yellow fluid removed, fluid not c/w SBP etoh depeednence wtih acute EtOH hepatitis with coagulatophathy and thrombocytopenia and etoh withdrawal no steroids indicated s/p phenobarb duodenitis PO PPI tolerating advanced diet hypokalemia and hypomagnesemia Magnesium 1.5, 2 g magnesium given Hypoalbuminemia continue Ensure tobacco abuse NRT VTE ppx: SCDs, no heparin given low platelets and bleeding reason for continued hospitalization:active bleed Time Spent With Patient Time: Total time managing care of this patient today ____ minutes. Quality Stroke Does the patient have a stroke diagnosis?: No VTE Prior VTE?: No VTE Risk Level:: Medical - moderate - high VTE Device Contraindication: Treatment Not Indicated VTE Drug Contraindication: Treatment Not Indicated
[2022-12-19 15:33] VITALS: BP 123/63; PULSE 100; RESP 18; TEMP 37.1; O2SAT 95
[2022-12-19] MEDS: oxyCODONE HCl Immed Release 5 MG TABLET PO (17:33)
[2022-12-19 18:48] VITALS: BP 110/55; PULSE 100; RESP 17; TEMP 36.7; O2SAT 97
[2022-12-19 23:47] LABS: Albumin Peritoneal Fluid 0.4 GM/DL; Total Protein Peritoneal Fluid 0.9 GM/DL
[2022-12-20 03:52] VITALS: BP 109/63; PULSE 98; RESP 18; TEMP 36.3; O2SAT 98
[2022-12-20] MEDS: Omeprazole 40 MG CAPSULE.DR PO (05:44)
[2022-12-20] MEDS: Morphine Sulfate 4 MG/ML CARTRIDGE IVPUSH ×5 (05:49→21:42)
[2022-12-20 06:20] LABS: Hematocrit 24.1 % (42.0-52.0); Hemoglobin 7.5 g/dl (14.0-18.0)
[2022-12-20 06:33] LABS: Magnesium 1.5 mg/dL (1.6-2.6)
[2022-12-20] MEDS: Docusate Sodium 100 MG CAPSULE PO ×2 (07:35→21:42)
[2022-12-20] MEDS: Folic Acid 1 MG TABLET PO (07:35)
[2022-12-20] MEDS: Thiamine HCL 100 MG TABLET PO (07:35)
[2022-12-20] MEDS: Simethicone 80 MG TAB.CHEW PO ×4 (07:35→21:42)
[2022-12-20] MEDS: Phytonadione (Vit K1) Oral 10 MG/ML AMPUL PO (07:36)
[2022-12-20] MEDS: Magnesium Oxide 400 MG TABLET PO ×2 (07:36→17:08)
[2022-12-20] MEDS: 0.9 % Sodium Chloride Flush 3 ML SYRINGE IVFLUSH ×3 (07:37→21:43)
[2022-12-20] MEDS: Hydrocortisone 2.5 % Rectal Cr 30 GM TUBE 1 APPL PR ×2 (07:37→21:47)
[2022-12-20] MEDS: Lidocaine 4 % Cream KIT 1 APPL TOPICAL (07:37)
[2022-12-20] MEDS: Nicotine 21 MG PATCH.TD24 TRANSDERMA (07:44)
[2022-12-20 08:22] VITALS: BP 118/63; PULSE 108; RESP 18; TEMP 36.9; O2SAT 99
--- NOTE | 2022-12-20 10:23 | HO.PM.IMPN ---
Subjective Subjective Date of Service: 12/20/22 Interval History: still with bleeding abd starting to get distended again Physical Exam Vital Signs: Vital Signs: Last Vital Signs Temp 98.4 F 12/20/22 08:22 Pulse 108 H 12/20/22 08:22 Resp 18 12/20/22 08:22 BP 118/63 12/20/22 08:22 Pulse Ox 99 12/20/22 08:22 O2 Del Method 12/20/22 08:22 O2 Flow Rate 5 12/08/22 16:18 BMI result Body Mass Index 18.0 Const: Other: General resting comfortably in no acute distress. Neck supple no JVD. CVS regular rate rhythm, Respiratory lungs clear to auscultation, no respiratory distress, no wheeze, no rhonchi. Gastrointestinal abdomen soft, nontender, bowel sounds audible, no guarding Extremities no edema. Neuro nonfocal Skin no rash Psych appropriate affect Objective Data Active Medications Acetaminophen (Acetaminophen 325 Mg Tablet) 650 mg PO Q6H PRN PRN Reason: Pain, Mild (Pain Scale 1-3) Last Admin: 12/15/22 12:01 Dose: 650 mg Documented By: ANKIT Docusate Sodium (Docusate Sodium 100 Mg Capsule) 100 mg PO BID [facility] Last Admin: 12/20/22 07:35 Dose: 100 mg Documented By: DARWIN Folic Acid (Folic Acid 1 Mg Tablet) 1 mg PO DAILY [facility] Last Admin: 12/20/22 07:35 Dose: 1 mg Documented By: DARWIN Hydrocortisone (Hydrocortisone 2.5 % Rectal Cr 30 Gm Tube) 1 appl [place] BID [facility] Last Admin: 12/20/22 07:37 Dose: 1 appl Documented By: DARWIN Promethazine HCl 12.5 mg/ (Sodium Chloride) 50.5 mls @ 202 mls/hr IV ONCE PRN PRN Reason: Nausea and Vomiting Lidocaine HCl (Lidocaine 4 % Cream Kit) 1 appl TOPICAL TID PRN; Protocol PRN Reason: rectal pain Last Admin: 12/20/22 07:37 Dose: 1 appl Documented By: DARWIN Magnesium Oxide (Magnesium [facility] 400 Mg Tablet) [facility] Last Admin: 12/20/22 07:36 Dose: 400 mg Documented By: DARWIN Melatonin (Melatonin 3 Mg Tablet) 6 mg PO BEDTIME PRN PRN Reason: Insomnia Morphine Sulfate (Morphine Sulfate 4 Mg/Ml Cartridge) 4 mg IVPUSH Q3H PRN; Protocol PRN Reason: moderate pain Last Admin: 12/20/22 05:49 Dose: 4 mg Documented By: MATILDE Nicotine (Nicotine 21 Mg Patch.Td24) 21 mg TRANSDERMA DAILY [facility] Last Admin: 12/20/22 07:44 Dose: 21 mg Documented By: DARWIN Nicotine Polacrilex (Nicotine Polacrilex 2 Mg Gum) 2 mg BUCCAL Q1H PRN PRN Reason: [facility] Last Admin: 12/11/22 09:36 Dose: 2 mg Documented By: DOMINGUEZ Omeprazole (Omeprazole 40 Mg Capsule.Dr) 40 mg PO DAILY@0630 [facility] Last Admin: 12/20/22 05:44 Dose: 40 mg Documented By: MATILDE Ondansetron HCl (Ondansetron Hcl 4 Mg/2 Ml Vial) 4 mg IVPUSH Q8H PRN PRN Reason: Nausea and Vomiting Oxycodone HCl (Oxycodone Hcl Immed Release 5 Mg Tablet) 5 mg PO Q4H PRN PRN Reason: moderate pain Last Admin: 12/19/22 17:33 Dose: 5 mg Documented By: DARWIN Pharmacy Consult (Consult Rx Etoh Phenob Im/Po) 1 each MISCELLANE ONCE PRN; Protocol PRN Reason: Consult order Pharmacy Consult (Consult Rx Perform Med Rec) 1 each MISCELLANE ONCE PRN PRN Reason: Consult order Phytonadione (Phytonadione (Vit K1) Oral 10 Mg/Ml Ampul) 10 mg PO DAILY [facility] Stop: 12/22/22 08:59 Last Admin: 12/20/22 07:36 Dose: 10 mg Documented By: DARWIN Simethicone (Simethicone 80 Mg Tab.Chew) 80 mg PO QIDWMHS [facility] Last Admin: 12/20/22 07:35 Dose: 80 mg Documented By: DARWIN Sodium Chloride (0.9 % Sodium Chloride Flush 3 Ml Syringe) 3 ml IVFLUSH QSHIFT [facility] Last Admin: 12/20/22 07:37 Dose: 3 ml Documented By: DARWIN Thiamine HCl (Thiamine Hcl 100 Mg Tablet) 100 mg PO DAILY [facility] Last Admin: 12/20/22 07:35 Dose: 100 mg Documented By: DARWIN Labs 12/20/22 06:05 12/19/22 05:25 Labs: Laboratory Results - last 24 hr 12/18/22 12/20/22 11:58 06:05 Magnesium 1.5 L Peritoneal Tot Protein 0.9 Peritoneal Albumin 0.4 Microbiology Microbiology Results: Microbiology 12/18/22 11:58 Gram Stain - Final Ascites Fluid Anaerobic Culture - Preliminary No growth to date. Body Fluid Culture - Final No growth after 2 days Assessment and Plan (1) Acute on chronic blood loss anemia: Status: Acute (2) Bleeding hemorrhoids: Status: Acute (3) Alcohol use disorder, severe, dependence: Status: Acute (4) Alcohol withdrawal: Status: Acute Plan 42M with alcohol dependence sent in by PCP for anemia, admitted for EtOH withdrawal and hematochezia symptomatic anemia due to acute and chronic GI blood loss anemia, hemorroidal bleeding EGD + C-scope 12/08/22: Duodenitis, Hiatal hernia, Nonobstructing ring at the EG Junction, No varices, No blood nor coffee grounds in the UGI tract Colonoscopy: Friable, oozing hemorrhoid, No colitis, polyps, nor angiodysplasias Surgery did exploratory colonoscopy with suturing many of hemorrhoids but could not remove them surgically Pain Management, keep stool soft Surgery following, Continue rectal HC H&H dropped but stable follow CBC,transfuse as needed, leukocytosis likely reactive Folic acid deficiency, folic acid 1 mg daily Coagulopathy vitamin K 10 mg x 3 days abd distension Status post paracentesis 1.2 L of clear yellow fluid removed, fluid not c/w SBP will add lasix and aldactone etoh depeednence wtih acute EtOH hepatitis with coagulatophathy and thrombocytopenia and etoh withdrawal no steroids indicated s/p phenobarb duodenitis PO PPI tolerating advanced diet hypokalemia and hypomagnesemia monitor Hypoalbuminemia continue Ensure tobacco abuse NRT VTE ppx: SCDs, no heparin given low platelets and bleeding reason for continued hospitalization:active bleed Time Spent With Patient Time: Total time managing care of this patient today ____ minutes. Quality Stroke Does the patient have a stroke diagnosis?: No VTE Prior VTE?: No VTE Risk Level:: Medical - moderate - high VTE Device Contraindication: Treatment Not Indicated VTE Drug Contraindication: Treatment Not Indicated
--- NOTE | 2022-12-20 11:08 | P.PNGS_ITS ---
Subjective Subjective Date of Service: 12/20/22 Interval history: hemorrhoid pain a little better still with blood on BMs ascites reaccumulating - says this is getting uncomfortable Physical Exam Vital Signs: Vital Signs: Last Vital Signs Temp 98.4 F 12/20/22 08:22 Pulse 108 H 12/20/22 08:22 Resp 18 12/20/22 08:22 BP 118/63 12/20/22 08:22 Pulse Ox 99 12/20/22 08:22 O2 Del Method 12/20/22 08:22 O2 Flow Rate 5 12/08/22 16:18 BMI result Body Mass Index 18.0 Const: General: no acute distress Resp: Effort & Inspection: normal respiratory effort Cardio: Rhythm: regular rhythm GI: Other: edematous hemorrhoids, no active bleeding abd protruberant with ascites Objective Data Active Medications Acetaminophen (Acetaminophen 325 Mg Tablet) 650 mg PO Q6H PRN PRN Reason: Pain, Mild (Pain Scale 1-3) Last Admin: 12/15/22 12:01 Dose: 650 mg Documented By: ANKIT Docusate Sodium (Docusate Sodium 100 Mg Capsule) 100 mg PO BID [facility] Last Admin: 12/20/22 07:35 Dose: 100 mg Documented By: DARWIN Folic Acid (Folic Acid 1 Mg Tablet) 1 mg PO DAILY [facility] Last Admin: 12/20/22 07:35 Dose: 1 mg Documented By: DARWIN Furosemide (Furosemide 20 Mg Tablet) 20 mg PO DAILY [facility]; Protocol Hydrocortisone (Hydrocortisone 2.5 % Rectal Cr 30 Gm Tube) 1 appl IA BID [facility] Last Admin: 12/20/22 07:37 Dose: 1 appl Documented By: DARWIN Promethazine HCl 12.5 mg/ (Sodium Chloride) 50.5 mls @ 202 mls/hr IV ONCE PRN PRN Reason: Nausea and Vomiting Lidocaine HCl (Lidocaine 4 % Cream Kit) 1 appl TOPICAL TID PRN; Protocol PRN Reason: rectal pain Last Admin: 12/20/22 07:37 Dose: 1 appl Documented By: DARWIN Magnesium Oxide (Magn[facility] 400 Mg Tablet) [facility] Last Admin: 12/20/22 07:36 Dose: 400 mg Documented By: DARWIN Melatonin (Melatonin 3 Mg Tablet) 6 mg PO BEDTIME PRN PRN Reason: Insomnia Morphine Sulfate (Morphine Sulfate 4 Mg/Ml Cartridge) 4 mg IVPUSH Q3H PRN; Protocol PRN Reason: moderate pain Last Admin: 12/20/22 10:28 Dose: 4 mg Documented By: DARWIN Nicotine (Nicotine 21 Mg Patch.Td24) 21 mg TRANSDERMA DAILY [facility] Last Admin: 12/20/22 07:44 Dose: 21 mg Documented By: DARWIN Nicotine Polacrilex (Nicotine Polacrilex 2 Mg Gum) 2 mg BUCCAL Q1H 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 Last Admin: 12/11/22 09:36 Dose: 2 mg Documented By: DOMINGUEZ Omeprazole (Omeprazole 40 Mg Capsule.Dr) 40 mg PO DAILY@0630 [facility] Last Admin: 12/20/22 05:44 Dose: 40 mg Documented By: MATILDE Ondansetron HCl (Ondansetron Hcl 4 Mg/2 Ml Vial) 4 mg IVPUSH Q8H PRN PRN Reason: Nausea and Vomiting Oxycodone HCl (Oxycodone Hcl Immed Release 5 Mg Tablet) 5 mg PO Q4H PRN PRN Reason: moderate pain Last Admin: 12/19/22 17:33 Dose: 5 mg Documented By: DARWIN Pharmacy Consult (Consult Rx Etoh Phenob Im/Po) 1 each MISCELLANE ONCE PRN; Protocol PRN Reason: Consult order Pharmacy Consult (Consult Rx Perform Med Rec) 1 each MISCELLANE ONCE PRN PRN Reason: Consult order Phytonadione (Phytonadione (Vit K1) Oral 10 Mg/Ml Ampul) 10 mg PO DAILY [facility] Stop: 12/22/22 08:59 Last Admin: 12/20/22 07:36 Dose: 10 mg Documented By: DARWIN Simethicone (Simethicone 80 Mg Tab.Chew) 80 mg PO QIDWMHS [facility] Last Admin: 12/20/22 07:35 Dose: 80 mg Documented By: DARWIN Sodium Chloride (0.9 % Sodium Chloride Flush 3 Ml Syringe) 3 ml IVFLUSH QSHIFT [facility] Last Admin: 12/20/22 07:37 Dose: 3 ml Documented By: DARWIN Spironolactone (Spironolactone 25 Mg Tablet) 25 mg PO BID@0900,1800 [facility]; Protocol Thiamine HCl (Thiamine Hcl 100 Mg Tablet) 100 mg PO DAILY [facility] Last Admin: 12/20/22 07:35 Dose: 100 mg Documented By: DARWIN Labs 12/20/22 06:05 12/19/22 05:25 Labs: Laboratory Results - last 24 hr 12/18/22 12/20/22 11:58 06:05 Magnesium 1.5 L Peritoneal Tot Protein 0.9 Peritoneal Albumin 0.4 Microbiology Microbiology Results: Microbiology 12/18/22 11:58 Gram Stain - Final Ascites Fluid Anaerobic Culture - Preliminary No growth to date. Body Fluid Culture - Final No growth after 2 days Procedures Date of Service Date of Service: 12/20/22 Progress Note: A&P Assessment and plan (1) Bleeding hemorrhoids: Status: Acute Assessment and Plan: continue symptomatic care for pain ascites reaccumulating will benefit from repeat paracentesis down the line Hg steady Time Spent With Patient Time: Total time managing care of this patient today ____ minutes. Quality Stroke Does the patient have a stroke diagnosis?: No VTE Prior VTE?: No VTE Risk Level:: Medical - moderate - high VTE Device Contraindication: Treatment Not Indicated VTE Drug Contraindication: Treatment Not Indicated
[2022-12-20 15:37] VITALS: BP 114/66; PULSE 111; RESP 18; TEMP 37; O2SAT 97
[2022-12-20] MEDS: Spironolactone 25 MG TABLET PO (17:06)
[2022-12-20 20:00] VITALS: BP 119/64; PULSE 112; RESP 15; TEMP 37.2; O2SAT 98
[2022-12-21 02:48] VITALS: BP 94/51; PULSE 98; RESP 18; TEMP 36.2; O2SAT 97
[2022-12-21] MEDS: Morphine Sulfate 4 MG/ML CARTRIDGE IVPUSH ×3 (04:42→23:43)
[2022-12-21] MEDS: Omeprazole 40 MG CAPSULE.DR PO (04:42)
[2022-12-21 06:40] LABS: Hematocrit 23.9 % (42.0-52.0); Hemoglobin 7.5 g/dl (14.0-18.0); Mean Corpuscular HGB Conc 31.4 g/dl (31.0-36.0); Mean Corpuscular Hemoglobin 26.5 pg (27.0-33.0); Mean Corpuscular Volume 84.5 fL (80.0-98.0); Mean Platelet Volume 10.4 fL (9.4-12.4); Platelet Count 161 X10*3/uL (160-400); Red Blood Count 2.83 X10*6/uL (4.60-5.80); Red Cell Distribution Width 20.4 % (11.0-16.0); White Blood Count 14.8 X10*3/uL (4.8-10.8)
[2022-12-21 07:01] LABS: Alanine Aminotransferase 28 U/L (0-40); Albumin Level 1.9 g/dL (3.5-5.0); Alkaline Phosphatase 284 U/L (39-117); Anion Gap 13 (12-20); Aspartate Amino Transferase 113 U/L (5-37); Bilirubin Direct 0.8 mg/dL (0.0-0.5); Bilirubin Total 1.5 mg/dL (0.0-1.0); Blood Urea Nitrogen 7 mg/dL (9-16); Calcium 7.6 mg/dL (8.4-10.2); Carbon Dioxide 22 mmol/L (22-29); Chloride 107 mmol/L (96-108); Creatinine Clr Calc Pharmacy 164.2; Estimated Glomerular Filt Rate > 60; Glucose Fasting 125 mg/dL (60-99); Magnesium 1.5 mg/dL (1.6-2.6); Potassium 3.9 mmol/L (3.3-5.1); Sodium 138 mmol/L (135-145); Total Protein 5.3 g/dL (6.5-8.0)
[2022-12-21 08:00] VITALS: BP 118/67; PULSE 102; RESP 18; TEMP 37.8; O2SAT 98
[2022-12-21] MEDS: Phytonadione (Vit K1) Oral 10 MG/ML AMPUL PO (08:30)
[2022-12-21] MEDS: Docusate Sodium 100 MG CAPSULE PO ×2 (08:31→20:24)
[2022-12-21] MEDS: Nicotine 21 MG PATCH.TD24 TRANSDERMA (08:31)
[2022-12-21] MEDS: Spironolactone 25 MG TABLET PO ×2 (08:31→18:28)
[2022-12-21] MEDS: Simethicone 80 MG TAB.CHEW PO ×4 (08:31→20:24)
[2022-12-21] MEDS: Folic Acid 1 MG TABLET PO (08:31)
[2022-12-21] MEDS: Thiamine HCL 100 MG TABLET PO (08:31)
[2022-12-21] MEDS: Furosemide 20 MG TABLET PO (08:36)
[2022-12-21] MEDS: Magnesium Oxide 400 MG TABLET PO ×2 (08:37→15:55)
[2022-12-21] MEDS: 0.9 % Sodium Chloride Flush 3 ML SYRINGE IVFLUSH ×3 (08:38→23:47)
[2022-12-21] MEDS: Hydrocortisone 2.5 % Rectal Cr 30 GM TUBE 1 APPL PR ×2 (08:46→20:25)
--- NOTE | 2022-12-21 09:16 | HO.PM.IMPN ---
Subjective Subjective Date of Service: 12/21/22 Interval History: still with bleeding abd starting to get distended again Physical Exam Vital Signs: Vital Signs: Last Vital Signs Temp 100.1 F 12/21/22 08:00 Pulse 102 H 12/21/22 08:00 Resp 18 12/21/22 08:00 BP 118/67 12/21/22 08:00 Pulse Ox 98 12/21/22 08:00 O2 Del Method 12/21/22 08:00 O2 Flow Rate 5 12/08/22 16:18 BMI result Body Mass Index 18.0 Const: General: no acute distress Resp: Effort & Inspection: normal respiratory effort Cardio: Rhythm: regular rhythm GI: Other: edematous hemorrhoids, no active bleeding abd protruberant with ascites Objective Data Active Medications Acetaminophen (Acetaminophen 325 Mg Tablet) 650 mg PO Q6H PRN PRN Reason: Pain, Mild (Pain Scale 1-3) Last Admin: 12/15/22 12:01 Dose: 650 mg Documented By: ANKIT Docusate Sodium (Docusate Sodium 100 Mg Capsule) 100 mg PO BID [facility] Last Admin: 12/21/22 08:31 Dose: 100 mg Documented By: DARWIN Folic Acid (Folic Acid 1 Mg Tablet) 1 mg PO DAILY [facility] Last Admin: 12/21/22 08:31 Dose: 1 mg Documented By: DARWIN Furosemide (Furosemide 20 Mg Tablet) 20 mg PO DAILY [facility]; Protocol Last Admin: 12/21/22 08:36 Dose: 20 mg Documented By: DARWIN Hydrocortisone (Hydrocortisone 2.5 % Rectal Cr 30 Gm Tube) 1 appl OR BID [facility] Last Admin: 12/21/22 08:46 Dose: 1 appl Documented By: DARWIN Promethazine HCl 12.5 mg/ (Sodium Chloride) 50.5 mls @ 202 mls/hr IV ONCE PRN PRN Reason: Nausea and Vomiting Lidocaine HCl (Lidocaine 4 % Cream Kit) 1 appl TOPICAL TID PRN; Protocol PRN Reason: rectal pain Last Admin: 12/20/22 07:37 Dose: 1 appl Documented By: DARWIN Magnesium Oxide (Magnesium Oxide 400 Mg Tablet) [facility] Last Admin: 12/21/22 08:37 Dose: 400 mg Documented By: DARWIN Melatonin (Melatonin 3 Mg Tablet) 6 mg PO BEDTIME PRN PRN Reason: Insomnia Morphine Sulfate (Morphine Sulfate 4 Mg/Ml Cartridge) 4 mg IVPUSH Q3H PRN; Protocol PRN Reason: moderate pain Last Admin: 12/21/22 04:42 Dose: 4 mg Documented By: MATILDE Nicotine (Nicotine 21 Mg Patch.Td24) 21 mg TRANSDERMA DAILY [facility] Last Admin: 12/21/22 08:31 Dose: 21 mg Documented By: DARWIN Nicotine Polacrilex (Nicotine Polacrilex 2 Mg Gum) 2 mg BUCCAL Q1H 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 Last Admin: 12/11/22 09:36 Dose: 2 mg Documented By: DOMINGUEZ Omeprazole (Omeprazole 40 Mg Capsule.Dr) 40 mg PO DAILY@0630 [facility] Last Admin: 12/21/22 04:42 Dose: 40 mg Documented By: MATILDE Ondansetron HCl (Ondansetron Hcl 4 Mg/2 Ml Vial) 4 mg IVPUSH Q8H PRN PRN Reason: Nausea and Vomiting Oxycodone HCl (Oxycodone Hcl Immed Release 5 Mg Tablet) 5 mg PO Q4H PRN PRN Reason: moderate pain Last Admin: 12/19/22 17:33 Dose: 5 mg Documented By: DARWIN Pharmacy Consult (Consult Rx Etoh Phenob Im/Po) 1 each MISCELLANE ONCE PRN; Protocol PRN Reason: Consult order Pharmacy Consult (Consult Rx Perform Med Rec) 1 each MISCELLANE ONCE PRN PRN Reason: Consult order Phytonadione (Phytonadione (Vit K1) Oral 10 Mg/Ml Ampul) 10 mg PO DAILY [facility] Stop: 12/22/22 08:59 Last Admin: 12/21/22 08:30 Dose: 10 mg Documented By: DARWIN Simethicone (Simethicone 80 Mg Tab.Chew) 80 mg PO QIDWMHS [facility] Last Admin: 12/21/22 08:31 Dose: 80 mg Documented By: DARWIN Sodium Chloride (0.9 % Sodium Chloride Flush 3 Ml Syringe) 3 ml IVFLUSH QSHIFT [facility] Last Admin: 12/21/22 08:38 Dose: 3 ml Documented By: DARWIN Spironolactone (Spironolactone 25 Mg Tablet) 25 mg PO BID@0900,1800 [facility]; Protocol Last Admin: 12/21/22 08:31 Dose: 25 mg Documented By: DARWIN Thiamine HCl (Thiamine Hcl 100 Mg Tablet) 100 mg PO DAILY [facility] Last Admin: 12/21/22 08:31 Dose: 100 mg Documented By: DARWIN Labs 12/21/22 05:44 12/21/22 05:44 Labs: Laboratory Results - last 24 hr 12/21/22 12/21/22 05:44 05:44 MCV 84.5 MCH 26.5 L MCHC 31.4 RDW 20.4 H Plt Count 161 MPV 10.4 Absolute Nucleated RBC 0.000 Nucleated RBC % (auto) 0.0 Anion Gap 13 Estim Creat Clear Calc 164.2 Estimated GFR > 60 Fasting Glucose 125 H Calcium 7.6 L Magnesium 1.5 L Total Bilirubin 1.5 H Direct Bilirubin 0.8 H AST 113 H ALT 28 Alkaline Phosphatase 284 H Total Protein 5.3 L Albumin 1.9 L Microbiology Microbiology Results: Microbiology 12/18/22 11:58 Gram Stain - Final Ascites Fluid Anaerobic Culture - Preliminary No growth to date. Body Fluid Culture - Final No growth after 2 days Assessment and Plan (1) Acute on chronic blood loss anemia: Status: Acute (2) Bleeding hemorrhoids: Status: Acute (3) Alcohol use disorder, severe, dependence: Status: Acute (4) Alcohol withdrawal: Status: Acute Plan 42M with alcohol dependence sent in by PCP for anemia, admitted for EtOH withdrawal and hematochezia symptomatic anemia due to acute and chronic GI blood loss anemia, hemorroidal bleeding EGD + C-scope 12/08/22: Duodenitis, Hiatal hernia, Nonobstructing ring at the EG Junction, No varices, No blood nor coffee grounds in the UGI tract Colonoscopy: Friable, oozing hemorrhoid, No colitis, polyps, nor angiodysplasias Surgery did exploratory colonoscopy with suturing many of hemorrhoids but could not remove them surgically Pain Management, keep stool soft Surgery following, Continue rectal HC H&H dropped but stable follow CBC,transfuse as needed, leukocytosis likely reactive Folic acid deficiency, folic acid 1 mg daily Coagulopathy vitamin K 10 mg x 3 days abd distension Status post paracentesis 1.2 L of clear yellow fluid removed, fluid not c/w SBP added lasix and aldactone etoh depeednence wtih acute EtOH hepatitis with coagulatophathy and thrombocytopenia and etoh withdrawal no steroids indicated s/p phenobarb duodenitis PO PPI tolerating advanced diet hypokalemia and hypomagnesemia monitor Hypoalbuminemia continue Ensure tobacco abuse NRT VTE ppx: SCDs, no heparin given low platelets and bleeding reason for continued hospitalization:active bleed Time Spent With Patient Time: Total time managing care of this patient today ____ minutes. Quality Stroke Does the patient have a stroke diagnosis?: No VTE Prior VTE?: No VTE Risk Level:: Medical - moderate - high VTE Device Contraindication: Treatment Not Indicated VTE Drug Contraindication: Treatment Not Indicated
--- NOTE | 2022-12-21 11:32 | PM.PNGS ---
Subjective Subjective Date of Service: 12/21/22 Interval history: no changes has good BMs but sees blood with this he feels his ascites is worsening Physical Exam Vital Signs: Vital Signs: Last Vital Signs Temp 100.1 F 12/21/22 08:00 Pulse 102 H 12/21/22 08:00 Resp 18 12/21/22 08:00 BP 118/67 12/21/22 08:00 Pulse Ox 98 12/21/22 08:00 O2 Del Method 12/21/22 08:00 O2 Flow Rate 5 12/08/22 16:18 BMI result Body Mass Index 18.0 Const: General: comfortable and no acute distress Resp: Effort & Inspection: normal respiratory effort Cardio: Rhythm: regular rhythm GI: Other: distended with ascites, soft Objective Data Active Medications Acetaminophen (Acetaminophen 325 Mg Tablet) 650 mg PO Q6H PRN PRN Reason: Pain, Mild (Pain Scale 1-3) Last Admin: 12/15/22 12:01 Dose: 650 mg Documented By: ANKIT Docusate Sodium (Docusate Sodium 100 Mg Capsule) 100 mg PO BID [facility] Last Admin: 12/21/22 08:31 Dose: 100 mg Documented By: DARWIN Folic Acid (Folic Acid 1 Mg Tablet) 1 mg PO DAILY [facility] Last Admin: 12/21/22 08:31 Dose: 1 mg Documented By: DARWIN Furosemide (Furosemide 20 Mg Tablet) 20 mg PO DAILY [facility]; Protocol Last Admin: 12/21/22 08:36 Dose: 20 mg Documented By: DARWIN Hydrocortisone (Hydrocortisone 2.5 % Rectal Cr 30 Gm Tube) 1 appl [place] BID [facility] Last Admin: 12/21/22 08:46 Dose: 1 appl Documented By: DARWIN Promethazine HCl 12.5 mg/ (Sodium Chloride) 50.5 mls @ 202 mls/hr IV ONCE PRN PRN Reason: Nausea and Vomiting Lidocaine HCl (Lidocaine 4 % Cream Kit) 1 appl TOPICAL TID PRN; Protocol PRN Reason: rectal pain Last Admin: 12/20/22 07:37 Dose: 1 appl Documented By: DARWIN Magn[facility] ([facility] 400 Mg [facility]t) [facility] Last Admin: 12/21/22 08:37 Dose: 400 mg Documented By: DARWIN Melatonin (Melatonin 3 Mg Tablet) 6 mg PO BEDTIME PRN PRN Reason: Insomnia Morphine Sulfate (Morphine Sulfate 4 Mg/Ml Cartridge) 4 mg IVPUSH Q3H PRN; Protocol PRN Reason: moderate pain Last Admin: 12/21/22 04:42 Dose: 4 mg Documented By: MATILDE Nicotine (Nicotine 21 Mg Patch.Td24) 21 mg TRANSDERMA DAILY [facility] Last Admin: 12/21/22 08:31 Dose: 21 mg Documented By: DARWIN Nicotine Polacrilex (Nicotine Polacrilex 2 Mg Gum) 2 mg BUCCAL Q1H 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 Last Admin: 12/11/22 09:36 Dose: 2 mg Documented By: DOMINGUEZ Omeprazole (Omeprazole 40 Mg Capsule.Dr) 40 mg PO DAILY@0630 [facility] Last Admin: 12/21/22 04:42 Dose: 40 mg Documented By: MATILDE Ondansetron HCl (Ondansetron Hcl 4 Mg/2 Ml Vial) 4 mg IVPUSH Q8H PRN PRN Reason: Nausea and Vomiting Oxycodone HCl (Oxycodone Hcl Immed Release 5 Mg Tablet) 5 mg PO Q4H PRN PRN Reason: moderate pain Last Admin: 12/19/22 17:33 Dose: 5 mg Documented By: DARWIN Pharmacy Consult (Consult Rx Etoh Phenob Im/Po) 1 each MISCELLANE ONCE PRN; Protocol PRN Reason: Consult order Pharmacy Consult (Consult Rx Perform Med Rec) 1 each MISCELLANE ONCE PRN PRN Reason: Consult order Phytonadione (Phytonadione (Vit K1) Oral 10 Mg/Ml Ampul) 10 mg PO DAILY [facility] Stop: 12/22/22 08:59 Last Admin: 12/21/22 08:30 Dose: 10 mg Documented By: DARWIN Simethicone (Simethicone 80 Mg Tab.Chew) 80 mg PO QIDWMHS [facility] Last Admin: 12/21/22 08:31 Dose: 80 mg Documented By: DARWIN Sodium Chloride (0.9 % Sodium Chloride Flush 3 Ml Syringe) 3 ml IVFLUSH QSHIFT [facility] Last Admin: 12/21/22 08:38 Dose: 3 ml Documented By: DARWIN Spironolactone (Spironolactone 25 Mg Tablet) 25 mg PO BID@0900,1800 [facility]; Protocol Last Admin: 12/21/22 08:31 Dose: 25 mg Documented By: DARWIN Thiamine HCl (Thiamine Hcl 100 Mg Tablet) 100 mg PO DAILY [facility] Last Admin: 12/21/22 08:31 Dose: 100 mg Documented By: DARWIN Labs 12/21/22 05:44 12/21/22 05:44 Labs: Laboratory Results - last 24 hr 12/21/22 12/21/22 05:44 05:44 MCV 84.5 MCH 26.5 L MCHC 31.4 RDW 20.4 H Plt Count 161 MPV 10.4 Absolute Nucleated RBC 0.000 Nucleated RBC % (auto) 0.0 Anion Gap 13 Estim Creat Clear Calc 164.2 Estimated GFR > 60 Fasting Glucose 125 H Calcium 7.6 L Magnesium 1.5 L Total Bilirubin 1.5 H Direct Bilirubin 0.8 H AST 113 H ALT 28 Alkaline Phosphatase 284 H Total Protein 5.3 L Albumin 1.9 L Microbiology Microbiology Results: Microbiology 12/18/22 11:58 Gram Stain - Final Ascites Fluid Anaerobic Culture - Preliminary No growth to date. Body Fluid Culture - Final No growth after 2 days Procedures Date of Service Date of Service: 12/21/22 Progress Note: A&P Assessment and plan (1) Bleeding hemorrhoids: Status: Acute Assessment and Plan: with chronic liver disease oversewing done last week for bleeding hemorrhoids - high pressure bleeding noted so hemorrhoidectomy not done then treat liver disease repeat paracentesis Time Spent With Patient Time: Total time managing care of this patient today ____ minutes. Quality Stroke Does the patient have a stroke diagnosis?: No VTE Prior VTE?: No VTE Risk Level:: Medical - moderate - high VTE Device Contraindication: Treatment Not Indicated VTE Drug Contraindication: Treatment Not Indicated
[2022-12-21] MEDS: oxyCODONE HCl Immed Release 5 MG TABLET PO (12:02)
[2022-12-21 15:45] VITALS: BP 121/72; PULSE 107; RESP 15; TEMP 36.7; O2SAT 95
[2022-12-21 19:22] VITALS: BP 118/58; PULSE 98; RESP 18; TEMP 36.5; O2SAT 98
[2022-12-21 23:35] VITALS: BP 116/57; PULSE 101
[2022-12-22] VITALS (10 sets, daily range): BP systolic 100–127; BP diastolic 57–66; PULSE 100–117; RESP 14–20; TEMP 36.3–37.2; O2SAT 96–98
[2022-12-22] MEDS: Morphine Sulfate 4 MG/ML CARTRIDGE IVPUSH ×5 (04:12→18:23)
[2022-12-22] MEDS: Omeprazole 40 MG CAPSULE.DR PO (06:34)
[2022-12-22 06:36] LABS: Hematocrit 22.2 % (42.0-52.0); Mean Corpuscular HGB Conc 31.1 g/dl (31.0-36.0); Mean Corpuscular Hemoglobin 26.2 pg (27.0-33.0); Mean Corpuscular Volume 84.4 fL (80.0-98.0); Mean Platelet Volume 10.5 fL (9.4-12.4); Platelet Count 190 X10*3/uL (160-400); Red Blood Count 2.63 X10*6/uL (4.60-5.80); Red Cell Distribution Width 20.6 % (11.0-16.0); White Blood Count 16.1 X10*3/uL (4.8-10.8)
--- NOTE | 2022-12-22 06:39 | PC.NURSE ---
patient with blood tinged BM and pain to abd and rectum due to hemorrhoids.
[2022-12-22 06:59] LABS: Anion Gap 12 (12-20); Blood Urea Nitrogen 7 mg/dL (9-16); Calcium 7.5 mg/dL (8.4-10.2); Carbon Dioxide 23 mmol/L (22-29); Chloride 105 mmol/L (96-108); Creatinine Clr Calc Pharmacy 178.2; Estimated Glomerular Filt Rate > 60; Glucose Fasting 101 mg/dL (60-99); Potassium 3.9 mmol/L (3.3-5.1); Sodium 136 mmol/L (135-145)
[2022-12-22 07:45] LABS: Hemoglobin 6.9 g/dl (14.0-18.0)
--- NOTE | 2022-12-22 09:01 | P.PNIM_ITS ---
Subjective Subjective Date of Service: 12/22/22 Interval History: still with bleeding abd starting to get distended again Physical Exam Vital Signs: Vital Signs: Last Vital Signs Temp 98.9 F 12/22/22 07:40 Pulse 117 H 12/22/22 07:40 Resp 20 12/22/22 07:40 BP 122/64 12/22/22 07:40 Pulse Ox 98 12/22/22 07:40 O2 Del Method 12/22/22 03:13 O2 Flow Rate 5 12/08/22 16:18 BMI result Body Mass Index 18.0 Const: General: comfortable and no acute distress Resp: Effort & Inspection: normal respiratory effort Cardio: Rhythm: regular rhythm GI: Other: distended with ascites, soft Objective Data Active Medications Acetaminophen (Acetaminophen 325 Mg Tablet) 650 mg PO Q6H PRN PRN Reason: Pain, Mild (Pain Scale 1-3) Last Admin: 12/15/22 12:01 Dose: 650 mg Documented By: ANKIT Docusate Sodium (Docusate Sodium 100 Mg Capsule) 100 mg PO BID [facility] Last Admin: 12/21/22 20:24 Dose: 100 mg Documented By: JF Folic Acid (Folic Acid 1 Mg Tablet) 1 mg PO DAILY [facility] Last Admin: 12/21/22 08:31 Dose: 1 mg Documented By: DARWIN Furosemide (Furosemide 20 Mg Tablet) 20 mg PO DAILY [facility]; Protocol Last Admin: 12/21/22 08:36 Dose: 20 mg Documented By: DARWIN Hydrocortisone (Hydrocortisone 2.5 % Rectal Cr 30 Gm Tube) 1 appl [place] BID [facility] Last Admin: 12/21/22 20:25 Dose: 1 appl Documented By: JF Promethazine HCl 12.5 mg/ (Sodium Chloride) 50.5 mls @ 202 mls/hr IV ONCE PRN PRN Reason: Nausea and Vomiting Lidocaine HCl (Lidocaine 4 % Cream Kit) 1 appl TOPICAL TID PRN; Protocol PRN Reason: rectal pain Last Admin: 12/20/22 07:37 Dose: 1 appl Documented By: DARWIN Magnesium Oxide (Magnesium [facility]ide 400 Mg Tablet) [facility] Last Admin: 12/21/22 15:55 Dose: 400 mg Documented By: DARWIN Melatonin (Melatonin 3 Mg Tablet) 6 mg PO BEDTIME PRN PRN Reason: Insomnia Morphine Sulfate (Morphine Sulfate 4 Mg/Ml Cartridge) 4 mg IVPUSH Q3H PRN; Protocol PRN Reason: moderate pain Last Admin: 12/22/22 04:12 Dose: 4 mg Documented By: CHEYANNE Nicotine (Nicotine 21 Mg Patch.Td24) 21 mg TRANSDERMA DAILY [facility] Last Admin: 12/21/22 08:31 Dose: 21 mg Documented By: DARWIN Nicotine Polacrilex (Nicotine Polacrilex 2 Mg Gum) 2 mg BUCCAL Q1H 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 Last Admin: 12/11/22 09:36 Dose: 2 mg Documented By: DOMINGUEZ Omeprazole (Omeprazole 40 Mg Capsule.Dr) 40 mg PO DAILY@0630 [facility] Last Admin: 12/22/22 06:34 Dose: 40 mg Documented By: CHEYANNE Ondansetron HCl (Ondansetron Hcl 4 Mg/2 Ml Vial) 4 mg IVPUSH Q8H PRN PRN Reason: Nausea and Vomiting Oxycodone HCl (Oxycodone Hcl Immed Release 5 Mg Tablet) 5 mg PO Q4H PRN PRN Reason: moderate pain Last Admin: 12/21/22 12:02 Dose: 5 mg Documented By: DARWIN Pharmacy Consult (Consult Rx Etoh Phenob Im/Po) 1 each MISCELLANE ONCE PRN; Protocol PRN Reason: Consult order Pharmacy Consult (Consult Rx Perform Med Rec) 1 each MISCELLANE ONCE PRN PRN Reason: Consult order Simethicone (Simethicone 80 Mg Tab.Chew) 80 mg PO QIDWMHS [facility] Last Admin: 12/21/22 20:24 Dose: 80 mg Documented By: JF Sodium Chloride (0.9 % Sodium Chloride Flush 3 Ml Syringe) 3 ml IVFLUSH QSHIFT [facility] Last Admin: 12/21/22 23:47 Dose: 3 ml Documented By: CHEYANNE Spironolactone (Spironolactone 25 Mg Tablet) 25 mg PO BID@0900,1800 [facility]; Protocol Last Admin: 12/21/22 18:28 Dose: 25 mg Documented By: DARWIN Thiamine HCl (Thiamine Hcl 100 Mg Tablet) 100 mg PO DAILY [facility] Last Admin: 12/21/22 08:31 Dose: 100 mg Documented By: DARWIN Labs 12/22/22 05:51 12/22/22 05:51 Labs: Laboratory Results - last 24 hr 12/22/22 12/22/22 12/22/22 05:51 05:51 07:58 MCV 84.4 MCH 26.2 L MCHC 31.1 RDW 20.6 H Plt Count 190 MPV 10.5 Absolute Nucleated RBC 0.000 Nucleated RBC % (auto) 0.0 Anion Gap 12 Estim Creat Clear Calc 178.2 Estimated GFR > 60 Fasting Glucose 101 H Calcium 7.5 L Blood Type A Positive Antibody Screen NEGATIVE Crossmatch See Detail Microbiology Microbiology Results: Microbiology 12/18/22 11:58 Gram Stain - Final Ascites Fluid Anaerobic Culture - Preliminary No growth to date. Body Fluid Culture - Final No growth after 2 days Assessment and Plan (1) Acute on chronic blood loss anemia: Status: Acute (2) Bleeding hemorrhoids: Status: Acute (3) Alcohol use disorder, severe, dependence: Status: Acute (4) Alcohol withdrawal: Status: Acute Plan 42M with alcohol dependence sent in by PCP for anemia, admitted for EtOH withdrawal and hematochezia symptomatic anemia due to acute and chronic GI blood loss anemia, hemorroidal bleeding EGD + C-scope 12/08/22: Duodenitis, Hiatal hernia, Nonobstructing ring at the EG Junction, No varices, No blood nor coffee grounds in the UGI tract Colonoscopy: Friable, oozing hemorrhoid, No colitis, polyps, nor angiodysplasias Surgery did exploratory colonoscopy with suturing many of hemorrhoids but could not remove them surgically Pain Management, keep stool soft Surgery following, Continue rectal HC will transfuse another unit today Folic acid deficiency, folic acid 1 mg daily Coagulopathy vitamin K 10 mg x 3 days abd distension Status post paracentesis 1.2 L of clear yellow fluid removed, fluid not c/w SBP added lasix and aldactone will get another paracentesis 12/23/22 etoh depeednence wtih acute EtOH hepatitis with coagulatophathy and thrombocytop enia and etoh withdrawal no steroids indicated s/p phenobarb duodenitis PO PPI tolerating advanced diet hypokalemia and hypomagnesemia monitor Hypoalbuminemia continue Ensure tobacco abuse NRT VTE ppx: SCDs, no heparin given low platelets and bleeding reason for continued hospitalization:active bleed Time Spent With Patient Time: Total time managing care of this patient today ____ minutes. Quality Stroke Does the patient have a stroke diagnosis?: No VTE Prior VTE?: No VTE Risk Level:: Medical - moderate - high VTE Device Contraindication: Treatment Not Indicated VTE Drug Contraindication: Treatment Not Indicated
[2022-12-22] MEDS: 0.9 % Sodium Chloride Flush 3 ML SYRINGE IVFLUSH ×3 (09:10→20:43)
[2022-12-22] MEDS: Docusate Sodium 100 MG CAPSULE PO ×2 (09:11→20:42)
[2022-12-22] MEDS: Simethicone 80 MG TAB.CHEW PO ×4 (09:11→20:43)
[2022-12-22] MEDS: Folic Acid 1 MG TABLET PO (09:12)
[2022-12-22] MEDS: Spironolactone 25 MG TABLET PO ×2 (09:12→18:23)
[2022-12-22] MEDS: Thiamine HCL 100 MG TABLET PO (09:12)
[2022-12-22] MEDS: Furosemide 20 MG TABLET PO (09:12)
[2022-12-22] MEDS: Magnesium Oxide 400 MG TABLET PO ×2 (09:12→18:24)
[2022-12-22] MEDS: Nicotine 21 MG PATCH.TD24 TRANSDERMA (09:12)
[2022-12-22] MEDS: Hydrocortisone 2.5 % Rectal Cr 30 GM TUBE 1 APPL PR ×2 (09:15→20:44)
[2022-12-22] MEDS: Lidocaine 4 % Cream KIT 1 APPL TOPICAL (20:44)
[2022-12-22] MEDS: oxyCODONE HCl Immed Release 5 MG TABLET PO (22:22)
[2022-12-22] MEDS: Acetaminophen 325 MG TABLET 650 MG PO (22:23)
[2022-12-23 04:00] VITALS: BP 116/55; PULSE 83; RESP 18; TEMP 36.6; O2SAT 98
[2022-12-23] MEDS: Morphine Sulfate 4 MG/ML CARTRIDGE IVPUSH ×4 (05:22→20:30)
[2022-12-23] MEDS: Omeprazole 40 MG CAPSULE.DR PO (05:22)
[2022-12-23 06:27] LABS: INTERNATIONAL NORM RATIO 1.7 (0.9-1.1); Prothrombin Time 20.2 SEC (10.0-13.1)
[2022-12-23 06:43] LABS: Alanine Aminotransferase 29 U/L (0-40); Albumin Level 1.9 g/dL (3.5-5.0); Alkaline Phosphatase 268 U/L (39-117); Anion Gap 11 (12-20); Aspartate Amino Transferase 126 U/L (5-37); Bilirubin Direct 1.1 mg/dL (0.0-0.5); Bilirubin Total 1.8 mg/dL (0.0-1.0); Blood Urea Nitrogen 5 mg/dL (9-16); Calcium 7.9 mg/dL (8.4-10.2); Carbon Dioxide 24 mmol/L (22-29); Chloride 104 mmol/L (96-108); Estimated Glomerular Filt Rate > 60; Glucose Fasting 123 mg/dL (60-99); Potassium 4.5 mmol/L (3.3-5.1); Sodium 134 mmol/L (135-145); Total Protein 5.4 g/dL (6.5-8.0)
[2022-12-23 06:48] LABS: Hematocrit 26.1 % (42.0-52.0); Hemoglobin 8.5 g/dl (14.0-18.0); Mean Corpuscular HGB Conc 32.6 g/dl (31.0-36.0); Mean Corpuscular Hemoglobin 27.8 pg (27.0-33.0); Mean Corpuscular Volume 85.3 fL (80.0-98.0); Platelet Count 223 X10*3/uL (160-400); Red Blood Count 3.06 X10*6/uL (4.60-5.80); Red Cell Distribution Width 19.7 % (11.0-16.0)
[2022-12-23 06:53] LABS: Magnesium 1.5 mg/dL (1.6-2.6)
[2022-12-23 07:37] VITALS: BP 121/56; PULSE 101; RESP 16; TEMP 37.2; O2SAT 98
[2022-12-23] MEDS: Docusate Sodium 100 MG CAPSULE PO ×2 (08:21→20:30)
[2022-12-23] MEDS: Simethicone 80 MG TAB.CHEW PO ×4 (08:22→20:30)
[2022-12-23] MEDS: Furosemide 20 MG TABLET PO (08:25)
[2022-12-23] MEDS: Folic Acid 1 MG TABLET PO (08:26)
[2022-12-23] MEDS: Magnesium Oxide 400 MG TABLET PO ×2 (08:26→17:27)
[2022-12-23] MEDS: Nicotine 21 MG PATCH.TD24 TRANSDERMA (08:26)
[2022-12-23] MEDS: Hydrocortisone 2.5 % Rectal Cr 30 GM TUBE 1 APPL PR (08:26)
[2022-12-23] MEDS: Spironolactone 25 MG TABLET PO ×2 (08:27→17:27)
[2022-12-23] MEDS: Thiamine HCL 100 MG TABLET PO (08:27)
--- NOTE | 2022-12-23 08:55 | P.PNIM_ITS ---
Subjective Subjective Date of Service: 12/23/22 Interval History: still with bleeding abd starting to get distended again Physical Exam Vital Signs: Vital Signs: Last Vital Signs Temp 98.9 F 12/23/22 07:37 Pulse 101 H 12/23/22 07:37 Resp 16 12/23/22 07:37 BP 121/56 L 12/23/22 07:37 Pulse Ox 98 12/23/22 07:37 O2 Del Method 12/23/22 07:37 O2 Flow Rate 5 12/08/22 16:18 BMI result Body Mass Index 18.0 Const: General: comfortable and no acute distress Resp: Effort & Inspection: normal respiratory effort Cardio: Rhythm: regular rhythm GI: Other: distended with ascites, soft Objective Data Active Medications Acetaminophen (Acetaminophen 325 Mg Tablet) 650 mg PO Q6H PRN PRN Reason: Pain, Mild (Pain Scale 1-3) Last Admin: 12/22/22 22:23 Dose: 650 mg Documented By: LEONIDES Docusate Sodium (Docusate Sodium 100 Mg Capsule) 100 mg PO BID [facility] Last Admin: 12/23/22 08:21 Dose: 100 mg Documented By: DOMENICO Folic Acid (Folic Acid 1 Mg Tablet) 1 mg PO DAILY [facility] Last Admin: 12/23/22 08:26 Dose: 1 mg Documented By: DOMENICO Furosemide (Furosemide 20 Mg Tablet) 20 mg PO DAILY [facility]; Protocol Last Admin: 12/23/22 08:25 Dose: 20 mg Documented By: DOMENICO Hydrocortisone (Hydrocortisone 2.5 % Rectal Cr 30 Gm Tube) 1 appl [place] BID [facility] Last Admin: 12/23/22 08:26 Dose: 1 appl Documented By: DOMENICO Promethazine HCl 12.5 mg/ (Sodium Chloride) 50.5 mls @ 202 mls/hr IV ONCE PRN PRN Reason: Nausea and Vomiting Lidocaine HCl (Lidocaine 4 % Cream Kit) 1 appl TOPICAL TID PRN; Protocol PRN Reason: rectal pain Last Admin: 12/22/22 20:44 Dose: 1 appl Documented By: LEONIDES Magn[facility] ([facility] 400 Mg Tablet) [facility] Admin: 12/23/22 08:26 Dose: 400 mg Documented By: DOMENICO Melatonin (Melatonin 3 Mg Tablet) 6 mg PO BEDTIME PRN PRN Reason: Insomnia Morphine Sulfate (Morphine Sulfate 4 Mg/Ml Cartridge) 4 mg IVPUSH Q3H PRN; Protocol PRN Reason: moderate pain Last Admin: 12/23/22 08:30 Dose: 4 mg Documented By: DOMENICO Nicotine (Nicotine 21 Mg Patch.Td24) 21 mg TRANSDERMA DAILY [facility] Last Admin: 12/23/22 08:26 Dose: 21 mg Documented By: DOMENICO Nicotine Polacrilex (Nicotine Polacrilex 2 Mg Gum) 2 mg BUCCAL Q1H PRN 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 Last Admin: 12/11/22 09:36 Dose: 2 mg Documented By: DOMINGUEZ Omeprazole (Omeprazole 40 Mg Capsule.Dr) 40 mg PO DAILY@0630 [facility] Last Admin: 12/23/22 05:22 Dose: 40 mg Documented By: LEONIDES Ondansetron HCl (Ondansetron Hcl 4 Mg/2 Ml Vial) 4 mg IVPUSH Q8H PRN PRN Reason: Nausea and Vomiting Oxycodone HCl (Oxycodone Hcl Immed Release 5 Mg Tablet) 5 mg PO Q4H PRN PRN Reason: moderate pain Last Admin: 12/22/22 22:22 Dose: 5 mg Documented By: LEONIDES Pharmacy Consult (Consult Rx Etoh Phenob Im/Po) 1 each MISCELLANE ONCE PRN; Protocol PRN Reason: Consult order Pharmacy Consult (Consult Rx Perform Med Rec) 1 each MISCELLANE ONCE PRN PRN Reason: Consult order Simethicone (Simethicone 80 Mg Tab.Chew) 80 mg PO QIDWMHS [facility] Last Admin: 12/23/22 08:22 Dose: 80 mg Documented By: DOMENICO Sodium Chloride (0.9 % Sodium Chloride Flush 3 Ml Syringe) 3 ml IVFLUSH QSHIFT [facility] Last Admin: 12/23/22 07:16 Dose: Not Given Documented By: DOMENICO Non-Admin Reason: See Note Spironolactone (Spironolactone 25 Mg Tablet) 25 mg PO BID@0900,1800 [facility]; Protocol Last Admin: 12/23/22 08:27 Dose: 25 mg Documented By: DOMENICO Thiamine HCl (Thiamine Hcl 100 Mg Tablet) 100 mg PO DAILY [facility] Last Admin: 12/23/22 08:27 Dose: 100 mg Documented By: DOMENICO Labs 12/23/22 05:59 12/23/22 05:59 Labs: Laboratory Results - last 24 hr 12/11/22 12/22/22 12/23/22 08:43 07:58 05:59 MCV 85.3 MCH 27.8 MCHC 32.6 RDW 19.7 H Plt Count 223 MPV 11.0 Absolute Nucleated RBC 0.000 Nucleated RBC % (auto) 0.0 PT INR Anion Gap Estim Creat Clear Calc Estimated GFR Fasting Glucose Calcium Magnesium Total Bilirubin Direct Bilirubin AST ALT Alkaline Phosphatase Total Protein Albumin Blood Type A Positive Antibody Screen NEGATIVE Crossmatch See Detail See Detail 12/23/22 12/23/22 05:59 05:59 MCV MCH MCHC RDW Plt Count MPV Absolute Nucleated RBC Nucleated RBC % (auto) PT 20.2 H INR 1.7 H Anion Gap 11 L Estim Creat Clear Calc 158.0 Estimated GFR > 60 Fasting Glucose 123 H Calcium 7.9 L Magnesium 1.5 L Total Bilirubin 1.8 H Direct Bilirubin 1.1 H AST 126 H ALT 29 Alkaline Phosphatase 268 H Total Protein 5.4 L Albumin 1.9 L Blood Type Antibody Screen Crossmatch Microbiology Microbiology Results: Microbiology 12/18/22 11:58 Gram Stain - Final Ascites Fluid Anaerobic Culture - Final NO GROWTH AFTER 5 DAYS Body Fluid Culture - Final No growth after 2 days Assessment and Plan (1) Acute on chronic blood loss anemia: Status: Acute (2) Bleeding hemorrhoids: Status: Acute (3) Alcohol use disorder, severe, dependence: Status: Acute (4) Alcohol withdrawal: Status: Acute Plan 42M with alcohol dependence sent in by PCP for anemia, admitted for EtOH withdrawal and hematochezia symptomatic anemia due to acute and chronic GI blood loss anemia, hemorroidal bleeding EGD + C-scope 12/08/22: Duodenitis, Hiatal hernia, Nonobstructing ring at the EG Junction, No varices, No blood nor coffee grounds in the UGI tract Colonoscopy: Friable, oozing hemorrhoid, No colitis, polyps, nor angiodysplasias Surgery did exploratory colonoscopy with suturing many of hemorrhoids but could not remove them surgically Pain Management, keep stool soft Surgery following, Continue rectal HC s/p 1 unit 2/20 - hgb improved appropriately Folic acid deficiency, folic acid 1 mg daily Coagulopathy vitamin K 10 mg x 3 days abd distension Status post paracentesis 1.2 L of clear yellow fluid removed, fluid not c/w SBP added lasix and aldactone will get another paracentesis today etoh depeednence wtih acute EtOH hepatitis with coagulatophathy and thr ombocytopenia and etoh withdrawal no steroids indicated s/p phenobarb duodenitis PO PPI tolerating advanced diet hypokalemia and hypomagnesemia monitor Hypoalbuminemia continue Ensure tobacco abuse NRT VTE ppx: SCDs, no heparin given low platelets and bleeding reason for continued hospitalization:active bleed Time Spent With Patient Time: Total time managing care of this patient today ____ minutes. Quality Stroke Does the patient have a stroke diagnosis?: No VTE Prior VTE?: No VTE Risk Level:: Medical - moderate - high VTE Device Contraindication: Treatment Not Indicated VTE Drug Contraindication: Treatment Not Indicated
[2022-12-23] MEDS: oxyCODONE HCl Immed Release 5 MG TABLET PO ×2 (10:25→17:28)
[2022-12-23] MEDS: Acetaminophen 325 MG TABLET 650 MG PO ×2 (10:25→17:27)
[2022-12-23 15:32] VITALS: BP 110/57; PULSE 106; RESP 18; TEMP 36.7; O2SAT 97
--- NOTE | 2022-12-23 16:17 | HO.RADPN ---
RADIOLOGY Narrative Narrative: RLQ/pelvis paracentesis using 5 fr angiocath. 1L clear yellow fluid removed. Specimen sent for culture.
[2022-12-23] MEDS: Lidocaine HCl 1 % MPF 5 ML VIAL SUBCUT (16:57)
[2022-12-23 20:00] VITALS: BP 115/62; PULSE 60; RESP 18; TEMP 36.6; O2SAT 97
[2022-12-23] MEDS: 0.9 % Sodium Chloride Flush 3 ML SYRINGE IVFLUSH (20:30)
[2022-12-24] MEDS: Morphine Sulfate 4 MG/ML CARTRIDGE IVPUSH ×4 (01:18→14:43)
[2022-12-24 03:18] VITALS: BP 99/58; PULSE 88; RESP 18; TEMP 36.3; O2SAT 97
[2022-12-24] MEDS: Omeprazole 40 MG CAPSULE.DR PO (05:50)
[2022-12-24 06:59] LABS: Hematocrit 24.1 % (42.0-52.0); Hemoglobin 7.8 g/dl (14.0-18.0); Mean Corpuscular HGB Conc 32.4 g/dl (31.0-36.0); Mean Corpuscular Volume 83.4 fL (80.0-98.0); Mean Platelet Volume 10.3 fL (9.4-12.4); Platelet Count 240 X10*3/uL (160-400); Red Blood Count 2.89 X10*6/uL (4.60-5.80); Red Cell Distribution Width 19.9 % (11.0-16.0); White Blood Count 21.9 X10*3/uL (4.8-10.8)
[2022-12-24 07:14] LABS: Anion Gap 11 (12-20); Blood Urea Nitrogen 5 mg/dL (9-16); Calcium 7.7 mg/dL (8.4-10.2); Carbon Dioxide 23 mmol/L (22-29); Chloride 106 mmol/L (96-108); Creatinine Clr Calc Pharmacy 174.5; Estimated Glomerular Filt Rate > 60; Glucose Fasting 82 mg/dL (60-99); Potassium 4.4 mmol/L (3.3-5.1); Sodium 136 mmol/L (135-145)
[2022-12-24 08:00] VITALS: BP 110/59; PULSE 112; RESP 18; TEMP 37; O2SAT 97
--- NOTE | 2022-12-24 09:19 | P.DS_ITS ---
DS: Providers Provider Date of Service: 12/24/22 Date of admission: 12/05/22 20:29 Primary care physician: Frankie Hills MD Consults: 12/05/22 20:25 Consult to Gastroenterology Routine Consulting Provider: Alejandro Iqbal Reason for consultation: ?GI bleed 12/05/22 22:15 Consult to Care Team Routine Comment: Reason for consultation: Alcohol use disorder 12/07/22 11:54 Addiction Medicine Routine Consulting Provider: Addiction Covering Reason for consultation: etoh dependence 12/08/22 16:54 Consult to General Surgery Routine Consulting Provider: Frankie Regalado Reason for consultation: Hemorrhoidal bleeding, cirrhosis, negative colonoscopy,anemia Has provider been notified: No DS: Diagnosis Discharge Diagnosis (1) Acute on chronic blood loss anemia: Status: Acute (2) Bleeding hemorrhoids: Status: Acute (3) Alcohol use disorder, severe, dependence: Status: Acute (4) Alcohol withdrawal: Status: Acute DS: Summary Hospital Course Hospital Course: from initial hpi: Pt is a 42-year-old male with a PMH significant for?alcohol use disorder who presents to the ED from his PCP for evaluation for anemia.? Patient states that he has been not eating much since due to having trouble swallowing because his throat feels dry and sore.? Patient also complains of chronic headaches, leg cramps, and bleeding from hemorrhoids. Patient notes that he has nausea and vomiting almost every morning and again at lunch and also occasionally at dinner for the past couple of years.? Patient also has had epigastric pain which is random with no known triggers.? Patient has not been regularly to a PCP, but notes that he has received 3 transfusions in the past: 2 times here at the hospital and once at [facility].? Patient saw a PCP today due to weakness and lightheadedness for the past week with nonbloody diarrhea since yesterday.? The provider there immediately sent him over to the ED to be evaluated for anemia with possible need for transfusion.? Of note patient's mother is at bedside and states he currently consumes at least 2, maybe 3, pints of alcohol daily and smokes 1 pack of cigarettes a day.? Patient states he has no interest in Addiction Services. In the ED patient was found to be tachycardic, and had episodes of diarrhea with bright red blood. Labs were significant for leukocytosis of 27.0, acute anemia of H&H of 5.5/19.5, MCV of 74.1, platelets of 123, hyponatremia of 130, chloride of 84, bicarb of 13, increased anion gap a 38, lactic acid of 15.9 with repeat of 12.0, magnesium WNL, ammonia WNL, troponin negative. VBG pH of 7.48 and HC03 of 17.? Tox screen positive for marijuana, ethyl alcohol <10. CT?of chest showed no acute process. CT of abdomen/pelvis showed mild mural thickening involving distal small bowel segments, proximal ascending colon suspicious of enteritis and proximal ascending colitis likely inflammatory or infectious in nature.? Gallbladder distended with periapical fluid collection, questionable for cholecystitis. EKG demonstrated sinus tachycardia. Pt was treated with phenobarbital, IVF, Zosyn, thiamine, folic acid, ondansetron, and IV Protonix. Pt will be admitted to the hospital for alcohol withdrawal and symptomatic anemia from acute GI bleed. hospital course: pateint had a prolonged hospital course, for full details please see medical record, in brief: Patient was admitted for symptomatic anemia due to acute on chronic blood loss anemia due to hemorrhoidal bleed in the setting of alcohol cirrhosis with likely acute alcoholic hepatitis causing portal hypertension. patient underwent EGD and colonoscopy which showed duodenitis, hiatal hernia, nonobstructing ring at the EG junction, no varices, no blood or coffee-ground fluid. In colonoscopy found to have friable oozing hemorrhoids, no intervention taken due to bleeding risk. Was treated with rectal hydrocortisone. Received multiple blood transfusions. Eventually bleeding slowed and hemoglobin stabilized. Patient noted to have folic acid deficiency and was treated with folic acid. Was given vitamin K for coagulopathy due to liver disease. For patient's alcohol dependence with acute alcoholic hepatitis with coagulopathy and thrombocytopenia and symptomatic ascites and alcohol withdrawal in the background of early cirrhosis, he was treated with phenobarbital with resolution of withdrawal, he was given Lasix and Aldactone along with paracenteses, fluid was negative for SBP. He is encouraged to stop drinking alcohol and will follow up closely with GI. For duodenitis he was continued on PPI. For hypokalemia and hypomagnesemia this was replaced. For tobacco use disorder he was continued on Nicoderm. Patient is feeling better, hemoglobin is stabilized, and abdomen less tense, therefore, will discharge home with close follow-up with GI and PCP. Time Spent with Patient Time attestation: Total time managing care of this patient today ____ minutes. Discharge coordination time: Greater than 30 minutes Quality: Safe Use of Opioids Does Pt have an Active Cancer Diagnosis on the Problem List?: No Quality: Stroke Does the patient have a stroke diagnosis?: No Physical Exam Vital Signs: Vital Signs: Last Vital Signs Temp 98.6 F 12/24/22 08:00 Pulse 112 H 12/24/22 08:00 Resp 18 12/24/22 08:00 BP 110/59 L 12/24/22 08:00 Pulse Ox 97 12/24/22 08:00 O2 Del Method 12/24/22 08:00 O2 Flow Rate 5 12/08/22 16:18 BMI result Body Mass Index 18.0 General: AO X 3, no acute distress Resp: CTA bilateral, no accessory muscles used CVS: S1,S2,RRR GI: distended, soft, non tender Neuro: motor grossly intact, alert Psych: appropriate affect, appropriate insight DS: Data Data Completed and Pending Labs on day of discharge: Laboratory Results - last 24 hr 12/24/22 12/24/22 05:59 05:59 WBC 21.9 H RBC 2.89 L Hgb 7.8 L Hct 24.1 L MCV 83.4 MCH 27.0 MCHC 32.4 RDW 19.9 H Plt Count 240 MPV 10.3 Absolute Nucleated RBC 0.000 Nucleated RBC % (auto) 0.0 Sodium 136 Potassium 4.4 Chloride 106 Carbon Dioxide 23 Anion Gap 11 L BUN 5 L Creatinine 0.48 L Estim Creat Clear Calc 174.5 Estimated GFR > 60 Fasting Glucose 82 Calcium 7.7 L Discharge Plan Discharge Anticipated Discharge Date/Time: 12/24/22 09:07 Patient Disposition: Home, Self-Care Discharge Diagnosis: cirrhosis with hepatitis Referrals: Frankie Hills MD [Primary Care Provider] - 1 Week Frankie Regalado MD [Physician] - 1 Week Alejandro Iqbal [Physician] - 1 Week Discharge Medications: New omeprazole 40 mg Capsule,Delayed Release(Dr/Ec) 40 mg PO DAILY@0630 Qty: 30 0RF spironolactone 25 mg Tablet 25 mg PO BID@0900,1800 Qty: 60 0RF Protocol: Hold for SBP< HOLD for SBP < : 90 magnesium oxide 400 mg (241.3 mg magnesium) Tablet 400 mg PO BIDPC Qty: 30 0RF folic acid 1 mg Tablet 1 mg PO DAILY Qty: 30 0RF furosemide 20 mg Tablet 20 mg PO DAILY Qty: 30 0RF Protocol: Hold for SBP< HOLD for SBP < : 90 thiamine mononitrate (vit B1) 100 mg Tablet 100 mg PO DAILY Qty: 30 0RF Discharge Orders: Discharge Order (Routine); Ordered 12/24/22 Ordered By: Neymar Garcia Diet: Advance to usual diet Activity on Discharge: As tolerated Stand Alone Forms: Patient Portal Discharge page Care Plan Goals: recovery Health Concerns: severe liver disease Plan of Treatment: meds as prescribed, follow up closely with pcp and liver doctor, avoid etoh Assessment: see above
--- NOTE | 2022-12-24 09:20 | MHC.CM.PN ---
Patient has been medically cleared for dc to home today, self care.
[2022-12-24] MEDS: Nicotine 21 MG PATCH.TD24 TRANSDERMA (09:30)
[2022-12-24] MEDS: Folic Acid 1 MG TABLET PO (09:30)
[2022-12-24] MEDS: Thiamine HCL 100 MG TABLET PO (09:30)
[2022-12-24] MEDS: Furosemide 20 MG TABLET PO (09:30)
[2022-12-24] MEDS: Spironolactone 25 MG TABLET PO (09:30)
[2022-12-24] MEDS: Magnesium Oxide 400 MG TABLET PO (09:30)
[2022-12-24] MEDS: Simethicone 80 MG TAB.CHEW PO ×2 (09:30→11:58)
[2022-12-24] MEDS: Docusate Sodium 100 MG CAPSULE PO (09:30)
[2022-12-24] MEDS: 0.9 % Sodium Chloride Flush 3 ML SYRINGE IVFLUSH (09:31)
[2022-12-24] MEDS: Lidocaine 4 % Cream KIT 1 APPL TOPICAL (09:32)
[2022-12-24] MEDS: Hydrocortisone 2.5 % Rectal Cr 30 GM TUBE 1 APPL PR (09:39)
[2022-12-24 12:00] VITALS: BP 123/60; PULSE 102; RESP 18; TEMP 37.2; O2SAT 97
[2022-12-24] MEDS: Acetaminophen 325 MG TABLET 650 MG PO (12:06)
[2022-12-24] MEDS: oxyCODONE HCl Immed Release 5 MG TABLET PO (12:06)
== END 2022-12-24 03:40 | disposition home or self-care (01) | DRG 226 ==
LOC: HO.ED 20:41 → HO.EDOVER 20:59 → HO.S3 12-06 16:12
PROVIDERS: Family Medicine; Hospitalist; Internal Medicine; Nurse Practitioner Family; Physician Assistant; Physician Assistant Medical; Radiology Diagnostic Radiology; Student in an Organized Health Care Education/Training Program; Surgery; Admitting Provider Student in an Organized Health Care Education/Training Program; Emergency Provider Internal Medicine; PCP Internal Medicine; Visit Provider Internal Medicine
PROC: 0DJ08ZZ Inspection of Upper Intestinal Tract, Via Natural or Artificial Opening Endoscopic (ICD-10-PCS; principal; 2022-12-08 14:20)
PROC: 06L Lower Veins, Occlusion (ICD-10-PCS; principal; 2022-12-12 14:10)
PROC: 0W9G3ZZ Drainage of Peritoneal Cavity, Percutaneous Approach (ICD-10-PCS; principal; 2022-12-18 11:30)
DX: K64.8 Other hemorrhoids (principal); D68.4 Acquired coagulation factor deficiency; K81.0 Acute cholecystitis; R64 Cachexia; K70.31 Alcoholic cirrhosis of liver with ascites; D62 Acute posthemorrhagic anemia; K76.6 Portal hypertension; R65.10 Systemic inflammatory response syndrome (SIRS) of non-infectious origin without acute organ dysfunction; D69.59 Other secondary thrombocytopenia; E86.0 Dehydration; K70.10 Alcoholic hepatitis without ascites; E87.6 Hypokalemia; F10.239 Alcohol dependence with withdrawal, unspecified; K44.9 Diaphragmatic hernia without obstruction or gangrene; K52.9 Noninfective gastroenteritis and colitis, unspecified; K64.4 Residual hemorrhoidal skin tags; E53.8 Deficiency of other specified B group vitamins; E83.42 Hypomagnesemia; E88.09 Other disorders of plasma-protein metabolism, not elsewhere classified; K62.5 Hemorrhage of anus and rectum; K29.80 Duodenitis without bleeding; Z68.1 Body mass index [BMI] 19.9 or less, adult; F17.210 Nicotine dependence, cigarettes, uncomplicated; Z20.822 Contact with and (suspected) exposure to COVID-19; Z71.6 Tobacco abuse counseling; Z79.899 Other long term (current) drug therapy
CPT/HCPCS: 36415; 49083; 71250; 74018; 74176; 74178; 76705; 80048; 80053; 80076; 80307; 81001; 81003; 82009; 82042; 82077; 82140; 82607; 82728; 82746; 82803; 82947; 83540; 83605; 83735; 84157; 84484; 85007; 85014; 85018; 85025; 85027; 85610; 85730; 86140; 86850; 86900; 86901; 86923; 87040; 87070; 87073; 87086; 87205; 87493; 87507; 87635; 89051; 93005; 99285; J2250; J2270; J2405; J2543; J2560; J2795; J3010; J3411; J3430; J3475; P9016; Q9967

== ENCOUNTER 2022-12-31 14:47 | Outpatient (REF) | payer OTHER, SELFPAY ==
[2022-12-31 15:55] LABS: Basophils Absolute Auto 0.1 X10*3/uL (0.0-0.2); Basophils Percent Auto 0.4 % (0-2); Eosinophils Absolute Auto 0.2 X10*3/uL (0.0-0.4); Imm Gran Abs Auto 0.17 X10*3/uL (0.00-0.03); Imm Gran Pct Auto 0.7 % (0.0-0.4); Lymphocytes Absolute Auto 2.1 X10*3/uL (1.2-4.9); Lymphocytes Percent Auto 8.4 % (20-40); MANUAL DIFF FLAG SCAN; Mean Corpuscular HGB Conc 30.7 g/dl (31.0-36.0); Mean Corpuscular Hemoglobin 26.1 pg (27.0-33.0); Mean Corpuscular Volume 85.1 fL (80.0-98.0); Mean Platelet Volume 9.4 fL (9.4-12.4); Monocytes Absolute Auto 1.6 X10*3/uL (0.1-1.2); Monocytes Percent Auto 6.2 % (2-11); Neutrophils Absolute Auto 20.9 x10*3/uL (2.0-8.3); Neutrophils Percent Auto 83.3 % (45-73); Platelet Count 332 X10*3/uL (160-400); Red Blood Count 2.41 X10*6/uL (4.60-5.80); Red Cell Distribution Width 19.8 % (11.0-16.0); SCAN SMEAR FLAG 1; White Blood Count 25.1 X10*3/uL (4.8-10.8)
[2022-12-31 15:56] LABS: Hematocrit 20.5 % (42.0-52.0)
[2022-12-31 15:59] LABS: Hemoglobin 6.3 g/dl (14.0-18.0)
[2022-12-31 16:18] LABS: SLIDE REVIEW VERIFIED
[2022-12-31 18:23] LABS: Alanine Aminotransferase 31 U/L (0-40); Albumin Level 2.3 g/dL (3.5-5.0); Alkaline Phosphatase 223 U/L (39-117); Anion Gap 14 (12-20); Aspartate Amino Transferase 135 U/L (5-37); Blood Urea Nitrogen 10 mg/dL (9-16); Calcium 8.1 mg/dL (8.4-10.2); Carbon Dioxide 24 mmol/L (22-29); Chloride 105 mmol/L (96-108); Estimated Glomerular Filt Rate > 60; Glucose Random 93 mg/dL (60-115); Iron 14 mcg/dL (45-160); Lipase 68 U/L (8-78); Percent Iron Saturation 6 % (15-50); Potassium 4.6 mmol/L (3.3-5.1); Sodium 138 mmol/L (135-145); Total Iron Binding Capacity 242 mcg/dL (228-428); Total Protein 6.7 g/dL (6.5-8.0); Unsaturated Iron Binding 228 ug/dL
== END 2022-12-31 14:48 | disposition home or self-care (01) ==
LOC: HO.LAB 14:47
PROVIDERS: Absent Provider Internal Medicine; PCP Internal Medicine; Visit Provider Surgery
DX: D64.9 Anemia, unspecified (principal); R10.9 Unspecified abdominal pain
CPT/HCPCS: 36415; 80053; 83540; 83690; 85025

== ENCOUNTER 2023-01-01 14:57 | Inpatient (IN) | payer OTHER, SELFPAY ==
[2023-01-01] VITALS (9 sets, daily range): BP systolic 101–115; BP diastolic 55–70; PULSE 82–114; RESP 14–18; TEMP 37.1–37.4; O2SAT 97–100; BMI 18.8
--- NOTE | 2023-01-01 15:02 | ED.GENADULT ---
HPI - General Adult General Chief complaint: Recheck/Abnormal Lab/Rx <Tim Rico - Last Filed: 01/01/23 15:10> Stated complaint: Needs transfusion sent by PCP <Tim Rico - Last Filed: 01/01/23 15:10> Time Seen by Provider: 01/01/23 17:30 <Tim Rico - Last Filed: 01/01/23 15:10> Source: patient <Gi Hazel NP - Last Filed: 01/02/23 02:06> Mode of arrival: ambulatory <Gi Hazel NP - Last Filed: 01/02/23 02:06> Limitations: no limitations <Gi Hazel NP - Last Filed: 01/02/23 02:06> History of Present Illness HPI narrative: 42-year-old male presents for critically low hemoglobin and hematocrit. <Gi Hazel NP - Last Filed: 01/02/23 02:06> Onset (ago): month(s) <Gi Hazel NP - Last Filed: 01/02/23 02:06> Severity: moderate <Gi Hazel NP - Last Filed: 01/02/23 02:06> Relieving factors: none <Gi Hazel NP - Last Filed: 01/02/23 02:06> Associated symptoms: denies other symptoms <Gi Hazel NP - Last Filed: 01/02/23 02:06> Related Data Home medications: Previous Rx's Medication Instructions Recorded folic acid 1 mg tablet 1 mg PO DAILY #30 tabs 12/24/22 furosemide 20 mg tablet 20 mg PO DAILY #30 tabs 12/24/22 magnesium oxide 400 mg (241.3 mg 400 mg PO BIDPC #30 tabs 12/24/22 magnesium) tablet omeprazole 40 mg capsule,delayed 40 mg PO DAILY@0630 #30 caps 12/24/22 release spironolactone 25 mg tablet 25 mg PO BID@0900,1800 #60 tabs 12/24/22 thiamine mononitrate (vit B1) 100 100 mg PO DAILY #30 tabs 12/24/22 mg tablet lidocaine 4 % topical cream 1 appl topical QID PRN pain #25 12/31/22 grams <Tim Rico - Last Filed: 01/01/23 15:10> Allergies/adverse reactions: Allergies Allergy/AdvReac Type Severity Reaction Status Date / Time No Known Allergies Allergy Verified 12/31/22 15:11 [No Known Allergies*] <Tim Rico - Last Filed: 01/01/23 15:10> Review of Systems Review of Systems: Constitutional: No Fever, No Chills Cardiovascular: Positive palpitations, No Chest Pain, No SOB Respiratory: No Cough, positive Dyspnea Gastrointestinal: Eugenio Nausea, No Vomiting, No Diarrhea, No abdominal Pain Genitourinary: Positive bright red blood per rectum, No Dysuria, No Hematuria Musculoskeletal: No joint pain, No Myalgias, No Joint Swelling Skin: No Skin lacerations, No rash Neuro: Pause Weakness, No Numbness, No Paresthesias, positive Dizziness, No Headache Psych: No Anxiety/Panic, No Depression <Gi Hazel NP - Last Filed: 01/02/23 02:06> Yes all other systems are reviewed and are negative <Gi Hazel NP - Last Filed: 01/02/23 02:06> [facility] Past Medical History Attestation statement: The following information was validated with the patient. <Gi Hazel NP - Last Filed: 01/02/23 02:06> Source: old records reviewed <Gi Hazel NP - Last Filed: 01/02/23 02:06> Medical History: Medical History Bleeding hemorrhoids Chronic liver disease <Tim Rico - Last Filed: 01/01/23 15:10> Surgical History: Surgical History History of colonoscopy History of endoscopy History of surgery (12/12/22) <Tim Rico - Last Filed: 01/01/23 15:10> Social History Social History: Social History Household Members: Family Housing: Apartment Do you presently have visiting nurse or other home services: No Alcohol intake: former Patient Tobacco Use Status: Current everyday Tobacco user Tobacco use type: Cigarette Cigarettes Per Day: 20 Smoked in Last 30 Days: Yes e-Cigarette/Vaping Use: Currently Using Second Hand Smoke Exposure: No Use of substances other than those prescribed or required for medical reasons: Yes Substance Use Type: Marijuana Substance Use Frequency: Daily Last Used Substance: Hours (ago) Any prior treatment program specific to substance use: No Advance Directives: No Advance Directives Information Provided: No Nutrition Risks: No Nutritional Risk service: No <Tim Rico - Last Filed: 01/01/23 15:10> Physical Exam ED Vital Signs: Vital Signs - 24 hr 01/01/23 15:02 01/01/23 18:40 01/01/23 19:11 Temperature 99.4 F 99.0 F 98.9 F Pulse Rate 114 H 96 97 Respiratory Rate 16 18 16 Blood Pressure 112/60 108/55 L 101/57 L Pulse Oximetry 98 97 99 Oxygen Delivery Method Room Air Room Air Room Air BMI result Body Mass Index 18.8 <Tim Rico - Last Filed: 01/01/23 15:10> Vital Signs - 24 hr 01/01/23 15:02 01/01/23 18:40 01/01/23 19:11 Temperature 99.4 F 99.0 F 98.9 F Pulse Rate 114 H 96 97 Respiratory Rate 16 18 16 Blood Pressure 112/60 108/55 L 101/57 L Pulse Oximetry 98 97 99 Oxygen Delivery Method Room Air Room Air Room Air BMI result Body Mass Index 18.8 <Gi Hazel NP - Last Filed: 01/02/23 02:06> Appearance: Alert. Oriented X3. Unkempt. Cachectic. Pale. Eyes: Pupils equal, round and reactive to light. ENT: Pharynx normal. Neck: Normal inspection. Neck supple. CVS: Tachycardic heart rate and rhythm. Respiratory: No respiratory distress. Abdomen: Soft and distended consistent with ascites. Skin: Skin warm and dry. Slightly jaundiced. Extremities: No lower extremity edema. Gait balanced and coordinated. Neuro: No motor deficit. No sensory deficit. Cranial nerves 2-12 intact. <Gi Hazel NP - Last Filed: 01/02/23 02:06> Course Course Course Narrative: 42-year-old male presents for evaluation of ?I need a blood transfusion. ? Patient has been dealing with a bleeding hemorrhoid for over a month. He was admitted from 12/05/2022 to 12/24/22 for blood loss anemia and was seen by Colorectal surgery. The patient saw a colorectal surgeon, Dr. Regalado yesterday, he had outpatient labs and was called to come to the emergency department today because his hemoglobin was 6.3 and hematocrit of 20.5. His outpatient primary care provider was hoping to schedule outpatient transfusion but this could not be accomplished until January 14. The patient feels somewhat weak but denies dizziness, shortness of breath lightheadedness Plan for repeat labs including type and screen and likely blood transfusion. Patient's vitals signs are currently stable <Tim Bolay - Last Filed: 01/01/23 15:10> 42-year-old male presents for evaluation of ?I need a blood transfusion. ? Patient has been dealing with a bleeding hemorrhoid for over a month. He was admitted from 12/05/2022 to 12/24/22 for blood loss anemia and was seen by Colorectal surgery. The patient saw a colorectal surgeon, Dr. Regalado yesterday, he had outpatient labs and was called to come to the emergency department today because his hemoglobin was 6.3 and hematocrit of 20.5. His outpatient primary care provider was hoping to schedule outpatient transfusion but this could not be accomplished until January 14. The patient feels somewhat weak but denies dizziness, shortness of breath lightheadedness Plan for repeat labs including type and screen and likely blood transfusion. Patient's vitals signs are currently stable 17:33 consent for blood obtained upon patient arrival to the main emergency department. Patient understands all risks. Order for 2 units of packed red blood cells. 42-year-old male presents for critically low H&H with known bleeding hemorrhoids, cirrhosis, chronic liver disease, portal hypertensive gastropathy, severe alcohol use disorder has not had alcohol since his last discharge from this hospital, acalculous cholecystitis, and ascites. He has had multiple consult with Gastroenterology, surgery, and addiction medicine during his visits to this facility. Patient saw Dr. Regalado yesterday as well as Dr. Hills who referred this patient to the emergency department for abnormal lab values. Considering that patient is actively bleeding per rectum, and requires 2 units of packed red blood cells, will admit this patient. Patient does have an elevated white count of 24, which is consistent with his prior values. H&H is 6.2/20.0 due to active bleeding, all other labs abnormal secondary to liver disease and alcoholic anemia. Patient may require general surgery as well as Gastroenterology for his current presentation. Discussion with hospitalist regarding plan of care to admit. Patient does agree to this plan. <Gi Hazel NP - Last Filed: 01/02/23 02:06> Consultations Consultation #1: Manuel <Gi Hazel NP - Last Filed: 01/02/23 02:06> Medications Administered Generic Name Dose Route Start Last Admin Trade Name Freq PRN Reason Stop Dose Admin Ceftriaxone Sodium 2 gm/ 50 mls @ 100 mls/hr 01/01/23 21:00 01/01/23 23:28 Sodium Chloride IV Infused Q24H [facility] Infusion Nicotine 21 mg 01/01/23 21:00 01/01/23 22:22 Nicotine 21 Mg Patch.Td24 TRANSDERMA 21 mg DAILY [facility] Administration Sodium Chloride 3 ml 01/02/23 00:00 01/01/23 23:26 0.9 % Sodium Chloride Flush 3 Ml Syringe IVFLUSH 3 ml QSHIFT [facility] Administration Discontinued Medications Generic Name Dose Route Start Last Admin Trade Name Freq PRN Reason Stop Dose Admin Pantoprazole Sodium 80 mg 01/01/23 20:56 01/01/23 22:22 Pantoprazole Sodium 40 Mg/10 Ml Vial IVPUSH 01/01/23 20:57 80 mg ONCE ONE Administration Tramadol HCl 50 mg 01/01/23 22:34 01/01/23 22:57 Tramadol Hcl 50 Mg Tablet PO 01/01/23 22:35 50 mg ONCE ONE Administration <Tim Rico - Last Filed: 01/01/23 15:10> Medications Administered Generic Name Dose Route Start Last Admin Trade Name Freq PRN Reason Stop Dose Admin Ceftriaxone Sodium 2 gm/ 50 mls @ 100 mls/hr 01/01/23 21:00 01/01/23 23:28 Sodium Chloride IV Infused Q24H [facility] Infusion Nicotine 21 mg 01/01/23 21:00 01/01/23 22:22 Nicotine 21 Mg Patch.Td24 TRANSDERMA 21 mg DAILY [facility] Administration Sodium Chloride 3 ml 01/02/23 00:00 01/01/23 23:26 0.9 % Sodium Chloride Flush 3 Ml Syringe IVFLUSH 3 ml QSHIFT [facility] Administration Discontinued Medications Generic Name Dose Route Start Last Admin Trade Name Sophia PRN Reason Stop Dose Admin Pantoprazole Sodium 80 mg 01/01/23 20:56 01/01/23 22:22 Pantoprazole Sodium 40 Mg/10 Ml Vial IVPUSH 01/01/23 20:57 80 mg ONCE ONE Administration Tramadol HCl 50 mg 01/01/23 22:34 01/01/23 22:57 Tramadol Hcl 50 Mg Tablet PO 01/01/23 22:35 50 mg ONCE ONE Administration <Gi Hazel NP - Last Filed: 01/02/23 02:06> Medical Decision Making Differential Diagnosis Differential Diagnoses: The differential diagnosis associated with the presentation includes <Gi Hazel NP - Last Filed: 01/02/23 02:06> Anemia, rectal bleeding, ascites, alcoholic anemia <Gi Hazel NP - Last Filed: 01/02/23 02:06> Admission/Observation Consideration of admission/observation: Escalation of care including admission/observation considered <Gi Hazel NP - Last Filed: 01/02/23 02:06> Patient requires admission <Gi Hazel NP - Last Filed: 01/02/23 02:06> Consult Healthcare Provider Management of the patient was discussed with: Hospitalist <Gi Hazel NP - Last Filed: 01/02/23 02:06> Lab Data MDM Lab Attestation statement: I reviewed the patient's lab results. <Gi Hazel NP - Last Filed: 01/02/23 02:06> Result Diagrams: 01/01/23 16:56 01/01/23 16:56 <Tim Rico - Last Filed: 01/01/23 15:10> Labs: Lab Results 01/01/23 01/01/23 01/01/23 Range/Units 16:56 16:56 16:56 WBC 24.8 H (4.8-10.8) X10*3/uL RBC 2.36 L (4.60-5.80) X10*6/uL Hgb 6.2 L* (14.0-18.0) g/dl Hct 20.0 L* (42.0-52.0) % MCV 84.7 (80.0-98.0) fL MCH 26.3 L (27.0-33.0) pg MCHC 31.0 (31.0-36.0) g/dl RDW 19.7 H (11.0-16.0) % Plt Count 338 (160-400) X10*3/uL MPV 9.3 L (9.4-12.4) fL Immature Gran % (Auto) 1.3 H (0.0-0.4) % Neut % (Auto) 83.4 H (45-73) % Lymph % (Auto) 7.6 L (20-40) % [place] % (Auto) 6.4 (2-11) % Eos % (Auto) 0.9 (0-4) % Baso % (Auto) 0.4 (0-2) % Lymph # (Auto) 1.9 (1.2-4.9) X10*3/uL [place] # (Auto) 1.6 H (0.1-1.2) X10*3/uL Eos # (Auto) 0.2 (0.0-0.4) X10*3/uL Baso # (Auto) 0.1 (0.0-0.2) X10*3/uL Abs Immat Gran (auto) 0.33 H (0.00-0.03) X10*3/uL Absolute Neuts (auto) 20.7 H (2.0-8.3) x10*3/uL Absolute Nucleated RBC 0.000 (0.0-0.012) X10*3/uL Nucleated RBC % (auto) 0.0 (0.0-0.2) /100WBC Smear Tech's Comments VERIFIED Sodium 137 (135-145) mmol/L Potassium 4.6 (3.3-5.1) mmol/L Chloride 107 (96-108) mmol/L Carbon Dioxide 22 (22-29) mmol/L Anion Gap 13 (12-20) BUN 11 (9-16) mg/dL Creatinine 0.70 (0.5-1.4) mg/dL Estim Creat Clear Calc 125.0 Estimated GFR > 60 Random Glucose 125 H (60-115) mg/dL Calcium 8.2 L (8.4-10.2) mg/dL Influenza Type A (PCR) (Negative) Influenza Type B (PCR) (Negative) RSV RNA Qual (PCR) (Negative) SARS-CoV-2 RNA (RT-PCR) (Negative) Blood Type A Positive Antibody Screen NEGATIVE Crossmatch See Detail 01/01/23 Range/Units 18:39 WBC (4.8-10.8) X10*3/uL RBC (4.60-5.80) X10*6/uL Hgb (14.0-18.0) g/dl Hct (42.0-52.0) % MCV (80.0-98.0) fL MCH (27.0-33.0) pg MCHC (31.0-36.0) g/dl RDW (11.0-16.0) % Plt Count (160-400) X10*3/uL MPV (9.4-12.4) fL Immature Gran % (Auto) (0.0-0.4) % Neut % (Auto) (45-73) % Lymph % (Auto) (20-40) % [place] % (Auto) (2-11) % Eos % (Auto) (0-4) % Baso % (Auto) (0-2) % Lymph # (Auto) (1.2-4.9) X10*3/uL [place] # (Auto) (0.1-1.2) X10*3/uL Eos # (Auto) (0.0-0.4) X10*3/uL Baso # (Auto) (0.0-0.2) X10*3/uL Abs Immat Gran (auto) (0.00-0.03) X10*3/uL Absolute Neuts (auto) (2.0-8.3) x10*3/uL Absolute Nucleated RBC (0.0-0.012) X10*3/uL Nucleated RBC % (auto) (0.0-0.2) /100WBC Smear Tech's Comments Sodium (135-145) mmol/L Potassium (3.3-5.1) mmol/L Chloride (96-108) mmol/L Carbon Dioxide (22-29) mmol/L Anion Gap (12-20) BUN (9-16) mg/dL Creatinine (0.5-1.4) mg/dL Estim Creat Clear Calc Estimated GFR Random Glucose (60-115) mg/dL Calcium (8.4-10.2) mg/dL Influenza Type A (PCR) NEGATIVE (Negative) Influenza Type B (PCR) NEGATIVE (Negative) RSV RNA Qual (PCR) NEGATIVE (Negative) SARS-CoV-2 RNA (RT-PCR) NEGATIVE (Negative) Blood Type Antibody Screen Crossmatch <Tim Rico - Last Filed: 01/01/23 15:10> Lab Results 01/01/23 01/01/23 01/01/23 Range/Units 16:56 16:56 16:56 WBC 24.8 H (4.8-10.8) X10*3/uL RBC 2.36 L (4.60-5.80) X10*6/uL Hgb 6.2 L* (14.0-18.0) g/dl Hct 20.0 L* (42.0-52.0) % MCV 84.7 (80.0-98.0) fL MCH 26.3 L (27.0-33.0) pg MCHC 31.0 (31.0-36.0) g/dl RDW 19.7 H (11.0-16.0) % Plt Count 338 (160-400) X10*3/uL MPV 9.3 L (9.4-12.4) fL Immature Gran % (Auto) 1.3 H (0.0-0.4) % Neut % (Auto) 83.4 H (45-73) % Lymph % (Auto) 7.6 L (20-40) % [place] % (Auto) 6.4 (2-11) % Eos % (Auto) 0.9 (0-4) % Baso % (Auto) 0.4 (0-2) % Lymph # (Auto) 1.9 (1.2-4.9) X10*3/uL [place] # (Auto) 1.6 H (0.1-1.2) X10*3/uL Eos # (Auto) 0.2 (0.0-0.4) X10*3/uL Baso # (Auto) 0.1 (0.0-0.2) X10*3/uL Abs Immat Gran (auto) 0.33 H (0.00-0.03) X10*3/uL Absolute Neuts (auto) 20.7 H (2.0-8.3) x10*3/uL Absolute Nucleated RBC 0.000 (0.0-0.012) X10*3/uL Nucleated RBC % (auto) 0.0 (0.0-0.2) /100WBC Smear Tech's Comments VERIFIED Sodium 137 (135-145) mmol/L Potassium 4.6 (3.3-5.1) mmol/L Chloride 107 (96-108) mmol/L Carbon Dioxide 22 (22-29) mmol/L Anion Gap 13 (12-20) BUN 11 (9-16) mg/dL Creatinine 0.70 (0.5-1.4) mg/dL Estim Creat Clear Calc 125.0 Estimated GFR > 60 Random Glucose 125 H (60-115) mg/dL Calcium 8.2 L (8.4-10.2) mg/dL Influenza Type A (PCR) (Negative) Influenza Type B (PCR) (Negative) RSV RNA Qual (PCR) (Negative) SARS-CoV-2 RNA (RT-PCR) (Negative) Blood Type A Positive Antibody Screen NEGATIVE Crossmatch See Detail 01/01/23 Range/Units 18:39 WBC (4.8-10.8) X10*3/uL RBC (4.60-5.80) X10*6/uL Hgb (14.0-18.0) g/dl Hct (42.0-52.0) % MCV (80.0-98.0) fL MCH (27.0-33.0) pg MCHC (31.0-36.0) g/dl RDW (11.0-16.0) % Plt Count (160-400) X10*3/uL MPV (9.4-12.4) fL Immature Gran % (Auto) (0.0-0.4) % Neut % (Auto) (45-73) % Lymph % (Auto) (20-40) % [place] % (Auto) (2-11) % Eos % (Auto) (0-4) % Baso % (Auto) (0-2) % Lymph # (Auto) (1.2-4.9) X10*3/uL [place] # (Auto) (0.1-1.2) X10*3/uL Eos # (Auto) (0.0-0.4) X10*3/uL Baso # (Auto) (0.0-0.2) X10*3/uL Abs Immat Gran (auto) (0.00-0.03) X10*3/uL Absolute Neuts (auto) (2.0-8.3) x10*3/uL Absolute Nucleated RBC (0.0-0.012) X10*3/uL Nucleated RBC % (auto) (0.0-0.2) /100WBC Smear Tech's Comments Sodium (135-145) mmol/L Potassium (3.3-5.1) mmol/L Chloride (96-108) mmol/L Carbon Dioxide (22-29) mmol/L Anion Gap (12-20) BUN (9-16) mg/dL Creatinine (0.5-1.4) mg/dL Estim Creat Clear Calc Estimated GFR Random Glucose (60-115) mg/dL Calcium (8.4-10.2) mg/dL Influenza Type A (PCR) NEGATIVE (Negative) Influenza Type B (PCR) NEGATIVE (Negative) RSV RNA Qual (PCR) NEGATIVE (Negative) SARS-CoV-2 RNA (RT-PCR) NEGATIVE (Negative) Blood Type Antibody Screen Crossmatch <Gi Hazel NP - Last Filed: 01/02/23 02:06> Independent Historian Clinical information obtained from an independent historian. History obtained from or confirmed by: Parent <Gi Hazel NP - Last Filed: 01/02/23 02:06> External Record Review External record reviewed: Inpatient record, Outpatient record and Prior outpatient labs <Gi Hazel NP - Last Filed: 01/02/23 02:06> Chronic Conditions Patient?s care impacted by: Other <Gi Hazel NP - Last Filed: 01/02/23 02:06> Social Determinants Patient?s care significantly limited by Social Determinants of Health including: Other Social Determinant of Health <Gi Hazel NP - Last Filed: 01/02/23 02:06> Critical Care Time Critical Care Time Critical Care Time: Yes <Gi Hazel NP - Last Filed: 01/02/23 02:06> Total Critical Care Time: 45 <Gi Hazel NP - Last Filed: 01/02/23 02:06> Attestation: I have personally provided critical care time exclusive of time spent on separately billable procedures. Time includes review of laboratory data, radiology results, discussion with consultants, and monitoring for potential decompensation. Interventions were performed as documented. <Gi Hazel NP - Last Filed: 01/02/23 02:06> Discharge Plan Discharge Clinical Impression: Ascites, Acute GI bleeding, Acalculous cholecystitis, Acute anemia, Bleeding hemorrhoids <Tim Rico - Last Filed: 01/01/23 15:10> Patient Disposition: Admitted As Inpatient <Tim Rico - Last Filed: 01/01/23 15:10>
[2023-01-01 17:04] LABS: Basophils Absolute Auto 0.1 X10*3/uL (0.0-0.2); Basophils Percent Auto 0.4 % (0-2); Eosinophils Absolute Auto 0.2 X10*3/uL (0.0-0.4); Eosinophils Percent Auto 0.9 % (0-4); Imm Gran Abs Auto 0.33 X10*3/uL (0.00-0.03); Imm Gran Pct Auto 1.3 % (0.0-0.4); Lymphocytes Absolute Auto 1.9 X10*3/uL (1.2-4.9); Lymphocytes Percent Auto 7.6 % (20-40); MANUAL DIFF FLAG SCAN; Mean Corpuscular Hemoglobin 26.3 pg (27.0-33.0); Mean Corpuscular Volume 84.7 fL (80.0-98.0); Mean Platelet Volume 9.3 fL (9.4-12.4); Monocytes Absolute Auto 1.6 X10*3/uL (0.1-1.2); Monocytes Percent Auto 6.4 % (2-11); Neutrophils Absolute Auto 20.7 x10*3/uL (2.0-8.3); Neutrophils Percent Auto 83.4 % (45-73); Platelet Count 338 X10*3/uL (160-400); Red Blood Count 2.36 X10*6/uL (4.60-5.80); Red Cell Distribution Width 19.7 % (11.0-16.0); SCAN SMEAR FLAG 1; White Blood Count 24.8 X10*3/uL (4.8-10.8)
[2023-01-01 17:11] LABS: Hemoglobin 6.2 g/dl (14.0-18.0)
[2023-01-01 17:14] LABS: Anion Gap 13 (12-20); Blood Urea Nitrogen 11 mg/dL (9-16); Calcium 8.2 mg/dL (8.4-10.2); Carbon Dioxide 22 mmol/L (22-29); Chloride 107 mmol/L (96-108); Estimated Glomerular Filt Rate > 60; Glucose Random 125 mg/dL (60-115); Potassium 4.6 mmol/L (3.3-5.1); Sodium 137 mmol/L (135-145)
[2023-01-01 17:27] LABS: SLIDE REVIEW VERIFIED
--- NOTE | 2023-01-01 17:53 | PC.NURSE ---
patient alert, oriented x4. two iv's placed for blood transfusion, ED provider at bedside to do consent.
--- NOTE | 2023-01-01 18:15 | PHA.MEDREC ---
med rec complete, no issues Pharmacy Consult ? Medication Reconciliation Pharmacy has completed the medication reconciliation.
--- NOTE | 2023-01-01 19:31 | P.HPHOSP_ITS ---
History of Present Illness Date of Service: 01/01/23 Attending physician on admission: Tano Jackson Chief Complaint: Critical anemia from outpatient labs Pt is a 42-year-old male with a PMH significant for?alcohol use disorder, anemia secondary to persistent hemorrhoidal bleeding, alcohol cirrhosis, and hx of ascites who presents to the ED with critical lab values of anemia from outpa tient office visit. Patient recently had a prolonged hospital stay here 12/05/22- 12/24/22 with the patient initially presented with anemia and acute alcohol withdrawal. Patient underwent EGD and colonoscopy which showed duodenitis, hiatal hernia, nonobstructing ring at the EG junction, no blood or coffee-ground fluid. Colonoscopy found friable oozing hemorrhoids with no intervention taken due to risk of high-pressure bleeding secondary to portal hypertension related to alcohol use. Treated rectal hydrocortisone. Patient also had ascites and treated with 2 paracenteses. Yesterday patient had outpatient visit with Dr. Regalado of General surgery for follow-up with labs drawn. Results came back today revealing critical anemia, patient called and sent to the ED for blood transfusion and further evaluation. Patient states that he has been weak since discharge, overall feeling fatigued and not doing much besides lying in bed. Patient notes that his hemorrhoids have been painful, especially with walking. Continues to have bleeding with bowel movements. Patient notes his abdomen has grown some, diffusely painful at all times. Patient states that he has been having a headache nearly every day at 14:00 for the past week or so, located mostly in the temporal region of his right head. Patient also states that his right thigh has been sore and numb, feels like he wants to ?stretch it?. Patient denies any alcohol use since last discharge. No chest pain/pressure, palpitations. No shortness of breath. Denies fever, chills, nausea, vomiting. In the ED patient was afebrile, tachycardic at 114 hypotensive 101/57. Labs were significant for WBC of 20.8, H&H of 6.2 over 20.0. Pt was treated with transfusion of 2 units of PRBC. Pt will be admitted to the hospital for treatment of further evaluation of symptomatic anemia due to acute chronic blood loss anemia due to hemorrhoidal bleeding in the setting of alcohol cirrhosis causing portal hypertension. Review of Systems Review of Systems: Weakness, fatigue Bleeding from rectum during bowel movements Abdominal distension and pain Headache Right thigh pain Denies nausea, vomiting Yes all other systems are reviewed and are negative [facility] Medical History Bleeding hemorrhoids Chronic liver disease Surgical History History of colonoscopy History of endoscopy History of surgery (12/12/22) Social History Household Members: Family Housing: Apartment Do you presently have visiting nurse or other home services: No Alcohol intake: former Patient Tobacco Use Status: Current everyday Tobacco user Tobacco use type: Cigarette Cigarettes Per Day: 20 Smoked in Last 30 Days: Yes e-Cigarette/Vaping Use: Currently Using Second Hand Smoke Exposure: No Use of substances other than those prescribed or required for medical reasons: Yes Substance Use Type: Marijuana Substance Use Frequency: Daily Last Used Substance: Hours (ago) Any prior treatment program specific to substance use: No Advance Directives: No Advance Directives Information Provided: No Nutrition Risks: No Nutritional Risk service: No Meds Allergies Allergy/AdvReac Type Severity Reaction Status Date / Time No Known Allergies Allergy Verified 12/31/22 15:11 [No Known Allergies*] Active Medications: Current Medications Acetaminophen (Acetaminophen 325 Mg Tablet) 650 mg PO Q6H PRN PRN Reason: Pain, Mild (Pain Scale 1-3) Melatonin (Melatonin 3 Mg Tablet) 6 mg PO BEDTIME PRN PRN Reason: Insomnia Ondansetron HCl (Ondansetron Hcl 4 Mg/2 Ml Vial) 4 mg IVPUSH Q8H PRN PRN Reason: Nausea and Vomiting Sodium Chloride (0.9 % Sodium Chloride Flush 3 Ml Syringe) 3 ml IVFLUSH QSHIFT [facility] Physical Exam Vital Signs and Narrative: Vital Signs: Last Vital Signs Temp 98.9 F 01/01/23 19:11 Pulse 97 01/01/23 19:11 Resp 16 01/01/23 19:11 BP 101/57 L 01/01/23 19:11 Pulse Ox 99 01/01/23 19:11 O2 Del Method 01/01/23 19:11 BMI result Body Mass Index 18.8 Constitutional: Alert, in no acute distress, pale-looking. Mental Status: Oriented to person, place and time. Eyes: Pupils are equal, round, and reactive to light. Ear, Nose, and Throat: Oropharynx clear, mucous membranes moist. Ears and nose without deformities. Trachea midline. Respiratory: Clear to auscultation bilaterally. No wheezing, rales, or rhonchi. Cardiovascular: S1, S2 regular. No murmurs, rubs, or gallops. Gastrointestinal: Abdomen distended, lower abdomen diffusely tender. Normal bowel sounds. Neurologic: Cranial nerves II-XII are grossly intact bilaterally. No focal neurological deficits. Moves all extremities spontaneously. Skin: No rashes or lesions noted. Musculoskeletal: No cyanosis or clubbing. Extremities: No edema. Psychiatric: Normal mood and affect. Results Labs 01/01/23 16:56 01/01/23 16:56 Labs: Laboratory Results - last 24 hr 01/01/23 01/01/23 01/01/23 16:56 16:56 16:56 MCV 84.7 MCH 26.3 L MCHC 31.0 RDW 19.7 H Plt Count 338 MPV 9.3 L Immature Gran % (Auto) 1.3 H Neut % (Auto) 83.4 H Lymph % (Auto) 7.6 L [place] % (Auto) 6.4 Eos % (Auto) 0.9 Baso % (Auto) 0.4 Lymph # (Auto) 1.9 [place] # (Auto) 1.6 H Eos # (Auto) 0.2 Baso # (Auto) 0.1 Abs Immat Gran (auto) 0.33 H Absolute Neuts (auto) 20.7 H Absolute Nucleated RBC 0.000 Nucleated RBC % (auto) 0.0 Smear Tech's Comments VERIFIED Anion Gap 13 Estim Creat Clear Calc 125.0 Estimated GFR > 60 Random Glucose 125 H Calcium 8.2 L Blood Type A Positive Antibody Screen NEGATIVE Crossmatch See Detail Assessment and Plan (1) Acute on chronic blood loss anemia: Status: Acute (2) Bleeding hemorrhoids: Status: Acute (3) Ascites: Status: Acute Plan Pt is a 42-year-old male with a PMH significant for?alcohol use disorder, anemia secondary to persistent hemorrhoidal bleeding, alcohol cirrhosis, and hx of ascites who presents to the ED with critical lab values of anemia from outpatient office visit. Pt will be admitted to the hospital for treatment of further evaluation of symptomatic anemia due to acute chronic blood loss anemia due to hemorrhoidal bleeding in the setting of alcohol cirrhosis causing portal hypertension. Symptomatic anemia due to acute chronic blood loss anemia Secondary to hemorrhoidal bleeding in the setting of alcohol cirrhosis causing portal hypertension Patient's H&H 6.2/20.0, sent to ED from Dr. Regalado's office after outpatient follow-up visit Patient is to receive 2 units of PRBC in the ED Protonix 80 mg now, 40 mg b.i.d. starting tomorrow Clear liquid diet now, NPO after midnight Pneumatic boots for DVT prevention General surgery consult, followed by Dr. Regalado Symptomatic ascites Secondary to alcohol cirrhosis causing portal hypertension Ceftriaxone 2 g qd Ultrasound-guided paracentesis Paracentesis labs: Albumin, cell count, total protein, cultures and Gram stain Alcohol use disorder Patient states that he has not consumed any alcohol since last admission Patient declining addiction medicine consult Continue folic acid Continue magnesium oxide Continue thiamin Right leg numbness and soreness Possibly secondary to being mostly sedentary/bed-bound the past month Suggest light stretching, ambulation as much as possible PT evaluation Nicotine dependence Nicoderm patch for nicotine replacement therapy Full Code Attending:?Dr. Jackson DVT Prophylaxis: Pneumatic boots Pt will require a hospitalization of at least two nights for treatment and further evaluation of symptomatic anemia due to acute on chronic blood loss anemia due to hemorrhoidal bleeding in the setting of alcohol cirrhosis causing portal hypertension. Time Spent With Patient Time: Total time managing care of this patient today ____ minutes. Quality Stroke Does the patient have a stroke diagnosis?: No VTE Prior VTE?: No VTE Risk Level:: Medical - moderate - high VTE Device Contraindication: N/A - Device Ordered VTE Drug Contraindication: Treatment Not Indicated
[2023-01-01 19:34] LABS: Influenza A PCR NEGATIVE (Negative); Influenza B PCR NEGATIVE (Negative); Resp Syncy Virus RNA Qual PCR NEGATIVE (Negative); SARS COV2 PCR INHOUSE NEGATIVE (Negative)
--- NOTE | 2023-01-01 19:37 | PC.NURSE ---
First unit of blood hung. Vitals obtained within normal limits. Patient eating, and call robin within patient reach. Will continue to monitor for adverse reactions
--- NOTE | 2023-01-01 20:13 | PC.NURSE ---
Patient infusing RBC, with no adverse reactions. Vitals stable. Patient reports no SOB, itching or rash. Will continue to monitor
--- NOTE | 2023-01-01 21:20 | PC.NURSE ---
Second RBC bag hung. Currently transfusing. Vital signs are stable. Patient reports no chills, itchiness or rash. Will continue to monitor
[2023-01-01 22:03] LABS: Lactic Acid 1.8 mmol/L (0.5-2.0)
[2023-01-01] MEDS: cefTRIAXone sodium 2 GM in 0.9 % Sodium Chloride 50 ML IV (22:22)
[2023-01-01] MEDS: Nicotine 21 MG PATCH.TD24 TRANSDERMA (22:22)
[2023-01-01] MEDS: Pantoprazole Sodium 40 MG/10 ML VIAL 80 MG IVPUSH (22:22)
[2023-01-01] MEDS: traMADoL HCL 50 MG TABLET PO (22:57)
--- NOTE | 2023-01-01 23:02 | PC.NURSE ---
Temp 99.4 MD aware., vitals otherwise stable. Patient reports he had a bowel movement with a moderate amount of blood. Medicated with tramadol for pain. Patient resting comfortably. Call robin within reach.
[2023-01-01] MEDS: 0.9 % Sodium Chloride Flush 3 ML SYRINGE IVFLUSH (23:26)
--- NOTE | 2023-01-02 00:44 | PC.NURSE ---
Patient heart rate noted to be 125-130 while receiving duoneb treatment. Notified MD plan to switch to xope nex.
[2023-01-02 02:30] VITALS: BP 108/67; PULSE 91; RESP 19; TEMP 37.2; O2SAT 98
[2023-01-02 03:38] VITALS: RESP 14
[2023-01-02] MEDS: Morphine Sulfate 2 MG/ML CARTRIDGE IVPUSH (03:38)
[2023-01-02 05:12] VITALS: BP 113/70; PULSE 86; RESP 17; TEMP 36.6; O2SAT 98
[2023-01-02 06:10] LABS: MANUAL DIFF FLAG NO
[2023-01-02 06:22] LABS: Basophils Absolute Auto 0.1 X10*3/uL (0.0-0.2); Basophils Percent Auto 0.4 % (0-2); Eosinophils Absolute Auto 0.2 X10*3/uL (0.0-0.4); Eosinophils Percent Auto 0.9 % (0-4); Hematocrit 23.8 % (42.0-52.0); Hemoglobin 7.6 g/dl (14.0-18.0); Imm Gran Abs Auto 0.16 X10*3/uL (0.00-0.03); Imm Gran Pct Auto 0.8 % (0.0-0.4); Lymphocytes Absolute Auto 2.1 X10*3/uL (1.2-4.9); Lymphocytes Percent Auto 9.9 % (20-40); Mean Corpuscular HGB Conc 31.9 g/dl (31.0-36.0); Mean Corpuscular Hemoglobin 26.9 pg (27.0-33.0); Mean Corpuscular Volume 84.1 fL (80.0-98.0); Mean Platelet Volume 9.4 fL (9.4-12.4); Monocytes Absolute Auto 1.3 X10*3/uL (0.1-1.2); Monocytes Percent Auto 6.4 % (2-11); Neutrophils Absolute Auto 17.2 x10*3/uL (2.0-8.3); Neutrophils Percent Auto 81.6 % (45-73); Platelet Count 284 X10*3/uL (160-400); Red Blood Count 2.83 X10*6/uL (4.60-5.80); Red Cell Distribution Width 17.8 % (11.0-16.0)
[2023-01-02 06:45] LABS: Anion Gap 12 (12-20); Blood Urea Nitrogen 8 mg/dL (9-16); Calcium 7.7 mg/dL (8.4-10.2); Carbon Dioxide 21 mmol/L (22-29); Chloride 107 mmol/L (96-108); Creatinine Clr Calc Pharmacy 186.3; Estimated Glomerular Filt Rate > 60; Glucose Random 84 mg/dL (60-115); Potassium 3.9 mmol/L (3.3-5.1); Sodium 136 mmol/L (135-145)
[2023-01-02 07:28] VITALS: BP 111/72; PULSE 92; RESP 19; TEMP 36.6; O2SAT 99
[2023-01-02] MEDS: Thiamine HCL 100 MG TABLET PO (07:36)
[2023-01-02] MEDS: Folic Acid 1 MG TABLET PO (07:36)
[2023-01-02] MEDS: Nicotine 21 MG PATCH.TD24 TRANSDERMA (07:37)
[2023-01-02] MEDS: Magnesium Oxide 400 MG TABLET PO (07:39)
--- NOTE | 2023-01-02 08:19 | PC.NURSE ---
pt a+o x4, vss. pt reports 8 buttock that he relates to his chronic hemorrhoids. meds given as documented, pt's mother at his bedside. pt assigned room 470. RN to RN given to Elen. pt aware of plan.
[2023-01-02] MEDS: Furosemide 20 MG TABLET PO (09:05)
[2023-01-02] MEDS: oxyCODONE HCl Immed Release 5 MG TABLET PO (09:05)
[2023-01-02] MEDS: Spironolactone 25 MG TABLET PO (09:05)
[2023-01-02] MEDS: 0.9 % Sodium Chloride Flush 3 ML SYRINGE IVFLUSH (09:06)
--- NOTE | 2023-01-02 09:45 | P.DS_ITS ---
DS: Providers Provider Date of Service: 01/02/23 Date of admission: 01/01/23 19:26 Primary care physician: Frankie Hills MD Consults: 01/01/23 20:49 Consult to General Surgery Routine Consulting Provider: Frankie Regalado Reason for consultation: Symptomatic anemia from hemorrhoidal bleed d/t cirrohsis DS: Diagnosis Discharge Diagnosis (1) Acute on chronic blood loss anemia: Status: Acute (2) Bleeding hemorrhoids: Status: Acute (3) Ascites: Status: Acute DS: Summary Hospital Course Hospital Course: from initial hpi: Chief Complaint: Critical anemia from outpatient labs Pt is a 42-year-old male with a PMH significant for?alcohol use disorder, anemia secondary to persistent hemorrhoidal bleeding, alcohol cirrhosis, and hx of ascites who presents to the ED with critical lab values of anemia from outpatient office visit.? Patient recently had a prolonged hospital stay here 12/05/22-12/24/22 with the patient initially presented with anemia and acute alcohol withdrawal.? Patient underwent EGD and colonoscopy which showed duodenitis, hiatal hernia, nonobstructing ring at the EG junction, no blood or coffee-ground fluid.? Colonoscopy found friable oozing hemorrhoids with no intervention taken due to risk of high-pressure bleeding secondary to portal hypertension related to alcohol use.? Treated rectal hydrocortisone.? Patient also had ascites and treated with 2 paracenteses.? Yesterday patient had outpatient visit with Dr. Regalado of General surgery for follow-up with labs drawn.? Results came back today revealing critical anemia, patient called and sent to the ED for blood transfusion and further evaluation.? Patient states that he has been weak since discharge, overall feeling fatigued and not doing much besides lying in bed.? Patient notes that his hemorrhoids have been painful, especially with walking.? Continues to have bleeding with bowel movements.? Patient notes his abdomen has grown some, diffusely painful at all times. Patient states that he has been having a headache nearly every day at 14:00 for the past week or so, located mostly in the temporal region of his ri ght head.? Patient also states that his right thigh has been sore and numb, feels like he wants to ?stretch it?.? Patient denies any alcohol use since last discharge.? No chest pain/pressure, palpitations.? No shortness of breath.? Denies fever, chills, nausea, vomiting. In the ED patient was afebrile, tachycardic at 114 hypotensive 101/57. Labs were significant for WBC of 20.8, H&H of 6.2 over 20.0. Pt was treated with transfusion of 2 units of PRBC. Pt will be admitted to the hospital for treatment of further evaluation of symptomatic anemia due to acute chronic blood loss anemia due to hemorrhoidal bleeding in the setting of alcohol cirrhosis causing portal hypertension. hospital course: Patient was admitted for symptomatic chronic blood loss anemia due to hemorrhoidal bleed in the setting of alcoholic cirrhosis and portal hypertension. He was transfused 2 units of packed red blood cells and hemoglobin improved appropriately. He will continue iron supplementation and follow-up surgery as outpatient. He may require occasional transfusions until bleeding completely subsides. Patient's alcoholic cirrhosis with recent acute alcoholic hepatitis, LFTs and ascites have significantly improved since previous admission. Abdomen is not tense and does not require urgent paracentesis, he should continue diuretics and follow up outpatient for elective paracenteses. No evidence of SBP on previous fluid, no evidence of sepsis, leukocytosis likely reactive. For alcohol dependence patient reports sobriety since previous admission. For nicotine dependence was treated with Nicoderm. Patient is feeling better will be discharged home. Time Spent with Patient Time attestation: Total time managing care of this patient today ____ minutes. Discharge coordination time: Greater than 30 minutes Quality: Safe Use of Opioids Does Pt have an Active Cancer Diagnosis on the Problem List?: No Quality: Stroke Does the patient have a stroke diagnosis?: No Physical Exam Vital Signs: Vital Signs: Last Vital Signs Temp 97.9 F 01/02/23 07:28 Pulse 92 01/02/23 07:28 Resp 19 01/02/23 07:28 BP 111/72 01/02/23 07:28 Pulse Ox 99 01/02/23 07:28 O2 Del Method 01/02/23 07:28 BMI result Body Mass Index 18.8 General: AO X 3, no acute distress Resp: CTA bilateral, no accessory muscles used CVS: S1,S2,RRR GI: soft, non tender, mildly distended Neuro: motor grossly intact, alert Psych: appropriate affect, appropriate insight DS: Data Data Completed and Pending Completed studies during hospitalization [Text1]: Procedures Detoxification Services for Substance Abuse Treatment (12/05/22) Drainage of Peritoneal Cavity, Percutaneous Approach (12/05/22) Inspection of Lower Intestinal Tract, Via Natural or Artificial Opening Endoscopic (12/05/22) Inspection of Upper Intestinal Tract, Via Natural or Artificial Opening Endoscopic (12/05/22) Occlusion of Hemorrhoidal Plexus, Via Natural or Artificial Opening (12/05/22) Transfusion of Nonautologous Red Blood Cells into Peripheral Vein, Percutaneous Approach (12/05/22) Labs on day of discharge: Laboratory Results - last 24 hr 01/01/23 01/01/23 01/01/23 16:56 16:56 16:56 WBC 24.8 H RBC 2.36 L Hgb 6.2 L* Hct 20.0 L* MCV 84.7 MCH 26.3 L MCHC 31.0 RDW 19.7 H Plt Count 338 MPV 9.3 L Immature Gran % (Auto) 1.3 H Neut % (Auto) 83.4 H Lymph % (Auto) 7.6 L [place] % (Auto) 6.4 Eos % (Auto) 0.9 Baso % (Auto) 0.4 Lymph # (Auto) 1.9 [place] # (Auto) 1.6 H Eos # (Auto) 0.2 Baso # (Auto) 0.1 Abs Immat Gran (auto) 0.33 H Absolute Neuts (auto) 20.7 H Absolute Nucleated RBC 0.000 Nucleated RBC % (auto) 0.0 Smear Tech's Comments VERIFIED Sodium 137 Potassium 4.6 Chloride 107 Carbon Dioxide 22 Anion Gap 13 BUN 11 Creatinine 0.70 Estim Creat Clear Calc 125.0 Estimated GFR > 60 Random Glucose 125 H Lactic Acid Calcium 8.2 L Influenza Type A (PCR) Influenza Type B (PCR) RSV RNA Qual (PCR) SARS-CoV-2 RNA (RT-PCR) Blood Type A Positive Antibody Screen NEGATIVE Crossmatch See Detail 01/01/23 01/01/23 01/02/23 18:39 21:39 05:40 WBC 21.0 H RBC 2.83 L Hgb 7.6 L D Hct 23.8 L MCV 84.1 MCH 26.9 L MCHC 31.9 RDW 17.8 H Plt Count 284 MPV 9.4 Immature Gran % (Auto) 0.8 H Neut % (Auto) 81.6 H Lymph % (Auto) 9.9 L [place] % (Auto) 6.4 Eos % (Auto) 0.9 Baso % (Auto) 0.4 Lymph # (Auto) 2.1 [place] # (Auto) 1.3 H Eos # (Auto) 0.2 Baso # (Auto) 0.1 Abs Immat Gran (auto) 0.16 H Absolute Neuts (auto) 17.2 H Absolute Nucleated RBC 0.000 Nucleated RBC % (auto) 0.0 Smear Tech's Comments Sodium Potassium Chloride Carbon Dioxide Anion Gap BUN Creatinine Estim Creat Clear Calc Estimated GFR Random Glucose Lactic Acid 1.8 Calcium Influenza Type A (PCR) NEGATIVE Influenza Type B (PCR) NEGATIVE RSV RNA Qual (PCR) NEGATIVE SARS-CoV-2 RNA (RT-PCR) NEGATIVE Blood Type Antibody Screen Crossmatch 01/02/23 05:40 WBC RBC Hgb Hct MCV MCH MCHC RDW Plt Count MPV Immature Gran % (Auto) Neut % (Auto) Lymph % (Auto) [place] % (Auto) Eos % (Auto) Baso % (Auto) Lymph # (Auto) [place] # (Auto) Eos # (Auto) Baso # (Auto) Abs Immat Gran (auto) Absolute Neuts (auto) Absolute Nucleated RBC Nucleated RBC % (auto) Smear Tech's Comments Sodium 136 Potassium 3.9 Chloride 107 Carbon Dioxide 21 L Anion Gap 12 BUN 8 L Creatinine 0.47 L Estim Creat Clear Calc 186.3 Estimated GFR > 60 Random Glucose 84 Lactic Acid Calcium 7.7 L D Influenza Type A (PCR) Influenza Type B (PCR) RSV RNA Qual (PCR) SARS-CoV-2 RNA (RT-PCR) Blood Type Antibody Screen Crossmatch Discharge Plan Discharge Anticipated Discharge Date/Time: 01/02/23 09:41 Patient Disposition: Home, Self-Care Discharge Diagnosis: anemia Referrals: Frankie Hills MD [Primary Care Provider] - 1 Week Frankie Regalado MD [Physician] - 1 Week Discharge Medications: New oxycodone 5 mg Tablet 5 mg PO Q6H PRN (Reason: moderate or severe pain) Qty: 20 0RF Rx Instructions: Partial Fill upon patient request. ferrous sulfate 325 mg (65 mg iron) tablet 325 mg PO DAILY Qty: 30 0RF Continued omeprazole 40 mg Capsule,Delayed Release(Dr/Ec) 40 mg PO DAILY@0630 Qty: 30 0RF spironolactone 25 mg Tablet 25 mg PO BID@0900,1800 Qty: 60 0RF Protocol: Hold for SBP< HOLD for SBP < : 90 magnesium oxide 400 mg (241.3 mg magnesium) Tablet 400 mg PO BIDPC Qty: 30 0RF folic acid 1 mg Tablet 1 mg PO DAILY Qty: 30 0RF furosemide 20 mg Tablet 20 mg PO DAILY Qty: 30 0RF Protocol: Hold for SBP< HOLD for SBP < : 90 thiamine mononitrate (vit B1) 100 mg Tablet 100 mg PO DAILY Qty: 30 0RF lidocaine 4 % cream 1 appl topical QID PRN (Reason: pain) Qty: 25 0RF Discharge Orders: Discharge Order (Routine); Ordered 01/02/23 Ordered By: Neymar Garcia Diet: Advance to usual diet Activity on Discharge: As tolerated Stand Alone Forms: Patient Portal Discharge page Care Plan Goals: recovery Health Concerns: hemmerhoids Plan of Treatment: continue monitoring as needed transfusions and paracenteses, follow up with surgery Assessment: see above
--- NOTE | 2023-01-02 10:33 | MHC.CM.PN ---
Male 42 dx abnormal labs Patient lives in an apartment in mothers home. He is independent with all functional mobility. DP home self care. Mom will transport. Not Vaxxed. HCP documented placed on chart.
--- NOTE | 2023-01-02 11:51 | P.CONGS_ITS ---
History of Present Illness Consult details Consult date: 01/02/23 Narrative: 42M with bleeding hemorrhoids. He was admitted to the hospital last month because of acute hepatitis with chronic liver disease secondary to alcohol intake.? He has had history of bleeding hemorrhoids.? He also has ascites required paracentesis twice during his hospital stay.? I had taken him to the OR for exam under anesthesia bleeding hemorrhoids but he was noted to have high pressure bleeding from large prolapsing hemorrhoidal columns.? I therefore had to just do some over-sewing and I could not proceed with hemorrhoidectomy in view of this heavy pressure bleeding likely secondary to his chronic liver disease. He continues to have bleeding with bowel movements although this seems to have some improvement compared to before.? He has worsening ascites again he says that this has been causing him discomfort on his abdomen. He denies being constipated. He was admitted for transfusion because of an outpatient Hg which was 6.2. He denies signficant changes except for what he feels is worsening ascites. Review of Systems Constitutional: Constitutional: Reports anorexia, Denies chills and Denies fever(s) Cardiovascular: Cardiovascular: Reports dyspnea on exertion Respiratory: Respiratory: Denies cough and Reports dyspnea on exertion Gastrointestinal: Gastrointestinal: Reports abdominal pain and Reports hematochezia Genitourinary: Genitourinary: Denies difficulty urinating PMFSH Past Medical History Medical History Bleeding hemorrhoids Chronic liver disease Surgical History Surgical History History of colonoscopy History of endoscopy History of surgery (12/12/22) Social History Social History Household Members: Other Household Members Other:: Parents Housing: House Do you presently have visiting nurse or other home services: No Alcohol intake: former Patient Tobacco Use Status: Current everyday Tobacco user Tobacco use type: Cigarette Cigarette Packs Per Day: 1 Cigarettes Per Day: 20.0 e-Cigarette/Vaping Use: Never Used Second Hand Smoke Exposure: No Substance Use Type: Marijuana service: No Current occupational status: disabled Meds Allergies Allergy/AdvReac Type Severity Reaction Status Date / Time No Known Allergies Allergy Verified 12/31/22 15:11 [No Known Allergies*] Active Medications: Current Medications Acetaminophen (Acetaminophen 325 Mg Tablet) 650 mg PO Q6H PRN PRN Reason: Pain, Mild (Pain Scale 1-3) Folic Acid (Folic Acid 1 Mg Tablet) 1 mg PO DAILY [facility] Last Admin: 01/02/23 07:36 Dose: 1 mg Furosemide (Furosemide 20 Mg Tablet) 20 mg PO DAILY [facility]; Protocol Last Admin: 01/02/23 09:05 Dose: 20 mg Magnesium Oxide (Magnesium Oxide 400 Mg Tablet) [facility] Last Admin: 01/02/23 07:39 Dose: 400 mg Nicotine (Nicotine 21 Mg Patch.Td24) 21 mg TRANSDERMA DAILY [facility] Last Admin: 01/02/23 07:37 Dose: 21 mg Ondansetron HCl (Ondansetron Hcl 4 Mg/2 Ml Vial) 4 mg IVPUSH Q8H PRN PRN Reason: Nausea and Vomiting Oxycodone HCl (Oxycodone Hcl Immed Release 5 Mg Tablet) 5 mg PO Q6H PRN PRN Reason: moderate or severe pain Last Admin: 01/02/23 09:05 Dose: 5 mg Sodium Chloride (0.9 % Sodium Chloride Flush 3 Ml Syringe) [facility] Admin: 01/02/23 09:06 Dose: 3 ml Spironolactone (Spironolactone 25 Mg Tablet) 25 mg PO BID@0900,1800 [facility]; Protocol Last Admin: 01/02/23 09:05 Dose: 25 mg Thiamine HCl (Thiamine Hcl 100 Mg Tablet) 100 mg PO DAILY [facility] Last Admin: 01/02/23 07:36 Dose: 100 mg Physical Exam Vital Signs: Vital Signs: Last Vital Signs Temp 97.9 F 01/02/23 07:28 Pulse 92 01/02/23 07:28 Resp 19 01/02/23 07:28 BP 111/72 01/02/23 07:28 Pulse Ox 99 01/02/23 07:28 O2 Del Method 01/02/23 07:28 BMI result Body Mass Index 18.8 Const: General: comfortable and no acute distress Resp: Effort & Inspection: normal respiratory effort Cardio: Rhythm: regular rhythm GI: Other: with ascites rectal exam - internal and external hemorrhoids with prolapse, congestion of internal component, no active bleeding, no thrombosis Results Labs 01/02/23 05:40 01/02/23 05:40 Labs: Abnormal lab results 01/01/23 01/01/23 01/01/23 Range/Units 16:56 16:56 16:56 WBC 24.8 H (4.8-10.8) X10*3/uL RBC 2.36 L (4.60-5.80) X10*6/uL Hgb 6.2 L* (14.0-18.0) g/dl Hct 20.0 L* (42.0-52.0) % MCH 26.3 L (27.0-33.0) pg RDW 19.7 H (11.0-16.0) % MPV 9.3 L (9.4-12.4) fL Immature Gran % (Auto) 1.3 H (0.0-0.4) % Neut % (Auto) 83.4 H (45-73) % Lymph % (Auto) 7.6 L (20-40) % [place] # (Auto) 1.6 H (0.1-1.2) X10*3/uL Abs Immat Gran (auto) 0.33 H (0.00-0.03) X10*3/uL Absolute Neuts (auto) 20.7 H (2.0-8.3) x10*3/uL Carbon Dioxide (22-29) mmol/L BUN (9-16) mg/dL Creatinine (0.5-1.4) mg/dL Random Glucose 125 H (60-115) mg/dL Calcium 8.2 L (8.4-10.2) mg/dL Crossmatch See Detail 01/02/23 01/02/23 Range/Units 05:40 05:40 WBC 21.0 H (4.8-10.8) X10*3/uL RBC 2.83 L (4.60-5.80) X10*6/uL Hgb 7.6 L D (14.0-18.0) g/dl Hct 23.8 L (42.0-52.0) % MCH 26.9 L (27.0-33.0) pg RDW 17.8 H (11.0-16.0) % MPV (9.4-12.4) fL Immature Gran % (Auto) 0.8 H (0.0-0.4) % Neut % (Auto) 81.6 H (45-73) % Lymph % (Auto) 9.9 L (20-40) % [place] # (Auto) 1.3 H (0.1-1.2) X10*3/uL Abs Immat Gran (auto) 0.16 H (0.00-0.03) X10*3/uL Absolute Neuts (auto) 17.2 H (2.0-8.3) x10*3/uL Carbon Dioxide 21 L (22-29) mmol/L BUN 8 L (9-16) mg/dL Creatinine 0.47 L (0.5-1.4) mg/dL Random Glucose (60-115) mg/dL Calcium 7.7 L D (8.4-10.2) mg/dL Crossmatch Short CBC 01/01/23 01/02/23 Range/Units 16:56 05:40 WBC 24.8 H 21.0 H (4.8-10.8) X10*3/uL Hgb 6.2 L* 7.6 L D (14.0-18.0) g/dl Hct 20.0 L* 23.8 L (42.0-52.0) % Plt Count 338 284 (160-400) X10*3/uL BMP 01/01/23 01/02/23 16:56 05:40 Sodium 137 136 Potassium 4.6 3.9 Chloride 107 107 Carbon Dioxide 22 21 L BUN 11 8 L Creatinine 0.70 0.47 L Calcium 8.2 L 7.7 L D All other labs normal. Assessment and Plan (1) Bleeding hemorrhoids: Status: Acute He has chronic liver disease with ascites. I had done EUA 3 weeks ago with note of high pressure bleeding from his hemorrhoids, so I did oversewing then. I did not proceed with hemorrhoidectomy in view of these high pressure brisk bleeding. I still feel that at this time, he presents with significant risks for periop heavy bleeding for hemorrhoid surgery in view his background of chronic liver disease. His hemorrhoids appears to have improved with regards to congestion and swelling. I have prescribed him Lidocaine cream for hemorrhoidal pain. He understands the above. His mother was with him during the visit. Time Spent With Patient Time: Total time managing care of this patient today ____ minutes. Procedures Date of Service Date of Service: 01/02/23
== END 2023-01-02 12:04 | disposition home or self-care (01) | DRG 254 ==
LOC: HO.ED 17:56 → HO.EDOVER 20:16 → HO.IMC 01-02 07:51
PROVIDERS: Nurse Practitioner Family; Physician Assistant; Admitting Provider Student in an Organized Health Care Education/Training Program; Emergency Provider Emergency Medicine; PCP Internal Medicine; Visit Provider Internal Medicine
DX: K64.8 Other hemorrhoids (principal); R64 Cachexia; K70.31 Alcoholic cirrhosis of liver with ascites; K76.6 Portal hypertension; D62 Acute posthemorrhagic anemia; F11.20 Opioid dependence, uncomplicated; F17.210 Nicotine dependence, cigarettes, uncomplicated; Z71.6 Tobacco abuse counseling; Z68.1 Body mass index [BMI] 19.9 or less, adult; Z20.822 Contact with and (suspected) exposure to COVID-19; Z79.899 Other long term (current) drug therapy
CPT/HCPCS: 0241U; 36415; 80048; 83605; 85025; 86850; 86900; 86901; 86923; 87040; 99222; 99285; J0696; J2270; P9016

== ENCOUNTER 2023-01-15 13:15 | Outpatient (REF) | payer OTHER, SELFPAY ==
[2023-01-15 14:03] LABS: MANUAL DIFF FLAG NO
[2023-01-15 14:34] LABS: Basophils Absolute Auto 0.1 X10*3/uL (0.0-0.2); Basophils Percent Auto 0.9 % (0-2); Eosinophils Absolute Auto 0.2 X10*3/uL (0.0-0.4); Eosinophils Percent Auto 1.9 % (0-4); Hematocrit 29.6 % (42.0-52.0); Hemoglobin 8.9 g/dl (14.0-18.0); Imm Gran Abs Auto 0.07 X10*3/uL (0.00-0.03); Imm Gran Pct Auto 0.6 % (0.0-0.4); Lymphocytes Absolute Auto 2.1 X10*3/uL (1.2-4.9); Lymphocytes Percent Auto 16.3 % (20-40); Mean Corpuscular HGB Conc 30.1 g/dl (31.0-36.0); Mean Corpuscular Hemoglobin 26.2 pg (27.0-33.0); Mean Corpuscular Volume 87.1 fL (80.0-98.0); Mean Platelet Volume 9.8 fL (9.4-12.4); Monocytes Percent Auto 7.6 % (2-11); Neutrophils Absolute Auto 9.1 x10*3/uL (2.0-8.3); Neutrophils Percent Auto 72.7 % (45-73); Platelet Count 262 X10*3/uL (160-400); Red Cell Distribution Width 19.1 % (11.0-16.0); White Blood Count 12.5 X10*3/uL (4.8-10.8)
[2023-01-15 15:09] LABS: Alanine Aminotransferase 37 U/L (0-40); Albumin Level 3.2 g/dL (3.5-5.0); Alkaline Phosphatase 183 U/L (39-117); Anion Gap 12 (12-20); Aspartate Amino Transferase 87 U/L (5-37); Bilirubin Total 1.1 mg/dL (0.0-1.0); Blood Urea Nitrogen 10 mg/dL (9-16); Carbon Dioxide 28 mmol/L (22-29); Chloride 103 mmol/L (96-108); Estimated Glomerular Filt Rate > 60; Glucose Random 85 mg/dL (60-115); Iron 49 mcg/dL (45-160); Magnesium 1.7 mg/dL (1.6-2.6); Percent Iron Saturation 13 % (15-50); Potassium 4.5 mmol/L (3.3-5.1); Sodium 138 mmol/L (135-145); Total Iron Binding Capacity 369 mcg/dL (228-428); Total Protein 7.9 g/dL (6.5-8.0); Unsaturated Iron Binding 320 ug/dL
== END 2023-01-15 13:16 | disposition home or self-care (01) ==
LOC: HO.10HDL 13:15
PROVIDERS: Visit Provider Internal Medicine
DX: D64.9 Anemia, unspecified (principal); J44.9 Chronic obstructive pulmonary disease, unspecified; R25.2 Cramp and spasm
CPT/HCPCS: 36415; 80053; 83540; 83735; 85025

== ENCOUNTER → 2023-02-02 11:06 | Outpatient (BNVA) | payer OTHER, SELFPAY | PROVIDERS: PCP Internal Medicine; Visit Provider Surgery | DX: Z13.89 Encounter for screening for other disorder (principal) ==

== ENCOUNTER 2023-02-26 11:48 | Outpatient (REF) | payer OTHER, SELFPAY ==
[2023-02-26 13:39] LABS: MANUAL DIFF FLAG NO
[2023-02-26 13:51] LABS: Basophils Percent Auto 0.5 % (0-2); Eosinophils Absolute Auto 0.1 X10*3/uL (0.0-0.4); Eosinophils Percent Auto 1.8 % (0-4); Hemoglobin 11.7 g/dl (14.0-18.0); Imm Gran Abs Auto 0.03 X10*3/uL (0.00-0.03); Imm Gran Pct Auto 0.4 % (0.0-0.4); Lymphocytes Absolute Auto 1.8 X10*3/uL (1.2-4.9); Lymphocytes Percent Auto 22.1 % (20-40); Mean Corpuscular HGB Conc 30.8 g/dl (31.0-36.0); Mean Corpuscular Hemoglobin 27.5 pg (27.0-33.0); Mean Corpuscular Volume 89.4 fL (80.0-98.0); Mean Platelet Volume 10.1 fL (9.4-12.4); Monocytes Absolute Auto 0.6 X10*3/uL (0.1-1.2); Neutrophils Absolute Auto 5.4 x10*3/uL (2.0-8.3); Neutrophils Percent Auto 68.2 % (45-73); Platelet Count 138 X10*3/uL (160-400); Red Blood Count 4.25 X10*6/uL (4.60-5.80); Red Cell Distribution Width 19.5 % (11.0-16.0); White Blood Count 7.9 X10*3/uL (4.8-10.8)
[2023-02-26 13:55] LABS: Alanine Aminotransferase 12 U/L (0-40); Alkaline Phosphatase 118 U/L (39-117); Anion Gap 11 (12-20); Aspartate Amino Transferase 25 U/L (5-37); Bilirubin Total 0.7 mg/dL (0.0-1.0); Blood Urea Nitrogen 8 mg/dL (9-16); Calcium 9.6 mg/dL (8.4-10.2); Carbon Dioxide 28 mmol/L (22-29); Chloride 105 mmol/L (96-108); Estimated Glomerular Filt Rate > 60; Glucose Random 83 mg/dL (60-115); Potassium 4.3 mmol/L (3.3-5.1); Sodium 140 mmol/L (135-145); Total Protein 7.6 g/dL (6.5-8.0)
== END 2023-02-26 11:49 | disposition home or self-care (01) ==
LOC: HO.10HDL 11:48
PROVIDERS: Visit Provider Internal Medicine
DX: D64.9 Anemia, unspecified (principal); R79.89 Other specified abnormal findings of blood chemistry
CPT/HCPCS: 36415; 80053; 85025

== ENCOUNTER → 2023-04-06 13:54 | Outpatient (BNVA) | payer OTHER, SELFPAY | PROVIDERS: PCP Internal Medicine; Visit Provider Surgery ==

== ENCOUNTER 2023-04-23 11:17 | Outpatient (REF) | payer OTHER, SELFPAY ==
[2023-04-23 13:29] LABS: MANUAL DIFF FLAG NO
[2023-04-23 13:43] LABS: Basophils Percent Auto 0.6 % (0-2); Eosinophils Absolute Auto 0.1 X10*3/uL (0.0-0.4); Eosinophils Percent Auto 1.5 % (0-4); Hematocrit 41.1 % (42.0-52.0); Hemoglobin 13.4 g/dl (14.0-18.0); Imm Gran Abs Auto 0.03 X10*3/uL (0.00-0.03); Imm Gran Pct Auto 0.4 % (0.0-0.4); Lymphocytes Absolute Auto 1.7 X10*3/uL (1.2-4.9); Lymphocytes Percent Auto 24.5 % (20-40); Mean Corpuscular HGB Conc 32.6 g/dl (31.0-36.0); Mean Corpuscular Hemoglobin 29.5 pg (27.0-33.0); Mean Corpuscular Volume 90.5 fL (80.0-98.0); Mean Platelet Volume 9.4 fL (9.4-12.4); Monocytes Absolute Auto 0.5 X10*3/uL (0.1-1.2); Neutrophils Absolute Auto 4.7 x10*3/uL (2.0-8.3); Platelet Count 130 X10*3/uL (160-400); Red Blood Count 4.54 X10*6/uL (4.60-5.80); Red Cell Distribution Width 16.3 % (11.0-16.0); White Blood Count 7.1 X10*3/uL (4.8-10.8)
[2023-04-23 13:45] LABS: Alanine Aminotransferase 16 U/L (0-40); Albumin Level 4.5 g/dL (3.5-5.0); Alkaline Phosphatase 128 U/L (39-117); Anion Gap 11 (12-20); Aspartate Amino Transferase 26 U/L (5-37); Bilirubin Total 0.7 mg/dL (0.0-1.0); Blood Urea Nitrogen 9 mg/dL (9-16); Calcium 9.6 mg/dL (8.4-10.2); Carbon Dioxide 26 mmol/L (22-29); Chloride 107 mmol/L (96-108); Estimated Glomerular Filt Rate > 60; Glucose Random 91 mg/dL (60-115); Iron 205 mcg/dL (45-160); Percent Iron Saturation 53 % (15-50); Sodium 140 mmol/L (135-145); Total Iron Binding Capacity 385 mcg/dL (228-428); Total Protein 8.2 g/dL (6.5-8.0); Unsaturated Iron Binding 180 ug/dL
== END 2023-04-23 11:18 | disposition home or self-care (01) ==
LOC: HO.10HDL 11:17
PROVIDERS: Visit Provider Internal Medicine
DX: D64.9 Anemia, unspecified (principal); K21.9 Gastro-esophageal reflux disease without esophagitis
CPT/HCPCS: 36415; 80053; 83540; 85025

== ENCOUNTER 2023-06-15 09:25 | Outpatient (REF) | payer OTHER, SELFPAY ==
[2023-06-15 11:17] LABS: MANUAL DIFF FLAG NO
[2023-06-15 11:27] LABS: Basophils Percent Auto 0.5 % (0-2); Eosinophils Absolute Auto 0.2 X10*3/uL (0.0-0.4); Hematocrit 44.4 % (42.0-52.0); Hemoglobin 14.9 g/dl (14.0-18.0); Imm Gran Abs Auto 0.02 X10*3/uL (0.00-0.03); Imm Gran Pct Auto 0.2 % (0.0-0.4); Lymphocytes Absolute Auto 2.1 X10*3/uL (1.2-4.9); Lymphocytes Percent Auto 25.4 % (20-40); Mean Corpuscular HGB Conc 33.6 g/dl (31.0-36.0); Mean Corpuscular Hemoglobin 30.2 pg (27.0-33.0); Mean Corpuscular Volume 90.1 fL (80.0-98.0); Mean Platelet Volume 9.9 fL (9.4-12.4); Monocytes Absolute Auto 0.5 X10*3/uL (0.1-1.2); Monocytes Percent Auto 6.3 % (2-11); Neutrophils Absolute Auto 5.3 x10*3/uL (2.0-8.3); Neutrophils Percent Auto 65.6 % (45-73); Platelet Count 154 X10*3/uL (160-400); Red Blood Count 4.93 X10*6/uL (4.60-5.80); Red Cell Distribution Width 13.6 % (11.0-16.0); White Blood Count 8.1 X10*3/uL (4.8-10.8)
[2023-06-15 11:38] LABS: Alanine Aminotransferase 16 U/L (0-40); Albumin Level 4.5 g/dL (3.5-5.0); Alkaline Phosphatase 141 U/L (39-117); Anion Gap 11 (12-20); Aspartate Amino Transferase 21 U/L (5-37); Bilirubin Total 0.5 mg/dL (0.0-1.0); Blood Urea Nitrogen 12 mg/dL (9-16); Calcium 9.8 mg/dL (8.4-10.2); Carbon Dioxide 25 mmol/L (22-29); Chloride 107 mmol/L (96-108); Estimated Glomerular Filt Rate > 60; Glucose Random 106 mg/dL (60-115); Iron 169 mcg/dL (45-160); Percent Iron Saturation 49 % (15-50); Potassium 4.2 mmol/L (3.3-5.1); Sodium 139 mmol/L (135-145); Total Iron Binding Capacity 347 mcg/dL (228-428); Unsaturated Iron Binding 178 ug/dL
== END 2023-06-15 09:26 | disposition home or self-care (01) ==
LOC: HO.10HDL 09:25
PROVIDERS: Visit Provider Internal Medicine
DX: D64.9 Anemia, unspecified (principal); K21.9 Gastro-esophageal reflux disease without esophagitis; K74.60 Unspecified cirrhosis of liver
CPT/HCPCS: 36415; 80053; 83540; 85025

== ENCOUNTER 2023-08-13 09:51 | Outpatient (REF) | payer OTHER, SELFPAY ==
[2023-08-13 10:42] LABS: MANUAL DIFF FLAG NO
[2023-08-13 10:53] LABS: Basophils Percent Auto 0.5 % (0-2); Eosinophils Absolute Auto 0.2 X10*3/uL (0.0-0.4); Eosinophils Percent Auto 2.6 % (0-4); Hematocrit 43.8 % (42.0-52.0); Hemoglobin 15.1 g/dl (14.0-18.0); Imm Gran Abs Auto 0.02 X10*3/uL (0.00-0.03); Imm Gran Pct Auto 0.3 % (0.0-0.4); Lymphocytes Percent Auto 27.5 % (20-40); Mean Corpuscular HGB Conc 34.5 g/dl (31.0-36.0); Mean Corpuscular Volume 89.9 fL (80.0-98.0); Mean Platelet Volume 9.6 fL (9.4-12.4); Monocytes Absolute Auto 0.5 X10*3/uL (0.1-1.2); Monocytes Percent Auto 7.3 % (2-11); Neutrophils Absolute Auto 4.6 x10*3/uL (2.0-8.3); Neutrophils Percent Auto 61.8 % (45-73); Platelet Count 157 X10*3/uL (160-400); Red Blood Count 4.87 X10*6/uL (4.60-5.80); Red Cell Distribution Width 13.8 % (11.0-16.0); White Blood Count 7.4 X10*3/uL (4.8-10.8)
[2023-08-13 11:11] LABS: Alanine Aminotransferase 14 U/L (0-40); Albumin Level 4.6 g/dL (3.5-5.0); Alkaline Phosphatase 138 U/L (39-117); Anion Gap 15 (12-20); Aspartate Amino Transferase 19 U/L (5-37); Bilirubin Total 0.4 mg/dL (0.0-1.0); Blood Urea Nitrogen 16 mg/dL (9-16); Calcium 10.1 mg/dL (8.4-10.2); Carbon Dioxide 24 mmol/L (22-29); Chloride 104 mmol/L (96-108); Estimated Glomerular Filt Rate > 60; Glucose Random 74 mg/dL (60-115); Potassium 4.2 mmol/L (3.3-5.1); Sodium 139 mmol/L (135-145); Total Protein 7.9 g/dL (6.5-8.0)
== END 2023-08-13 09:52 | disposition home or self-care (01) ==
LOC: HO.10HDL 09:51
PROVIDERS: Visit Provider Internal Medicine
DX: K21.9 Gastro-esophageal reflux disease without esophagitis (principal); Z87.19 Personal history of other diseases of the digestive system
CPT/HCPCS: 36415; 80053; 85025

== ENCOUNTER 2024-01-19 10:02 | Outpatient (REF) | payer OTHER, SELFPAY ==
[2024-01-19 10:47] LABS: MANUAL DIFF FLAG NO
[2024-01-19 10:59] LABS: Basophils Absolute Auto 0.1 X10*3/uL (0.0-0.2); Basophils Percent Auto 0.6 % (0-2); Eosinophils Absolute Auto 0.2 X10*3/uL (0.0-0.4); Eosinophils Percent Auto 1.6 % (0-4); Hematocrit 46.6 % (42.0-52.0); Hemoglobin 15.7 g/dl (14.0-18.0); Imm Gran Abs Auto 0.04 X10*3/uL (0.00-0.03); Imm Gran Pct Auto 0.4 % (0.0-0.4); Lymphocytes Absolute Auto 2.6 X10*3/uL (1.2-4.9); Lymphocytes Percent Auto 25.9 % (20-40); Mean Corpuscular HGB Conc 33.7 g/dl (31.0-36.0); Mean Corpuscular Hemoglobin 29.7 pg (27.0-33.0); Mean Corpuscular Volume 88.1 fL (80.0-98.0); Mean Platelet Volume 9.2 fL (9.4-12.4); Monocytes Absolute Auto 0.6 X10*3/uL (0.1-1.2); Monocytes Percent Auto 5.6 % (2-11); Neutrophils Absolute Auto 6.6 x10*3/uL (2.0-8.3); Neutrophils Percent Auto 65.9 % (45-73); Platelet Count 181 X10*3/uL (160-400); Red Blood Count 5.29 X10*6/uL (4.60-5.80); Red Cell Distribution Width 13.8 % (11.0-16.0)
[2024-01-19 11:37] LABS: Alanine Aminotransferase 18 U/L (0-40); Albumin Level 4.6 g/dL (3.5-5.0); Alkaline Phosphatase 143 U/L (39-117); Anion Gap 13 (12-20); Aspartate Amino Transferase 19 U/L (5-37); Bilirubin Total 0.6 mg/dL (0.0-1.0); Blood Urea Nitrogen 14 mg/dL (9-16); Calcium 9.6 mg/dL (8.4-10.2); Carbon Dioxide 26 mmol/L (22-29); Chloride 106 mmol/L (96-108); Cholesterol 167 mg/dL (<200); Estimated Glomerular Filt Rate > 60; Glucose Random 93 mg/dL (60-115); Potassium 4.5 mmol/L (3.3-5.1); Sodium 140 mmol/L (135-145); Total Protein 8.1 g/dL (6.5-8.0)
== END 2024-01-19 10:03 | disposition home or self-care (01) ==
LOC: HO.10HDL 10:02
PROVIDERS: Visit Provider Internal Medicine
DX: K21.9 Gastro-esophageal reflux disease without esophagitis (principal); Z72.0 Tobacco use; K74.60 Unspecified cirrhosis of liver
CPT/HCPCS: 36415; 80053; 82465; 85025

== ENCOUNTER 2024-02-15 09:14 | Emergency (ER) | payer OTHER, SELFPAY ==
--- NOTE | ~2024-02-15 | XR_ITS ---
EXAMINATION: XR HAND, RIGHT CLINICAL INFORMATION: Right index finger injury,? Foreign body COMPARISON: None available. TECHNIQUE: PA, lateral, and oblique views of the right hand. FINDINGS: There is a comminuted, mildly displaced fracture of the tuft of the index finger with associated soft tissue swelling. No radiopaque foreign body is demonstrated. There is chronic flexion of the DIP joint of the little finger. Otherwise joint spaces are maintained. No erosions or soft tissue calcifications. XR/XR hand RT 2V IMPRESSION: 1. Comminuted, mildly displaced fracture of the tuft of the index finger. 2. No radiopaque foreign body.
[2024-02-15 09:27] VITALS: BP 126/72; PULSE 78; RESP 16; TEMP 37.1; O2SAT 97; BMI 21.3
--- NOTE | 2024-02-15 10:45 | ED_ITS ---
HPI - Wound/Laceration General Chief Complaint: Wound/Laceration Stated Complaint: Finger Lac work inj Time Seen by Provider: 02/15/24 10:39 Source: patient Mode of arrival: ambulatory Limitations: no limitations History of Present Illness HPI narrative: 43 y/o right handed male presents today for evaluation of crush injury to his right 2nd digit just prior to arrival ~830am. He works at a [employer] and was working with a metal clamp (thinks it was part of a faucet) when the clamp closed on his finger. He was able to open the clamp and remove his finger. Had pain initially. Reports numb feeling in his right 2nd digit. Tdap UTD Onset (ago): hour(s) Location: other (right index finger) Extremity Location: right: hand (1cm linear laceration to medial aspect of R 2nd digit and 1cm linear laceration to lateral aspect of R 2nd digit) Place: work Patient tetanus UTD: Yes (within 2 years) Context: accidental Related Data Previous Rx's ?Medication ?Instructions ?Recorded folic acid 1 mg tablet 1 mg PO DAILY #30 tabs 12/24/22 furosemide 20 mg tablet 20 mg PO DAILY #30 tabs 12/24/22 magnesium oxide 400 mg (241.3 mg 400 mg PO BIDPC #30 tabs 12/24/22 magnesium) tablet omeprazole 40 mg capsule,delayed 40 mg PO DAILY@0630 #30 caps 12/24/22 release spironolactone 25 mg tablet 25 mg PO BID@0900,1800 #60 tabs 12/24/22 thiamine mononitrate (vit B1) 100 100 mg PO DAILY #30 tabs 12/24/22 mg tablet lidocaine 4 % topical cream 1 appl topical QID PRN pain #25 12/31/22 grams ferrous sulfate 325 mg (65 mg 325 mg PO DAILY #30 tabs 01/02/23 iron) tablet acetaminophen 325 mg capsule 650 mg (2 x 325 mg) PO Q6H PRN 02/15/24 (Tylenol) pain 5 days #10 caps amoxicillin 875 mg-potassium 1 tab PO BID 10 days #20 tabs 02/15/24 clavulanate 125 mg tablet Allergies Allergy/AdvReac Type Severity Reaction Status Date / Time No Known Allergies Allergy Verified 02/15/24 09:33 [No Known Allergies*] Review of Systems Review of Systems: Yes all other systems are reviewed and are negative [facility] Past Medical History Medical History Bleeding hemorrhoids Chronic liver disease Surgical History History of colonoscopy History of endoscopy History of surgery (12/12/22) Social History Social History Household Members: Other Household Members Other:: Parents Housing: House Do you presently have visiting nurse or other home services: No Alcohol intake: former Comment: tiger text at 1601 call for report, calleded 1700 no answer sent Pt Patient Tobacco Use Status: Current everyday Tobacco user Tobacco use type: Cigarette Cigarette Packs Per Day: 1 Cigarettes Per Day: 20.0 e-Cigarette/Vaping Use: Never Used Second Hand Smoke Exposure: No Substance Use Type: Marijuana Advance Directives: No Advance Directives Information Provided: Yes service: No Current occupational status: disabled Physical Exam Vital Signs: Vital Signs: Last Vital Signs Temp 98.4 F 02/15/24 12:34 Pulse 63 02/15/24 12:34 Resp 16 02/15/24 12:34 BP 117/70 02/15/24 12:34 Pulse Ox 100 02/15/24 12:34 O2 Del Method Room Air 02/15/24 12:34 BMI result Body Mass Index 21.3 Appearance: Alert. Oriented X3. No acute distress. Head: normocephalic, atraumatic. Neck: Normal inspection. Neck supple. CVS: Normal heart rate and rhythm. Pulses normal. Respiratory: No respiratory distress. Breath sounds normal. Skin: Skin warm and dry. Normal skin color. Normal skin turgor. No rashes. Extremities: No lower extremity edema. No joint swelling. Medial and lateral laceration to right 2nd digit. actively bleeding. no nailbed involvement. Neuro/psych: Oriented X 3. Reports numbness to right 2nd digit Medications Administered Discontinued Medications Generic Name Dose Route Start Last Admin Trade Name Freq PRN Reason Stop Dose Admin Amoxicillin/Clavulanate Potassium 875 mg 02/15/24 12:01 02/15/24 12:09 Amoxicillin/Potassium Clav 875 Mg Tablet PO 02/15/24 12:02 875 mg ONCE ONE Administration Lidocaine HCl 5 ml 02/15/24 10:59 02/15/24 11:15 Lidocaine Hcl 1 % Mpf 5 Ml Vial INFILTRATI 02/15/24 11:00 5 ml ONCE ONE Administration Lidocaine HCl 5 ml 02/15/24 11:01 02/15/24 11:14 Lidocaine Hcl 1 % Mpf 5 Ml Vial INFILTRATI 02/15/24 11:02 5 ml ONCE ONE Administration Medical Decision Making Medical Decision Making [facility] Narrative: 43 y/o right handed male presents today for evaluation of crush injury to his right 2nd digit just prior to arrival ~830am. On exam, there are 2 1cm linear lacerations to the medial and lateral aspects of the R 2nd digit. No neurosensory deficits at this time. Patient has full range of motion of hand and digits. Wound does not appear to infiltrate nail bed. X-ray reveals comminuted, displaced fracture of the tuft of the R index fingers. Lateral and medial lacerations were approximated with 4-0 nylon using simple, interrupted sutures. His finger was placed in a finger splint. Gave first dose of augmentin here. Patient will full range of motion of R hand and individual digits. Denies pain medication at this time but requests pain medication for home. Will discharge with 10 days of augmentin and tylenol. Advised against more than 2 doses of tylenol a day due to patient's history of chronic liver disease. Referred to orthopedics for further evaluation and management of open fracture. Differential Diagnosis Differential Diagnoses: The differential diagnosis associated with the presentation includes open fracture, laceration, crush injury, contusion Independent Interpretation I performed an independent interpretation of an: Plain X-Ray Interpretation: Communited displaced fracture of the tuft of the R index finger. No radiopaque foreign body. Radiology Impression Discussion of test interpretation with radiology: I have reviewed the radiologist's reading. Radiologist Impression: EXAMINATION: XR HAND, RIGHT CLINICAL INFORMATION: Right index finger injury,? Foreign body COMPARISON: None available. TECHNIQUE: PA, lateral, and oblique views of the right hand. FINDINGS: There is a comminuted, mildly displaced fracture of the tuft of the index finger with associated soft tissue swelling. No radiopaque foreign body is demonstrated. There is chronic flexion of the DIP joint of the little finger. Otherwise joint spaces are maintained. No erosions or soft tissue calcifications. XR/XR hand RT 2V IMPRESSION: 1. Comminuted, mildly displaced fracture of the tuft of the index finger. 2. No radiopaque foreign body External Record Review External record reviewed: Prior outpatient labs and Prior outpatient radiology Prescription Management I considered prescription management with: Pain Medication and Antibiotic Chronic Conditions Patient?s care impacted by: Other (alcoholic liver disease) Procedures Laceration Laceration 1: Site: hand Side (If applicable): right Size (cm): 1 Description: linear Depth: simple, single layer Local Anesthetic: lidocaine 1% Amount of anesthesia used (mL): 2.5 Pre-repair: irrigated extensively Skin layer closed with: nylon Size (cm): 4-0 Number of sutures: 3 Technique: simple, interrupted Laceration 2: Site: hand Side (If applicable): right Size (cm): 1 Description: linear Depth: simple, single layer Local Anesthetic: lidocaine 1% Amount of anesthesia used (mL): 5 Pre-repair: irrigated extensively Skin layer closed with: nylon Size (cm): 4-0 Number of sutures: 3 Technique: simple, interrupted Critical Care Time Critical Care Time Critical Care Time: No Discharge Plan Discharge Clinical Impression: Laceration Hand injury Qualifiers: Encounter type: initial encounter Laterality: right Qualified Code(s): S69.91XA - Unspecified injury of right wrist, hand and finger(s), initial encounter Patient Disposition: Home, Self-Care Instructions: Care For Your Stitches (DC) Additional Instructions: 6 stitches were used for the injury to your right index finger. Keep the splint on and refrain motion of the injured finger. Take the prescribed antibiotics to prevent infection. If you loose feeling in your hand, experience worsening pain, swelling, or bleeding, come back to the ER. Follow up with hand surgery this week. If you develop new or worsening symptoms call 911 or come back to the ER for further evaluation. Prescriptions: New amoxicillin-pot clavulanate 875-125 mg tablet 1 tab PO BID 10 Days Qty: 20 0RF acetaminophen [Tylenol] 325 mg capsule 650 mg PO Q6H PRN (Reason: pain) 5 Days Qty: 10 0RF Rx Instructions: Do not exceed 2 doses within 24 hours. No Action ferrous sulfate 325 mg (65 mg iron) tablet 325 mg PO DAILY Qty: 30 0RF omeprazole 40 mg Capsule,Delayed Release(Dr/Ec) 40 mg PO DAILY@0630 Qty: 30 0RF spironolactone 25 mg Tablet 25 mg PO BID@0900,1800 Qty: 60 0RF Protocol: Hold for SBP< HOLD for SBP < : 90 magnesium oxide 400 mg (241.3 mg magnesium) Tablet 400 mg PO BIDPC Qty: 30 0RF folic acid 1 mg Tablet 1 mg PO DAILY Qty: 30 0RF furosemide 20 mg Tablet 20 mg PO DAILY Qty: 30 0RF Protocol: Hold for SBP< HOLD for SBP < : 90 thiamine mononitrate (vit B1) 100 mg Tablet 100 mg PO DAILY Qty: 30 0RF lidocaine 4 % cream 1 appl topical QID PRN (Reason: pain) Qty: 25 0RF Ref[place]: [facility] [place] Group] (open fracture ) Stand Alone Forms: Work/School Release Interventions: ED Discharge Assessment Last Done: 02/15/24 12:34 Discharge Date/Time: 02/15/24 12:35 Print Language: Pashto
[2024-02-15] MEDS: Lidocaine HCl 1 % MPF 5 ML VIAL INFILTRATI ×2 (11:14→11:15)
[2024-02-15] MEDS: Amoxicillin/Potassium Clav 875 MG TABLET PO (12:09)
[2024-02-15 12:34] VITALS: BP 117/70; PULSE 63; RESP 16; TEMP 36.9; O2SAT 100
== END 2024-02-15 12:35 | disposition home or self-care (01) ==
PROVIDERS: Emergency Provider Emergency Medicine; PCP Internal Medicine
DX: S61.210A Laceration without foreign body of right index finger without damage to nail, initial encounter (principal); W23.0XXA Caught, crushed, jammed, or pinched between moving objects, initial encounter; Y93.9 Activity, unspecified; Y92.89 Other specified places as the place of occurrence of the external cause; Y99.0 Civilian activity done for income or pay
CPT/HCPCS: 12001; 73120; 99282; 99284

== ENCOUNTER 2024-05-10 09:29 | Outpatient (REF) | payer SELFPAY ==
[2024-05-10 10:43] LABS: MANUAL DIFF FLAG NO
[2024-05-10 10:54] LABS: Basophils Absolute Auto 0.1 X10*3/uL (0.0-0.2); Basophils Percent Auto 0.6 % (0-2); Eosinophils Absolute Auto 0.2 X10*3/uL (0.0-0.4); Eosinophils Percent Auto 2.2 % (0-4); Hematocrit 44.1 % (42.0-52.0); Imm Gran Abs Auto 0.02 X10*3/uL (0.00-0.03); Imm Gran Pct Auto 0.2 % (0.0-0.4); Lymphocytes Absolute Auto 2.4 X10*3/uL (1.2-4.9); Lymphocytes Percent Auto 29.2 % (20-40); Mean Corpuscular Hemoglobin 30.1 pg (27.0-33.0); Mean Corpuscular Volume 88.4 fL (80.0-98.0); Mean Platelet Volume 9.7 fL (9.4-12.4); Monocytes Absolute Auto 0.5 X10*3/uL (0.1-1.2); Monocytes Percent Auto 6.3 % (2-11); Neutrophils Percent Auto 61.5 % (45-73); Platelet Count 147 X10*3/uL (160-400); Red Blood Count 4.99 X10*6/uL (4.60-5.80); Red Cell Distribution Width 13.9 % (11.0-16.0); White Blood Count 8.2 X10*3/uL (4.8-10.8)
[2024-05-10 11:28] LABS: Alanine Aminotransferase 18 U/L (0-40); Albumin Level 4.8 g/dL (3.5-5.0); Alkaline Phosphatase 114 U/L (39-117); Anion Gap 14 (12-20); Aspartate Amino Transferase 20 U/L (5-37); Bilirubin Total 0.4 mg/dL (0.0-1.0); Blood Urea Nitrogen 11 mg/dL (9-16); Calcium 9.8 mg/dL (8.4-10.2); Carbon Dioxide 26 mmol/L (22-29); Chloride 104 mmol/L (96-108); Estimated Glomerular Filt Rate > 60; Glucose Random 106 mg/dL (60-115); Magnesium 2.1 mg/dL (1.6-2.6); Potassium 4.5 mmol/L (3.3-5.1); Sodium 139 mmol/L (135-145)
== END 2024-05-10 09:30 | disposition home or self-care (01) ==
LOC: HO.10HDL 09:29
PROVIDERS: Visit Provider Internal Medicine
DX: K21.9 Gastro-esophageal reflux disease without esophagitis (principal); Z87.19 Personal history of other diseases of the digestive system
CPT/HCPCS: 36415; 80053; 83735; 85025

== ENCOUNTER 2024-08-18 09:55 | Outpatient (REF) | payer OTHER, SELFPAY ==
[2024-08-18 10:55] LABS: MANUAL DIFF FLAG NO
[2024-08-18 11:00] LABS: Basophils Absolute Auto 0.1 X10*3/uL (0.0-0.2); Basophils Percent Auto 0.6 % (0-2); Eosinophils Absolute Auto 0.4 X10*3/uL (0.0-0.4); Hematocrit 44.8 % (42.0-52.0); Hemoglobin 15.2 g/dl (14.0-18.0); Imm Gran Abs Auto 0.03 X10*3/uL (0.00-0.03); Imm Gran Pct Auto 0.3 % (0.0-0.4); Lymphocytes Absolute Auto 2.6 X10*3/uL (1.2-4.9); Lymphocytes Percent Auto 27.2 % (20-40); Mean Corpuscular HGB Conc 33.9 g/dl (31.0-36.0); Mean Corpuscular Hemoglobin 30.2 pg (27.0-33.0); Mean Corpuscular Volume 88.9 fL (80.0-98.0); Mean Platelet Volume 9.2 fL (9.4-12.4); Monocytes Absolute Auto 0.5 X10*3/uL (0.1-1.2); Monocytes Percent Auto 5.7 % (2-11); Neutrophils Absolute Auto 5.9 x10*3/uL (2.0-8.3); Neutrophils Percent Auto 62.2 % (45-73); Platelet Count 161 X10*3/uL (160-400); Red Blood Count 5.04 X10*6/uL (4.60-5.80); Red Cell Distribution Width 13.7 % (11.0-16.0); White Blood Count 9.5 X10*3/uL (4.8-10.8)
[2024-08-18 11:20] LABS: Alanine Aminotransferase 17 U/L (0-40); Albumin Level 4.7 g/dL (3.5-5.0); Alkaline Phosphatase 94 U/L (39-117); Anion Gap 11 (12-20); Aspartate Amino Transferase 22 U/L (5-37); Bilirubin Total 0.4 mg/dL (0.0-1.0); Blood Urea Nitrogen 13 mg/dL (9-16); Carbon Dioxide 27 mmol/L (22-29); Chloride 106 mmol/L (96-108); Estimated Glomerular Filt Rate > 60; Glucose Random 96 mg/dL (60-115); Magnesium 1.9 mg/dL (1.6-2.6); Potassium 4.2 mmol/L (3.3-5.1); Sodium 140 mmol/L (135-145); Total Protein 7.7 g/dL (6.5-8.0)
== END 2024-08-18 09:56 | disposition home or self-care (01) ==
LOC: HO.10HDL 09:55
PROVIDERS: Visit Provider Internal Medicine
DX: K21.9 Gastro-esophageal reflux disease without esophagitis (principal); K74.60 Unspecified cirrhosis of liver
CPT/HCPCS: 36415; 80053; 83735; 85025

== ENCOUNTER 2024-11-18 10:20 | Outpatient (REF) | payer OTHER, SELFPAY ==
[2024-11-18 11:18] LABS: Alanine Aminotransferase 19 U/L (0-40); Albumin Level 4.7 g/dL (3.5-5.0); Alkaline Phosphatase 83 U/L (39-117); Anion Gap 8 (12-20); Aspartate Amino Transferase 24 U/L (5-37); Bilirubin Total 0.5 mg/dL (0.0-1.0); Blood Urea Nitrogen 13 mg/dL (9-16); Calcium 9.5 mg/dL (8.4-10.2); Carbon Dioxide 28 mmol/L (22-29); Chloride 107 mmol/L (96-108); Estimated Glomerular Filt Rate > 60; Glucose Random 94 mg/dL (60-115); Sodium 139 mmol/L (135-145)
== END 2024-11-18 10:21 | disposition home or self-care (01) ==
LOC: HO.10HDL 10:20
PROVIDERS: Visit Provider Internal Medicine
DX: K21.9 Gastro-esophageal reflux disease without esophagitis (principal); K74.60 Unspecified cirrhosis of liver
CPT/HCPCS: 36415; 80053

== ENCOUNTER 2025-01-23 10:17 | Outpatient (AMB) | payer OTHER, SELFPAY ==
--- NOTE | 2025-01-23 10:20 | MHC.PC.OV ---
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 Accompanied by: Self / Same As Patient Allergies No Known Allergies [No Known Allergies*] Allergy (Verified 01/23/25 11:13) Tobacco use date assessed: 01/23/25 Dental Screening Dental Screen Date: 01/23/25 Did you have a dental visit in the last 12 months?: Yes Did you have a dental problem in the last 6 months where you did not have access to dental care?: No PFSH Medical History Chronic liver disease Bleeding hemorrhoids Surgical History History of colonoscopy History of endoscopy History of surgery (12/12/22) Family History (Updated 01/23/25 @ 11:17 by VINCENT Simon) Father No problems noted. Mother No problems noted. Social History Household Members: Other Household Members Other:: Parents Housing: House Do you presently have visiting nurse or other home services: No Alcohol intake: former Comment: tiger text at 1601 call for report, calleded 1700 no answer sent Pt Patient Tobacco Use Status: Current everyday Tobacco user Tobacco use type: Cigarette Cigarette Packs Per Day: 1 Cigarettes Per Day: 20.0 Second Hand Smoke Exposure: No Substance Use Type: Marijuana service: No Current occupational status: employed Cognitive needs: No Hearing needs: No Vision needs: Yes (rx glasses) Questionnaire PHQ-9 Over the last 2 weeks, how often have you been bothered by any of the following problems? 1. Little interest or pleasure in doing things: not at all 2. Feeling down, depressed, or hopeless: not at all 3. Trouble falling or staying asleep, or sleeping too much: not at all 4. Feeling tired or having little energy: not at all 5. Poor appetite or overeating: not at all 6. Feeling bad about yourself - or that you are a failure or have let yourself or your family down: not at all 7. Trouble concentrating on things, such as reading the newspaper or watching television: not at all 8. Moving or speaking so slowly that other people could have noticed. Or the opposite - being so fidgety or restless that you have been moving around a lot more than usual: not at all 9. Thoughts that you would be better off or of hurting yourself in some way: not at all Total score: 0 Source: Developed by Drs. Alejandro Villar, Ashley Hunt, Ricardo Najera and colleagues, with an educational sandi from [employer]. Thrive Questionnaire Date Thrive assessed: 01/23/25 I am a: Patient What is your living situation today?: I have a steady place to live Within the past 12 months, did the food you bought not last and you didn't have the money to get more?: Never true Within the past 12 months, did you worry whether your food would run out before you got money to buy more?: Never true Do you have trouble paying for medicines?: No Do you have trouble getting transportation to medical appointments?: No Do you have trouble paying your heating and electricity bill?: No Do you have trouble taking care of your child, family member or friend?: No Do you have trouble with day-to-day activities such as bathing, preparing meals, shopping, managing finances, etc.?: No Are you currently unemployed and looking for a job?: No Are you interested in more education?: No THRIVE Score: 0 AUDIT C Alcohol Use Questionnaire (AUDIT-C) 1. How often do you have a drink containing alcohol?: Never 3. How often do you have six or more drinks on one occasion?: Never Total Score: 0 REAL-7 AMB Questionnaire REAL-7 Date REAL - 7 assessed: 01/23/25 Feeling nervous, anxious, or on edge: 0 = Not at all Not being able to stop or control worryin = Not at all Worrying too much about different things: 0 = Not at all Trouble relaxin = Not at all Being so restless that it is hard to sit still: 0 = Not at all Becoming easily annoyed or irritable: 0 = Not at all Feeling afraid as if something awful might happen: 0 = Not at all Total REAL-7 score (0-4 normal; 5-9 mild; 10-14 moderate; 15-21 severe): 0 Source: Developed by Drs. Alejandro Villar, Ashley Hunt, Ricardo Najera and colleagues, with an educational sandi from [employer]. Physical exam (Primary Care) Vital Signs: Last Vital Signs Temp 98.6 F 01/23/25 10:21 Pulse 88 01/23/25 10:21 Resp 16 01/23/25 10:21 BP 118/70 01/23/25 10:21 Pulse Ox 98 01/23/25 10:21 Oxygen Delivery Method Room Air 01/23/25 10:21 BMI result Body Mass Index 19.1 Tobacco/Smoking Status: Tobacco use Status Tobacco use date assessed 01/23/25 01/23/25 10:24 Patient Tobacco Use Status Current everyday Tobacco 01/23/25 11:17 Tobacco use type Cigarette 01/23/25 11:17 e-Cigarette/Vaping Use 01/23/25 11:17 PHQ-9: PHQ-9 Score PHQ-9: Total score 0 01/23/25 11:42 Thrive Assessment: Date of Thrive Assessment Date Thrive assessed 01/23/25 01/23/25 10:24 Coding Level of Care Code New Pt Level 4 (04324) Complex EM visit Add On [id number] Diagnoses Alcohol use disorder, severe, dependence F10.20 Assessment & Plan Assessment & Plan (1) Alcohol use disorder, severe, dependence: Code(s): F10.20 - Alcohol dependence, uncomplicated Category: Medical Plan: Patient has not been consuming any alcohol since discharge from hospital. Denies symptoms of depression. Blood work has been ordered. Continue current medications Plan History of Present Illness The patient is a 44-year-old male presenting for a routine checkup. He has a history of alcohol use disorder, with cessation reported approximately four to six months ago after a hospitalization episode. The patient affirmed complete abstinence from alcohol, with no alcohol kept at home or in cars, and reported no cravings to resume drinking. He is a smoker, consuming about one pack per day, without expressing interest in quitting at this time. The patient confirms no current health issues, anxiety, depression, and maintains regular work and sleep habits without any reported disturbances. 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 - Family Status: Resides with his mother living on the first floor. - Substance Use: Smokes approximately one pack of cigarettes daily; recent cessation of alcohol with sustained sobriety for 4-6 months post-hospitalization. Review of Systems - General: Denies any health concerns or symptoms. - Psychological: Reports feeling well; denies depression and anxiety. - Neurological: Denies disturbances in sleep. Physical Exam General: Cooperative and healthy appearing Nutritional Appearance: Well nourished Orientation/consciousness: Patient oriented x3 Limitations: No limitations Head: Normal to inspection General: Appearance normal, both eyes and all related structures Neck: Normal visual inspection Chest: Normal palpation of entire chest wall Respiratory: Normal respiratory effort Neurology: Patient oriented x3 Results Plan The plan is to conduct updated blood work, focusing on liver function tests, given the patient's history of alcohol use disorder. Although the patient continues to smoke, there is no current cessation plan due to his disinterest in quitting. Monitoring of health changes will continue bi-annually. I will contact the pharmacy to resolve any issues with medication refills. Patient was informed and verbally consented to the use of an ambient scribe for clinic note documentation during this visit. Discussion Notes I discussed with the patient the importance of routine blood work to monitor his liver function, given his history of alcohol use, and emphasized the value of ongoing monitoring through regular checkups. The patient was advised to visit the lab for blood sampling at his earliest convenience. While addressing tobacco use, the patient was informed of the health risks associated with smoking, yet he preferred not to pursue cessation strategies at this time. The patient mentioned difficulties with medication refills, and I agreed to follow up with the pharmacy. We planned to meet again in six months for another routine checkup unless there are issues that necessitate earlier consultations. Patient Instructions - Visit the lab for blood work as instructed. - Monitor health and seek medical attention if any new symptoms arise. - Contact the pharmacy to check on any refill issues, and expect assistance with authorizations. - Remember to follow up in six months for routine evaluation. Orders: Orders Complete Blood Count no Diff Today F10.20 - Alcohol dependence, uncomplicated Basic Metabolic Panel Today F10.20 - Alcohol dependence, uncomplicated Lipid Panel Today F10.20 - Alcohol dependence, uncomplicated Liver Panel Today F10.20 - Alcohol dependence, uncomplicated UA and rflx microscopic Today F10.20 - Alcohol dependence, uncomplicated
[2025-01-23 10:21] VITALS: BP 118/70; PULSE 88; RESP 16; TEMP 37; O2SAT 98; BMI 19.1
== END 2025-01-23 11:39 | disposition home or self-care (01) ==
LOC: HO.HMCHD 10:17
PROVIDERS: PCP Internal Medicine; Visit Provider Internal Medicine
DX: F10.20 Alcohol dependence, uncomplicated (principal)

== ENCOUNTER 2025-01-26 06:24 | Outpatient (REF) | payer OTHER, SELFPAY ==
[2025-01-26 07:12] LABS: Mean Corpuscular HGB Conc 34.9 g/dl (31.0-36.0); Mean Corpuscular Hemoglobin 30.5 pg (27.0-33.0); Mean Corpuscular Volume 87.6 fL (80.0-98.0); Mean Platelet Volume 9.7 fL (9.4-12.4); Platelet Count 150 X10*3/uL (160-400); Red Blood Count 4.91 X10*6/uL (4.60-5.80); Red Cell Distribution Width 13.2 % (11.0-16.0); White Blood Count 8.1 X10*3/uL (4.8-10.8)
[2025-01-26 07:18] LABS: Appearance Urine Clear; Color Urine Dark Yellow; Glucose Urine UA Negative (Negative); Leukocyte Esterase Urine Negative (Negative); Nitrite Urine Negative (Negative); Specific Gravity - Urine 1.025 (1.005-1.025); Urine Blood Negative (Negative); Urine Ketones Trace mg/dL (Negative); Urine Protein Negative (Neg-Trace)
[2025-01-26 07:44] LABS: Alanine Aminotransferase 19 U/L (0-40); Albumin Level 4.6 g/dL (3.5-5.0); Alkaline Phosphatase 87 U/L (39-117); Anion Gap 11 (12-20); Aspartate Amino Transferase 25 U/L (5-37); Bilirubin Direct 0.2 mg/dL (0.0-0.5); Bilirubin Total 0.7 mg/dL (0.0-1.0); Blood Urea Nitrogen 14 mg/dL (9-16); Calcium 9.6 mg/dL (8.4-10.2); Carbon Dioxide 24 mmol/L (22-29); Chloride 108 mmol/L (96-108); Cholesterol 134 mg/dL (<200); Estimated Glomerular Filt Rate > 60; Glucose Random 106 mg/dL (60-115); HDL Cholesterol 30 mg/dL (>40); LDL Cholesterol Calculated 86 mg/dL (<100); Potassium 4.4 mmol/L (3.3-5.1); Sodium 139 mmol/L (135-145); Total Protein 7.5 g/dL (6.5-8.0); Triglycerides 92 mg/dL (<150)
== END 2025-01-26 06:25 | disposition home or self-care (01) ==
LOC: HO.LAB 06:24
PROVIDERS: PCP Internal Medicine; Visit Provider Internal Medicine
DX: F10.20 Alcohol dependence, uncomplicated (principal)
CPT/HCPCS: 36415; 80048; 80061; 80076; 81003; 85027

== ENCOUNTER 2025-05-02 14:18 | Outpatient (AMB) | payer OTHER, SELFPAY ==
--- NOTE | 2025-05-02 14:20 | MHC.PC.OV ---
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 Apparently, the patient had walked into his air conditioner and sustained a 4 cm laceration to the right upper arm. While at [facility] ED, 8 sutures were placed using running technique with good control of her bleeding. Tdap was updated. On exam today, laceration appears well healed without any dehiscence noted. There 8 intact sutures and no evidence of infection. No surrounding erythema, warmth or any purulent drainage. He continues to report total cessation from alcohol ongoing for over 6 months. Does continue on folic acid and thiamine supplementation. He continues smoking 1 pack of cigarettes on a daily basis and is not interested in quitting at this time. ROS: General: No fevers, malaise, unintentional weight loss Cardiovascular: No chest pain, palpitations, or leg edema Respiratory: No shortness of breath, wheezing, cough Neuro: No headaches, weakness, paresthesias Skin: see hpi EXAM: Constitutional - Awake and Alert, No apparent distress Eyes - PERRL Cardiovascular - S1S2, RRR, No edema Respiratory - Normal lung expansion, Normal respiratory effort, No respiratory distress, CTA bilaterally Extremities - no calf tenderness bilaterally, no swelling Skin - Warm/Dry. 4cm well healed laceration without dehiscence to the right upper arm with 8 sutures noted Neurological - Alert & oriented x3 Psychological - Appropriate affect [facility] Medical History (Updated 05/03/25 @ 10:57 by YENNIFER Colbert) Cigarette smoker Alcohol use disorder in remission Chronic liver disease Bleeding hemorrhoids Surgical History (Updated 05/03/25 @ 10:57 by YENNIFER Colbert) History of abdominal paracentesis History of colonoscopy History of endoscopy History of surgery (12/12/22) Family History (Updated 01/23/25 @ 11:17 by VINCENT Simon) Father No problems noted. Mother No problems noted. Social History Household Members: Other Household Members Other:: Parents Housing: House Do you presently have visiting nurse or other home services: No Alcohol intake: former Comment: tiger text at 1601 call for report, calleded 1700 no answer sent Pt Patient Tobacco Use Status: Current everyday Tobacco user Tobacco use type: Cigarette Cigarette Packs Per Day: 1 Cigarettes Per Day: 20.0 Second Hand Smoke Exposure: No Substance Use Type: Marijuana service: No Current occupational status: employed Cognitive needs: No Hearing needs: No Vision needs: Yes (rx glasses) Questionnaire Thrive Questionnaire Date Thrive assessed: 01/23/25 REAL-7 AMB Questionnaire REAL-7 Date REAL - 7 assessed: 01/23/25 Source: Developed by Drs. Alejandro Villar, Ashley Hunt, Ricardo Najera and colleagues, with an educational sandi from [employer]. Physical exam (Primary Care) Vital Signs: Last Vital Signs Temp 98.4 F 05/02/25 14:26 Pulse 76 05/02/25 14:26 Resp 16 05/02/25 14:26 BP 100/60 05/02/25 14:26 Pulse Ox 97 05/02/25 14:26 Oxygen Delivery Method Room Air 05/02/25 14:26 Tobacco/Smoking Status: Tobacco use Status Tobacco use date assessed 01/23/25 05/02/25 14:21 Patient Tobacco Use Status Current everyday Tobacco 05/02/25 14:21 Tobacco use type Cigarette 05/02/25 14:21 Are you ready to quit: No Tobacco cessation counseling provided: Yes Thrive Assessment: Date of Thrive Assessment Date Thrive assessed 01/23/25 05/02/25 14:21 Office Procedures Laceration Repair Procedure Location: RUE removal stuture Text: 8 sutures removed with good tolerance of procedure. No dehiscence or evidence of infection Coding Level of Care Code Est Pt Level 3 (84379) Diagnoses Laceration of right upper arm S41.111A Alcohol use disorder in remission F10.91 Cigarette smoker F17.210 Assessment & Plan Assessment & Plan (1) Laceration of right upper arm: Code(s): S41.111A - Laceration without foreign body of right upper arm, initial encounter Category: Medical Plan: 8 sutures removed from right upper arm. No evidence of infection. TDap updated (2) Alcohol use disorder in remission: Code(s): F10.91 - Alcohol use, unspecified, in remission Category: Medical Plan: In sustained remission. Continue folic acid and thiamine (3) Cigarette smoker: Code(s): F17.210 - Nicotine dependence, cigarettes, uncomplicated Category: Social Hx Plan: Declines NRT, not interested in cessation at this time
[2025-05-02 14:26] VITALS: BP 100/60; PULSE 76; RESP 16; TEMP 36.9; O2SAT 97
--- OUTSIDE RECORDS SUMMARY | 2025-05-02 15:29 | XMS_ITS | Clinical Summary ---
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 Name Role Phone Unavailable Primary Care Provider Unavailabl e Social History Tobacco Use Types Packs/Day Years Used Date Smoking Tobacco: Never Assessed Sex and Gender Information Value Date Recorded Sex Assigned at Not on file Legal Sex Male 12:42 PM EDT Gender Identity Not on file Sexual Orientation Not on file Plan of Treatment Health Maintenance Due Date Last Done Comments Hepatitis C Virus Screening 1982 HIV Screening 1995 DTaP/Tdap/Td Vaccines (1 - Tdap) 2001 Hepatitis B Vaccines (1 of 3 - 19+ 3-dose series) 2001 COVID-19 Vaccine (2023-2 5 season) 2024 HPV Vaccines Aged Out No longer eligi ble based on patient's age to complete this topic Pneumococcal Vaccine: Pediat tessa (0-5 Years) and At-Risk Patients (6 to 49 Years) Aged Out No longer eligible b ased on patient's age to complete this topic
== END 2025-05-02 14:50 | disposition home or self-care (01) ==
LOC: HO.HMCHD 14:19
PROVIDERS: PCP Internal Medicine; Visit Provider Physician Assistant
DX: S41.111A Laceration without foreign body of right upper arm, initial encounter (principal); F10.91 Alcohol use, unspecified, in remission; F17.210 Nicotine dependence, cigarettes, uncomplicated

== ENCOUNTER 2025-07-31 10:09 | Outpatient (AMB) | payer OTHER, SELFPAY ==
--- NOTE | 2025-07-31 10:19 | MHC.PC.OV ---
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 Apparently, the patient had walked into his air conditioner and sustained a 4 cm laceration to the right upper arm. While at [facility] ED, 8 sutures were placed using running technique with good control of her bleeding. Tdap was updated. On exam today, laceration appears well healed without any dehiscence noted. There 8 intact sutures and no evidence of infection. No surrounding erythema, warmth or any purulent drainage. He continues to report total cessation from alcohol ongoing for over 6 months. Does continue on folic acid and thiamine supplementation. He continues smoking 1 pack of cigarettes on a daily basis and is not interested in quitting at this time. 44 Lives with his parents and feels safe there. 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 Sober now for 6 months. Had been drinking for decade about 10 every day, primarily nips. Has been hospitalized at [facility] in 12/2024 and has not had any alcohol since then. He continues smoking cigarettes on a daily basis, 1 pack per day for the last 25 years. No illicit drug use but does smoke marijuana occasionally. Alcoholic cirrhosis-hospitalized in December 2024 at [facility] due to alcoholic hepatitis in the setting of alcoholic cirrhosis. During visit, course was complicated by portal hypertension and ascites requiring paracentesis. He was discharged on spironolactone and Lasix which he has been taking as prescribed and has not had any recurrence of the ascites. He is no longer following with Gastroenterology, but was previously seen by Dr. Iqbal. Alcohol dependence-in early remission-last drink 6 months ago. On folic acid GERD-omeprazole Concerns: None Health maintenance: Colonoscopies to start at age 47 Eye exam is ey-oq-ypmy-wears corrective lenses Due for dental exam Does not wear sunscreen but denies any suspicious lesions Reviewed past medical, surgical, family, social history ROS: General: No fevers, malaise, unintentional weight loss Cardiovascular: No chest pain, palpitations, or leg edema Respiratory: No shortness of breath, wheezing, cough Neuro: No headaches, weakness, paresthesias Skin: see hpi EXAM: Constitutional - Awake and Alert, No apparent distress Eyes - PERRL Cardiovascular - S1S2, RRR, No edema Respiratory - Normal lung expansion, Normal respiratory effort, No respiratory distress, CTA bilaterally Extremities - no calf tenderness bilaterally, no swelling Skin - Warm/Dry. 4cm well healed laceration without dehiscence to the right upper arm with 8 sutures noted Neurological - Alert & oriented x3 Psychological - Appropriate affect PFSH Medical History (Updated 07/31/25 @ 11:09 by YENNIFER Colbert) Alcohol use disorder, severe, dependence Alcohol withdrawal Acute on chronic blood loss anemia Alcoholic cirrhosis Cigarette smoker Alcohol use disorder in remission Chronic liver disease Bleeding hemorrhoids Surgical History History of abdominal paracentesis History of colonoscopy History of endoscopy History of surgery (12/12/22) Family History Father No problems noted. Mother No problems noted. Social History Household Members: Other Household Members Other:: Parents Housing: House Do you presently have visiting nurse or other home services: No Alcohol intake: former Comment: tiger text at 1601 call for report, calleded 1700 no answer sent Pt Patient Tobacco Use Status: Current everyday Tobacco user Tobacco use type: Cigarette Cigarette Packs Per Day: 1 Cigarettes Per Day: 20.0 Second Hand Smoke Exposure: No Substance Use Type: Marijuana service: No Current occupational status: employed Cognitive needs: No Hearing needs: No Vision needs: Yes (rx glasses) Questionnaire Thrive Questionnaire Date Thrive assessed: 01/23/25 REAL-7 AMB Questionnaire REAL-7 Date REAL - 7 assessed: 01/23/25 Source: Developed by DrsDon Villar, Ashley Hunt, Ricardo Najera and colleagues, with an educational sandi from [email or web address]. Physical exam (Primary Care) Vital Signs: Last Vital Signs Temp 98.8 F 07/31/25 10:22 Pulse 61 07/31/25 10:22 Resp 16 07/31/25 10:22 BP 112/62 07/31/25 10:22 Pulse Ox 98 07/31/25 10:22 Oxygen Delivery Method Room Air 07/31/25 10:22 BMI result Body Mass Index 20.7 Tobacco/Smoking Status: Tobacco use Status Tobacco use date assessed 01/23/25 07/31/25 10:27 Patient Tobacco Use Status Current everyday Tobacco 07/31/25 10:27 Tobacco use type Cigarette 07/31/25 10:27 Thrive Assessment: Date of Thrive Assessment Date Thrive assessed 01/23/25 07/31/25 10:27 Coding Level of Care Code New Pt Prev Care 40-64y(42377) Diagnoses Routine medical exam Z00.00 Cigarette smoker F17.210 Alcoholic cirrhosis K70.30 Assessment & Plan Assessment & Plan (1) Routine medical exam: Code(s): Z00.00 - Encounter for general adult medical examination without abnormal findings Category: Medical Plan: 45-year-old male presenting for annual physical exam. Plan as below (2) Cigarette smoker: Code(s): F17.210 - Nicotine dependence, cigarettes, uncomplicated Category: Social Hx Plan: Strongly advised cessation. He can continue Nicorette gum and contact the office should he desire any additional nicotine replacement (3) Alcoholic cirrhosis: Comment: Admitted at [facility] 12/2024 for alcoholic hepatitis with background alcoholic cirrhosis complicated by ascites requiring paracentesis and portal hypertension as well as acute blood loss anemia due to hemorrhoidal bleed in setting of alcoholic cirrhosis and portal hypertension requiring transfusion of 2 units packed red blood cells Code(s): K70.30 - Alcoholic cirrhosis of liver without ascites Category: Medical Plan: Currently compensated. Continue spironolactone and Lasix. Referred to gastroenterology for further evaluation and management Plan + follow-up in the office in 6 months with labs completed several days prior to visit Routine screening labs reviewed Screening colonoscopies to begin at age 45 Dental exams every 6 months Recommend regular sun protection Annual eye exams Wear seat belt in car Commended on alcohol cessation, continue with abstinence Cigarette smoking cessation strongly advised. Discussed complications of ongoing use Recommend regular exercise and healthy diet Orders: Orders Lipid Panel 6 Months F10.20 - Alcohol dependence, uncomplicated, F17.210 - Nicotine dependence, cigarettes, uncomplicated, K70.30 - Alcoholic cirrhosis of liver without ascites Basic Metabolic Panel 6 Months F17.210 - Nicotine dependence, cigarettes, uncomplicated, K70.30 - Alcoholic cirrhosis of liver without ascites Liver Panel 6 Months F10.20 - Alcohol dependence, uncomplicated, F17.210 - Nicotine dependence, cigarettes, uncomplicated, K70.30 - Alcoholic cirrhosis of liver without ascites Complete Blood Count Auto Diff 6 Months F10.20 - Alcohol dependence, uncomplicated, F17.210 - Nicotine dependence, cigarettes, uncomplicated, K70.30 - Alcoholic cirrhosis of liver without ascites Referrals Gastroenterology Referral K70.30 - Alcoholic cirrhosis of liver without ascites
[2025-07-31 10:22] VITALS: BP 112/62; PULSE 61; RESP 16; TEMP 37.1; O2SAT 98; BMI 20.7
--- OUTSIDE RECORDS SUMMARY | 2025-07-31 11:19 | XMS_ITS | Patient Health Record ---
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) Frankie MCGHEE Primary Care Provide r Alejandro Lujan Unavailable [phone] Allergies No Known Allergies Reason For Referral No Information Medications Medication SIG (Take, Route, Frequency, Duration) Notes Start Date End Date Status Magnesium Oxide 400 (240 Mg) MG TAKE 1 TABLET BY MOUTH TWICE DAILY Oral for 30 Active Folic Acid 1 MG Oral for 90 Ac tive Spironolactone 25 MG Oral for 90 Active Omeprazole 40 MG Oral for 90 A ctive Furosemide 20 MG Oral for 90 A ctive FeroSul 325 (65 Fe) MG TAKE 1 TABLET BY MOUTH DAILY Oral for 30 Active B1 100 MG TAKE 1 TABLET BY KELY TH DAILY Oral for 30 Active Social History Tobacco Use: Social History Observation Description Date Details (start date - stop date) Current Smoker NA - NA Tobacco Use/Smoking Question Answer Notes Patient is a current smoker How often do you smoke cigarettes? every day How many cigarettes a day do you smoke? 11-20 Alcohol Screen Question Answer Notes Did you have a drink containing alcohol in the p ast year? No Points 0 Interpretation Negative Section Notes: Smoker 1 ppd; sober from alc ohol since 12/2022 Problems Problem Type SNOMED Code ICD Code Onset Dates Problem Status W/U Status Risk Notes Problem Gastroesophageal reflux disease (231761996) Gastroesophageal reflux disease (K21.9) Active confirmed Problem 71489252 Alcoholic liver disease (K70.9) Active confirmed Problem 11961319 Bleeding hemorrhoids (K64.9) Active confirmed Problem Gastritis (1493993) Gastritis (K29.70) Active c onfirmed Problem 028054685 Anemia due to acute blood loss (D62) Active confirmed Plan Of Treatment No Information Insurance Providers Payer Name Payer Address Payer Phone Subscriber Number Group Number Insured Name Patient Relationship to Insured Coverage Start Date Coverage End Date [facility] [address] [place] [phone] [id number] AMINA BATISTA Self - patient is the insured Medical (General) History Medical History History ICD Code Denies [place],DM,CVA,Lung disease,renal dise ase Kidney stone Alcohol abuse with alcohol-l iver disease. He was admitted to [facility] in December with ascites and elevated LFTs, as well as significant GI bleeding in relation to hemorrhoids. He required at least 4 units of blood at that time. He did have a paracentesis that was negative for any sign of spontaneous bacterial peritonitis. EGD 12/2022--nonobstructing d istal esophageal ring, duodenitis, and hiatal hernia. There was no evidence for esophageal or gastric varices, nor any portal gastropathy. Colonoscopy 12/2022 was negat love for any polyps nor any other lesions. However, he did have friable external hemorrhoids and some small internal hemorrhoids which were felt to be the source of his blood loss. Bleeding hemorrhoids with si gnificant anemia requiring transfusions during his hospitalization in December. He was evaluated by Dr. Regalado and has followed up with him in his office. He did have an examination under anesthesia to try to stop the bleeding from the hemorrhoids but did not actually have any removal of the hemorrhoidal tissue due to his active liver disease with associated coagulopathy, relative thrombocytopenia, and portal hypertension at that time when he was hospitalized in December of 2022. Surgical History Surgery Date(Month/Year)
--- OUTSIDE RECORDS SUMMARY | 2025-07-31 11:19 | XMS_ITS | Clinical Summary ---
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
== END 2025-07-31 10:54 | disposition home or self-care (01) ==
LOC: HO.HMCHD 10:10
PROVIDERS: PCP Internal Medicine; Visit Provider Physician Assistant
DX: Z00.00 Encounter for general adult medical examination without abnormal findings (principal); F17.210 Nicotine dependence, cigarettes, uncomplicated; K70.30 Alcoholic cirrhosis of liver without ascites